=== PATIENT | female | born 1965 | race Caucasian/White ===

== ENCOUNTER 2021-09-07 13:00 | Outpatient (RCR) | payer MEDICARE, MEDICAID, SELFPAY ==
[2021-07-11 09:20] VITALS: BP_SYST 30; BP_SYST 50
[2021-07-11 10:15] VITALS: BMI 11.0
--- NOTE | 2021-07-11 10:25 | OTOPEVAL ---
OCCUPATIONAL THERAPY INITIAL EVALUATION 07/11/21 Thank you for referring Redd Sands to [facility].? The patient is scheduled to be seen for therapy? 2x/week for 4 weeks. Please review, sign, date and return this plan of care BRIAN. I agree with and certify that the following plan of care is medically necessary. Referring Physician Date Referring Provider: Natalia Juarez MD *OT Outpatient Evaluation Start: 07/11/21 09:12 Outpatient Past Medical History Neurological History Hx Multiple Sclerosis Yes Cardiovascular History Hx Cardiac Disorders No Significant History Respiratory History Hx Respiratory Disorders No Significant History Gastrointestinal History Hx Gastrointestinal Disorders No Significant History Genitourinary History Hx Other Genitourinary Disorders Yes: incontinence Musculoskeletal History Hx Orthopedic Surgery Yes: L knee arthroscopy Hematological History Hx Hematological Disorders No Significant History Endocrine History Hx Endocrine Disorders No Significant History HEENT History Hx HEENT Disorders No Significant History Integumentary History Hx Skin Disorders No Significant History Pain History History of Any Previous or Ongoing No Significant History Instance of Pain Evaluation Information Problem Diagnosis MS, weakness, hand splint Subjective Information Patient presents today for Query Text:As Reported By Patient/ outpatient OT for UB weakness Family and contractures. She is interested in right wrist splint to help support the wrist and fingers. Prior Level of Function Activity Level (Last 3 Months) Hand Dominance Right Activity of Daily Living Ability Needs Some Help Indoor/Home Mobility Needs Some Help Community Mobility Needs Some Help Stairs Ability Not-Applicable Cooking No Cleaning No Laundry No Shopping No Driving No Home Setting Home Type House Environmental Barriers Ramp Living Situation With Spouse Support Available Hired Assistance Cargiver Responsibilities Comment Caregiver M-F from 9-4. Mobility Assistive Devices (Used Last 3 Wheelchair, Motorized Months) Bathroom Environment Shower, Curtain Bathing Equipment Grab Bars Toileting Equipment Grab Bars,Raised Toilet Seat Comments Additional Prior Level of Function Patient has assist with Comments bathing, dressing, toileting, and transfers. She stands in the shower and reports that
--- NOTE | 2021-07-11 16:35 | PTOPEVAL ---
Thank you for referring Redd Sands to [facility].? The patient is scheduled to be seen for therapy 2 x/week for 4 weeks. Please review, sign, date and return this plan of care BRIAN. I agree with and certify that the following plan of care is medically necessary. Referring Physician Date Attending Provider: Natalia Juarez MD Evaluation Information Problem Diagnosis MS Onset 30 yrs Additional Evaluation Detail She has been in a power wc for 15 years Current wc, [employer] [facility] 3, is 2 years old. Provider is Meaghan. Cushion True-Comfort- general use cushion Subjective Information She is standing in the shower. Query Text:As Reported By Patient/ She has a choreworker 5x/wk, Family then to assist. She requires assistance with all ADL's and functional mobility. She performs pressure relief a few times a day. Compression pump for eliana LE daily. Pain Assessment Timing of Pain Assessment Timing of Pain Assessment Assessment Self Report Self Report Pain Level 0 Pain Score Pain Score 0: Self Report Lower Extremity Range of Motion Hip Range of Motion Left Hip Flexion Range of Motion - Passive 30 Hip Abduction Range of Motion - Passive 5 Right Hip Flexion Range of Motion - Passive 30 Hip Abduction Range of Motion - Passive 10 Knee Range of Motion Right Knee Flexion Range of Motion - Passive 60 Knee Extension Range of Motion - Passive 0 Left Knee Flexion Range of Motion - Passive 10 Knee Extension Range of Motion - Passive 0 Ankle/Foot Range of Motion Bilateral Ankle Dorsiflexion With Knee Extension -70 Ankle Plantarflexion Range of Motion - 70 Lower Extremity Muscle Strength Testing General Lower Extremity Strength Gross Lower Extremity Strength 0/5 eliana LE Lower Extremity Muscle Tone General Lower Extremity Tone Pattern Bilateral Synergy Type Extension Pattern General Lower Extremity Tone Functional Radha eliana LE's 4/4 Limitations Comments Transfer Assessment Wheelchair Transfer Assessment Wheelchair Transfer Assistive Devices Gait Belt Wheelchair Transfer Destination Mat Sit to Stand Wheelchair Transfer Ability Total Assistance X 2 Stand to Sit Wheelchair Transfer Ability Total Assistance X 2 Ability to Safely Transfer To/From a Total Assistance X 2 Wheelchair Bed Mobility Assessment Bed Mobility Overall Bed Mobility Ability Total Assistance X 2 Rolling Left Ability Total Assistance X 2 Rolling Right Ability Total Assistance X 2 Bridg
--- NOTE | 2021-07-18 13:30 | PCOTNOTE ---
Patient arrived to the clinic 2 hours early. Due to being ride dependent, she cancelled OT appointment this date.
--- NOTE | 2021-08-03 07:53 | PCOTNOTE ---
Patient cancelled today's tx session due to having cubital tunnel release on the left elbow on Saturday.
[2021-08-10 09:45] VITALS: BP_SYST 40; BP_SYST 80
--- NOTE | 2021-08-10 10:31 | OTOPEVAL ---
OCCUPATIONAL THERAPY RE-EVALUATION REPORT 08/10/21 Redd presents today for OT re-evaluation following 5 therapy sessions focused on improved UE flexibility and UE positioning. Patient's caregiver attended all sessions and verbalizes good understanding of ROM HEP. A custom resting hand splint was fabricated and issued for the right hand. The patient plans to continue to wear and work up her wear time with the splint. Recommending 1 follow up session in 4 weeks to check in on the splint and adjust/progress as needed. No follow ups necessary in the meantime. Thank you for referring Redd Sands to [facility].? The patient is scheduled to be seen for a final occupational therapy?re-evaluation on 09/07/21. Please review, sign, date and return this plan of care BRIAN. I agree with and certify that the following plan of care is medically necessary. Referring Physician Date Referring Provider: Natalia Juarez MD *OT Outpatient Re-Evaluation Start: 07/11/21 09:12 Problem Diagnosis MS Onset 30 years ago Subjective Information Redd reports improved Query Text:As Reported By Patient/ flexibility of bilateral UEs. Family She reports that she was able to wear the resting hand splint for about 1.5 hrs and plans to continue to work up to 2 hr wear time. She is happy with her splint and HEP. Caregiver is indep. with HEP. Pain Assessment Timing of Pain Assessment Timing of Pain Assessment Re-assessment Self Report Self Report Pain Level 0 Pain Score Pain Score 0: Self Report Upper Extremity Range of Motion Scapular/ Shoulder Range of Motion Left Shoulder Flexion - Active 0 Shoulder Flexion - Passive 40 Shoulder Extension - Active 0 Shoulder Extension - Passive 0 Shoulder Abduction - Active 0 Shoulder Abduction - Passive 40 Right Shoulder Flexion - Active 0 Shoulder Flexion - Passive 80 Shoulder Extension - Active 0 Shoulder Extension - Passive 20 Shoulder Abduction - Active 0 Shoulder Abduction - Passive 80 Elbow/Forearm Range of Motion Left Elbow Flexion - Active 0 Elbow Extension - Active 0 Elbow Extension - Passive -100 Elbow/Forearm Range of Motion Comments Left elbow passive extension improved 10* Right Elbow Flexion - Active 140 Elbow Extension - Active -55 Elbow Extension - Passive -40 Forearm Supination - Active -35 Forearm Supination - Passive 0 Forearm Pronation - Active 85 Wrist Range of Motion Left Wrist Flexion - Active 0 Wrist Extension - Active 0 Wrist Extension - Passive -10 Right Wrist Flexion - Active 65 Wrist E
--- NOTE | 2021-08-10 12:04 | PTOPEVAL ---
Physical Therapy Discharge Summary: Thank you for referring Redd Sands to [facility].? Therapy services completed for ROM program, caregiver training for HEP, seating assessment with [employer] with modification performed to WC. No additional skilled PT services required at this time. Will DC skilled PT services. Please review, sign, date and return this discharge summary BRIAN. I agree with and certify that the following plan of care is medically necessary. Referring Physician Date Attending Provider: Natalia Juarez MD Problem Diagnosis MS Onset 30 years ago Additional Evaluation Detail She has been in a power wc for 15 years Current , [facility] Edge 3, is 1 years old. Provider is Meaghan. Cushion True-Comfort- general use cushion Subjective Information She feel her right foot on the Query Text:As Reported By Patient/ foot plate better and stay on Family the foot plate longer. She feels she is more flexible and can stand longer. She likes the seat allen adjustment but not the sarahy stick changes pain in LE of 0/10 at rest and 7/10 with stretching. She is performing pressure relief at least every hour at home. Pain Assessment Self Report Self Report Pain Level 0 Pain Score Pain Score 0: Self Report Lower Extremity Range of Motion Hip Range of Motion Left Hip Flexion Range of Motion - Passive 40 Hip Abduction Range of Motion - Passive 5 Right Hip Flexion Range of Motion - Passive 70 Hip Abduction Range of Motion - Passive 20 Knee Range of Motion Right Knee Flexion Range of Motion - Passive 90 Knee Extension Range of Motion - Passive 0 Left Knee Flexion Range of Motion - Passive 18 Knee Extension Range of Motion - Passive 0 Therapy treatment/education Exercise Description - ed on f/u recommendations Query Text:Record Sets, Reps, for cont stretching program, Resistance, and Position consistent pressure relief and management of tone at home. - reviewed modifications recommended for [employer]. - adjusted sarahy stick handle back to original knob. Discussed options to improve UE function with joystick in current place vs changing back Adjusted seat belt position
--- NOTE | 2021-09-07 13:43 | PCOTNOTE ---
OCCUPATIONAL THERAPY DISCHARGE NOTIFICATION 09/07/21 Patient:Redd Sands Date of :1965 Patient has not returned for any further treatments since 08/10/2021, therefore she will be discharged at this time. She was re-assessed by OT on 08/10/21 and was independent with her HEP. She was just beginning to get into a schedule with wearing her new resting hand splint and we decided to give that a months time for her to get used to. Called the patient today who reports the splint is going well and she is noticing improvements with her hand. She denies any further OT needs. Please refer to progress note from 08/10/21 for most recent re-assessment update. Thank you for referring this patient to [facility]. Please review, sign, date and return this discharge summary BRIAN. I have been updated about the patient's current status and I agree with discharge from the above service at this time. Referring Physician Date Referring Provider: Natalia Juarez MD
== END 2021-09-08 09:02 | disposition home or self-care (01) ==
LOC: ANHOT 13:00
PROVIDERS: PCP Family Medicine; Visit Provider Family Medicine
DX: M62.81 Muscle weakness (generalized) (principal); M79.603 Pain in arm, unspecified; G35 Multiple sclerosis
CPT/HCPCS: 97110; 97140; 97163; 97165; 97530; L3806

== ENCOUNTER 2021-10-25 12:30 | Outpatient (RCR) | payer MEDICARE, MEDICAID, SELFPAY ==
--- NOTE | 2021-10-02 14:47 | PTOPEVAL ---
PHYSICAL THERAPY EVALUATION AND PLAN OF CARE 10-02-21 Thank you for referring Redd Sands to [facility] for the diagnosis of lymphedema. She is scheduled to be seen for therapy? 2 x/week for 4 weeks. Please review, sign, date and return this plan of care BRIAN. I agree with and certify that the following plan of care is medically necessary. Referring Physician Date Attending Provider: Natalia Juarez MD *PT Outpatient Evaluation Past Medical History Source of Past Medical History Recalled from Previous Visit, Confirmed with Patient/Family Neurological History Hx Multiple Sclerosis Yes: 30 yrs Cardiovascular History Hx Cardiac Disorders No Significant History Respiratory History Hx Respiratory Disorders No Significant History Gastrointestinal History Hx Gastrointestinal Disorders No Significant History Genitourinary History Hx Other Genitourinary Disorders Yes: incontinence Musculoskeletal History Hx Orthopedic Surgery Yes: L knee arthroscopy; L elbow surgery- nerve release Hematological History Hx Hematological Disorders No Significant History Endocrine History Hx Endocrine Disorders No Significant History HEENT History Hx HEENT Disorders No Significant History Integumentary History Hx Skin Disorders No Significant History Pain History History of Any Previous or Ongoing No Significant History Instance of Pain Evaluation Information Problem Diagnosis lymphedema Onset Aug Prior Level of Function Activity Level (Last 3 Months) Occupation disabled Hand Dominance Right Home Setting Home Type House Living Situation With Spouse Mobility Assistive Devices (Used Last 3 Wheelchair, Motorized Months) Comments Additional Prior Level of Function use motorized w/c with R hand Comments sarahy stick; require assist of one for stand pivot bed<> w/c; is up in w/c all day long and sometimes sleep in the w/c; requires assist with bathing/ dressing, all home tasks; have hired helper assistance and family assist; is home alone 2-4 hours at time; Pain Assessment Timing of Pain Assessment Timing of Pain Assessment Assessment Self Report Self Report Pain Level 0 Pain Score Pain Score 0: Self Report Lower Extremity Range of Motion General Lower Extremity Range of Motion Gross Lower Extremity Range of Motion pt in w/c: Comments R LE: position R ankle in PF of 40' and inver
--- NOTE | 2021-10-25 13:36 | PTOPEVAL ---
PHYSICAL THERAPY DISCHARGE 10-25-21 Refer to the clinical summary below, for her status today, compared to the initial evaluation. The goals were achieved and she will be discharged from PT at this time. Thank you for referring Redd Sands to [facility].? Please review, sign, date and return BRIAN. I agree with and certify that the following plan of care is medically necessary. Referring Physician Date Attending Provider: Natalia Juarez MD Document 10/25/21 12:35 AMY (Rec: 10/25/21 13:32 AMY [id number]) Subjective Information Redd reports: to receive Query Text:As Reported By Patient/ garment in next few days; feel Family like ready to be finished with PT; Pain Assessment Timing of Pain Assessment Timing of Pain Assessment Assessment Self Report Self Report Pain Level 0 Pain Score Pain Score 0: Self Report Lymphedema Evaluation Skin Inspection Location Left Lower Extremity,Right Lower Extremity Skin Observations Dorsum Foot Swelling Palpation Findings Cool Skin Temperature Lymphedema Stage I Skin Inspection Comment R and L lower leg without any fibrotic tissue; malleoli visible and no swelling over dorsum of foot or toes; L lower leg with brownish discoloration of skin, with ankle and foot/toes normal color; knee and thigh good skin color; LE Circumferential Measurement Left LE Lymphedema Side Left Metatarsal Heads (cm) 20.8 Figure 8 of Ankle (cm) 51.8 8 cm From Bottom of Foot (cm) 25 12 cm From Bottom of Foot (cm) 22.4 16 cm From Bottom of Foot (cm) 23.8 20 cm From Bottom of Foot (cm) 27.4 24 cm From Bottom of Foot (cm) 31.4 28 cm From Bottom of Foot (cm) 35 32 cm From Bottom of Foot (cm) 36 36 cm From Bottom of Foot (cm) 35.6 40 cm From Bottom of Foot (cm) 36.2 Total Left Lower Extremity Left LE: 345.4 cm Circumferential Measurement (cm) Additional Lower Extremity decreased 68 cm overall since Circumferential Measurement Comments eval. Right LE Lymphedema Side Right Metatarsal Heads (cm) 20 Figure 8 of Ankle (cm) 52 8 cm From Bottom of Foot (cm) 25.4 12 cm From Bottom of Foot (cm) 23 16 cm From Bottom of Foot (cm) 24.5 20 cm From Bottom of Foot (cm) 26.8 24 cm From Bottom of Foot (cm) 31.2 28 cm From Bottom of Foot (cm) 34 32 cm From Bottom of Foot (cm) 35 36 cm From Bottom of Foot (cm) 35.2 40 cm From Bottom of
== END 2021-10-26 16:04 | disposition home or self-care (01) ==
LOC: ANHPT 12:30
PROVIDERS: PCP Family Medicine; Visit Provider Family Medicine
DX: Q82.0 Hereditary lymphedema (principal); G35 Multiple sclerosis
CPT/HCPCS: 29581; 97140; 97161

== ENCOUNTER 2021-11-21 11:38 | Inpatient (IN) | payer MEDICARE, MEDICAID, SELFPAY ==
[2021-11-21] VITALS (21 sets, daily range): BP systolic 148–177; BP diastolic 66–95; PULSE 77–87; RESP 14–22; TEMP 36.3–37; O2SAT 79–100; BMI 31.4
--- NOTE | ~2021-11-21 | US_ITS ---
EXAMINATION: US abdomen limited DATE: 11/21/2021 16:25 INDICATION: Right upper quadrant abdominal pain. TECHNIQUE: Multiple grayscale and Doppler ultrasound images of the abdomen were obtained. COMPARISON: CT dated 11/21/2021 and ultrasound dated 06/26/2018 FINDINGS: The visualized portion of the pancreatic body is normal in appearance. The pancreatic head and tail a re not clearly visualized. Liver has normal echogenicity and contour, with a smooth surface. No liver lesion identified. . The liver was however relatively high riding and portions of the dome of the li deep are not clearly visualized. No intrahepatic biliary duct dilation suspected. Portal venous flow w as seen in the hepatopetal, normal direction and has normal Doppler waveform. There is a relatively h omogeneous hypoechoic appearance to the gallbladder with multiple foci of heterogeneous color Doppler signal within the lumen of the gallbladder. On cine color Doppler this has an appearance most consis tent with twinkle artifact. No evident arterial waveforms with the color Doppler signal. Paravertebra l venous waveform identified within the region of interest was placed near the wall of the gallbladde r. No evident shadowing cholelithiasis. The common bile duct measures 6 mm, which is at the upper villagomez its of normal. IMPRESSION: 1. Gallbladder lumen is hypoechoic with foci of intraluminal heterogeneous color Doppler signal. Base d on color Doppler appearance and lack of an arterial waveform would favor typical artifact related t o cholesterol crystals and sludge within the gallbladder over solid intraluminal neoplasm. Visualizat ion is however suboptimal with high riding liver and gallbladder necessitating imaging through an int ercostal space. Given the suspicious appearance for acute cholecystitis on prior CT could consider HI DA scan for further evaluation if clinically equivocal. MRI/MRCP could be obtained for more definitiv e assessment of the lumen of the gallbladder to exclude malignancy. Reviewed, dictated and finalized at location B. IMPRESSION: 1. Gallbladder lumen is hypoechoic with foci of intraluminal heterogeneous colo r Doppler signal. Based on color Doppler appearance and lack of an arterial wav eform would favor typical artifact related to cholesterol crystals and sludge w ithin the gallbladder over solid intraluminal neoplasm. Visualization is howeve r suboptimal with high riding liver and gallbladder necessitating imaging throu gh an intercostal space. Given the suspicious appearance for acute cholecystiti s on prior CT could consider HIDA scan for further evaluation if clinically equ ivocal. MRI/MRCP could be obtained for more definitive assessment of the lumen of the gallbladder to exclude malignancy.
--- NOTE | ~2021-11-21 | CT_ITS ---
EXAMINATION: CT abdomen pelvis w con DATE: 11/21/2021 13:37 INDICATION: Right lower quadrant abdominal pain TECHNIQUE: Computed tomography (CT) of the abdomen and pelvis was performed with 100 mL Omnipaque-350 intravenous contrast. Automated exposure control and iterative reconstruction technique were employe d. The dose-length product was 1211.55 mGy-cm. COMPARISON: None FINDINGS: Small posterior layering right pleural effusion. Dependent atelectasis in the bilateral lower lobes, right greater than left. Heart size is normal. Atherosclerotic coronary artery calcification. No olaf cardial effusion. Small sliding-type hiatal hernia. 1.2 cm cyst at the dome of the liver. Gallbladder is distended with pericholecystic inflammatory stranding in small amount of fluid suspicious for acu te cholecystitis. The common bile duct measures up to 7 mm diameter which is at the upper limits of n ormal. No evident obstructing stone or mass at the distal common bile duct. No intrahepatic biliary d uctal dilation. Pancreas, spleen, bilateral adrenal glands and kidneys are normal. Bladder is normal. Bowels including the appendix are normal uterus and bilateral ovaries are unremarkable. Likely tubal ligation rings along the left and right sides of the broad ligament. Additional small amount of asci odette extends over the anterior dome of the liver. No abscess or free intraperitoneal gas. There is shanique cified atherosclerosis of the aorta and bilateral iliac arteries. Mild lumbar levoscoliosis with mod erate spondylosis. Is also mild to moderate bilateral hip osteoarthritis. Osteitis pubis. IMPRESSION: 1. Acute cholecystitis with small amount of perihepatic and pericholecystic ascites. 2. Small right pleural effusion. Reviewed, dictated and finalized at location B. IMPRESSION: 1. Acute cholecystitis with small amount of perihepatic and pericholecystic asc ites. 2. Small right pleural effusion.
--- NOTE | ~2021-11-21 | XR_ITS ---
EXAMINATION: XR chest 1V portable EXAM DATE: 11/25/2021 10:07 INDICATION: New onset hypoxia. TECHNIQUE: Portable AP frontal chest x-ray was obtained. Comparison is made to prior examination from 07/30/2016. FINDINGS: There is multi segmental right lower lobe and left infrahilar airspace disease, with volume loss on the right. There is small right pleural effusion. Consider pneumonia and/or atelectasis. Wou ld be atypical for cancer to involve both lungs. Cholecystectomy clips. No pneumothorax. Cardiomedias tinal silhouette is normal. IMPRESSION: Multisegmental bibasilar airspace disease with right-sided volume loss, pneumonia and/or atelectasis. Small right pleural effusion. Follow-up to resolution recommended. Reviewed, dictated and finalized at location A.
--- NOTE | ~2021-11-21 | MR_ITS ---
EXAMINATION: MR MRCP wo/w con/w 3D wo ind DATE: 11/22/2021 15:59 INDICATION: Elevated liver function tests. TECHNIQUE: Magnetic resonance imaging (MRI) of the abdomen was performed without and with 17 mL Multi james intravenous contrast. Sequences included coronal T2-weighted SS-FSE, coronal T2-weighted FS SS- FSE, coronal T2-weighted FS FIESTA, axial T2-weighted FS FIESTA, axial T2-weighted FIESTA, sagittal T 2-weighted SS-FSE, axial T1-weighted dual-echo FSPGR, axial T2-weighted SS-FSE, axial T1-weighted LAV A, axial T2-weighted STIR FSE. Thick-slab T2-weighted FSE images were obtained for magnetic resonance cholangiopancreatography (MRCP). Rotating maximum intensity projection 3-D reconstructions of the vo lumetric data were created by the technologist. Postcontrast sequences included a time course of axia l T1-weighted LAVA. COMPARISON: CT and ultrasound dated 11/21/2021 FINDINGS: ABDOMEN MRI: Heart size is normal. No pericardial effusion. Small right pleural effusion and trace left pleural ef fusion with compressive dependent atelectasis in the right middle and to lesser degree left lower lob e. 11 mm nonenhancing cyst at the anterior left hepatic lobe. Mild periportal edema throughout the li deep. Dilated gallbladder measuring approximately 14.5 cm in length and 4.1 cm maximal diameter. Multi ple low signal intensity gallstones and hypointense sludge in the dependent aspect of the gallbladder . Likely impacted 6 mm stone at the neck of the gallbladder. There is enhancing wall thickening of th e gallbladder measuring up to 3-4 mm but no solid enhancing nodules to suggest malignancy. There is a lso prominent pericholecystic inflammatory stranding consistent with acute cholecystitis. Pancreas, s pleen, bilateral adrenal glands are normal. Bilateral parapelvic cysts at the otherwise normal-appear ing kidneys. There is small amount of ascites scattered throughout the abdomen and pelvis most promin ent and with complex appearance with multiple internal septations and heterogeneous signal intensity overlying the liver. The next largest pocket is still relatively small in the right hemipelvis with a dditional small amount of fluid scattered throughout the mesentery. Stranding at the melanie hepatis, a bout the head of the pancreas and extending caudally along the right anterior and posterior pararenal spaces. Additional subcutaneous edema posterior to the lumbar spine. No pathologically enlarged abdo jonelle lymphadenopathy. Mild lumbar levocurvature with mild spondylosis. ABDOMEN MRCP: No intrahepatic biliary ductal dilation. The common bile duct measures 6 mm diameter which is within normal limits. No filling defects identified to suggest choledocholithiasis. The main pancreatic duct is normal. IMPRESSION: 1. Acute cholecystitis with sludge and stones including a 6 mm likely impacted stone at the neck of t he gallbladder. 2. Borderline common bile duct diameter of 6 mm with no intrahepatic biliary ductal dilation or evide nt choledocholithiasis. 3. Complex perihepatic ascites with small amounts of more diffuse simple appearing ascites and the re mainder of the abdomen and pelvis. The complex appearance suggests associated inflammation either rel ated to superinfection or hemorrhage. 4. Small right and trace left pleural effusions with dependent atelectasis in the lower lobes, right greater than left. Reviewed, dictated and finalized at location B. IMPRESSION: 1. Acute cholecystitis with sludge and stones including a 6 mm likely impacted stone at the neck of the gallbladder. 2. Borderline common bile duct diameter of 6 mm with no intrahepatic biliary du ctal dilation or evident choledocholithiasis. 3. Complex perihepatic ascites with small amounts of more diffuse simpl
--- NOTE | 2021-11-21 12:04 | ED.ABDPAIN ---
HPI - Abdominal Pain General Chief Complaint: Abdominal Pain Stated Complaint: RUQ and R flank pain Time Seen by Provider: 11/21/21 12:01 Source: patient and family Mode of arrival: EMS Limitations: no limitations History of Present Illness HPI narrative: The patient is a 56-year-old female with a history of multiple sclerosis, lymphedema, presenting to the emergency department for evaluation of right lower quadrant abdominal pain. Pain awakened the patient suddenly around 2:30 in the morning, described as a sharp, burning pain in the right lower quadrant without radiation to the right flank or lower pelvis. Patient denies any associated chest pain, shortness of breath. She denies fever, chills, nausea or vomiting. Patient states she is incontinent of urine, has not noticed malodorous urine or hematuria. No burning urination. She denies any diarrhea. Patient denies any recent diagnosis of Covid. States that she did have a general viral cold last week. Denies any lingering symptoms from that. Denies history of abdominal surgeries. Last oral intake last night around 9 PM. Patient does take anticoagulation. Related Data Allergies Allergy/AdvReac Type Severity Reaction Status Date / Time doxycycline Allergy Unknown Rash Verified 07/17/21 12:02 Review of Systems Review of Systems: CONSTITUTIONAL: Denies fever, chills, or sweats. EYES: Denies visual changes, redness, or discharge. ENT: Denies current rhinorrhea, congestion, sore throat, or otalgia. CARDIOVASCULAR: Denies chest pain, palpitations, or edema. RESPIRATORY: Denies cough or dyspnea. GASTROINTESTINAL: Reports abdominal pain without nausea, vomiting or diarrhea GENITOURINARY: Denies dysuria or hematuria. SKIN: Denies rash or itching. MUSCULOSKELETAL: Denies back pain, joint pain, or myalgia. NEUROLOGIC: Denies headache, numbness, or weakness. [facility] Past Medical History Medical History Candidal skin infection Complete immobility due to severe physical disability or frailty Depression Lymphedema MS (multiple sclerosis) Paresthesia of left upper extremity Vitamin D deficiency Surgical History Surgical History History of surgery on upper extremity History of tubal ligation Family History Family History Other Family history of coronary artery disease Family history of malignant neoplasm of breast in first degree relative Social History Social History Social History: The patient lives at home with her , Casey, and is primarily bedbound. She requires assistance to get to a powered wheelchair when needed for mobility. Second hand tobacco smoke exposure: No Alcohol intake: never Substance use: never Substance use type: does not use Living arrangements: with family Additional occupation/education comments: Disability Gender identity (if verbalized by the patient): Female Exam Narrative: GENERAL: Awake, alert, conversant HEAD: Normocephalic, atraumatic. EYES: PERRLA and EOMI. ENT: Nares clear, no rhinorrhea or epistaxis. Mucous membranes moist. NECK: Supple. CHEST: No respiratory distress, breathing even and non labored HEART: Regular rate, sinus rhythm ABDOMEN:Non distended, tender in the right lower quadrant, positive rebound tenderness, guarding limited secondary to chronic contractures of the upper extremities, denies flank tenderness EXTREMITIES: Chronic contractures bilateral upper and lower extremities, at baseline per the patient SKIN: Warm, dry, no rash. NEURO:No focal deficits. Alert and oriented x3 Course Vital Signs Vital signs: Vital Signs Pulse Rate 80 11/21/21 11:44 Respiratory Rate 19 11/21/21 11:44 Temperature 36.3 C L 11/21/21 15:47 Pulse Rate 83 11/21/21 15:47 Respiratory
[2021-11-21] MEDS: ONDANSETRON INJ 4 MG/2 ML VIAL IV PUSH ×2 (12:43→18:22)
[2021-11-21] MEDS: SODIUM CHLORIDE 0.9% IV 1,000 ML 999 ML IV CONT (12:44)
[2021-11-21 12:56] LABS: Basophils Absolute Auto 0.1 K/mm3 (0.0-0.1); Basophils Percent Auto 0.3 % (0.2-1.2); Eosinophils Absolute Auto 0.4 K/mm3 (0-0.3); Eosinophils Percent Auto 2.7 % (0-4.4); Hematocrit 45.5 % (37.0-47.0); Hemoglobin 14.8 g/dL (12.0-15.0); Immature Granulocyte Absolute 0.07 K/mm3 (0.00-0.031); Immature Granulocyte Percent A 0.4 % (0-0.5); Lymphocytes Absolute Auto 2.15 K/mm3 (0.9-3.2); Lymphocytes Percent Auto 13.7 % (18.3-44.2); Mean Corpuscular HGB Conc 32.5 g/dl (32-36); Mean Corpuscular Hemoglobin 31.2 pg (26-34); Mean Platelet Volume 10.7 fl (7.4-10.4); Monocytes Absolute Auto 1.6 K/mm3 (0.1-0.6); Monocytes Percent Auto 10.2 % (2.6-8.5); Neutrophils Absolute Auto 11.4 K/mm3 (1.3-6.7); Neutrophils Percent Auto 72.7 % (45.5-73.1); Platelet Count Result 289 k/mm3 (150-375); Red Blood Count 4.74 M/mm3 (4.2-5.4); Red Cell Distribution Width 13.8 % (11.5-14.5); White Blood Count 15.7 K/mm3 (4.5-10.0)
[2021-11-21 13:20] LABS: Alanine Aminotransferase 19 U/L (4-35); Albumin Level 4.3 g/dL (3.5-5.1); Alkaline Phosphatase 78 U/L (38-126); Anion Gap 9 mmol/L (8-16); Aspartate Amino Transferase 33 U/L (14-36); Bilirubin,Total 1.1 mg/dL (0.2-1.3); Blood Urea Nitrogen 19 mg/dL (7-17); Calcium 8.9 mg/dL (8.4-10.2); Carbon Dioxide 24 mmol/L (22-30); Chloride 102 mmol/L (98-107); Estimated Glomerular Filt Rate 57; Glucose 109 mg/dL (65-110); Lipase 40 U/L (23-300); Potassium 4.7 mmol/L (3.4-5.0); Sodium 135 mmol/L (137-145)
[2021-11-21 15:42] LABS: Add Urine Microscopic? YES; Appearance Urine Cloudy (Clear); Bacteria Urine Trace /hpf; Bilirubin Urine Negative (Negative); Blood Urine 2+ (Negative); Color Urine Yellow (Yellow); Glucose Urine UA Negative (Negative); Ketones Urine 1+ mg/dL (Negative); Leukocyte Esterase Ur Negative LEU/UL (Negative); Mucus Urine Rare /lpf; Nitrate Urine Negative (Negative); Protein Urine Negative (Negative); RBC Urine 51-75 /hpf (0-2); Squamous Epithelial Cell Urine Many /hpf (Few); WBC Urine 0-3 /hpf
--- NOTE | 2021-11-21 15:49 | PM.CNGS ---
Assessment and Plan Assessment and plan (1) Acute cholecystitis: Code(s): K81.0 - Acute cholecystitis Status: Acute Assessment and Plan: CT scan suggests possible acute cholecystitis with gallbladder distention and pericholecystic inflammatory stranding in a small amount of fluid, but no visible cholelithiasis. WBC count 15,700 and LFTs were normal. Since there were no gallstones seen on CT, we will also order a gallbladder ultrasound. It is less likely, but it is possible that she has acute acalculous cholecystitis. Will await US results. Patient's pain has improved but still persistent. I discussed treatment options with the patient. Given her persistent abdominal pain and leukocytosis, we would recommend proceeding with a laparoscopic cholecystectomy, possible open, possible IOC, by Dr. Le under general anesthesia. Description of the procedure, risks, benefits, expected outcomes, and expected recovery were discussed with the patient in detail. The patient is at a higher risk for surgery given her co-morbidities, immobility, and anticoagulation. She is aware and all questions were answered. She last took her Eliquis this morning around 9:00 am, therefore we would prefer to wait and schedule the surgery at least 48 hours after her last dose to allow the anticoagulation time to wear off. Will continue IV Zosyn and analgesics for now. Will allow a full liquid diet today. Thank you for allowing us to see the patient in consultation and we will continue to follow along with you. (2) MS (multiple sclerosis): Code(s): G35 - Multiple sclerosis Status: Acute Assessment and Plan: Increases risks for surgery. Discussed with patient. See plan above. (3) Lymphedema: Code(s): I89.0 - Lymphedema, not elsewhere classified Status: Acute Assessment and Plan: She typically takes spironolactone for her swelling and lymphedema. She currently only has mild edema in her lower legs and no open sores associated with the lymphedema in her lower legs. Monitor. (4) Depression: Code(s): F32.9 - Major depressive disorder, single episode, unspecified Status: Acute Assessment and Plan: Okay to resume home medications from our standpoint since surgery will be held off until her anticoagulation has worn off. Management per Hospitalist. (5) Complete immobility due to severe physical disability or frailty: Code(s): R53.2 - Functional quadriplegia Status: Acute Assessment and Plan: Discussed with the patient that she is at higher risks of post-operative complications with her immobility/M.S.. She understands and agrees to working towards using the IS and complying with any activity that is possible at her baseline to help prevent pneumonia and blood clots post-operatively. (6) Anticoagulant long-term use: Code(s): Z79.01 - nursing home (current) use of anticoagulants Status: Acute Assessment and Plan: Reportedly takes Eliquis prophylactically for blood clots due to her immobility with MS. She last took a dose around 9:00 am. Hold Eliquis for now to plan for surgery. Additional Plan I have discussed the patient's case and plan of care with Dr. Le. History of Present Illness Consult details Consult date: 11/21/21 Reason for consult: other (Acute cholecystitis) Requesting physician: Agata Alas MD Narrative: This is a 56-year-old female with a history of multiple sclerosis, hypothyroidism, lymphedema, and depression, who presented to the ER today with complaints of RUQ abdominal pain. She reports eating pizza last night for dinner and going to bed feeling well. She woke up from sleep around 2:30 am with severe RUQ abdominal pain that radiated to her mid upper back. The pain was sharp and she denies ever experiencing this pain in the past. She denies any associated nausea, vomiting, or chills. The pain was unrelenting and they called EMS who brought her into the ER f
[2021-11-21 15:52] LABS: Specific Grav Ur 1.036 (1.001-1.035)
[2021-11-21] MEDS: LACTATED RINGERS 1,000 ML 125 ML IV CONT (16:55)
--- NOTE | 2021-11-21 17:16 | ADMGEN ---
This patient, Redd Sands, was admitted to [facility] Surg Room 327-01 at 1710. Patient/family oriented to hospital policies and general routines including ID bracelet, bed and alarms, visiting hours, pain management, procedures, bathroom and other care routines, personal items, smoking policy, room service/diet, and visiting hours. Information on how to activate the Rapid Response Team has been discussed. Patient/Family are encouraged to report perceived risks to care and to ask questions if they do not understand what they are told or what they should do.
--- NOTE | 2021-11-21 18:00 | PM.IMHP ---
H&P: HPI History of Present Illness Date/Time: 11/21/21 18:00 Chief Complaint: Abdominal pain. Narrative: This is a very pleasant 56-year-old female with multiple sclerosis, hypothyroidism, lymphedema, and depression who presented to the emergency department from home for evaluation of abdominal pain. She had pizza for dinner last night and went to bed in her usual state of health. At about 02:30 she was awakened from sleep with severe sharp and burning pain in the right upper quadrant, radiating through to the back. It has been nearly constant since the outset and she denies significant aggravating or alleviating factors. On arrival to the emergency department her vital signs were stable. Pertinent labs include a white blood cell count of 15.7 with normal LFTs and lipase. CT scan of the abdomen and pelvis suggest findings of acute cholecystitis and she is being admitted in this setting. At the onset of my interview she was pretty comfortable however the pain returns pretty significantly and she was given morphine and Zofran for the pain and associated nausea. She has never had similar symptoms in the past and has no known history of gallbladder disease. She denies fever, chills, sweats, vomiting, and diarrhea. Review of Systems Review of Systems: Twelve systems were reviewed. She has pretty significant debility due to her multiple sclerosis and gets around with an electric scooter. Due to contracted upper extremities and very stiff lower extremities her family provide her with full assistance. She is chronically incontinent and wears depends. She denies dysuria, frequency, and hesitancy. Last bowel movement was within the last day or 2 and was unremarkable. No history of venous thromboembolism however she is on prophylactic Eliquis to help prevent DVTs. No history of cardiac or pulmonary disease. She denies chest pain shortness of breath. Reports having a cold last week but her symptoms have improved. Except as documented, all other systems were reviewed and are negative. [facility] Past Medical History Medical History (Updated 11/21/21 @ 22:31 by Stephanie Garcia PA-C) Anticoagulant long-term use On apixaban for DVT prophylaxis. Complete immobility due to severe physical disability or frailty Depression Lymphedema Multiple sclerosis Vitamin D deficiency Surgical History Surgical History History of surgery on upper extremity History of tubal ligation Family History Family History Other Family history of coronary artery disease Family history of malignant neoplasm of breast in first degree relative Social History Social History (Updated 11/21/21 @ 22:28 by Stephanie Garcia PA-C) Social History: The patient lives at home with her , Casey, and is primarily bedbound. She requires assistance to get to a powered wheelchair when needed for mobility. No alcohol, tobacco, or illicit substance use. She designates her as her surrogate decision maker and she wishes to be a full code. Spiritual care concerns: No Meds Home Medications and Allergies Home Medications Medication Instructions Recorded Confirmed Type pyridoxine (vitamin B6) 100 mg 100 mg PO DAILY #100 tablet 03/14/21 11/21/21 Rx tablet tramadol 50 mg tablet 50 mg PO Q6H PRN #30 tablet 04/13/21 11/21/21 Rx spironolactone 25 mg tablet 50 mg PO BID #360 tablet 08/23/21 11/21/21 Rx omeprazole 40 mg capsule,delayed 40 mg PO BID #180 cap 08/25/21 11/21/21 Rx release levothyroxine 50 mcg tablet See Rx Instructions .ROUTE 09/02/21 11/21/21 Rx .COMPLEX #90 tablet bupropion HCl 150 mg 24 hr tablet, 450 mg PO QAM #90 tablet 09/03/21 11/21/21 Rx extended release aripiprazole 2 mg tablet 2 mg PO QHS #30 tablet 09/27/21 11/21/21 Rx apixaban 5 mg tablet 5 mg PO BID #60 tablet 10/27/21 11/21/21 Rx baclofen 30 mg PO DAILY 11/21/21 11/21/21 Hist
[2021-11-21] MEDS: MORPHINE SULFATE (*CRX) 4 MG/ML INJ IV PUSH ×2 (18:22→22:32)
[2021-11-22] MEDS: BACLOFEN 10 MG TABLET 30 MG PO ×2 (00:26→20:15)
[2021-11-22] MEDS: ARIPiprazole 2 MG TABLET PO ×2 (00:28→20:15)
[2021-11-22] MEDS: LACTATED RINGERS 1,000 ML 125 ML IV CONT ×3 (03:52→23:05)
[2021-11-22] MEDS: LEVOTHYROXINE SODIUM 50 MCG TABLET BY MOUTH (05:41)
[2021-11-22 06:00] VITALS: BP 157/99; PULSE 78; RESP 18; TEMP 36.8; O2SAT 94
[2021-11-22 06:30] LABS: Basophils Absolute Auto 0.1 K/mm3 (0.0-0.1); Basophils Percent Auto 0.3 % (0.2-1.2); Hematocrit 48.6 % (37.0-47.0); Hemoglobin 16.2 g/dL (12.0-15.0); Immature Granulocyte Absolute 0.13 K/mm3 (0.00-0.031); Immature Granulocyte Percent A 0.6 % (0-0.5); Lymphocytes Absolute Auto 1.54 K/mm3 (0.9-3.2); Lymphocytes Percent Auto 7.2 % (18.3-44.2); Mean Corpuscular HGB Conc 33.3 g/dl (32-36); Mean Corpuscular Volume 93.1 fl (80-100); Mean Platelet Volume 10.4 fl (7.4-10.4); Monocytes Absolute Auto 1.7 K/mm3 (0.1-0.6); Monocytes Percent Auto 7.8 % (2.6-8.5); Neutrophils Percent Auto 84.1 % (45.5-73.1); Platelet Count Result 312 k/mm3 (150-375); Red Blood Count 5.22 M/mm3 (4.2-5.4); Red Cell Distribution Width 13.6 % (11.5-14.5); White Blood Count 21.4 K/mm3 (4.5-10.0)
[2021-11-22 06:51] LABS: Alanine Aminotransferase 38 U/L (4-35); Albumin Level 3.6 g/dL (3.5-5.1); Alkaline Phosphatase 79 U/L (38-126); Anion Gap 8 mmol/L (8-16); Aspartate Amino Transferase 60 U/L (14-36); Bilirubin,Total 1.7 mg/dL (0.2-1.3); Blood Urea Nitrogen 17 mg/dL (7-17); Calcium 8.3 mg/dL (8.4-10.2); Carbon Dioxide 21 mmol/L (22-30); Chloride 104 mmol/L (98-107); Estimated CRCL calculation 65 ml/min; Estimated Glomerular Filt Rate > 60; Glucose 158 mg/dL (65-110); Lipase 29 U/L (23-300); Sodium 133 mmol/L (137-145)
[2021-11-22] MEDS: buPROPion HCL XL (24 HR) 150 MG TABCR 450 MG PO (09:23)
[2021-11-22] MEDS: CITALOPRAM HYDROBROMIDE 20 MG TABLET 40 MG PO (09:23)
[2021-11-22] MEDS: PANTOPRAZOLE 40 MG TABLET PO ×2 (09:24→16:59)
[2021-11-22] MEDS: PYRIDOXINE HCL 50 MG TABLET 100 MG PO (09:24)
--- NOTE | 2021-11-22 10:03 | PM.IMPN ---
Progress Note: A&P Assessment and Plan (1) Acute cholecystitis: Code(s): K81.0 - Acute cholecystitis Status: Acute Assessment and Plan: Surgery consult Patient on Eliquis surgery will be postponed Possible surgical intervention in a.m. Leukocytosis worsening Check lactic acid. (2) Multiple sclerosis: Code(s): G35 - Multiple sclerosis Status: Acute Assessment and Plan: Not currently on treatment but is on medications for symptom relief. She is bed bound but can get into a scooter with help from her family. (3) Lymphedema: Code(s): I89.0 - Lymphedema, not elsewhere classified Status: Acute Assessment and Plan: Patient reports taking spironolactone for her swelling. Continue for now as her blood pressures are also elevated, likely due to pain. (4) Anticoagulant long-term use: Code(s): Z79.01 - senior care (current) use of anticoagulants Status: Chronic Assessment and Plan: Apixaban prescribed for reported DVT prophylaxis is being held in anticipation of surgery. But patient is on therapeutic dose for DVT 5 mg twice a day PCP to address as out pain Resume once okay per surgery (5) Depression: Code(s): F32.9 - Major depressive disorder, single episode, unspecified Status: Acute Assessment and Plan: No acute issues. Continue aripiprazole. Subjective Date/time seen: 11/22/21 10:03 Interval history: 56-year-old female with multiple sclerosis, hypothyroidism, lymphedema, and depression who presented to the emergency department from home for evaluation of abdominal pain CT scan of the abdomen shows cholecystitis Patient was admitted to the hospital for further evaluation the surgery was consulted Patient feels weak complains of abdominal pain Patient denies fever headache chest pain shortness of breath I am seeing the patient for abdominal pain Exam Narrative: Alert Chest no wheeze crackles Abdomen tender no rebound no guarding CVS S1 + S2 Mild Lower extremity edema Quadriparesis Objective Data Vital Signs Vital Signs: Vital Signs - 24 hr 11/21/21 11:44 11/21/21 11:45 11/21/21 11:46 Temperature Pulse Rate 80 81 78 Respiratory Rate 19 22 H 20 Blood Pressure 154/87 H Pulse Oximetry 89 L 91 11/21/21 11:48 11/21/21 12:03 11/21/21 12:23 Temperature 98.3 F Pulse Rate 78 77 79 Respiratory Rate 16 14 19 Blood Pressure 154/87 H Pulse Oximetry 96 94 96 11/21/21 12:31 11/21/21 13:06 11/21/21 13:15 Temperature Pulse Rate 80 80 83 Respiratory Rate 19 17 17 Blood Pressure 148/78 H Pulse Oximetry 96 94 96 11/21/21 13:49 11/21/21 14:08 11/21/21 14:09 Temperature Pulse Rate 87 85 86 Respiratory Rate 20 22 H 21 H Blood Pressure 160/95 H Pulse Oximetry 91 89 L 93 11/21/21 14:15 11/21/21 14:30 11/21/21 14:45 Temperature Pulse Rate 84 85 85 Respiratory Rate 18 17 17 Blood Pressure Pulse Oximetry 91 79 L 92 11/21/21 15:47 11/21/21 16:30 11/21/21 18:00 Temperature 97.3 F L 97.3 F L Pulse Rate 83 82 Respiratory Rate 16 16 Blood Pressure 166/86 H 152/66 H Pulse Oximetry 100 96 94 11/21/21 18:11 11/21/21 20:00 11/21/21 21:52 Temperature 97.9 F 98.6 F Pulse Rate 77 87 87 Respiratory Rate 19 18 18 Blood Pressure 177/88 H 154/82 H Pulse Oximetry 94 90 90 11/22/21 06:00 Temperature 98.3 F Pulse Rate 78 Respiratory Rate 18 Blood Pressure 157/99 H Pulse Oximetry 94 Intake/Output Intake/Output: Intake & Output 11/19/21 11/20/21 11/21/21 11/22/21 23:59 23:59 23:59 23:59 Intake Total 1200 1050 Output Total 2 Balance 1200 1048 Meds/Results Medications: Active Medications Generic Name Dose Route Start Last Admin Trade Name Freq PRN Reason Stop Dose Admin Hydrocodone Bitart/Acetaminophen 1 tab 11/21/21 20:01 Hydrocodone/Acetaminophen (*Crx) 5-325 Mg Tablet PO Q6H PRN Pain Rated 4-6 Aripiprazole 2 mg
[2021-11-22] MEDS: SPIRONOLACTONE 25 MG TABLET 50 MG PO ×2 (10:39→16:58)
[2021-11-22 11:06] LABS: Lactic Acid Reflex 1.1 mmol/L (0.7-2.1)
--- NOTE | 2021-11-22 12:42 | PM.PNGS ---
Progress Note: A&P Assessment and Plan (1) Acute cholecystitis: Code(s): K81.0 - Acute cholecystitis Status: Acute Assessment and Plan: WBC went up to 21,000 and her LFTs were up this morning, although oddly her abdominal pain has improved some. RUQ US showed possible sludge and cholesterol crystals in the gallbladder versus less likely a solid intraluminal neoplasm, but she has a high riding liver and it was difficult to assess the gallbladder. Given the US findings and elevated LFTs, we will order and MRCP today to rule out choledocholithiasis and hopefully better evaluate the gallbladder wall. Continue to hold anticoagulation and plan for laparoscopic cholecystectomy tomorrow. Okay to have clear liquids after MRCP today and make NPO after midnight. Continue IV antibiotics. Repeat labs tomorrow. (2) MS (multiple sclerosis): Code(s): G35 - Multiple sclerosis Status: Acute (3) Lymphedema: Code(s): I89.0 - Lymphedema, not elsewhere classified Status: Acute (4) Complete immobility due to severe physical disability or frailty: Code(s): R53.2 - Functional quadriplegia Status: Acute (5) Anticoagulant long-term use: Code(s): Z79.01 - FPC (current) use of anticoagulants Status: Chronic Assessment and Plan: Continue to hold Eliquis. Additional Plan I have discussed the patient's case and plan of care with Dr. Le. Subjective Subjective Date/Time Seen: 11/22/21 12:42 Patient reports: no new complaints, feels better, pain is less and afebrile Interval history: Patient seen and examined. She reports having a lot of RUQ abdominal pain through the night, but this has improved some this morning, although her pain remains constant just more mild. Denies nausea or vomiting. Still has not had anything to eat and has not had much to drink. She has no other new complaints. Review of Systems Review of Systems: All systems reviewed & are unremarkable except as noted in HPI and below Exam Const: General: comfortable, no acute distress and alert Resp: Effort & Inspection: no respiratory distress Auscultation: clear to auscultation bilaterally Cardio: Rate: regular rate Rhythm: regular rhythm GI: Inspection: non-distended and scar (small periumbilical scar) GI Palp: Yes Soft to palpation, Yes Tenderness to palpation present (GI) (mostly tender in RUQ and epigastric area, some mild TTP in LUQ), Yes Guarding due to palpation present (GI) (RUQ), Yes No hepatosplenomegaly present and No Rebound tenderness present Auscultation: normal bowel sounds Extrem: Other: Bilateral upper extremities and hands are contracted and stiff, very minimal limited ROM of both shoulders to allow movement of her arms slightly up and down. Bilateral lower extremities completely straight and stiff with no active ROM of hips or knees, she is able to wiggle toes and have very limited minimal flexion of ankles. Equal bilaterally. Psych: Insight: Good insight present (Psych) Judgement: Good judgement present (Psych) Objective Data Vital Signs Vital Signs: Vital Signs - 24 hr 11/21/21 13:06 11/21/21 13:15 11/21/21 13:49 Temperature Pulse Rate 80 83 87 Respiratory Rate 17 17 20 Blood Pressure 148/78 H Pulse Oximetry 94 96 91 11/21/21 14:08 11/21/21 14:09 11/21/21 14:15 Temperature Pulse Rate 85 86 84 Respiratory Rate 22 H 21 H 18 Blood Pressure 160/95 H Pulse Oximetry 89 L 93 91 11/21/21 14:30 11/21/21 14:45 11/21/21 15:47 Temperature 97.3 F L Pulse Rate 85 85 83 Respiratory Rate 17 17 16 Blood Pressure 166/86 H Pulse Oximetry 79 L 92 100 11/21/21 16:30 11/21/21 18:00 11/21/21 18:11 Temperature 97.3 F L 97.9 F Pulse Rate 82 77 Respiratory Rate 16 19 Blood Pressure 152/66 H 177/88 H Pulse Oximetry 96 94 94 11/21/21 20:00 11/21/21 21:52 11/22/21 06:00 Temperature 98.6 F 98.3 F Pulse Rate 87 87 78 Respiratory Rate 18 18 18
[2021-11-22] MEDS: HYDROmorphone HCL INJ (*CRX) 1 MG/ML SYR 0.5 MG IV PUSH (13:24)
[2021-11-22 14:00] VITALS: BP 124/74; PULSE 103; RESP 22; TEMP 37.6; O2SAT 90
[2021-11-22] MEDS: BISACODYL 10 MG SUPPOSITORY RECTAL (20:15)
[2021-11-22 21:22] VITALS: TEMP 36.3
[2021-11-22 22:00] VITALS: BP 138/71; PULSE 98; RESP 18; TEMP 36.3; O2SAT 95
[2021-11-22] MEDS: traMADol HCL (*CRX) 50 MG TABLET PO (23:03)
[2021-11-23] VITALS (13 sets, daily range): BP systolic 113–135; BP diastolic 57–75; PULSE 19–93; RESP 12–94; TEMP 36.1–37.7; O2SAT 88–98
[2021-11-23] MEDS: LEVOTHYROXINE SODIUM 50 MCG TABLET BY MOUTH (06:00)
[2021-11-23] MEDS: LACTATED RINGERS 1,000 ML 125 ML IV CONT (06:00)
[2021-11-23] MEDS: HYDROcodone/acetaminophen (*CRX) 5-325 MG TABLET 1 TAB PO ×2 (06:01→21:32)
[2021-11-23 06:19] LABS: Basophils Percent Auto 0.2 % (0.2-1.2); Hematocrit 41.6 % (37.0-47.0); Hemoglobin 13.7 g/dL (12.0-15.0); Immature Granulocyte Absolute 0.13 K/mm3 (0.00-0.031); Immature Granulocyte Percent A 0.6 % (0-0.5); Lymphocytes Absolute Auto 1.74 K/mm3 (0.9-3.2); Mean Corpuscular HGB Conc 32.9 g/dl (32-36); Mean Corpuscular Hemoglobin 30.8 pg (26-34); Mean Corpuscular Volume 93.5 fl (80-100); Mean Platelet Volume 11.1 fl (7.4-10.4); Monocytes Absolute Auto 1.9 K/mm3 (0.1-0.6); Monocytes Percent Auto 8.9 % (2.6-8.5); Neutrophils Absolute Auto 17.9 K/mm3 (1.3-6.7); Neutrophils Percent Auto 82.3 % (45.5-73.1); Platelet Count Result 275 k/mm3 (150-375); Red Blood Count 4.45 M/mm3 (4.2-5.4); Red Cell Distribution Width 13.7 % (11.5-14.5); White Blood Count 21.7 K/mm3 (4.5-10.0)
[2021-11-23 06:33] LABS: Alanine Aminotransferase 59 U/L (4-35); Albumin Level 3.2 g/dL (3.5-5.1); Alkaline Phosphatase 86 U/L (38-126); Anion Gap 6 mmol/L (8-16); Aspartate Amino Transferase 69 U/L (14-36); Bilirubin,Total 1.6 mg/dL (0.2-1.3); Blood Urea Nitrogen 21 mg/dL (7-17); Calcium 8.1 mg/dL (8.4-10.2); Carbon Dioxide 23 mmol/L (22-30); Chloride 102 mmol/L (98-107); Estimated CRCL calculation 65 ml/min; Estimated Glomerular Filt Rate > 60; Glucose 132 mg/dL (65-110); Lipase 12 U/L (23-300); Potassium 3.5 mmol/L (3.4-5.0); Sodium 131 mmol/L (137-145)
--- NOTE | 2021-11-23 07:59 | P.HPUP_ITS ---
History and Physical Update Update Date/Time: 11/23/21 07:59 History and Physical has been reviewed, including an updated exam of the patient. There are changes in the patient's condition. Pt's WBC is higher and she has now been off the Eliquis for > 36 hrs. Risks, benefits, and alternatives of a laparoscopic Cholecystectomy, poss intra- opertive cholangiogram, poss open cholecystectomy. I have been discussed this and questions answered. Patient agrees to proceed with procedure.
[2021-11-23] MEDS: buPROPion HCL XL (24 HR) 150 MG TABCR 450 MG PO (09:40)
[2021-11-23] MEDS: CITALOPRAM HYDROBROMIDE 20 MG TABLET 40 MG PO (09:40)
[2021-11-23] MEDS: PYRIDOXINE HCL 50 MG TABLET 100 MG PO (09:40)
[2021-11-23] MEDS: PANTOPRAZOLE 40 MG TABLET PO ×2 (09:40→18:16)
[2021-11-23] MEDS: SPIRONOLACTONE 25 MG TABLET 50 MG PO ×2 (09:40→18:16)
--- NOTE | 2021-11-23 12:23 | WPDANESEPPF ---
Anes - Initial Pre Proc Eval Procedure: Operation Date: 11/23/21 12:00 Proposed Procedures p Laparoscopic Cholecystectomy; POSSIBLE INTRAOPERATIVE CHOLANGIOGRAM - Nicola Le MD Date/Time: 11/23/21 12:23 Surgeon: Roberto Oliver MD Pre Op Diagnosis: Acute Cholecystitis Patient Data Age: 56 Gender: F Height: 1.65 m Weight: 87.6 kg Last Vital Signs Temp 36.2 C L 11/23/21 10:56 Pulse 86 11/23/21 10:56 Resp 18 11/23/21 10:56 BP 129/57 L 11/23/21 10:56 Pulse Ox 93 11/23/21 10:56 Allergies Allergy/AdvReac Type Severity Reaction Status Date / Time doxycycline Allergy Unknown Upset Verified 11/21/21 17:20 Stomach Home Medications Medication Instructions Recorded Confirmed Type pyridoxine (vitamin B6) 100 mg 100 mg PO DAILY #100 tablet 03/14/21 11/21/21 Rx tablet tramadol 50 mg tablet 50 mg PO Q6H PRN #30 tablet 04/13/21 11/21/21 Rx spironolactone 25 mg tablet 50 mg PO BID #360 tablet 08/23/21 11/21/21 Rx omeprazole 40 mg capsule,delayed 40 mg PO BID #180 cap 08/25/21 11/21/21 Rx release levothyroxine 50 mcg tablet See Rx Instructions .ROUTE 09/02/21 11/21/21 Rx .COMPLEX #90 tablet bupropion HCl 150 mg 24 hr tablet, 450 mg PO QAM #90 tablet 09/03/21 11/21/21 Rx extended release aripiprazole 2 mg tablet 2 mg PO QHS #30 tablet 09/27/21 11/21/21 Rx apixaban 5 mg tablet 5 mg PO BID #60 tablet 10/27/21 11/21/21 Rx baclofen 30 mg PO DAILY 11/21/21 11/21/21 History citalopram 40 mg PO DAILY 11/21/21 11/21/21 History gabapentin 300 mg PO QHS PRN 11/21/21 11/21/21 History ketoconazole 1 applic TOPICAL BID PRN 11/21/21 11/21/21 History mupirocin 1 applic TOPICAL BID PRN 11/21/21 11/21/21 History Laboratory Tests 0411/23/21 11/23/21 05:44 05:44 05:44 WBC 21.7 K/mm3 H K/mm3 (4.5-10.0) RBC 4.45 M/mm3 M/mm3 (4.2-5.4) Hgb 13.7 g/dL g/dL (12.0-15.0) Hct 41.6 % % (37.0-47.0) MCV 93.5 fl fl (80-100) MCH 30.8 pg pg (26-34) MCHC 32.9 g/dl g/dl (32-36) RDW 13.7 % % (11.5-14.5) Plt Count 275 k/mm3 k/mm3 (150-375) MPV 11.1 fl H fl (7.4-10.4) Immature Gran % (Auto) 0.6 % H % (0-0.5) Neut % (Auto) 82.3 % H % (45.5-73.1) Lymph % (Auto) 8.0 % L % (18.3-44.2) Maries % (Auto) 8.9 % H % (2.6-8.5) Eos % (Auto) 0.0 % % (0-4.4) Baso % (Auto) 0.2 % % (0.2-1.2) Lymph # (Auto) 1.74 K/mm3 K/mm3 (0.9-3.2) Maries # (Auto) 1.9 K/mm3 H K/mm3 (0.1-0.6) Eos # (Auto) 0.0 K/mm3 K/mm3 (0-0.3) Baso # (Auto) 0.0 K/mm3 K/mm3 (0.0-0.1) Abs Immat Gran (auto) 0.13 K/mm3 H K/mm3 (0.00-0.031) Absolute Neuts (auto) 17.9 K/mm3 H K/mm3 (1.3-6.7) Absolute Nucleated RBC 0.0 K/mm3 K/mm3 (0.0-0.012) Nucleated RBC % 0.0 % % (0.0-0.2) Sodium 131 mmol/L L mmol/L (137-145) Potassium 3.5 mmol/L mmol/L (3.4-5.0) Chloride 102 mmol/L mmol/L (98-107) Carbon Dioxide 23 mmol/L mmol/L (22-30) Anion Gap 6 mmol/L L mmol/L (8-16) BUN 21 mg/dL H mg/dL (7-17) Creatinine 0.90 mg/dL mg/dL (0.7-1.0) Estim Creat Clear Calc 65 ml/min ml/min Estimated GFR > 60 (59 - ) Glucose 132 mg/dL H mg/dL (65-110) Calcium 8.1 mg/dL L mg/dL (8.4-10.2) Total Bilirubin 1.6 mg/dL H mg/dL (0.2-1.3) AST 69 U/L H U/L (14-36) ALT 59 U/L H U/L (4-35) Alkaline Phosphatase 86 U/L U/L (38-126) Total Protein 6.0 g/dL L g/dL (6.3-8.2) Albumin 3.2 g/dL L g/dL (3.5-5.1) Lipase 12 U/L L U/L (23-300) Blood Type O Positive Antibody Screen Negative Patient hx anesthesia problems: none Family hx anesthesia problems: none Results Review: All pre-operati
[2021-11-23] MEDS: BUPIVACAINE/EPINEPHRINE 0.25% 10 ML VIAL 30 ML INFILTRATE (14:12)
--- NOTE | 2021-11-23 16:32 | SUR.OPER ---
culture given to TROY William. Received in lab by Marcial at [id number]
[2021-11-23] MEDS: LACTATED RINGERS 1,000 ML 30 ML IV CONT (16:55)
--- NOTE | 2021-11-23 16:56 | W.PM.PROC2 ---
Procedure Note - Detailed Date of Procedure 11/24/21 Pre-op Diagnosis Acute Cholecystitis with cholelithiasis Post-op Diagnosis Other (Same and #2. Suction drainage and placement of a drain for a right perihepatic abscess associated with the acute cholecystitis) Procedure Performed 1 Laproscopic Cholecystectomy 2. Drainage of a right perihepatic abscess. Surgeon Nicola Le MD Drug Regulatory Affairs Specialist Marcial SIMMONS.OR assistant professor nurse education Anesthesia General Indications Acute cholecystitis with cholelithiasis and associated inflammatory fluid versus abscess in RUQ near liver and GB. Findings Patient had a very inflamed gallbladder with a necrotic black wall. It may have been perforated and there was thick serous biliary colored abscess anterior and lateral to the right lobe of the liver. The omentum was very adherent to the necrotic wall of the gallbladder. Description of Procedure Patient was seen preoperatively in her hospital room and risks, benefits and alternatives confirmed. Patient was taken to the operating room and general anesthesia was induced. A time out was then preformed with the surgery team confirming patient and site of surgery. The abdomen was prepped and draped in the usual sterile fashion. Incision was made just below the umbilicus with an 11 blade knife. I placed 2 stay sutures of O- Vicryl on either side of the mid-line fascia beneath the umbilicus and was then able to slide in the Lane cannula through the fascial defect into the peritoneum. First under low flow and then under high flow the abdomen was insufflated with carbon dioxide never exceeding a pressure of 15. Two 5 mm trocars were then introduced under direct vision. The following trocars were introduced under direct vision: a 12 mm in the epigastrium and two 5 mm trocars along the right costal margin laterally in the subcostal area. There were significant omental adhesions to the underside of the gallbladder such that the GB could not even been seen when we first tilted the pt. into position (head up and left side down) to begin the dissection. There was also noted to be a thick dark semi solid exudate between the anterior wall of the right lobe o f the liver and the overlying peritoneal surface. this was as much as possible suctioned away with the suction a r collections rep. The severely inflamed adhesions between the omentum and the GB were taken down with blunt and sharp dissection using some Bovie cautery for hemostasis and multiple laparoscopic Kittners for the dissection. We were able to dissect this completely away from the neck of the gallbladder. During this dissection a medium sized hole developed in the inferior wall of the GB and it decompressed into the surrounding area. I used the suction a r collections rep to remove as much as possible the GB bile and medium and small stones that periodically spilled out during the dissection. I then carefully used the L-shaped cautery and the 10 mm right angle dissector to dissect out the triangle of Calot. I then was able to dissect out both the cystic duct and cystic artery and identify a window of safety. The gall bladder was grasped and the cystic duct and artery were dissected free and clipped with an 10 mm endo-clip [employer] flatbed driver. The cystic duct and artery were clipped with use of 2 clips on the patient's side 1 on the gallbladder side utilizing a 10 mm endoclip-cdl company flatbed driver. The cystic duct was then transected. The cystic artery was also transected at this point. It appeared to branch into an anterior and a posterior branch right at the level of the cystic duct/ GB junction and were running directly up onto the very black colored thin walled GB. The gall bladder was then removed from the GB bed using electrocautery and then removed from the abdomen using an endobag. Multiple pieces of the necrotic wall of the GB and stones were removed through the 12 mm trocar during the dissection and sent in the same container as the GB to lab for pathology. I also placed sandip
--- NOTE | 2021-11-23 18:26 | PM.IMPN ---
Progress Note: A&P Assessment and Plan (1) Acute cholecystitis: Code(s): K81.0 - Acute cholecystitis Status: Acute Assessment and Plan: general Surgery consulted Patient on Eliquis surgery was held for few days. s/p lap cholecystectomy 11/23/2021 (2) Multiple sclerosis: Code(s): G35 - Multiple sclerosis Status: Acute Assessment and Plan: Not currently on treatment but is on medications for symptom relief. She is bed bound but can get into a scooter with help from her family. (3) Lymphedema: Code(s): I89.0 - Lymphedema, not elsewhere classified Status: Acute Assessment and Plan: Patient reports taking spironolactone for her swelling. Continue for now as her blood pressures are also elevated, likely due to pain. 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 But patient is on therapeutic dose for DVT 5 mg twice a day PCP to address as out pain Resume once okay per surgery (5) Depression: Code(s): F32.9 - Major depressive disorder, single episode, unspecified Status: Acute Assessment and Plan: No acute issues. Continue aripiprazole. Subjective Date/time seen: 11/23/21 18:26 Interval history: 56-year-old female with multiple sclerosis, hypothyroidism, lymphedema, and depression who presented to the emergency department from home for evaluation of abdominal pain CT scan of the abdomen shows cholecystitis Patient was admitted to the hospital for further evaluation the surgery was consulted 11/23/2021: no overnight events, seen after the surgery. reports sore in her abdomen. no nausea, vomiting. Review of Systems Review of Systems: All systems reviewed & are unremarkable except as noted in HPI and below (HPI) Exam Narrative: Alert,m oriented x 3 Chest : no respiratory distess, clear to ausculation bilatelray Abdomen soft, distended, surgical incision clear, drain in place with bloody drainage in the bulb CVS S1 + S2 Extremtiies: no edmea, cyanosis or clubbing. Neuro: alert and conversant Objective Data Vital Signs Vital Signs: Vital Signs - 24 hr 11/22/21 21:22 11/22/21 22:00 11/23/21 06:00 Temperature 97.3 F L 97.3 F L 97.0 F L Pulse Rate 98 91 Respiratory Rate 18 18 Blood Pressure 138/71 113/64 Pulse Oximetry 95 93 11/23/21 10:56 11/23/21 16:55 11/23/21 17:10 Temperature 97.1 F L 98.4 F Pulse Rate 86 90 93 Respiratory Rate 18 12 16 Blood Pressure 129/57 L 128/59 L 135/59 L Pulse Oximetry 93 95 96 11/23/21 17:25 11/23/21 17:40 11/23/21 17:45 Temperature Pulse Rate 92 92 Respiratory Rate 14 14 Blood Pressure 125/58 L 116/57 L Pulse Oximetry 96 98 88 L 11/23/21 17:55 Temperature 99.8 F H Pulse Rate 92 Respiratory Rate 14 Blood Pressure 119/65 Pulse Oximetry 93 Intake/Output Intake/Output: Intake & Output 11/20/21 11/21/21 11/22/21 11/23/21 23:59 23:59 23:59 23:59 Intake Total 1200 3490 1350 Output Total 3 160 Balance 1200 3487 1190 Meds/Results Medications: Active Medications Generic Name Dose Route Start Last Admin Trade Name Freq PRN Reason Stop Dose Admin Acetaminophen 500 mg 11/23/21 18:00 Acetaminophen 500 Mg Tablet PO Q6H PRN Mild Pain (1-3) or Fever Hydrocodone Bitart/Acetaminophen 1 tab 11/21/21 20:01 11/23/21 06:01 Hydrocodone/Acetaminophen (*Crx) 5-325 Mg Tablet PO 1 tab Q6H PRN Administration Pain Rated 4-6 Hydrocodone Bitart/Acetaminophen 1 tab 11/23/21 18:00 Hydrocodone/Acetaminophen (*Crx) 7.5-325 Mg Tablet PO Q6H PRN Pain Rated 7-10 Aripiprazole 2 mg 11/21/21 22:45 11/22/21 20:15 Aripiprazole 2 Mg Tablet PO 2 mg HS TYRON Administration Baclofen 30 mg 11/22/21 21:00 11/22/21 20:15 Baclofen 10 Mg
[2021-11-23] MEDS: SODIUM CHLORIDE 0.9% IV 1,000 ML 100 ML IV CONT (18:29)
[2021-11-23] MEDS: BACLOFEN 10 MG TABLET 30 MG PO (21:03)
[2021-11-23] MEDS: ARIPiprazole 2 MG TABLET PO (21:05)
[2021-11-23] MEDS: SENNA/DOCUSATE SODIUM TABLET 2 TAB PO (21:08)
[2021-11-24 03:45] VITALS: BP 134/49; PULSE 78; RESP 18; TEMP 36.3; O2SAT 99
[2021-11-24] MEDS: HYDROcodone/acetaminophen (*CRX) 5-325 MG TABLET 1 TAB PO ×2 (05:31→20:15)
[2021-11-24] MEDS: SODIUM CHLORIDE 0.9% IV 1,000 ML 100 ML IV CONT (05:32)
[2021-11-24 05:58] LABS: Hematocrit 32.9 % (37.0-47.0); Hemoglobin 10.6 g/dL (12.0-15.0); Mean Corpuscular HGB Conc 32.2 g/dl (32-36); Mean Corpuscular Hemoglobin 30.6 pg (26-34); Mean Corpuscular Volume 95.1 fl (80-100); Mean Platelet Volume 10.8 fl (7.4-10.4); Platelet Count Result 244 k/mm3 (150-375); Red Blood Count 3.46 M/mm3 (4.2-5.4); Red Cell Distribution Width 13.7 % (11.5-14.5); White Blood Count 16.3 K/mm3 (4.5-10.0)
[2021-11-24 06:06] LABS: Partial Thromboplastin Time 40.8 SECONDS (22.3-36.8)
[2021-11-24 06:12] LABS: INR 1.5; Prothrombin Time 17.7 Seconds (11.1-14.7)
[2021-11-24 06:18] LABS: Alanine Aminotransferase 54 U/L (4-35); Albumin Level 2.6 g/dL (3.5-5.1); Alkaline Phosphatase 77 U/L (38-126); Anion Gap 3 mmol/L (8-16); Aspartate Amino Transferase 55 U/L (14-36); Bilirubin,Total 0.9 mg/dL (0.2-1.3); Blood Urea Nitrogen 22 mg/dL (7-17); Calcium 7.4 mg/dL (8.4-10.2); Carbon Dioxide 26 mmol/L (22-30); Chloride 105 mmol/L (98-107); Estimated CRCL calculation 66 ml/min; Estimated Glomerular Filt Rate > 60; Glucose 127 mg/dL (65-110); Potassium 3.6 mmol/L (3.4-5.0); Sodium 134 mmol/L (137-145)
[2021-11-24 08:25] VITALS: O2SAT 91
[2021-11-24] MEDS: PANTOPRAZOLE 40 MG TABLET PO ×2 (08:26→16:32)
[2021-11-24] MEDS: LEVOTHYROXINE SODIUM 50 MCG TABLET BY MOUTH (08:27)
[2021-11-24] MEDS: buPROPion HCL XL (24 HR) 150 MG TABCR 450 MG PO (08:27)
[2021-11-24] MEDS: PYRIDOXINE HCL 50 MG TABLET 100 MG PO (08:27)
[2021-11-24] MEDS: SPIRONOLACTONE 25 MG TABLET 50 MG PO ×2 (08:27→16:32)
[2021-11-24] MEDS: CITALOPRAM HYDROBROMIDE 20 MG TABLET 40 MG PO (08:27)
--- NOTE | 2021-11-24 09:41 | PM.PNGS ---
Progress Note: A&P Assessment and Plan (1) Acute cholecystitis: Onset Date: ~11/2021 Code(s): K81.0 - Acute cholecystitis Status: Acute Assessment and Plan: This was the main reason for the patient's admission. She was not able to undergo emergent surgery upon admission due to her use of Eliquis. She had laparoscopic cholecystectomy which was quite difficult yesterday. It appears that her gallbladder ruptured and she had a perihepatic abscess/fluid collection anterior and to the right of the right lobe of the liver. This was drained at the time of her surgery and her necrotic gallbladder was removed. Liver function tests are improving and she feels well today. However, I reviewed her MRCP images with Dr. Melo in Radiology today. It certainly appears that her gallbladder ruptured and that what I saw near the gallbladder and to the right of the liver was leakage from the infected gallbladder. Some of this may actually of leak and formed fluid collection in the pelvis which may explain the right lower quadrant pain that she was having. Therefore, will need to watch for a possible formation of an abscess elsewhere in the abdomen and I believe she should be treated with full week of antibiotics but could be changed to oral antibiotics and be discharged if she tolerates a low-fat diet. (2) Abdominal pain, right lower quadrant: Onset Date: ~11/2021 Code(s): R10.31 - Right lower quadrant pain Status: Acute Assessment and Plan: It certainly appears that her gallbladder ruptured and that what I saw near the gallbladder and to the right of the liver was leakage from the infected gallbladder. Some of this may actually of leaked and formed a fluid collection in the pelvis which may explain the right lower quadrant pain that she was having. Therefore, we will need to watch for a possible formation of an abscess elsewhere in the abdomen and I believe she should be treated with full week of antibiotics but could be changed to oral antibiotics and be discharged. (3) Lymphedema: Onset Date: Unknown Code(s): I89.0 - Lymphedema, not elsewhere classified Status: Acute Assessment and Plan: Patient does have a set of edema pumps at home for her legs. She would be willing to do these twice a day for a longer period of time than she usually does at home. I think this would be andrea to do over the next several days and then consider restarting her Eliquis early next week at home. 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 Because of the bleeding related to surgery and the remaining drain I am somewhat hesitant to medially restart this since it was prophylactic only. However, she has some pumps at home for her legs I think would be andrea to do those twice a day instead of just once and then maybe start her Eliquis to again early next week once the chances of bleeding after surgery have significantly dissipated. (5) Multiple sclerosis: Onset Date: Unknown Code(s): G35 - Multiple sclerosis Status: Acute Assessment and Plan: Okay for patient to continue current medications. Subjective Subjective Date/Time Seen: 11/24/21 09:41 Post Op day: 1 (Status post lap leif and drainage of right perihepatic abscess) Patient reports: no new complaints, feels better, flatus and no bowel movement Interval history: Patient lying in bed when I entered the room. She states she feels better. Small amount of pain from the incisions. Nurse reports that there is still slightly bloody drainage from the NOY drain which is what I expected. Patient has not yet had a bowel movement following surgery. She is hungry and she tolerated clears last night. Review of Systems Review of
--- NOTE | 2021-11-24 12:32 | PM.IMPN ---
Progress Note: A&P Assessment and Plan (1) Acute cholecystitis: Onset Date: ~11/2021 Code(s): K81.0 - Acute cholecystitis Status: Acute Assessment and Plan: general Surgery consulted Patient on Eliquis surgery was held for few days. s/p lap cholecystectomy 11/23/[address] and surgery is planned to continue NOY drainage discharge and follow-up as an outpatient basis for removal (2) Multiple sclerosis: Onset Date: Unknown Code(s): G35 - Multiple sclerosis Status: Acute Assessment and Plan: Not currently on treatment but is on medications for symptom relief. She is bed bound but can get into a scooter with help from her family. (3) Lymphedema: Onset Date: Unknown Code(s): I89.0 - Lymphedema, not elsewhere classified Status: Acute Assessment and Plan: Patient reports taking spironolactone for her swelling. Continue for now as her blood pressures are also elevated, likely due to pain. (4) Anticoagulant long-term use: Onset Date: Unknown Code(s): Z79.01 - prison (current) use of anticoagulants Status: Chronic Assessment and Plan: Apixaban prescribed for reported DVT prophylaxis is being held in anticipation of surgery. But patient is on therapeutic dose for DVT 5 mg twice a day PCP to address as out pain Resume once okay per surgery (5) Depression: Code(s): F32.9 - Major depressive disorder, single episode, unspecified Status: Acute Assessment and Plan: No acute issues. Continue aripiprazole. (6) Hypoxia: Code(s): R09.02 - Hypoxemia Status: Acute Assessment and Plan: Still remains on 1-2 L oxygen post surgery. Likely atelectasis Will give incentive spirometry and encouraged her to use regularly. Taper oxygen required as tolerated Subjective Date/time seen: 11/24/21 12:32 Interval history: 56-year-old female with multiple sclerosis, hypothyroidism, lymphedema, and depression who presented to the emergency department from home for evaluation of abdominal pain CT scan of the abdomen shows cholecystitis Patient was admitted to the hospital for further evaluation the surgery was consulted 11/23/2021: no overnight events, seen after the surgery. reports sore in her abdomen. no nausea, vomiting. 11/24/2021 no overnight events. GB drain in place. Reports soreness in her abdomen. No nausea vomiting tolerating foot. Review of Systems Review of Systems: All systems reviewed & are unremarkable except as noted in HPI and below (HPI) Exam Narrative: Alert,m oriented x 3 Chest : no respiratory distess, clear to ausculation bilaterally Abdomen soft, distended, surgical incision clear, drain in place with bloody drainage in the bulb CVS S1 + S2 Extremtiies: no edmea, cyanosis or clubbing. Neuro: alert and conversant, bilateral lower extremity weakness due to multiple sclerosis Objective Data Vital Signs Vital Signs: Vital Signs - 24 hr 11/23/21 16:55 11/23/21 17:10 11/23/21 17:25 Temperature 98.4 F Pulse Rate 90 93 92 Respiratory Rate 12 16 14 Blood Pressure 128/59 L 135/59 L 125/58 L Pulse Oximetry 95 96 96 11/23/21 17:40 11/23/21 17:45 11/23/21 17:55 Temperature 99.8 F H Pulse Rate 92 92 Respiratory Rate 14 14 Blood Pressure 116/57 L 119/65 Pulse Oximetry 98 88 L 93 11/23/21 18:00 11/23/21 18:25 11/23/21 19:45 Temperature 98.1 F 97.5 F L 97.7 F Pulse Rate 87 19 L 73 Respiratory Rate 20 94 H 18 Blood Pressure 120/63 121/60 127/75 Pulse Oximetry 93 94 97 11/23/21 20:20 11/23/21 23:45 11/24/21 03:45 Temperature 97.4 F L 97.3 F L Pulse Rate 73 73 78 Respiratory Rate 18 18 18 Blood Pressure 122/65 134/49 L Pulse Oximetry 97 96 99 11/24/21 08:25 Temperature Pulse Rate Respiratory Rate Blood Pressure Pulse Oximetry 91 Intake/Output Intake/Output: Intake & Output 11/21/21 11/22/21 11/23/21 11/24/21 23:59 23:5
[2021-11-24 14:00] VITALS: BP 105/52; PULSE 76; RESP 16; TEMP 36.8; O2SAT 95
--- NOTE | 2021-11-24 15:07 | WPDANESPN ---
Anes - Prog Note Post-Op Date/Time: 11/24/21 15:07 Cardiovascular status: normal Respiratory status: normal Airway patency: baseline Mental status: baseline Post-Op hydration status: normal Vital Signs: Last Vital Signs Temp 97.3 F L 11/24/21 03:45 Pulse 78 11/24/21 03:45 Resp 18 11/24/21 03:45 BP 134/49 L 11/24/21 03:45 Pulse Ox 91 11/24/21 08:25 Pain Score (VAS): 0 I/O: Intake & Output 11/23/21 11/24/21 11/24/21 23:59 07:59 15:59 Intake Total 150 1100 400 Output Total 60 15 Balance 90 1085 400 Laboratory Tests 11/24/21 05:44 11/24/21 05:44 11/24/21 11/24/21 11/24/21 05:44 05:44 05:44 WBC 16.3 H RBC 3.46 L Hgb 10.6 L D Hct 32.9 L MCV 95.1 MCH 30.6 MCHC 32.2 RDW 13.7 Plt Count 244 MPV 10.8 H PT 17.7 H INR 1.5 APTT 40.8 H Sodium 134 L Potassium 3.6 Chloride 105 Carbon Dioxide 26 Anion Gap 3 L BUN 22 H Creatinine 0.90 Estim Creat Clear Calc 66 Estimated GFR > 60 Glucose 127 H Calcium 7.4 L Magnesium 2.0 Total Bilirubin 0.9 AST 55 H ALT 54 H Alkaline Phosphatase 77 Total Protein 5.0 L Albumin 2.6 L Microbiology 11/23/21 16:21 Liver Anaerobic Culture - Final 11/23/21 16:21 Liver Aerobic Culture - Preliminary Post-procedural complaints: none Patient Feedback: Patient satisfied with anesthetic care.
[2021-11-24] MEDS: levoFLOXacin 500 MG TABLET PO (16:32)
[2021-11-24] MEDS: BISACODYL 10 MG SUPPOSITORY RECTAL (16:33)
[2021-11-24] MEDS: ACETAMINOPHEN 500 MG TABLET PO (16:34)
[2021-11-24] MEDS: ARIPiprazole 2 MG TABLET PO (20:11)
[2021-11-24] MEDS: SENNA/DOCUSATE SODIUM TABLET 2 TAB PO (20:11)
[2021-11-24] MEDS: BACLOFEN 10 MG TABLET 30 MG PO (20:11)
[2021-11-24 20:50] VITALS: O2SAT 100
[2021-11-24 21:17] VITALS: O2SAT 85
[2021-11-24 22:00] VITALS: BP 102/52; PULSE 74; RESP 20; TEMP 36.1; O2SAT 91; O2SAT 94
[2021-11-25] VITALS (7 sets, daily range): BP systolic 107–112; BP diastolic 54–55; PULSE 67–78; RESP 16–20; TEMP 36.1–36.4; O2SAT 90–96
[2021-11-25] MEDS: LEVOTHYROXINE SODIUM 50 MCG TABLET BY MOUTH (05:56)
[2021-11-25 06:02] LABS: Basophils Percent Auto 0.2 % (0.2-1.2); Eosinophils Absolute Auto 0.4 K/mm3 (0-0.3); Eosinophils Percent Auto 3.4 % (0-4.4); Hematocrit 29.8 % (37.0-47.0); Hemoglobin 9.6 g/dL (12.0-15.0); Immature Granulocyte Absolute 0.09 K/mm3 (0.00-0.031); Immature Granulocyte Percent A 0.7 % (0-0.5); Lymphocytes Absolute Auto 2.58 K/mm3 (0.9-3.2); Lymphocytes Percent Auto 20.2 % (18.3-44.2); Mean Corpuscular HGB Conc 32.2 g/dl (32-36); Mean Corpuscular Hemoglobin 30.6 pg (26-34); Mean Corpuscular Volume 94.9 fl (80-100); Mean Platelet Volume 10.5 fl (7.4-10.4); Monocytes Percent Auto 8.2 % (2.6-8.5); Neutrophils Absolute Auto 8.6 K/mm3 (1.3-6.7); Neutrophils Percent Auto 67.3 % (45.5-73.1); Platelet Count Result 257 k/mm3 (150-375); Red Blood Count 3.14 M/mm3 (4.2-5.4); Red Cell Distribution Width 14.2 % (11.5-14.5); White Blood Count 12.8 K/mm3 (4.5-10.0)
[2021-11-25 06:12] LABS: Alanine Aminotransferase 42 U/L (4-35); Albumin Level 2.7 g/dL (3.5-5.1); Alkaline Phosphatase 70 U/L (38-126); Anion Gap 2 mmol/L (8-16); Aspartate Amino Transferase 36 U/L (14-36); Bilirubin,Total 0.6 mg/dL (0.2-1.3); Blood Urea Nitrogen 16 mg/dL (7-17); Calcium 7.6 mg/dL (8.4-10.2); Carbon Dioxide 28 mmol/L (22-30); Chloride 106 mmol/L (98-107); Estimated CRCL calculation 73 ml/min; Estimated Glomerular Filt Rate > 60; Glucose 85 mg/dL (65-110); Potassium 3.3 mmol/L (3.4-5.0); Sodium 136 mmol/L (137-145)
[2021-11-25] MEDS: PYRIDOXINE HCL 50 MG TABLET 100 MG PO (08:27)
[2021-11-25] MEDS: levoFLOXacin 500 MG TABLET PO (08:27)
[2021-11-25] MEDS: CITALOPRAM HYDROBROMIDE 20 MG TABLET 40 MG PO (08:28)
[2021-11-25] MEDS: buPROPion HCL XL (24 HR) 150 MG TABCR 450 MG PO (08:28)
[2021-11-25] MEDS: SPIRONOLACTONE 25 MG TABLET 50 MG PO ×2 (08:28→18:16)
[2021-11-25] MEDS: PANTOPRAZOLE 40 MG TABLET PO ×2 (08:29→18:16)
[2021-11-25] MEDS: ACETAMINOPHEN 500 MG TABLET PO (08:32)
--- NOTE | 2021-11-25 10:36 | PM.PNGS ---
Progress Note: A&P Assessment and Plan (1) Acute cholecystitis: Onset Date: ~11/2021 Code(s): K81.0 - Acute cholecystitis Status: Acute Assessment and Plan: doing well after laparoscopic cholecystectomy 2 days ago. From our standpoint, patient can go home on low-fat diet. She will need to keep her drain in place. She will follow up with Dr. Le who will see her next week. (2) Hypoxia: Code(s): R09.02 - Hypoxemia Status: Acute Assessment and Plan: Spoke with hospitalist Dr. Oliver. patient still requiring some oxygen. He has ordered a chest x-ray. May need to keep patient in the hospital until this resolved. (3) Anticoagulant long-term use: Onset Date: Unknown Code(s): Z79.01 - detention (current) use of anticoagulants Status: Chronic Assessment and Plan: Patient tells me that Eliquis to be held until she sees Dr. Le at the end of this week. (4) Multiple sclerosis: Onset Date: Unknown Code(s): G35 - Multiple sclerosis Status: Chronic Subjective Subjective Date/Time Seen: 11/25/21 10:36 Post Op day: 2 Patient reports: feels better, pain is less, tolerating a regular diet and afebrile Review of Systems Review of Systems: All systems reviewed & are unremarkable except as noted in HPI and below Constitutional: Constitutional: Denies headache(s) Respiratory: Respiratory: Reports other ( Still requiring some oxygen) Gastrointestinal: Gastrointestinal: Reports as per HPI, Reports abdominal pain ( mild abdominal pain), Denies heartburn, Denies nausea and Denies vomiting Exam Const: General: comfortable and no acute distress; No confusion Orientation/consciousness: patient oriented x3 and No confusion GI: Inspection: non-distended, incision ( incisions dry and healing well) and other ( serosanguineous fluid in NOY drain) GI Palp: Yes Soft to palpation, Yes Tenderness to palpation present (GI) ( mild appropriate tenderness), No Guarding due to palpation present (GI) and No Rebound tenderness present Psych: Affect: normal affect Insight: Good insight present (Psych) Judgement: Good judgement present (Psych) Objective Data Vital Signs Vital Signs: Vital Signs - 24 hr 11/24/21 14:00 11/24/21 20:50 11/24/21 21:17 Temperature 36.8 C Pulse Rate 76 Respiratory Rate 16 Blood Pressure 105/52 L Pulse Oximetry 95 100 85 L 11/24/21 22:00 11/25/21 06:00 11/25/21 07:56 Temperature 36.1 C L 36.4 C Pulse Rate 74 70 67 Respiratory Rate 20 20 Blood Pressure 102/52 L 107/55 L Pulse Oximetry 94 94 94 11/25/21 08:00 Temperature Pulse Rate 67 Respiratory Rate 20 Blood Pressure Pulse Oximetry 94 Intake/Output Intake/Output: Intake & Output 11/22/21 11/23/21 11/24/21 11/25/21 23:59 23:59 23:59 23:59 Intake Total 3490 1400 2740 220 Output Total 3 160 45 Balance 3487 1240 2695 220 Meds/Results Medications: Active Medications Generic Name Dose Route Start Last Admin Trade Name Freq PRN Reason Stop Dose Admin Acetaminophen 500 mg 11/23/21 18:00 11/25/21 08:32 Acetaminophen 500 Mg Tablet PO 500 mg Q6H PRN Administration Mild Pain (1-3) or Fever Hydrocodone Bitart/Acetaminophen 1 tab 11/21/21 20:01 11/24/21 20:15 Hydrocodone/Acetaminophen (*Crx) 5-325 Mg Tablet PO 1 tab Q6H PRN Administration Pain Rated 4-6 Hydrocodone Bitart/Acetaminophen 1 tab 11/23/21 18:00 Hydrocodone/Acetaminophen (*Crx) 7.5-325 Mg Tablet PO Q6H PRN Pain Rated 7-10 Aripiprazole 2 mg 11/21/21 22:45 11/24/21 20:11 Aripiprazole 2 Mg Tablet PO 2 mg HS TYRON Administration Baclofen 30 mg 11/22/21 21:00 11/24/21 20:11 Baclofen 10 Mg Tablet PO 30 mg HS TYRON Administration Bisacodyl 10 mg 11/21/21 20:01 11/24/21 16:33 Bisacodyl 10 Mg Suppository RECTAL 10 mg QAM PRN Administration Constipation Bupropion HCl 450 mg 11/22/21 09:00 04
[2021-11-25 11:43] LABS: Glucose Point of Care 114 mg/dl (65-105)
--- NOTE | 2021-11-25 12:48 | PM.IMPN ---
Progress Note: A&P Assessment and Plan (1) Acute cholecystitis: Onset Date: ~11/2021 Code(s): K81.0 - Acute cholecystitis Status: Acute Assessment and Plan: general Surgery consulted Patient on Eliquis surgery was held for few days. s/p lap cholecystectomy 11/23/[address] and surgery is planned to continue NOY drainage discharge and follow-up as an outpatient basis for removal (2) Multiple sclerosis: Onset Date: Unknown Code(s): G35 - Multiple sclerosis Status: Chronic Assessment and Plan: Not currently on treatment but is on medications for symptom relief. She is bed bound but can get into a scooter with help from her family. (3) Lymphedema: Onset Date: Unknown Code(s): I89.0 - Lymphedema, not elsewhere classified Status: Acute Assessment and Plan: Patient reports taking spironolactone for her swelling. Continue for now as her blood pressures are also elevated, likely due to pain. (4) Anticoagulant long-term use: Onset Date: Unknown Code(s): Z79.01 - [facility] (current) use of anticoagulants Status: Chronic Assessment and Plan: Apixaban prescribed for reported DVT prophylaxis is being held in anticipation of surgery. But patient is on therapeutic dose for DVT 5 mg twice a day PCP to address as out pain Resume once okay per surgery (5) Depression: Code(s): F32.9 - Major depressive disorder, single episode, unspecified Status: Acute Assessment and Plan: No acute issues. Continue aripiprazole. (6) Hypoxia: Code(s): R09.02 - Hypoxemia Status: Acute Assessment and Plan: Still remains on 1-2 L oxygen post surgery. Likely atelectasis Will give incentive spirometry and encouraged her to use regularly. Taper oxygen required as tolerated Has some cough 11/25/2021 chest x-ray with right lower lobe atelectasis versus pneumonia. Will start Zosyn. Levaquin Encouraged her to use incentive spirometry Subjective Date/time seen: 11/25/21 12:48 Interval history: 56-year-old female with multiple sclerosis, hypothyroidism, lymphedema, and depression who presented to the emergency department from home for evaluation of abdominal pain CT scan of the abdomen shows cholecystitis Patient was admitted to the hospital for further evaluation the surgery was consulted 11/23/2021: no overnight events, seen after the surgery. reports sore in her abdomen. no nausea, vomiting. 11/24/2021 no overnight events. GB drain in place. Reports soreness in her abdomen. No nausea vomiting tolerating foot. 11/25/2021 she started having some cough. She is not able to use her incentive spirometry. at bedside today. Had a bowel movement. No nausea vomiting tolerating diet. Abdomen is feeling better. She is not able to cough out much. Review of Systems Review of Systems: All systems reviewed & are unremarkable except as noted in HPI and below (HPI) Exam Narrative: Alert,m oriented x 3 Chest : no respiratory distess, clear to ausculation bilaterally Abdomen soft, distended, surgical incision clear, drain in place with bloody drainage in the bulb CVS S1 + S2 Extremtiies: no edmea, cyanosis or clubbing. Neuro: alert and conversant, bilateral lower extremity weakness due to multiple sclerosis Objective Data Vital Signs Vital Signs: Vital Signs - 24 hr 11/24/21 14:00 11/24/21 20:50 11/24/21 21:17 Temperature 98.2 F Pulse Rate 76 Respiratory Rate 16 Blood Pressure 105/52 L Pulse Oximetry 95 100 85 L 11/24/21 22:00 11/25/21 06:00 11/25/21 07:56 Temperature 97 F L 97.6 F Pulse Rate 74 70 67 Respiratory Rate 20 20 Blood Pressure 102/52 L 107/55 L Pulse Oximetry 94 94 94 11/25/21 08:00 Temperature Pulse Rate 67 Respiratory Rate 20 Blood Pressure Pulse Oximetry 94 Intake/Output Intake/Output: Intake & Output 11/22/21 11/23/21 11/24/21 11/25/21 2
[2021-11-25] MEDS: BACLOFEN 10 MG TABLET 30 MG PO (20:07)
[2021-11-25] MEDS: SENNA/DOCUSATE SODIUM TABLET 2 TAB PO (20:07)
[2021-11-25] MEDS: ARIPiprazole 2 MG TABLET PO (20:07)
[2021-11-25] MEDS: DORNASE ALFA INH SOLN 1 MG/ML 2.5 ML AMP 2.5 MG INHALATION (21:24)
[2021-11-26] MEDS: LEVOTHYROXINE SODIUM 50 MCG TABLET BY MOUTH (05:39)
[2021-11-26 06:00] VITALS: BP 118/66; PULSE 66; RESP 18; TEMP 36.5; O2SAT 98
[2021-11-26 08:00] VITALS: PULSE 71; RESP 18; O2SAT 95
[2021-11-26 09:00] VITALS: PULSE 69; RESP 18
[2021-11-26] MEDS: DORNASE ALFA INH SOLN 1 MG/ML 2.5 ML AMP 2.5 MG INHALATION (09:00)
[2021-11-26 09:05] VITALS: PULSE 69; O2SAT 95
[2021-11-26 09:10] VITALS: PULSE 71; RESP 18
[2021-11-26] MEDS: CITALOPRAM HYDROBROMIDE 20 MG TABLET 40 MG PO (09:45)
[2021-11-26] MEDS: PANTOPRAZOLE 40 MG TABLET PO (09:45)
[2021-11-26] MEDS: SPIRONOLACTONE 25 MG TABLET 50 MG PO (09:45)
[2021-11-26] MEDS: buPROPion HCL XL (24 HR) 150 MG TABCR 450 MG PO (09:46)
[2021-11-26] MEDS: PYRIDOXINE HCL 50 MG TABLET 100 MG PO (09:46)
--- NOTE | 2021-11-26 10:24 | PM.PNGS ---
Progress Note: A&P Assessment and Plan (1) Acute cholecystitis: Onset Date: ~11/2021 Code(s): K81.0 - Acute cholecystitis Status: Acute Assessment and Plan: continues to do well. Home on low-fat diet. Follow up with Dr. Le next week. (2) Hypoxia: Code(s): R09.02 - Hypoxemia Status: Acute Assessment and Plan: Chest x-ray showed right lower lobe infiltrate, probably atelectasis. O2 sats on room air while I was seeing the patient were in the normal range. Hopefully patient can be discharged. I think she will be more active at home where she has a motorized wheelchair. (3) Multiple sclerosis: Onset Date: Unknown Code(s): G35 - Multiple sclerosis Status: Chronic Subjective Subjective Date/Time Seen: 11/26/21 10:24 Post Op day: 3 Patient reports: no new complaints, feels better, tolerating a regular diet and afebrile Exam GI: Inspection: incision ( All in are healing well) and other ( serosanguineous fluid in NOY drain) GI Palp: Yes Soft to palpation and No Tenderness to palpation present (GI) Auscultation: normal bowel sounds Objective Data Vital Signs Vital Signs: Vital Signs - 24 hr 11/25/21 14:00 11/25/21 21:25 11/25/21 22:00 Temperature 36.1 C L 36.2 C L Pulse Rate 74 78 78 Respiratory Rate 20 16 18 Blood Pressure 108/55 L 112/54 L Pulse Oximetry 90 96 11/25/21 22:27 11/26/21 06:00 11/26/21 09:00 Temperature 36.5 C Pulse Rate 66 69 Respiratory Rate 18 18 Blood Pressure 118/66 Pulse Oximetry 95 98 11/26/21 09:05 11/26/21 09:10 Temperature Pulse Rate 69 71 Respiratory Rate 18 Blood Pressure Pulse Oximetry 95 Intake/Output Intake/Output: Intake & Output 11/23/21 11/24/21 11/25/21 11/26/21 23:59 23:59 23:59 23:59 Intake Total 1400 2740 940 50 Output Total 160 45 40 3 Balance 1240 2695 900 47 Meds/Results Medications: Active Medications Generic Name Dose Route Start Last Admin Trade Name Freq PRN Reason Stop Dose Admin Acetaminophen 500 mg 11/23/21 18:00 04/09/22 08:32 Acetaminophen 500 Mg Tablet PO 500 mg Q6H PRN Administration Mild Pain (1-3) or Fever Hydrocodone Bitart/Acetaminophen 1 tab 11/21/21 20:01 11/24/21 20:15 Hydrocodone/Acetaminophen (*Crx) 5-325 Mg Tablet PO 1 tab Q6H PRN Administration Pain Rated 4-6 Hydrocodone Bitart/Acetaminophen 1 tab 11/23/21 18:00 Hydrocodone/Acetaminophen (*Crx) 7.5-325 Mg Tablet PO Q6H PRN Pain Rated 7-10 Aripiprazole 2 mg 11/21/21 22:45 11/25/21 20:07 Aripiprazole 2 Mg Tablet PO 2 mg HS TYRON Administration Baclofen 30 mg 11/22/21 21:00 11/25/21 20:07 Baclofen 10 Mg Tablet PO 30 mg HS TYRON Administration Bisacodyl 10 mg 11/21/21 20:01 11/24/21 16:33 Bisacodyl 10 Mg Suppository RECTAL 10 mg QAM PRN Administration Constipation Bupropion HCl 450 mg 11/22/21 09:00 11/26/21 09:46 Bupropion Hcl Xl (24 Hr) 150 Mg Tabcr PO 450 mg QAM TYRON Administration Citalopram Hydrobromide 40 mg 11/22/21 09:00 11/26/21 09:45 Citalopram Hydrobromide 20 Mg Tablet PO 40 mg DAILY TYRON Administration Dornase Velasquez 2.5 mg 11/25/21 20:00 11/26/21 09:00 Dornase Velasquez Inh Soln 1 Mg/Ml 2.5 Ml Amp INHALATION 2.5 mg Q12HRT TYRON Administration Gabapentin 300 mg 11/21/21 22:41 Gabapentin 300 Mg Capsule PO HS PRN Muscle Spasms Piperacillin/Tazobactam/Dextrose 3.375 gm in 50 mls @ 100 mls/hr 11/25/21 13:00 11/26/21 05:39 Zosyn 3.375 Gm/D5w 50ml Pm IVPB 100 mls/hr Q6HR TYRON Administration Levothyroxine Sodium 50 mcg 11/22/21 06:30 11/26/21 05:39 Levothyroxine Sodium 50 Mcg Tablet BY MOUTH 50 mcg DAILY@0630 TYRON Administration Miconazole Nitrate 1 applic 11/21/21 22:41 Miconazole Nitrate 2% Cream 30 Gm Tube TOPICAL BID PRN Yeast Infections Mupirocin 1 applic 11/21/21 22:41 Mupirocin 2% Oint 22 Gm Tube TOPICAL
[2021-11-26 11:14] LABS: Basophils Percent Auto 0.2 % (0.2-1.2); Eosinophils Absolute Auto 0.5 K/mm3 (0-0.3); Hematocrit 33.5 % (37.0-47.0); Hemoglobin 10.2 g/dL (12.0-15.0); Immature Granulocyte Percent A 0.9 % (0-0.5); Lymphocytes Absolute Auto 2.21 K/mm3 (0.9-3.2); Lymphocytes Percent Auto 20.6 % (18.3-44.2); Mean Corpuscular HGB Conc 30.4 g/dl (32-36); Mean Corpuscular Hemoglobin 30.4 pg (26-34); Mean Corpuscular Volume 99.7 fl (80-100); Mean Platelet Volume 10.3 fl (7.4-10.4); Monocytes Absolute Auto 0.9 K/mm3 (0.1-0.6); Monocytes Percent Auto 8.8 % (2.6-8.5); Neutrophils Absolute Auto 6.9 K/mm3 (1.3-6.7); Neutrophils Percent Auto 64.5 % (45.5-73.1); Platelet Count Result 277 k/mm3 (150-375); Red Blood Count 3.36 M/mm3 (4.2-5.4); Red Cell Distribution Width 14.3 % (11.5-14.5); White Blood Count 10.7 K/mm3 (4.5-10.0)
[2021-11-26 11:43] LABS: Alanine Aminotransferase 32 U/L (4-35); Albumin Level 2.7 g/dL (3.5-5.1); Alkaline Phosphatase 69 U/L (38-126); Anion Gap 6 mmol/L (8-16); Aspartate Amino Transferase 31 U/L (14-36); Bilirubin,Total 0.4 mg/dL (0.2-1.3); Blood Urea Nitrogen 14 mg/dL (7-17); Calcium 8.2 mg/dL (8.4-10.2); Carbon Dioxide 27 mmol/L (22-30); Chloride 105 mmol/L (98-107); Estimated CRCL calculation 80 ml/min; Estimated Glomerular Filt Rate > 60; Glucose 113 mg/dL (65-110); Magnesium 2.1 mg/dL (1.6-2.3); Potassium 3.5 mmol/L (3.4-5.0); Sodium 138 mmol/L (137-145)
--- NOTE | 2021-11-26 12:51 | PM.DS ---
DS: Admitting Diagnosis Discharge Date 11/26/2021 Admitting Diagnosis Abdominal pain DS: Discharge Diagnosis Discharge Diagnosis (1) Acute cholecystitis: Onset Date: ~11/2021 Code(s): K81.0 - Acute cholecystitis Status: Acute Assessment and Plan: general Surgery consulted Patient on Eliquis surgery was held for few days. s/p lap cholecystectomy 11/23/[address] and surgery is planned to continue NOY drainage discharge and follow-up as an outpatient basis for removal She has an appointment with Dr. Le on Saturday (2) Multiple sclerosis: Onset Date: Unknown Code(s): G35 - Multiple sclerosis Status: Chronic Assessment and Plan: Not currently on treatment but is on medications for symptom relief. She is bed bound but can get into a scooter with help from her family. (3) Lymphedema: Onset Date: Unknown Code(s): I89.0 - Lymphedema, not elsewhere classified Status: Acute Assessment and Plan: Patient reports taking spironolactone for her swelling. Continue for now as her blood pressures are also elevated, likely due to pain. (4) Anticoagulant long-term use: Onset Date: Unknown Code(s): Z79.01 - [facility] (current) use of anticoagulants Status: Chronic Assessment and Plan: Apixaban prescribed for reported DVT prophylaxis is being held in anticipation of surgery. But patient is on therapeutic dose for DVT 5 mg twice a day PCP to address as out pain Resume once okay per surgery (5) Depression: Code(s): F32.9 - Major depressive disorder, single episode, unspecified Status: Acute Assessment and Plan: No acute issues. Continue aripiprazole. (6) Hypoxia: Code(s): R09.02 - Hypoxemia Status: Acute Assessment and Plan: Postoperatively. Required 1-2 L of oxygen Likely atelectasis Provided with incentive spirometry and encouraged her to use regularly. Hulsen was attempted to be tapered as tolerated. Since she still required oxygen on 11/25/2021 with some associated cough chest x-ray was done which showed right lower lobe atelectasis versus pneumonia. Feels started on Zosyn. And was started on breathing treatment as well. She improved and was able to be tapered off of oxygen on 11/26/2021. She will be switched to Augmentin on discharge to complete a course of antibiotic. She is encouraged to use incentive spirometry at discharge at home and as well as use Mucinex for mucolytic at home. DS: Summary Hospital Course Hospital Course: See above Time Spent with Patient Time attestation: Total time spent providing and/or coordinating discharge services: 50 minutes Exam Narrative: Alert,m oriented x 3 Chest : no respiratory distess, clear to ausculation bilaterally Abdomen soft, distended, surgical incision clear, drain in place with bloody drainage in the bulb CVS S1 + S2 Extremtiies: no edmea, cyanosis or clubbing. Neuro: alert and conversant, bilateral lower extremity weakness due to multiple sclerosis DS: Data Data Completed and Pending Pending studies at discharge: Pending at discharge 11/23/21 16:08 Surgical [PTH] Routine Labs on day of discharge: Labs from last 24 hours 11/26/21 11/26/21 11:06 11:06 WBC 10.7 H RBC 3.36 L Hgb 10.2 L Hct 33.5 L MCV 99.7 D MCH 30.4 MCHC 30.4 L RDW 14.3 Plt Count 277 MPV 10.3 Immature Gran % (Auto) 0.9 H Neut % (Auto) 64.5 Lymph % (Auto) 20.6 Gilmer % (Auto) 8.8 H Eos % (Auto) 5.0 H Baso % (Auto) 0.2 Lymph # (Auto) 2.21 Gilmer # (Auto) 0.9 H Eos # (Auto) 0.5 H Baso # (Auto) 0.0 Abs Immat Gran (auto) 0.10 H Absolute Neuts (auto) 6.9 H Absolute Nucleated RBC 0.0 Nucleated RBC % 0.0 Sodium 138 Potassium 3.5 Chloride 105 Carbon Dioxide 27 Anion Gap 6 L BUN 14 Creatinine 0.70 Estim Creat Clear Calc 80 Estimated GFR > 60 Glucose 113 H C
== END 2021-11-26 14:55 | disposition home or self-care (01) | DRG 417 ==
LOC: ANHED 16:04 → ANH3MEDSUR 16:15
PROVIDERS: Internal Medicine; Nurse Practitioner Family; Physician Assistant; Surgery; Admitting Provider Hospitalist; Emergency Provider Emergency Medicine; PCP Family Medicine; Visit Provider Internal Medicine
PROC: 0FT44ZZ Resection of Gallbladder, Percutaneous Endoscopic Approach (ICD-10-PCS; CPT 47562; principal; 2021-11-23 12:00)
DX: K80.00 Calculus of gallbladder with acute cholecystitis without obstruction (principal); R53.2 Functional quadriplegia; K75.0 Abscess of liver; J18.9 Pneumonia, unspecified organism; J95.89 Other postprocedural complications and disorders of respiratory system, not elsewhere classified; J98.11 Atelectasis; K82.A1 Gangrene of gallbladder in cholecystitis; G35 Multiple sclerosis; I89.0 Lymphedema, not elsewhere classified; F32.A Depression, unspecified; R09.02 Hypoxemia; E55.9 Vitamin D deficiency, unspecified; E03.9 Hypothyroidism, unspecified; E66.9 Obesity, unspecified; Z68.30 Body mass index [BMI] 30.0-30.9, adult; Z79.01 Long term (current) use of anticoagulants
CPT/HCPCS: 36415; 71045; 74177; 74183; 76376; 76705; 80053; 81001; 82948; 83605; 83690; 83735; 84443; 85025; 85027; 85610; 85730; 86850; 86900; 86901; 87070; 87075; 87205; 88304; 88305; 94640; 96365; 96367; 96375; 99285; A9270; A9577; C1713; J0131; J0330; J1100; J1170; J2001; J2250; J2270; J2370; J2405; J2543; J2704; J2710; J3010; J7030; J7120; Q9966; Q9967

== ENCOUNTER 2022-01-04 10:59 | Outpatient (CLI) | payer MEDICARE, MEDICAID, SELFPAY ==
[2022-01-04 11:19] LABS: Basophils Percent Auto 0.6 % (0.2-1.2); Eosinophils Absolute Auto 0.4 K/mm3 (0-0.3); Eosinophils Percent Auto 6.5 % (0-4.4); Hematocrit 45.1 % (37.0-47.0); Immature Granulocyte Absolute 0.01 K/mm3 (0.00-0.031); Immature Granulocyte Percent A 0.2 % (0-0.5); Lymphocytes Absolute Auto 1.49 K/mm3 (0.9-3.2); Lymphocytes Percent Auto 27.5 % (18.3-44.2); Mean Corpuscular Hemoglobin 30.3 pg (26-34); Mean Corpuscular Volume 97.6 fl (80-100); Mean Platelet Volume 10.4 fl (7.4-10.4); Monocytes Absolute Auto 0.4 K/mm3 (0.1-0.6); Monocytes Percent Auto 6.5 % (2.6-8.5); Neutrophils Absolute Auto 3.2 K/mm3 (1.3-6.7); Neutrophils Percent Auto 58.7 % (45.5-73.1); Platelet Count Result 282 k/mm3 (150-375); Red Blood Count 4.62 M/mm3 (4.2-5.4); Red Cell Distribution Width 14.8 % (11.5-14.5); White Blood Count 5.4 K/mm3 (4.5-10.0)
[2022-01-04 11:41] LABS: Albumin Level 4.3 g/dL (3.5-5.1); Alkaline Phosphatase 211 U/L (38-126); Anion Gap 10 mmol/L (8-16); Aspartate Amino Transferase 476 U/L (14-36); Bilirubin,Total 2.3 mg/dL (0.2-1.3); Blood Urea Nitrogen 9 mg/dL (7-17); Calcium 9.4 mg/dL (8.4-10.2); Carbon Dioxide 24 mmol/L (22-30); Chloride 102 mmol/L (98-107); Estimated Glomerular Filt Rate > 60; Glucose 129 mg/dL (65-110); Lipase 61 U/L (23-300); Potassium 4.5 mmol/L (3.4-5.0); Sodium 136 mmol/L (137-145)
[2022-01-04 11:53] LABS: Alanine Aminotransferase 862 U/L (6-35)
== END 2022-01-04 11:00 | disposition home or self-care (01) ==
PROVIDERS: Surgery; PCP Family Medicine; Visit Provider Nurse Practitioner
DX: R10.9 Unspecified abdominal pain (principal)
CPT/HCPCS: 36415; 80053; 83690; 85025

== ENCOUNTER 2022-01-05 01:27 | Day surgery (SDC) | payer MEDICARE, MEDICAID, SELFPAY ==
[2022-01-04 16:13] VITALS: BMI 29.3
[2022-01-05] VITALS (8 sets, daily range): BP systolic 136–153; BP diastolic 52–72; PULSE 69–78; RESP 16–18; TEMP 37.1; O2SAT 96–100
--- NOTE | ~2022-01-05 | XR_ITS ---
EXAMINATION: XR ERCP DATE: 01/05/2022 16:55 INDICATION: Jaundice. TECHNIQUE: 5 spot fluoroscopic images of the right upper quadrant were obtained during endoscopic ret rograde cholangiopancreatography (ERCP). Fluoroscopy exposure time was 154 seconds. COMPARISON: MRCP 11/22/2021 FINDINGS: There is an endoscope with tip in the second portion of the duodenum. The common duct is di lated. There is contrast opacification of the common duct. There is a stone in the common duct. There are surgical clips from cholecystectomy. IMPRESSION: 1. Choledocholithiasis. Please refer to the ERCP procedure note for additional details. Reviewed, dictated and finalized at location A.
--- NOTE | 2022-01-05 12:48 | PM.HPGS ---
History of Present Illness History of Present Illness Consent: Risks, benefits, and alternatives have been discussed and questions answered. Patient agrees to proceed with procedure. Chief complaint: jaundice Narrative: Redd Sands is a 56 year old female who underwent laparoscopic cholecystectomy and drainage of subhepatic abscess about 1 month ago. She had had gangrene of the gallbladder. She was doing well and had recent follow-up visit in the office with Dr. Le. She had been feeling fine. Laboratory studies were done yesterday however that showed a bilirubin 2.3. AST was 476 and ALT 862. Is felt she likely has choledocholithiasis. She comes in today for ERCP and possible sphincterotomy, possible stent place Review of Systems Review of Systems: All systems reviewed & are unremarkable except as noted in HPI and below PMFSH Past Medical History Medical History Anticoagulant long-term use (Unknown) On apixaban for DVT prophylaxis. Complete immobility due to severe physical disability or frailty Depression Hyperpigmentation of skin Lymphedema (Unknown) Multiple sclerosis (Unknown) Vitamin D deficiency Surgical History Surgical History History of laparoscopic cholecystectomy 11/24/2021 - laparoscopic cholecystectomy and drainage of a right perihepatic abscess. History of surgery on upper extremity History of tubal ligation Family History Family History Other Family history of coronary artery disease Family history of malignant neoplasm of breast in first degree relative Social History Social History Social History: The patient lives at home with her , Casey, and is primarily bedbound. She requires assistance to get to a powered wheelchair when needed for mobility. No alcohol, tobacco, or illicit substance use. She designates her as her surrogate decision maker and she wishes to be a full code. Living arrangements: with family Spiritual care concerns: No Meds Home Medications and Allergies Home Medications Medication Instructions Recorded Confirmed Type pyridoxine (vitamin B6) 100 mg 100 mg PO DAILY #100 tablet 03/14/21 01/04/22 Rx tablet tramadol 50 mg tablet 50 mg PO Q6H PRN #30 tablet 04/13/21 01/04/22 Rx spironolactone 25 mg tablet 50 mg PO BID #360 tablet 08/23/21 01/04/22 Rx omeprazole 40 mg capsule,delayed 40 mg PO BID #180 cap 08/25/21 01/04/22 Rx release levothyroxine 50 mcg tablet See Rx Instructions .ROUTE 09/02/21 01/04/22 Rx .COMPLEX #90 tablet aripiprazole 2 mg tablet 2 mg PO QHS #30 tablet 09/27/21 01/04/22 Rx apixaban 5 mg tablet 5 mg PO BID #60 tablet 10/27/21 01/04/22 Rx baclofen 30 mg PO DAILY 11/21/21 01/04/22 History citalopram 40 mg PO DAILY 11/21/21 01/04/22 History gabapentin 300 mg PO QHS PRN 11/21/21 01/04/22 History ketoconazole 1 applic TOPICAL BID PRN 11/21/21 01/04/22 History mupirocin 1 applic TOPICAL BID PRN 11/21/21 01/04/22 History hydrocodone-acetaminophen 1 - 2 tablet PO Q6H PRN #15 tablet 11/25/21 01/04/22 Rx nystatin 100,000 unit/gram topical See Rx Instructions .ROUTE 12/20/21 01/04/22 Rx cream .COMPLEX #105 gm bupropion HCl 150 mg 24 hr tablet, See Rx Instructions .ROUTE 01/02/22 01/04/22 Rx extended release .COMPLEX #90 tablet Allergies Allergy/AdvReac Type Severity Reaction Status Date / Time doxycycline Allergy Unknown Upset Verified 12/14/21 10:51 Stomach Exam Const: General: alert Orientation/consciousness: patient oriented x3 Resp: Auscultation: clear to auscultation bilaterally Cardio: Rhythm: regular rhythm GI: GI Palp: Yes Soft to palpation and No Tenderness to palpation present (GI) Neuro: General: patient oriented x3 Assessment and Plan Assessment and plan (1) Choledocholi
--- NOTE | 2022-01-05 13:30 | WPDANESEPPF ---
Anes - Initial Pre Proc Eval Procedure: Operation Date: 01/05/22 14:15 Proposed Procedures p Endoscopic Retro Cholangiopancreatogram - J Carlos Whalen MD Date/Time: 01/05/22 13:30 Surgeon: J Carlos Whalen MD Pre Op Diagnosis: jaundice Patient Data Age: 56 Gender: F Height: 1.65 m Weight: 80 kg Last Vital Signs Temp 98.8 F 01/05/22 12:52 Pulse 70 01/05/22 12:52 Resp 18 01/05/22 12:52 BP 136/72 01/05/22 12:52 Pulse Ox 100 01/05/22 12:52 Allergies Allergy/AdvReac Type Severity Reaction Status Date / Time doxycycline Allergy Unknown Upset Verified 12/14/21 10:51 Stomach Home Medications Medication Instructions Recorded Confirmed Type pyridoxine (vitamin B6) 100 mg 100 mg PO DAILY #100 tablet 03/14/21 01/04/22 Rx tablet tramadol 50 mg tablet 50 mg PO Q6H PRN #30 tablet 04/13/21 01/04/22 Rx spironolactone 25 mg tablet 50 mg PO BID #360 tablet 08/23/21 01/04/22 Rx omeprazole 40 mg capsule,delayed 40 mg PO BID #180 cap 08/25/21 01/04/22 Rx release levothyroxine 50 mcg tablet See Rx Instructions .ROUTE 09/02/21 01/04/22 Rx .COMPLEX #90 tablet aripiprazole 2 mg tablet 2 mg PO QHS #30 tablet 09/27/21 01/04/22 Rx apixaban 5 mg tablet 5 mg PO BID #60 tablet 10/27/21 01/04/22 Rx baclofen 30 mg PO DAILY 11/21/21 01/04/22 History citalopram 40 mg PO DAILY 11/21/21 01/04/22 History gabapentin 300 mg PO QHS PRN 11/21/21 01/04/22 History ketoconazole 1 applic TOPICAL BID PRN 11/21/21 01/04/22 History mupirocin 1 applic TOPICAL BID PRN 11/21/21 01/04/22 History hydrocodone-acetaminophen 1 - 2 tablet PO Q6H PRN #15 tablet 11/25/21 01/04/22 Rx nystatin 100,000 unit/gram topical See Rx Instructions .ROUTE 12/20/21 01/04/22 Rx cream .COMPLEX #105 gm bupropion HCl 150 mg 24 hr tablet, See Rx Instructions .ROUTE 01/02/22 01/04/22 Rx extended release .COMPLEX #90 tablet Patient hx anesthesia problems: none Family hx anesthesia problems: none Results Review: All pre-operative results and documents have been reviewed as part of the pre-operative evaluation. [facility] Past Medical History Medical History Anticoagulant long-term use (Unknown) On apixaban for DVT prophylaxis. Complete immobility due to severe physical disability or frailty Depression Hyperpigmentation of skin Lymphedema (Unknown) Multiple sclerosis (Unknown) Vitamin D deficiency Surgical History Surgical History History of laparoscopic cholecystectomy 11/24/2021 - laparoscopic cholecystectomy and drainage of a right perihepatic abscess. History of surgery on upper extremity History of tubal ligation Family History Family History Other Family history of coronary artery disease Family history of malignant neoplasm of breast in first degree relative Social History Social History Social History: The patient lives at home with her , Casey, and is primarily bedbound. She requires assistance to get to a powered wheelchair when needed for mobility. No alcohol, tobacco, or illicit substance use. She designates her as her surrogate decision maker and she wishes to be a full code. Living arrangements: with family Spiritual care concerns: No Anes - Eval Final PreProcedure Day of Procedure 01/05/22 13:30 Patient weight: overweight Heart: regular rate and rhythm Lungs: clear to auscultation Airway: Mallampati scale class II Neurological: alert and oriented Last oral intake: >/= 8 hours ASA classification: III Emergent: no Anesthetic plan: proceed Anesthesia type and monitoring: general ETT and standard monitoring Results Review: All pre-operative results and documents have been reviewed as part of the pre-operative evaluation. Informed Consent: The patient's anesthetic plan and its at
[2022-01-05] MEDS: LACTATED RINGERS 1,000 ML 150 ML IV CONT ×2 (13:49→15:57)
[2022-01-05] MEDS: INDOMETHACIN 50 MG SUPP.RECT RECTAL (15:14)
== END 2022-01-05 17:29 | disposition home or self-care (01) ==
PROVIDERS: PCP Family Medicine; Visit Provider Internal Medicine Gastroenterology
PROC: (CPT 43260; principal; 2022-01-05 14:15)
DX: K80.50 Calculus of bile duct without cholangitis or cholecystitis without obstruction (principal); K83.8 Other specified diseases of biliary tract; G35 Multiple sclerosis; F32.9 Major depressive disorder, single episode, unspecified; E55.9 Vitamin D deficiency, unspecified; Z99.3 Dependence on wheelchair; Z79.01 Long term (current) use of anticoagulants
CPT/HCPCS: 43262; 43264; 74329; A9270; J1100; J2405; J2704; J2710; J3010; J7120

== ENCOUNTER 2022-01-23 11:49 | Outpatient (CLI) | payer MEDICARE, MEDICAID, SELFPAY ==
[2022-01-23 12:08] LABS: Basophils Absolute Auto 0.1 K/mm3 (0.0-0.1); Basophils Percent Auto 0.6 % (0.2-1.2); Eosinophils Absolute Auto 0.3 K/mm3 (0-0.3); Eosinophils Percent Auto 3.2 % (0-4.4); Hematocrit 44.5 % (37.0-47.0); Hemoglobin 13.8 g/dL (12.0-15.0); Immature Granulocyte Absolute 0.02 K/mm3 (0.00-0.031); Immature Granulocyte Percent A 0.2 % (0-0.5); Lymphocytes Absolute Auto 2.73 K/mm3 (0.9-3.2); Lymphocytes Percent Auto 33.3 % (18.3-44.2); Mean Corpuscular Hemoglobin 30.3 pg (26-34); Mean Corpuscular Volume 97.6 fl (80-100); Mean Platelet Volume 10.3 fl (7.4-10.4); Monocytes Absolute Auto 0.5 K/mm3 (0.1-0.6); Monocytes Percent Auto 5.6 % (2.6-8.5); Neutrophils Absolute Auto 4.7 K/mm3 (1.3-6.7); Neutrophils Percent Auto 57.1 % (45.5-73.1); Platelet Count Result 330 k/mm3 (150-375); Red Blood Count 4.56 M/mm3 (4.2-5.4); Red Cell Distribution Width 14.4 % (11.5-14.5); White Blood Count 8.2 K/mm3 (4.5-10.0)
== END 2022-01-23 11:50 | disposition home or self-care (01) ==
LOC: ANHLAB 11:51
PROVIDERS: PCP Family Medicine; Visit Provider Surgery
DX: R10.9 Unspecified abdominal pain (principal)
CPT/HCPCS: 36415; 85025

== ENCOUNTER 2022-01-26 10:48 | Outpatient (CLI) | payer MEDICARE, MEDICAID, SELFPAY ==
[2022-01-26 13:04] LABS: Alanine Aminotransferase 20 U/L (6-35); Albumin Level 4.1 g/dL (3.5-5.1); Alkaline Phosphatase 93 U/L (38-126); Anion Gap 7 mmol/L (8-16); Aspartate Amino Transferase 30 U/L (14-36); Bilirubin,Total 0.4 mg/dL (0.2-1.3); Blood Urea Nitrogen 15 mg/dL (7-17); Calcium 9.4 mg/dL (8.4-10.2); Carbon Dioxide 27 mmol/L (22-30); Chloride 106 mmol/L (98-107); Estimated Glomerular Filt Rate 51; Glucose 92 mg/dL (65-110); Lipase 68 U/L (23-300); Magnesium 2.1 mg/dL (1.6-2.3); Potassium 4.8 mmol/L (3.4-5.0); Sodium 140 mmol/L (137-145)
== END 2022-01-26 10:49 | disposition home or self-care (01) ==
LOC: ANHLAB 10:52
PROVIDERS: PCP Family Medicine; Visit Provider Surgery
DX: R10.9 Unspecified abdominal pain (principal)
CPT/HCPCS: 36415; 80053; 83690; 83735

== ENCOUNTER 2023-06-27 10:51 | Outpatient (RCR) | payer MEDICARE, MEDICAID, SELFPAY ==
--- NOTE | 2023-06-27 17:20 | PTOPEVDC ---
Assessment and note entered by Ekaterina Alberto, PT, DPT Thank you for referring Redd Sands to [facility].? An evaluation has been completed. No further treatment is needed. Evaluation Information Assessment Status Evaluation Diagnosis MS Subjective Information Pt states recently her wheelchair was broken and she was bedridden because of this for 12 weeks. She was bedridden from September to December She states since she has gotten out of bed she has been unable to bend at the waist like she could prior. She states her R leg also have been stuck in a more extended position since. She is in a mostly extended and reclined position with BLE extended while sitting in her WC. Pts helps her to get in/out of her WC. Reported Pain Level Pain Score 0: Self Report Assessment PT Clinical Summary Redd attended a physical therapy evaluation today . Pt has a chronic history of MS and uses a motorized WC for all of her mobility, she requires total assist for ADLs, transfers, and mobility outside of her WC. She presents to therapy today following 12 weeks being bedridden d/t her WC being broken. Her concern today is with positing in her chair and when sitting in the car. Pt and her caregiver were instructed on utilizing the WC to provide and static stretch while trying to sit more upright in her chair as well as worked through other concerns that had. Both pt are her caregiver were given the benefits of achieving an upright sitting position when possible. Her caregiver was also instructed on better initial placement of the pt into her WC when using the peg lift and passive hip stretching. Pt is not a candidate for regular therapy visits and will therefore be discharged at this time. Plan of Care PT Services Indicated No Treatment Frequency and evaluate and discharge Duration
== END 2023-06-28 08:25 | disposition home or self-care (01) ==
LOC: ANHGOSHPT 10:51
PROVIDERS: PCP Family Medicine; Visit Provider Physician Assistant
DX: G35 Multiple sclerosis (principal); M62.81 Muscle weakness (generalized)
CPT/HCPCS: 97161; 97530

== ENCOUNTER 2024-04-06 10:30 | Outpatient (CLI) | payer MEDICARE, MEDICAID, SELFPAY ==
[2024-04-06 11:23] LABS: Basophils Percent Auto 0.5 % (0.2-1.2); Eosinophils Absolute Auto 0.2 K/mm3 (0-0.3); Eosinophils Percent Auto 2.5 % (0-4.4); Hematocrit 43.7 % (37.0-47.0); Hemoglobin 13.9 g/dL (12.0-15.0); Immature Granulocyte Absolute 0.04 K/mm3 (0.00-0.031); Immature Granulocyte Percent A 0.5 % (0-0.5); Lymphocytes Absolute Auto 1.68 K/mm3 (0.9-3.2); Lymphocytes Percent Auto 20.2 % (18.3-44.2); Mean Corpuscular HGB Conc 31.8 g/dl (32-36); Mean Corpuscular Hemoglobin 31.4 pg (26-34); Mean Corpuscular Volume 98.6 fl (80-100); Mean Platelet Volume 10.6 fl (7.4-10.4); Monocytes Absolute Auto 0.7 K/mm3 (0.1-0.6); Monocytes Percent Auto 7.9 % (2.6-8.5); Neutrophils Absolute Auto 5.7 K/mm3 (1.3-6.7); Neutrophils Percent Auto 68.4 % (45.5-73.1); Platelet Count Result 283 k/mm3 (150-375); Red Blood Count 4.43 M/mm3 (4.2-5.4); Red Cell Distribution Width 14.2 % (11.5-14.5); White Blood Count 8.3 K/mm3 (4.5-10.0)
[2024-04-06 11:35] LABS: Alanine Aminotransferase 17 U/L (6-35); Albumin Level 4.2 g/dL (3.5-5.1); Alkaline Phosphatase 69 U/L (38-126); Anion Gap 11 mmol/L (4-12); Aspartate Amino Transferase 26 U/L (14-36); Bilirubin,Total 0.4 mg/dL (0.2-1.3); Blood Urea Nitrogen 14 mg/dL (7-17); Calcium 9.6 mg/dL (8.4-10.2); Carbon Dioxide 26 mmol/L (22-30); Chloride 102 mmol/L (98-107); Estimated Glomerular Filt Rate 46; Glucose 98 mg/dL (65-110); Sodium 139 mmol/L (137-145)
== END 2024-04-06 10:31 | disposition home or self-care (01) ==
PROVIDERS: PCP Family Medicine; Visit Provider Family Medicine
DX: R53.83 Other fatigue (principal); N18.30 Chronic kidney disease, stage 3 unspecified; E03.9 Hypothyroidism, unspecified
CPT/HCPCS: 36415; 80053; 84443; 85025

== ENCOUNTER 2024-06-26 10:45 | Outpatient (CLI) | payer MEDICARE, MEDICAID, SELFPAY ==
[2024-06-26 11:40] LABS: Anion Gap 7 mmol/L (4-12); Blood Urea Nitrogen 14 mg/dL (7-17); Calcium 9.2 mg/dL (8.4-10.2); Carbon Dioxide 26 mmol/L (22-30); Chloride 104 mmol/L (98-107); Estimated Glomerular Filt Rate 51; Glucose 98 mg/dL (65-110); Potassium 4.4 mmol/L (3.4-5.0); Sodium 137 mmol/L (137-145)
[2024-06-27 10:33] LABS: Protein, Total 6.5 g/dL (6.1-8.1)
== END 2024-06-26 10:46 | disposition home or self-care (01) ==
PROVIDERS: PCP Family Medicine; Visit Provider Family Medicine
DX: N18.30 Chronic kidney disease, stage 3 unspecified (principal)
CPT/HCPCS: 36415; 80048; 84155; 84165

== ENCOUNTER 2024-07-28 11:00 | Outpatient (CLI) | payer MEDICARE, MEDICAID, SELFPAY ==
--- NOTE | ~2024-07-28 | XR_ITS ---
EXAMINATION: XR abdomen obstructive series DATE: 07/28/2024 11:35 INDICATION: Constipation. Fecal impaction. TECHNIQUE: Supine and upright views of the abdomen. FINDINGS: CT dated 11/21/2021 The visualized lung parenchyma is normal.. There is a nonspecific bowel gas pattern. Moderate colonic fecal loading. No definite obstruction. Gas and stool are seen throughout the colon to the level of the rectum. There is no free air. There are cholecystectomy clips. Lung bases unremarkable. There is levoscoliosis of the lumbar spine. Moderate osteoarthritis of the hips. IMPRESSION: 1. Moderate fecal loading of the colon with moderate gas throughout the colon, nonspecific. Reviewed, dictated and finalized at location B. [email or web address]
[2024-07-30 03:42] LABS: Protein, Total 6.9 g/dL (6.1-8.1)
[2024-08-04 20:29] LABS: Albumin 3.8 g/dL (3.8-4.8); Alpha 1 Globulin 0.3 g/dL (0.2-0.3); Alpha 2 Globulin 0.9 g/dL (0.5-0.9); Beta 1 Globulin 0.6 g/dL (0.4-0.6); Gamma Globulin 0.8 g/dL (0.8-1.7)
== END 2024-07-28 11:01 | disposition home or self-care (01) ==
PROVIDERS: PCP Family Medicine; Visit Provider Student in an Organized Health Care Education/Training Program
DX: K59.00 Constipation, unspecified (principal)
CPT/HCPCS: 36415; 74019; 84155; 84165

== ENCOUNTER 2024-11-06 11:08 | Outpatient (CLI) | payer MEDICARE, MEDICAID, SELFPAY ==
[2024-11-06 11:39] LABS: Basophils Percent Auto 0.6 % (0.2-1.2); Eosinophils Absolute Auto 0.2 K/mm3 (0-0.3); Eosinophils Percent Auto 2.2 % (0-4.4); Hemoglobin 13.5 g/dL (12.0-15.0); Immature Granulocyte Absolute 0.02 K/mm3 (0.00-0.031); Immature Granulocyte Percent A 0.3 % (0-0.5); Lymphocytes Absolute Auto 1.54 K/mm3 (0.9-3.2); Lymphocytes Percent Auto 21.4 % (18.3-44.2); Mean Corpuscular HGB Conc 31.4 g/dl (32-36); Mean Corpuscular Hemoglobin 30.5 pg (26-34); Mean Corpuscular Volume 97.1 fl (80-100); Monocytes Absolute Auto 0.5 K/mm3 (0.1-0.6); Monocytes Percent Auto 6.5 % (2.6-8.5); Platelet Count Result 252 k/mm3 (150-375); Red Blood Count 4.43 M/mm3 (4.2-5.4); Red Cell Distribution Width 15.6 % (11.5-14.5); White Blood Count 7.2 K/mm3 (4.5-10.0)
[2024-11-06 11:57] LABS: Alanine Aminotransferase 18 U/L (6-35); Albumin Level 4.3 g/dL (3.5-5.1); Alkaline Phosphatase 72 U/L (38-126); Anion Gap 10 mmol/L (4-12); Aspartate Amino Transferase 25 U/L (14-36); Bilirubin,Total 0.6 mg/dL (0.2-1.3); Blood Urea Nitrogen 15 mg/dL (7-17); Calcium 9.5 mg/dL (8.4-10.2); Carbon Dioxide 24 mmol/L (22-30); Chloride 104 mmol/L (98-107); Estimated Glomerular Filt Rate 48; Glucose 108 mg/dL (65-110); Potassium 4.1 mmol/L (3.4-5.0); Sodium 138 mmol/L (137-145)
--- OUTSIDE RECORDS SUMMARY | 2024-11-06 12:20 | XMS_ITS | Encounter Summary ---
Author Organization [facility] Address [address] [place] [address] Phone Care Team Providers Care Dental Director Name Role Phone Natalia Juarez MD Primary Care Provider [phone] Reason for Visit * Auth/Cert (Routine) Specialty Diagnoses / Procedures Referred By Tramaine dewey Referred To Contact Referral ID Status Reason Start Date Expiration Date Visits Re quested Visits Authorized [id number] 1 1 Encounter Details Date Type Department Care Team (Latest Contact Info) Description 10/21/2024 1:00 AM GLUE MIXER [facility] [address] [place] [address] Pennie Montoya, TROY [place] SN - OASIS START OF CARE Social History Tobacco Use Types Packs/Day Years Used Date Smoking Tobacco: Never Assessed Comments Unknown Sex and Gender Information Value Date Recorded Sex Assigned at Not on file Legal Sex Female 3:51 PM GLUE MIXER Gender Identity Not on file Sexual Orientation Not on file documented as of this encounter Last Filed Vital Signs Vital Sign Reading Time Taken Comments Blood Pressure 102/62 10/21/2024 12:30 PM GLUE MIXER Pulse - - Temperature 36.3 C (97.3 F) 10/21/2024 12:30 PM GLUE MIXER Respiratory Rate 16 10/21/2024 12:30 PM GLUE MIXER Oxygen Saturation 98% 10/21/2024 12:30 PM GLUE MIXER Inhaled Oxygen Concentration - - Weight - - Height 165.1 cm (5' 5 ) 10/21/2024 12:30 PM GLUE MIXER Body Mass Index - - documented in this encounter Miscellaneous Notes * [facility] - Pennie Montoya RN - 10/21/2024 12:21 PM CST Patient was admitted to for SN services on 10/21. Referral orders were not clear so a call to Dr. Ansari office was placed. Left a message regarding the specific orders needed for this patient. Awaiting call back. MIXER documented in this encounter Plan of Treatment Upcoming Encounters Date Type Department Care Team (Late st Contact Info) Description 11/09/2024 1:00 AM CDT Appointment [facility] [address] [place] [address] Mable Olmedo RN [place] documented as of this encounter Visit Diagnoses Not on filedocumented in this encounter Home Health Visit - Actions and Narratives Narratives 58 yo female referral to critical access hospital per Dr. Juarez's office for wound care management and education. Patient has a hx of MS, Patient lives in a one story home with . Patient has a caregiver that cares for her daily to help with all of the patient's needs. Patient is dependent on care for others and is unable to do anything for herself at this time. Patient presents sitting up in electric wheelchair with CG by side. Patient is A&O x 4. Patient is very aware of her care and all of her medications. Patient manages medications but CG administers. Patient states that she developed this wound on the back of her legs due to sitting up in the chair daily. Patient has been putting silver on the back of her legs that she got from MD's office. SN will stay in for further wound education and monitoring. MD office of Larry was contacted to get clarification on orders. Awaiting human resources operations coordinator back. LUPA thresh is 4 documented in this encounter Care Teams Dental Director Relationship Specialty Start Date End Date Natalia Juarez MD [address] [place] [address] PCP - General Family Medicine 10/07/24 documented as of this encounter
--- OUTSIDE RECORDS SUMMARY | 2024-11-06 12:20 | XMS_ITS | Clinical Summary ---
Author Organization [facility] Address [address] [place] [address] Care Team Providers Care Button Maker Name Role Phone Natalia Juarez MD Primary Care Provider [phone] Allergies No known active allergies Medications Eliquis 5 mg tabletIndicatio ns:VTE Prophylaxis,to prevent blood clots hx of MS and is wheelchair Last dose yesterday Take 5 mg by mouth 2 (two) times a day 1 Active buPROPion XL (WELLBUTRIN XL) 300 mg 24 hr tablet Take 300 mg by mouth daily Active gabapentin (NEURONTIN) 300 mg capsule Take 300 mg by mouth as needed 1 Active levothyroxine (SYNTHROID) 25 mcg tablet Take by mouth 3 Active omeprazole (PriLOSEC) 40 mg capsule Take 40 mg by mouth 2 (two) times a day 1 Active spironolactone (ALDACTONE) 25 mg tablet Take 50 mg by mouth 2 (two) times a day 1 Active mupirocin (mupirocin) 2 % ointment Apply to each nostril 2 (two) times a day Use pea size amount in each nostril twice daily for five (5) days. After application, press sides of nose together and gently massage. 10 g 1 Active Additional Information Patient taking differently:each nostril 2 times daily, Use pea size amount in each nostril twice daily for five (5) days. After application, press sides of nose together and gently massage.,Indications: has not started yet will start tomorrow, Reported on 07/25/2021 triamcinolone (KENALOG) 0.1 % cream Apply topically daily Apply thin film to skin where adhesive is applied; allow to dry 5 min before taping 30 g 1 4 Active Active Problems Problem Noted Date Diagnosed Date Ulnar neuropathy of left upper extremity 021 Overview (06/23/2021): Added automatically from request for surgery [id number] Immunizations Immunization Administration Dates Next Due Influenza, Unspecified 05/19/2020 Surgical History Surgery Date Site/Laterality Comments KNEE SURGERY 08/19/1986 - 08/18/1987 ACL repair ENDOMETRIAL ABLATION Medical History Medical History Date Comments Depression Multiple sclerosis (HCC) Sleep apnea Family History Medical History Relation Name Comments Anesthesia problems Neg Hx Malig Hyperthermia Neg Hx Social History Tobacco Use Types Packs/Day Years Used Date Smoking Tobacco: Never Smokeless Tobacco: Never AUDIT-C Answer Date Recorded Q1: How often do you have a drink containing alc ohol? Never 07/25/2021 Average Number of Drinks Not on file 021 Q3: How often do you have si x or more drinks on one occasion? Never 07/25/2021 Comments Unknown Sex and Gender Information Value Date Recorded Sex Assigned at Not on file Legal Sex Female 4:04 AM CABIN WORKER Gender Identity Not on file Sexual Orientation Not on file Occupation Industry Job Start Date Job End Date Disability Not on file Not on file Not on file Obstetrics History Last Filed Vital Signs Vital Sign Reading Time Taken Comments Blood Pressure 119/59 07/31/2021 11:55 AM CABIN WORKER Pulse 80 07/31/2021 12:10 PM CABIN WORKER Temperature 36.6 C (97.88 F) 07/31/2021 12:00 PM CABIN WORKER Respiratory Rate 18 07/31/2021 12:00 PM CABIN WORKER Oxygen Saturation 92% 07/31/2021 12:10 PM CABIN WORKER Inhaled Oxygen Concentration - - Weight 83.5 kg (184 lb) 07/25/2021 5:24 PM CABIN WORKER Height 165.1 cm (5' 5 ) 07/25/2021 5:24 PM CABIN WORKER Body Mass Index 30.62 07/25/2021 5:24 PM CABIN WORKER Plan of Treatment Health Maintenance Due Date Last Done Comments Breast Cancer Screening-Mammogram 1965 Cervical Cancer Screening 1963 Colon Cancer Screening-Colonoscopy 1963 Depression Screening 1963 Hepatitis C Screening 1963 DTaP/Tdap/Td Vaccine (1 - Tdap) 11/02/1974 Hepatitis B Screening 11/02/1981 Regular Well Visit/Exam 18-64 11/02/1981 Zoster Vaccine (1 of 2) 11/02/2013 Covid-19 Vaccine (2 - 2023-2 5 season) 2024 10/25/2020 Influenza Vaccine (#1) 2024 0, 06/11/2019, 06/16/2018 Pneumococcal vaccine <65 Aged Out No longer eligible based on patient's age to complete this topic Medical Devices Explanted Type Area Toll Test Desk Worker Device Identifier Shelf Expiration Date Model / Serial / Lot Intrathecal Pain Pump Intrathecal Pain [place] Description:Per T/C with Pt - she never had permanent pump installed - trial injections only in 02/2014, didn't like it so they never installed a permanent pump. 05/15/2021 Insurance MEDICARE [facility] MEDICARE [facility] MEDICARE [place] Care Teams Button Maker Relationship Specialty Start Date End Date Natalia Juarez MD PCP - General Family Medicine 04/19/21
--- OUTSIDE RECORDS SUMMARY | 2024-11-06 12:20 | XMS_ITS | Encounter Summary ---
Author Organization [facility] Address [address] [place] [address] Phone Care Team Providers Care Lean Manufacturing Leader Name Role Phone Natalia Juarez MD Primary Care Provider [phone] Reason for Visit * Auth/Cert (Routine) Specialty Diagnoses / Procedures Referred By Tramaine dewey Referred To Contact Referral ID Status Reason Start Date Expiration Date Visits Re quested Visits Authorized [id number] 1 1 Encounter Details Date Type Department Care Team ([facility] Contact Info) Description 2024 8:00 AM CDT Home Care Visit [facility] [address] [place] [address] Mable Olmedo, RN [place] SN - HOME VISIT Social History Tobacco Use Types Packs/Day Years Used Date Smoking Tobacco: Never Assessed Comments Unknown Sex and Gender Information Value Date Recorded Sex Assigned at Not on file Legal Sex Female 3:51 PM ERP TECHNICAL LEAD Gender Identity Not on file Sexual Orientation Not on file documented as of this encounter Last Filed Vital Signs Vital Sign Reading Time Taken Comments Blood Pressure 112/60 2024 10:43 AM CDT Pulse 78 2024 10:43 AM CDT Temperature 36.7 C (98.1 F) 2024 10:43 AM CDT Respiratory Rate 18 2024 10:43 AM CDT Oxygen Saturation - - Inhaled Oxygen Concentration - - Weight - - Height - - Body Mass Index - - documented in this encounter Plan of Treatment Upcoming Encounters Date Type Department Care Team (Late Contact Info) Description 11/09/2024 1:00 AM CDT Appointment [facility] [address] [place] [address] Mable Olmedo, RN [place] documented as of this encounter Visit Diagnoses Not on filedocumented in this encounter Care Teams Lean Manufacturing Leader Relationship Specialty Start Date End Date Natalia Juarez MD [address] [place] [address] PCP - General Family Medicine 10/07/24 documented as of this encounter
--- OUTSIDE RECORDS SUMMARY | 2024-11-06 12:20 | XMS_ITS | Clinical Summary ---
Author Organization [facility] Address [address] [place] [address] Phone Care Team Providers Care Underwater Roboticist Name Role Phone Natalia Juarez MD Primary Care Provider Allergies No known active allergies Medications gabapentin (NEURONTIN) 300 mg capsule Take 300 mg by mouth daily at bedtime. Active buPROPion HCl (WELLBUTRIN XL) 150 mg Extended Release 24 hour tablet Take 150 mg by mouth daily stencil typist. Active hydrOXYzine HCl (ATARAX) 25 mg tablet Take 25 mg by mouth 3 times daily as needed for Itching. Active CITALOPRAM HYDROBROMIDE (CELEXA ORAL) Take by mouth. Active LEVOTHYROXINE SODIUM (LEVOTHYROXINE ORAL) Take by mouth. 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 Social History Tobacco Use Types Packs/Day Years Used Date Smoking Tobacco: Never Alcohol Use Standard Drinks/Week Comments Yes 0 (1 standard drink = 0.6 oz pur e alcohol) Comments Unknown Sex and Gender Information Value Date Recorded Sex Assigned at Not on file Legal Sex Female 2:52 PM CDT Gender Identity Not on file Sexual Orientation Not on file Occupation Industry Job Start Date Job End Date Not on file Not on file Not on file Not on file Last Filed Vital Signs Vital Sign Reading Time Taken Comments Blood Pressure 111/71 03/09/2014 11:00 AM CDT Pulse 70 03/09/2014 11:00 AM CDT Temperature 36.8 C (98.3 F) 03/09/2014 11:00 AM CDT Respiratory Rate 16 03/09/2014 11:00 AM CDT Oxygen Saturation 95% 03/09/2014 11:00 AM CDT Inhaled Oxygen Concentration - - Weight 83.5 kg (184 lb) 03/23/2014 5:10 PM CDT Height 165.1 cm (5' 5 ) 03/23/2014 5:10 PM CDT Body Mass Index 30.62 03/23/2014 5:10 PM CDT Plan of Treatment Health Maintenance Due Date Last Done Comments DTAP/TDAP/TD VACCINES (1 - Tdap) 11/02/1982 PAP SMEAR 11/02/1984 CERVICAL CANCER SCREENING 11/02/1993 HPV/Cotest 11/02/1993 PAP SMEAR 11/02/1993 BREAST CANCER SCREENING 2003 COLORECTAL SCREENING 11/02/2008 Colorectal Cancer Screening 11/02/2008 FIT-DNA Q 3 years 11/02/2008 FIT/FOBT Q 1 year 11/02/2008 Flex Sig/CT Colonography Q 5 years 11/02/2008 ZOSTER VACCINE (1 of 2) 11/02/2013 INFLUENZA VACCINE (#1) 2024 RSV VACCINE (60+ or ) (1 - 1-dose 75+ series) 11/02/2038 Insurance MEDICARE PART A AND B Advance Directives For more information, please contact: [phone] * Full Code (Latest Code Status on File) Date Activated Date Inactivated Comments 03/09/2014 8:12 AM 03/09/2014 5:46 PM * Full Code Date Activated Date Inactivated Comments 03/09/2014 5:59 AM 03/09/2014 8:12 AM Care Teams Underwater Roboticist Relationship Specialty Start Date End Date Natalia Juarez MD [address] [place] [id number] PCP - General Family Practice 02/25/14
--- OUTSIDE RECORDS SUMMARY | 2024-11-06 12:20 | XMS_ITS | Referral Summary ---
Author Organization [facility] Address [address] [place] [address] Care Team Providers Care Cash Clerk Name Role Phone Natalia Juarez MD Primary Care Provider [phone] Allergies No known active allergies Medications Eliquis [...] Date Ulnar neuropathy of left upper extremity Overview (06/23/2021): Added automatically from request for surgery [id number] Immunizations Immunization Administration Dates Next Due Influenza, Unspecified 05/19/2020 Social History Tobacco Use Types Packs/Day Years Used Date Smoking Tobacco: Never Smokeless Tobacco: Never AUDIT-C Answer Date Recorded Q1: How often do you have a drink containing alc ohol? Never 07/25/2021 Average Number of Drinks Not on file Q3: How often do you have si x or more drinks on one occasion? Never 07/25/2021 Comments Unknown Sex and Gender Information Value Date Recorded Sex Assigned at Not on file Legal Sex Female 4:04 AM FREEZING ROOM WORKER Gender Identity Not on file Sexual Orientation Not on file Occupation Industry Job Start Date Job End Date Disability Not on file Not on file Not on file Last Filed Vital Signs Vital Sign Reading Time Taken Comments Blood Pressure 119/59 07/31/2021 11:55 AM FREEZING ROOM WORKER Pulse 80 07/31/2021 12:10 PM FREEZING ROOM WORKER Temperature 36.6 C (97.88 F) 07/31/2021 12:00 PM FREEZING ROOM WORKER Respiratory Rate 18 07/31/2021 12:00 PM FREEZING ROOM WORKER Oxygen Saturation 92% 07/31/2021 12:10 PM FREEZING ROOM WORKER Inhaled Oxygen Concentration - - Weight 83.5 kg (184 lb) 07/25/2021 5:24 PM FREEZING ROOM WORKER Height 165.1 cm (5' 5 ) 07/25/2021 5:24 PM FREEZING ROOM WORKER Body Mass Index 30.62 07/25/2021 5:24 PM FREEZING ROOM WORKER Plan of Treatment Not on file Medical Devices Explanted Type Area Supervising Librarian Device Identifier Shelf Expiration Date Model / Serial / Lot Intrathecal Pain Pump Intrathecal Pain [place] Description:Per T/C with Pt - she never had permanent pump installed - trial injections only in 02/2014, didn't like it so they never installed a permanent pump. CATA 05/15/2021 Insurance MEDICARE IDPA MEDICARE IDPA MEDICARE IDPA Care Teams Cash Clerk Relationship Specialty Start Date End Date Natalia Juarez MD PCP - General Family Medicine 04/19/21
--- OUTSIDE RECORDS SUMMARY | 2024-11-06 12:21 | XMS_ITS | Clinical Summary ---
Author Organization [facility] Address [address] [place] [address] Phone Care Team Providers Care Hand Stone Polisher Name Role Phone Natalia Juarez MD Primary Care Provider [phone] Allergies No known active allergies Medications gabapentin (NEURONTIN) 300 MG CapsuleIndicati ons:Neuropathic Pain Take 300 mg by mouth 2 times daily. Indications: Neuropathic Pain Active omeprazole (PriLOSEC) 40 MG CAPSULE DELAYED RELEASEIndicati ons:Esophagecto my,Helicobacter pylori,Peptic Ulcer Take 40 mg by mouth daily. Indications: Excision of the Esophagus, Helicobacter pylori Bacteria, Peptic Ulcer Active LEVOTHYROXINE SODIUM PO Take 0.5 mg by mouth daily. Active spironolactone (ALDACTONE) 25 MG TabletIndicatio ns:Edema Take 25 mg by mouth 2 times daily. Indications: Edema Active apixaban (Eliquis) 2.5 MG Tablet Take 2.5 mg by mouth 2 times daily. Active ARIPiprazole, sensor, 10 MG Tablet Take 10 mg by mouth daily. Active baclofen (LIORESAL) 20 MG TabletIndicatio ns:Muscle Spasm,Muscle Spasticity Take 20 mg by mouth 2 times daily. Indications: Muscle Spasm, Muscle Spasticity Active citalopram (CeleXA) 40 MG TabletIndicatio ns:Major Depressive Disorder Take 40 mg by mouth daily. Indications: Major Depressive Disorder Active BUPROPION HCL ER, XL, POIndications:D epression Take 140 mg by mouth daily. Indications: Depression Active Encounters Date Type Department Care Team Description [facility]/04[facility] [address] [place] [address] Funmilayo Lee RN SN - WOUND/OSTOMY CONSULTATION 2024 8:00 AM CDT Home Care Visit [address] [address] Mable Olmedo, RN SN - HOME VISIT 10/28/2024 1:30 PM CDT Home Care Visit [address] [address] Mable Olmedo, RN SN - LAB 10/28/2024 Travel 10/21/2024 1:00 AM CAREER TECHNICAL EDUCATION INSTRUCTOR Home Care Visit [address] [address] Pennie Montoya RN SN - OASIS START OF CARE 10/21/2024 Plan of Care Documentation [address] [address] from Last 3 Months Social History Tobacco Use Types Packs/Day Years Used Date Smoking Tobacco: Never Assessed Comments Unknown Sex and Gender Information Value Date Recorded Sex Assigned at Not on file Legal Sex Female 3:51 PM CAREER TECHNICAL EDUCATION INSTRUCTOR Gender Identity Not on file Sexual Orientation Not on file Last Filed Vital Signs Vital Sign Reading Time Taken Comments Blood Pressure 112/60 2024 10:43 AM CDT Pulse 78 2024 10:43 AM CDT Temperature 36.7 C (98.1 F) 2024 10:43 AM CDT Respiratory Rate 18 2024 10:43 AM CDT Oxygen Saturation 98% 10/21/2024 12:30 PM CAREER TECHNICAL EDUCATION INSTRUCTOR Inhaled Oxygen Concentration - - Weight - - Height 165.1 cm (5' 5 ) 10/21/2024 12:30 PM CAREER TECHNICAL EDUCATION INSTRUCTOR Body Mass Index - - Plan of Treatment Upcoming Encounters Date Type Department Care Team (Late st Contact Info) Description 11/09/2024 1:00 AM CDT Appointment [address] [address] Mable Olmedo, RN [place] Health Maintenance Due Date Last Done Comments Hepatitis C Virus (HCV) Screening 1965 Mammogram 1965 Pap Smear 11/02/1984 Cervical Cancer Screening (CCS) 11/02/1993 HPV/Cotest 11/02/1993 Colonoscopy 11/02/2008 Colorectal Cancer Screening 11/02/2008 Cologuard 11/02/2013 Immunochemical Fecal Occult Blood 11/02/2013 Zoster Immunization (1 of 2) 11/02/2013 Pneumococcal Immunization (50+ years) (2 of 2 - PCV) 05/17/2023 05/17/2022 TdaP Immunization Completed 12/11/2023 Influenza Immunization Completed , 06/14/2023, 05/17/2022, Additional history exists Respiratory Syncytial Virus (RSV) Immunization (Adult) Completed 04/06/2024 SARS-COV-2 Immunization Completed 06/09/20, 06/14/2023, 06/08/2022, Additional history exists Hepatitis B Immunization Aged Out No longer eligible based on patient's age to complete this topic Meningococcal Immunization (ACWY) Aged Out No longer eligible based on patient's age to complete this topic Rotavirus Immunization Aged Out No lo nger eligible based on patient's age to complete this topic Insurance MEDICARE MEDICAID [place] Care Teams Hand Stone Polisher Relationship Specialty Start Date End Date Natalia Juarez MD [address] [place] [address] PCP - General Family Medicine 10/07/24
== END 2024-11-06 11:09 | disposition home or self-care (01) ==
PROVIDERS: PCP Family Medicine; Visit Provider Family Medicine
DX: E03.9 Hypothyroidism, unspecified (principal); N18.30 Chronic kidney disease, stage 3 unspecified; R53.83 Other fatigue
CPT/HCPCS: 36415; 80053; 84443; 85025

== ENCOUNTER 2025-01-05 11:24 | Outpatient (CLI) | payer MEDICARE, SELFPAY ==
--- NOTE | ~2025-01-05 | US_ITS ---
US renal BI 01/05/2025 12:21 Procedure: Realtime transabdominal ultrasound of the kidneys and bladder. Indication: Chronic kidney disease Comparison: No prior studies for comparison. Findings: Renal echotexture is normal bilaterally without hydronephrosis, contour deforming mass or r enal calculus. The right kidney measures 8.1 cm and left kidney measures 9.4 cm. Bladder within norm al limits. Impression: 1: Unremarkable renal ultrasound. No stones, masses or hydronephrosis. Reviewed, dictated and finalized at location B. Impression: 1: Unremarkable renal ultrasound. No stones, masses or hydronephrosis.
--- OUTSIDE RECORDS SUMMARY | 2025-01-05 11:29 | XMS_ITS | Clinical Summary ---
Author Organization [facility] Address [address] [place] [address] Phone Care Team Providers Care Tube Rebuilder Name Role Phone Natalia Juarez MD Primary Care Provider [phone] Allergies No known active allergies Medications gabapentin [...] mg by mouth daily. Indications: Depression Active MINOXIDIL PO Take 2.5 mg by mouth daily. take once daily Active Encounters Date Type Department Care Team Description 12/17/2024 1:00 AM CDT Home Care Visit [address] [address] Mable Olmedo RN SN - OASIS DISCHARGE 12/07/2024 2:00 PM CDT Home Care Visit [address] [address] Violetta Dacosta, LINE SERVICE ATTENDANT SN - WOUND VISIT 12/01/2024 1:00 PM CDT Home Care Visit [address] [address] Violetta Dacosta LPN SN - WOUND VISIT 11/25/2024 Home Care Visit [address] [address] Funmilayo Lee RN SN - WOUND/OSTOMY CONSULTATION 11/24/2024 1:00 PM CDT Home Care Visit [address] [address] Violetta Dacosta LPN SN - WOUND VISIT 11/18/2024 2:30 PM CDT Home Care Visit [address] [address] Mable Olmedo RN SN - WOUND VISIT 11/11/2024 9:00 AM CDT Home Care Visit [address] [address] Mable Olmedo RN SN - WOUND VISIT 11/04/2024 Home Care Visit [address] [address] Funmilayo Lee RN SN - WOUND/OSTOMY CONSULTATION 2024 8:00 AM CDT Home Care Visit [address] [address] Mable Olmedo RN SN - HOME VISIT 10/28/2024 1:30 PM CDT Home Care Visit [address] [address] Mable Olmedo RN SN - LAB 10/28/2024 Travel 10/21/2024 1:00 AM SLICE CUTTING MACHINE OPERATOR HELPER [facility] [address] [place] [address] Pennie Montoya, TROY SN - OASIS START OF CARE 10/21/2024 [facility] [address] [place] [address] from Last 3 Months Social History Tobacco Use Types Packs/Day Years Used Date Smoking Tobacco: Never Assessed Comments Unknown Sex and Gender Information Value Date Recorded Sex Assigned at Not on file Legal Sex Female 3:51 PM SLICE CUTTING MACHINE OPERATOR HELPER Gender Identity Not on file Sexual Orientation Not on file Last Filed Vital Signs Vital Sign Reading Time Taken Comments Blood Pressure 120/64 12/17/2024 10:18 AM CDT Pulse 78 12/17/2024 10:18 AM CDT Temperature 36.8 C (98.2 F) 12/17/2024 10:18 AM CDT Respiratory Rate 16 12/17/2024 10:18 AM CDT Oxygen Saturation 98% 10/21/2024 12:30 PM SLICE CUTTING MACHINE OPERATOR HELPER Inhaled Oxygen Concentration - - Weight - - Height 165.1 cm (5' 5 ) 10/21/2024 12:30 PM SLICE CUTTING MACHINE OPERATOR HELPER Body Mass Index - - Plan of Treatment Health Maintenance Due Date [...] Immunization (Adult) Completed 04/06/2024 SARS-COV-2 Immunization Completed 06/09/20 24, 06/14/2023, 06/08/2022, Additional history exists Hepatitis B Immunization Aged Out No longer eligible based on patient's age to complete this topic Human Papillomavirus (HPV) Immunization Aged Out No longer eligible based on patient's age to complete this topic Meningococcal Immunization (ACWY) Aged Out No longer eligible based on patient's age to complete this topic Rotavirus Immunization Aged Out No lo nger eligible based on patient's age to complete this topic Insurance MEDICARE Advance Directives * Full Code (Latest Code Status on File) Date Activated Date Inactivated Comments 12/08/2024 9:23 AM Care Teams Tube Rebuilder Relationship Specialty Start Date End Date Natalia Juarez MD [address] [place] [address] PCP - General Family Medicine 10/07/24
--- OUTSIDE RECORDS SUMMARY | 2025-01-05 11:29 | XMS_ITS | Clinical Summary ---
Author Organization [facility] Address [address] [place] [address] Phone Care Team Providers Care Gauge Checker Name Role Phone Natalia Juarez MD Primary Care Provider [phone] Allergies No known active allergies Medications gabapentin (NEURONTIN) 300 mg capsule Take 300 mg by mouth daily at bedtime. Active buPROPion HCl (WELLBUTRIN XL) 150 mg Extended Release 24 hour tablet Take 150 mg by mouth daily die casting machine setter. Active hydrOXYzine HCl (ATARAX) 25 mg tablet [...] Comments DTAP/TDAP/TD VACCINES (1 - Tdap) 11/02/1982 HPV/Cotest (21-29) 11/02/1984 CERVICAL CANCER SCREENING 11/02/1993 HPV/Cotest (30-65) 11/02/1993 PAP SMEAR 11/02/1993 BREAST CANCER SCREENING [...] Advance Directives For more information, please contact: [phone] * Full Code (Latest Code Status on File) Date Activated Date Inactivated Comments 03/09/2014 8:12 AM 03/09/2014 5:46 PM * Full Code Date Activated Date Inactivated Comments 03/09/2014 5:59 AM 03/09/2014 8:12 AM Care Teams Gauge Checker Relationship Specialty Start Date End Date Natalia Juarez MD [address] [place] [id number] PCP - General Family Practice 02/25/14
--- OUTSIDE RECORDS SUMMARY | 2025-01-05 11:29 | XMS_ITS | Clinical Summary ---
Author Organization [facility] Address [address] [place] [address] Care Team Providers Care Belt Conveyor Drier Name Role Phone Natalia Juarez MD Primary Care Provider [phone] Allergies No known active allergies Medications Eliquis [...] (06/23/2021): Added automatically from request for surgery [id number] Immunizations Immunization Administration Dates Next Due Influenza, [...] on file Legal Sex Female 4:04 AM MAP AND CHART MOUNTER Gender Identity Not on file Sexual Orientation Not on file Occupation Industry Job Start Date Job End Date Disability Not on file Not on file Not on file Obstetrics History Last Filed Vital Signs Vital Sign Reading Time Taken Comments Blood Pressure 119/59 07/31/2021 11:55 AM MAP AND CHART MOUNTER Pulse 80 07/31/2021 12:10 PM MAP AND CHART MOUNTER Temperature 36.6 C (97.88 F) 07/31/2021 12:00 PM MAP AND CHART MOUNTER Respiratory Rate 18 07/31/2021 12:00 PM MAP AND CHART MOUNTER Oxygen Saturation 92% 07/31/2021 12:10 PM MAP AND CHART MOUNTER Inhaled Oxygen Concentration - - Weight 83.5 kg (184 lb) 07/25/2021 5:24 PM MAP AND CHART MOUNTER Height 165.1 cm (5' 5 ) 07/25/2021 5:24 PM MAP AND CHART MOUNTER Body Mass Index 30.62 07/25/2021 5:24 PM MAP AND CHART MOUNTER Plan of Treatment Health Maintenance Due Date Last Done Comments Breast Cancer Screening-Mammogram 1965 Cervical Cancer Screening 1965 Colon Cancer Screening-Colonoscopy 1965 Depression Screening 1965 Hepatitis C Screening 1965 DTaP/Tdap/Td Vaccine (1 - Tdap) 11/02/1974 Hepatitis B Screening 11/02/1981 Regular Well Visit/Exam 18-64 11/02/1981 Zoster Vaccine (1 of 2) 11/02/2013 Covid-19 Vaccine (2 - 2023-2 5 season) 2024 10/25/2020 Influenza Vaccine (Season Ended) 2025 05/19/2020, 06/11/2019, 06/16/2018 Pneumococcal vaccine <65 Aged Out No longer eligible based on patient's age to complete this topic Medical Devices Explanted Type Area Client Manager Device Identifier Shelf Expiration Date Model / Serial / Lot Intrathecal Pain Pump Intrathecal Pain [place] Description:Per T/C with Pt - she never had permanent pump installed - trial injections only in 02/2014, didn't like it so they never installed a permanent pump. 05/15/2021 Insurance MEDICARE IDIL MEDICARE IDIL MEDICARE IDIL Care Teams Belt Conveyor Drier Relationship Specialty Start Date End Date Natalia Juarez MD PCP - General Family Medicine 04/19/21
--- OUTSIDE RECORDS SUMMARY | 2025-01-05 11:29 | XMS_ITS | Referral Summary ---
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 ROD BENDING MACHINE OPERATOR Gender Identity Not on file Sexual Orientation Not on file Occupation Industry Job Start Date Job End Date Disability Not on file Not on file Not on file Last Filed Vital Signs Vital Sign Reading Time Taken Comments Blood Pressure 119/59 07/31/2021 11:55 AM ROD BENDING MACHINE OPERATOR Pulse 80 07/31/2021 12:10 PM ROD BENDING MACHINE OPERATOR Temperature 36.6 C (97.88 F) 07/31/2021 12:00 PM ROD BENDING MACHINE OPERATOR Respiratory Rate 18 07/31/2021 12:00 PM ROD BENDING MACHINE OPERATOR Oxygen Saturation 92% 07/31/2021 12:10 PM ROD BENDING MACHINE OPERATOR Inhaled Oxygen Concentration - - Weight 83.5 kg (184 lb) 07/25/2021 5:24 PM ROD BENDING MACHINE OPERATOR Height 165.1 cm (5' 5 ) 07/25/2021 5:24 PM ROD BENDING MACHINE OPERATOR Body Mass Index 30.62 07/25/2021 5:24 PM ROD BENDING MACHINE OPERATOR Plan of Treatment Not on file Medical Devices Explanted Type Area Industrial Spray Painter Device Identifier Shelf Expiration Date Model / Serial / Lot Intrathecal Pain Pump Intrathecal Pain [place] Description:Per T/C with Pt - she never had permanent pump installed - trial injections only in 02/2014, didn't like it so they never installed a permanent pump. [facility] 05/15/2021 Insurance MEDICARE IDPA MEDICARE IDPA MEDICARE IDPA Care Teams Signaling Project Engineer Relationship Specialty Start Date End Date Natalia Juarez MD PCP - General Family Medicine 04/19/21
== END 2025-01-05 11:25 | disposition home or self-care (01) ==
PROVIDERS: PCP Family Medicine; Visit Provider Family Medicine
DX: N18.30 Chronic kidney disease, stage 3 unspecified (principal); G35 Multiple sclerosis
CPT/HCPCS: 76775

== ENCOUNTER 2025-03-05 15:09 | Inpatient (IN) | payer MEDICARE, SELFPAY ==
[2025-03-05] VITALS (11 sets, daily range): BP systolic 79–138; BP diastolic 42–65; PULSE 80–111; RESP 16–24; TEMP 37–39.3; O2SAT 91–98
--- NOTE | ~2025-03-05 | US_ITS ---
EXAMINATION: US venous doppler [facility] DATE: 03/05/2025 20:39 INDICATION: Red swollen . TECHNIQUE: Grayscale images without and with compression and Doppler images of the left lower extremi ty veins were obtained. COMPARISON: None FINDINGS: The left common femoral vein, profunda (deep) femoral vein, femoral vein, popliteal vein, peroneal v ein, posterior tibial veins, and greater saphenous vein are patent. IMPRESSION: Patent left lower extremity veins. No evidence of deep venous thrombosis. Reviewed, dictated and finalized at location K.
--- NOTE | ~2025-03-05 | CT_ITS ---
EXAMINATION: CT chest abdomen pelvis w con DATE: 03/05/2025 17:40 INDICATION: Sepsis, unknown source . TECHNIQUE: Computed tomography (CT) of the chest, abdomen, and pelvis was performed with 100 mL Omnip aque-350 intravenous contrast. Automated exposure control and iterative reconstruction technique were employed. The dose-length product was 898.45 mGy-cm. COMPARISON: X-ray chest, same date; MRCP 11/22/2021; CT abdomen pelvis 11/21/2021 FINDINGS: CHEST: Thoracic aorta: No significant dilation. No dissection. Lung parenchyma and airways: Lungs and airways are clear. Thoracic inlet, axillae and chest wall: 2.1 cm left thyroid nodule. No axillary lymphadenopathy. Mediastinum: No mass or lymphadenopathy. Heart and pericardium: Normal heart size. No pericardial effusion. Coronary artery calcifications: Mild. Pleura: No effusion or mass. Thoracic bones: No acute osseous finding in the chest. ABDOMEN/PELVIS: Liver: Normal. Flow hypodensity, simple cyst in prior MRI. Biliary/Gallbladder: Gallbladder is absent. No bile duct dilation. Pneumobilia. Pancreas: No mass or duct dilation. Spleen: Normal. Adrenals:No mass. Kidneys: Mild bilateral hydronephrosis. No suspicious mass or obstructing calcification. Bilateral pa rapelvic cysts. GI tract: Small hiatal hernia. Small uncomplicated appearing distal esophageal diverticulum. No small bowel dilation. Mild dilation of the air-filled mid sigmoid. Mild wall thickening of the distal sigm oid and rectum. Normal appendix. Mesentery/Peritoneum: No ascites, mass, or free air. Retroperitoneum: No mass Atherosclerotic calcifications of intra-abdominal arterial vessels. Pelvis: Distended urinary bladder. Normal uterus and bilateral ovaries. Status post tubal ligation. Soft Tissues: Small fat-containing uncomplicated umbilical and bilateral inguinal hernias. Mild body wall edema. Abdominopelvic bones: No acute osseous finding in the abdomen/pelvis. IMPRESSION: 2.1 cm left thyroid nodule, recommend outpatient thyroid ultrasound for further characterization. Pneumobilia, without inflammatory changes, likely secondary to an incompetent sphincter and/or prior procedure. Air-filled mildly distended mid sigmoid colon. Mild distal sigmoid and rectal wall thickening, consider colitis/proctitis. Mild bilateral hydronephrosis, may be secondary to urinary retention. Consider ascending infection in the differential. No CT evidence of pyelonephritis. Distended urinary bladder without wall thickening or inflammatory change. Correlate with urinalysis a nd symptoms of urinary retention. Mild body wall edema. Reviewed, dictated and finalized at location K. IMPRESSION: 2.1 cm left thyroid nodule, recommend outpatient thyroid ultrasound for further characterization. Pneumobilia, without inflammatory changes, likely secondary to an incompetent s phincter and/or prior procedure. Air-filled mildly distended mid sigmoid colon. Mild distal sigmoid and rectal wall thickening, consider colitis/proctitis. Mild bilateral hydronephrosis, may be secondary to urinary retention. Consider ascending infection in the differential. No CT evidence of pyelonephritis. Distended urinary bladder without wall thickening or inflammatory change. Corre late with urinalysis and symptoms of urinary retention. Mild body wall edema.
--- NOTE | ~2025-03-05 | XR_ITS ---
XR chest 1V portable 03/08/2025 05:36 Indication: Shortness of breath, wheezing. Tachypnea. Procedure: AP portable chest Comparison: 03/05/2025 Findings: Cardiomegaly. Diffuse bilateral airspace disease has developed. No significant effusion or pneumothorax. No acute osseous abnormality. Impression: 1: Cardiomegaly with diffuse bilateral airspace disease which may represent edema or pneumonia. Reviewed, dictated and finalized at location A. Impression: 1: Cardiomegaly with diffuse bilateral airspace disease which may represent ellen ma or pneumonia.
--- NOTE | ~2025-03-05 | XR_ITS ---
EXAMINATION: XR chest 1V portable Exam Date/Time: 03/05/2025 17:02 CDT HISTORY: Fever, SEPTIC UNKNOWN CAUSE Comparison: 11/25/2021. RESULT: Lines, tubes, and devices: Cholecystomy clips. Lungs and pleura: Low volumes with crowding. Prominent pulmonary vessels. No focal consolidation, pl eural effusion, or pneumothorax. Cardiomediastinal silhouette: Stable. Other: No acute osseous or upper abdominal finding. IMPRESSION: Pulmonary vascular congestion. Reviewed, dictated and finalized at location K.
--- NOTE | ~2025-03-05 | CT_ITS ---
CT OF left lower extremity EXAMINATION: CT LE LT w con DATE: 03/05/2025 21:52 INDICATION: Erythema and warmth over lateral and distal thigh TECHNIQUE: Computed tomography (CT) of the left lower extremity was performed with 100 mL Omnipaque 3 50 intravenous contrast. Automated exposure control and iterative reconstruction technique were emplo yed. The dose-length product was 1233.89 mGy-cm. COMPARISON: CT cap, same date; DVT ultrasound, same date FINDINGS: Contrast excretion into a distended urinary bladder. Atherosclerotic calcifications in the distal aor ta and iliac vessels. Severe stenoses of the bilateral internal iliac arteries. Moderate short segmen t stenosis in the left common femoral artery. The trifurcation is patent. 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 Partial fatty atrophy of the sartorius, rectus femoris, medial gluteus, and media l gastrocnemius muscles. Dermal thickening, most pronounced in the distal and posterior thigh. Subcut aneous stranding, most pronounced in the lateral and distal circumferential thigh and knee. Fluid tra cking along the lateral fascial planes. No rim-enhancing fluid collection. ET evidence of deep space involvement in the thigh compartments. 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 Dermal thickening and diffuse subcutaneous stranding in the lateral and distal thigh, which could rep resent colitis in the appropriate clinical context. No abscess detected. Reviewed, dictated and finalized at location K. 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 Dermal thickening and diffuse subcutaneous stranding in the lateral and distal thigh, which could represent colitis in the appropriate clinical context. No ab scess detected.
--- NOTE | 2025-03-05 15:35 | ECG_ITS ---
Test Date: 2025-03-05 18:01:07 Measurements Intervals [place] Rate: 112 P: 50 [place]: 187 QRS: 27 QRSD: 81 T: 57 QT: 247 QTc: 338 Interpretive Statements SINUS TACHYCARDIA NONSPECIFIC T-WAVE ABNORMALITY ABNORMAL RHYTHM ECG No previous ECG available for comparison Electronically Signed On 03-06-2025 08:46:50 CDT by Esteban Up M.D.
[2025-03-05 16:09] LABS: Hematocrit 44.3 % (37.0-47.0); Hemoglobin 14.3 g/dL (12.0-15.0); Immature Granulocyte Percent A 0.7 % (0-0.5); Lymphocytes Absolute Auto 0.51 K/mm3 (0.9-3.2); Mean Corpuscular HGB Conc 32.3 g/dl (32-36); Mean Corpuscular Hemoglobin 29.6 pg (26-34); Mean Corpuscular Volume 91.7 fl (80-100); Nucleated Red Blood Cells Absolute Auto 0.000 K/mm3 (0.0-0.012); Nucleated Red Blood Cells Perc 0.0 % (0.0-0.2); Platelet Count Result 265 k/mm3 (150-375); Red Blood Count 4.83 M/mm3 (4.2-5.4); White Blood Count 17.9 K/mm3 (4.5-10.0)
[2025-03-05] MEDS: LACTATED RINGERS 1,000 ML 999 ML IV CONT ×2 (16:09→16:10)
[2025-03-05] MEDS: ACETAMINOPHEN 500 MG TABLET 1000 MG PO (16:11)
[2025-03-05 16:17] LABS: Fractional Inspired Oxygen 21 %; HCO3 VBG 24.5 mEq/l (24.0-30.0); PCO2 VBG 40.5 mmHg (42.0-48.0); PO2 VBG 37.7 mmHg (35.0-45.0); pH VBG 7.400 (7.300-7.400)
[2025-03-05 16:19] LABS: Liters per Minute 0.0 LPM
[2025-03-05 16:34] LABS: Alanine Aminotransferase 25 U/L (6-35); Albumin Level 4.6 g/dL (3.5-5.1); Alkaline Phosphatase 73 U/L (38-126); Aspartate Amino Transferase 39 U/L (14-36); Bilirubin,Total 0.7 mg/dL (0.2-1.3); Lipase 67 U/L (23-300); Magnesium 2.0 mg/dL (1.6-2.3); Total Protein 8.3 g/dL (6.3-8.2)
[2025-03-05 16:42] LABS: NT Pro B Type Natriuretic Pept 111 pg/mL (19.9-100)
[2025-03-05 16:46] LABS: Influenza A QL RT-PCR Negative (Negative); Influenza B QL RT-PCR Negative (Negative); RSV RNA, RT-PCR Negative (Negative); SARS-CoV-2 RNA PCR Negative (Negative)
[2025-03-05 16:58] LABS: Anion Gap 16 mmol/L (4-12); Blood Urea Nitrogen 11 mg/dL (7-17); Calcium 9.7 mg/dL (8.4-10.2); Carbon Dioxide 20 mmol/L (22-30); Chloride 101 mmol/L (98-107); Estimated CRCL calculation 50 ml/min; Estimated Glomerular Filt Rate 52; Glucose 93 mg/dL (65-110); Potassium 4.5 mmol/L (3.4-5.0); Sodium 137 mmol/L (137-145)
--- NOTE | 2025-03-05 17:12 | ED_ITS ---
HPI - General Adult General Chief complaint: Dizziness <Livan Duff MD - Last Filed: 03/05/25 20:08> Stated complaint: dizziness <Livan Duff MD - Last Filed: 03/05/25 20:08> Time Seen by Provider: 03/05/25 15:35 <Livan Duff MD - Last Filed: 03/05/25 20:08> History of Present Illness HPI narrative: This is a 59-year-old female with history of MS with full body spastic paralysis presenting for not feeling well. Patient says that starting at noon today she felt unwell. She feels dizzy. She does not have any fevers chest pain difficulty breathing abdominal pain or urinary symptoms. Patient does have some minor skin breakdown over the posterior thighs. Family has noticed that her left leg is red and warm to touch. <Livan Duff MD - Last Filed: 03/05/25 20:08> Related Data Home medications: Home Medications ?Medication ?Instructions ?Recorded ?Confirmed ?Last Taken ?Type minoxidil 2.5 mg tablet 2.5 mg PO DAILY 12/16/24 12/16/24 Unknown History <Livan Duff MD - Last Filed: 03/05/25 20:08> Allergies/adverse reactions: Allergies Allergy/AdvReac Type Severity Reaction Status Date / Time amoxicillin (From Augmentin) Allergy Mild Rash Verified 03/05/25 15:26 clavulanic acid (From Allergy Mild Rash Verified 03/05/25 15:26 Augmentin) Sulfa (Sulfonamide Allergy Mild Rash Verified 03/05/25 15:26 Antibiotics) doxycycline Allergy Unknown Upset Verified 03/05/25 15:26 Stomach <Livan Duff MD - Last Filed: 03/05/25 20:08> [facility] Past Medical History Medical History: Medical History Hair loss Leg varicosity w/ ulcer Hyperpigmentation of skin Multiple sclerosis (Unknown) Anticoagulant long-term use (Unknown) On apixaban for DVT prophylaxis. Lymphedema (Unknown) Depression Complete immobility due to severe physical disability or frailty Vitamin D deficiency <Livan Duff MD - Last Filed: 03/05/25 20:08> Surgical History Surgical History: Surgical History History of laparoscopic cholecystectomy 11/24/2021 - laparoscopic cholecystectomy and drainage of a right perihepatic abscess. History of surgery on upper extremity History of tubal ligation <Livan Duff MD - Last Filed: 03/05/25 20:08> Family History Family History: Family History Other Family history of coronary artery disease Family history of malignant neoplasm of breast in first degree relative <Livan Duff MD - Last Filed: 03/05/25 20:08> Social History Social History: Social History Social History: The patient lives at home with her , Casey, and is primarily bedbound. She requires assistance to get to a powered wheelchair when needed for mobility. No alcohol, tobacco, or illicit substance use. She designates her as her surrogate decision maker and she wishes to be a full code. Smoking status: Never smoker Second hand tobacco smoke exposure: No Alcohol intake: never Substance use: never Substance use type: does not use Lack of Transportation: No Lack of Food: Never True Current Housing: I Have Housing Concerned About Future Housing: No Difficulty Paying Gas/Electric Bills: No Difficulty Paying for Meds: No Currently Unemployed: No Education: High School Diploma/GED Difficulty w/ Childcare or Family Care: No Living arrangements: with family Gender identity (if verbalized by the patient): Female Spiritual care concerns: No Agree to blood products: Yes <Livan Duff MD - Last Filed: 03/05/25 20:08> Exam 2 Narrative: APPEARANCE: No apparent distress. Head: atraumatic. EYES: EOMI, NOSE: Atraumatic NECK: Trachea midline RESPIRATORY: No increased rate of breathing clear to auscultation CARDIOVASCULAR: Tachycardic ABDOMINAL: Non-distended soft nontender MUSCULOSKELETAl: No obvious deformities NEURO: Alert, spastic paralysis of all 4 extremities, upper extremities are contracted SKIN:: Left leg is erythematous and warm to touch as compared to the right, Stage II skin breakdown over the posterior thighs/buttocks without evidence of infection PSYCHIATRIC: Normal affect <Livan Duff MD - Last Filed: 03/05/25 20:08> Course Course Emergency Course: Pending CT scan of her leg which resulted with dermal thickening and subcutaneous stranding consistent with cellulitis. No abscess detected. Patient admitted to the ICU on norepinephrine, antibiotics and central line placed by previous provider. <Jordy Harrison MD - Last Filed: 03/05/25 23:14> Vital Signs Vital signs: Vital Signs Temperature 39.1 C H 03/05/25 15:19 Pulse Rate 103 H 03/05/25 15:19 Respiratory Rate 16 03/05/25 15:19 Blood Pressure 138/65 03/05/25 15:19 Pulse Oximetry 97 03/05/25 15:19 Oxygen Delivery Room Air 03/05/25 15:19 Temperature 37.0 C 03/05/25 22:44 Pulse Rate 80 03/05/25 22:44 Respiratory Rate 18 03/05/25 22:44 Blood Pressure 79/42 L 03/05/25 22:44 Pulse Oximetry 94 03/05/25 22:44 Oxygen Delivery Room Air 03/05/25 15:19 <Livan Duff MD - Last Filed: 03/05/25 20:08> Vital Signs Temperature 39.1 C H 03/05/25 15:19 Pulse Rate 103 H 03/05/25 15:19 Respiratory Rate 16 03/05/25 15:19 Blood Pressure 138/65 03/05/25 15:19 Pulse Oximetry 97 03/05/25 15:19 Oxygen Delivery Room Air 03/05/25 15:19 Temperature 37.0 C 03/05/25 22:44 Pulse Rate 80 03/05/25 22:44 Respiratory Rate 18 03/05/25 22:44 Blood Pressure 79/42 L 03/05/25 22:44 Pulse Oximetry 94 03/05/25 22:44 Oxygen Delivery Room Air 03/05/25 15:19 <Jordy Harrison MD - Last Filed: 03/05/25 23:14> Medical Decision Making MDM Narrative Medical decision making narrative: -Course: 59-year-old female presenting with not feeling well. On arrival she is tachycardic and febrile at 102.3. Left leg is red and warm to touch. Full sepsis workup obtained. Patient given 30 cc/kilogram bolus and started on broad-spectrum antibiotics while awaiting completion of her workup. Patient's blood pressures continued to be soft despite appropriate fluid resuscitation. Central line was placed in the right femoral region without complication. Patient started on norepinephrine. Due to the patient's spastic paralysis her hips are essentially locked together and we were unable to perform a straight cath to obtain urine. Urine was obtained via purewick. Urine does not appear to be infected. CT abdomen pelvis showed a distended bladder and mild hydronephrosis. Kidney function is at baseline. Workup significant for a white count of 17.9. Lactic 3.7. Will repeat Creatinine 1.08 which is his baseline. Viral swabs negative. Blood cultures pending. CT chest abdomen pelvis showed possible inflammation of sigmoid colon, No evidence of pneumonia. At this time patient's most likely source of this infection is the soft tissue infection of her left leg vs bacteremia. Blood cultures pending. Urine and colitis less likely as a source. Patient has been placed on cefepime Flagyl and vancomycin which will cover all possible sources. On re-evaluation patient's blood pressures were soft. Map of 55. Central line placed in the right femoral vein and patient started on low-dose norepinephrine. Patient be admitted the ICU. Dr. Arellano was consulted who requested a urology consult and a CT of the left leg. Patient signed out to the oncoming physician pending CT of the leg results. -DDX includes but is not limited to: Sepsis dehydration UTI pneumonia intra- abdominal pathology, cellulitis -Co-morbidities complicating care: MS with spastic paralysis <Livan Duff MD - Last Filed: 03/05/25 20:08> Vital Signs Vital Signs: Vital Signs Temperature 39.1 C H 03/05/25 15:19 Pulse Rate 103 H 03/05/25 15:19 Respiratory Rate 16 03/05/25 15:19 Blood Pressure 138/65 03/05/25 15:19 Pulse Oximetry 97 03/05/25 15:19 Oxygen Delivery Room Air 03/05/25 15:19 Temperature 37.0 C 03/05/25 22:44 Pulse Rate 80 03/05/25 22:44 Respiratory Rate 18 03/05/25 22:44 Blood Pressure 79/42 L 03/05/25 22:44 Pulse Oximetry 94 03/05/25 22:44 Oxygen Delivery Room Air 03/05/25 15:19 <Livan Duff MD - Last Filed: 03/05/25 20:08> Vital Signs Temperature 39.1 C H 03/05/25 15:19 Pulse Rate 103 H 03/05/25 15:19 Respiratory Rate 16 03/05/25 15:19 Blood Pressure 138/65 03/05/25 15:19 Pulse Oximetry 97 03/05/25 15:19 Oxygen Delivery Room Air 03/05/25 15:19 Temperature 37.0 C 03/05/25 22:44 Pulse Rate 80 03/05/25 22:44 Respiratory Rate 18 03/05/25 22:44 Blood Pressure 79/42 L 03/05/25 22:44 Pulse Oximetry 94 03/05/25 22:44 Oxygen Delivery Room Air 03/05/25 15:19 <Jordy Harrison MD - Last Filed: 03/05/25 23:14> Lab Data Result diagrams: 03/05/25 15:59 03/05/25 15:59 <Livan Duff MD - Last Filed: 03/05/25 20:08> Labs: Lab Results 03/05/25 03/05/25 03/05/25 Range/Units 15:59 17:07 18:03 WBC 17.9 H (4.5-10.0) K/mm3 RBC 4.83 (4.2-5.4) M/mm3 Hgb 14.3 (12.0-15.0) g/dL Hct 44.3 (37.0-47.0) % MCV 91.7 (80-100) fl MCH 29.6 (26-34) pg MCHC 32.3 (32-36) g/dl RDW 15.3 H (11.5-14.5) % Plt Count 265 (150-375) k/mm3 MPV 10.9 H (7.4-10.4) fl Immature Gran % (Auto) 0.7 H (0-0.5) % Neut % (Auto) 91.6 H (45.5-73.1) % Lymph % (Auto) 2.8 L (18.3-44.2) % [place] % (Auto) 4.4 (2.6-8.5) % Eos % (Auto) 0.2 (0-4.4) % Baso % (Auto) 0.3 (0.2-1.2) % Lymph # (Auto) 0.51 L (0.9-3.2) K/mm3 [place] # (Auto) 0.8 H (0.1-0.6) K/mm3 Eos # (Auto) 0.0 (0-0.3) K/mm3 Baso # (Auto) 0.1 (0.0-0.1) K/mm3 Abs Immat Gran (auto) 0.12 H (0.00-0.031) K/mm3 Absolute Neuts (auto) 16.4 H (1.3-6.7) K/mm3 Absolute Nucleated RBC 0.000 (0.0-0.012) K/mm3 Nucleated RBC % 0.0 (0.0-0.2) % PT 15.3 H (11.1-14.7) Seconds INR 1.2 APTT 28.2 (22.3-36.8) Seconds Sodium 137 (137-145) mmol/L Potassium 4.5 (3.4-5.0) mmol/L Chloride 101 (98-107) mmol/L Carbon Dioxide 20 L (22-30) mmol/L Anion Gap 16 H (4-12) mmol/L BUN 11 (7-17) mg/dL Creatinine 1.08 H (0.7-1.0) mg/dL Estim Creat Clear Calc 50 ml/min Estimated GFR 52 L (59 - ) Glucose 93 (65-110) mg/dL Lactic Acid 3.7 H (0.7-2.0) mmol/L Calcium 9.7 (8.4-10.2) mg/dL Phosphorus 3.1 (2.5-4.5) mg/dL Magnesium 2.0 (1.6-2.3) mg/dL Total Bilirubin 0.7 (0.2-1.3) mg/dL AST 39 H (14-36) U/L ALT 25 (6-35) U/L Alkaline Phosphatase 73 (38-126) U/L C-Reactive Protein 1.4 H (<1.0) mg/dL NT-Pro-B Natriuret Pep 111 H (19.9-100) pg/mL Total Protein 8.3 H (6.3-8.2) g/dL Albumin 4.6 (3.5-5.1) g/dL Lipase 67 (23-300) U/L TSH (Reflex) 1.740 (0.465-4.68) uIU/mL Urine Color Yellow (Yellow) Urine Appearance Clear (Clear) Urine pH 7.0 (5.0-9.0) Ur Specific [place] 1.016 (1.001-1.035) Urine Protein Negative (Negative) mg/dL Urine Glucose (UA) Negative (Negative) mg/dL Urine Ketones Negative (Negative) mg/dL Ur Blood (Man) 2+ H (Negative) Urine Nitrate Negative (Negative) Urine Bilirubin Negative (Negative) Urine Urobilinogen 2.0 H (<2.0) mg/dL Leukocyte Esterase Rfl Trace H (Negative) CHANDAN/UL Urine RBC 6-10 H (0-2) /hpf Urine WBC 0-5 (0-3) /hpf Ur Squamous Epith Cells None seen (Few) /hpf Urine Bacteria None seen /hpf Urine Casts 0-2 Influenza A (RT-PCR) Negative (Negative) Influenza B (RT-PCR) Negative (Negative) RSV (RT-PCR) Negative (Negative) SARS-CoV-2 RNA (RT-PCR) Negative (Negative) 03/05/25 Range/Units 21:16 WBC (4.5-10.0) K/mm3 RBC (4.2-5.4) M/mm3 Hgb (12.0-15.0) g/dL Hct (37.0-47.0) % MCV (80-100) fl MCH (26-34) pg MCHC (32-36) g/dl RDW (11.5-14.5) % Plt Count (150-375) k/mm3 MPV (7.4-10.4) fl Immature Gran % (Auto) (0-0.5) % Neut % (Auto) (45.5-73.1) % Lymph % (Auto) (18.3-44.2) % [place] % (Auto) (2.6-8.5) % Eos % (Auto) (0-4.4) % Baso % (Auto) (0.2-1.2) % Lymph # (Auto) (0.9-3.2) K/mm3 [place] # (Auto) (0.1-0.6) K/mm3 Eos # (Auto) (0-0.3) K/mm3 Baso # (Auto) (0.0-0.1) K/mm3 Abs Immat Gran (auto) (0.00-0.031) K/mm3 Absolute Neuts (auto) (1.3-6.7) K/mm3 Absolute Nucleated RBC (0.0-0.012) K/mm3 Nucleated RBC % (0.0-0.2) % PT (11.1-14.7) Seconds INR APTT (22.3-36.8) Seconds Sodium (137-145) mmol/L Potassium (3.4-5.0) mmol/L Chloride (98-107) mmol/L Carbon Dioxide (22-30) mmol/L Anion Gap (4-12) mmol/L BUN (7-17) mg/dL Creatinine (0.7-1.0) mg/dL Estim Creat Clear Calc ml/min Estimated GFR (59 - ) Glucose (65-110) mg/dL Lactic Acid 1.4 (0.7-2.0) mmol/L Calcium (8.4-10.2) mg/dL Phosphorus (2.5-4.5) mg/dL Magnesium (1.6-2.3) mg/dL Total Bilirubin (0.2-1.3) mg/dL AST (14-36) U/L ALT (6-35) U/L Alkaline Phosphatase (38-126) U/L C-Reactive Protein (<1.0) mg/dL NT-Pro-B Natriuret Pep (19.9-100) pg/mL Total Protein (6.3-8.2) g/dL Albumin (3.5-5.1) g/dL Lipase (23-300) U/L TSH (Reflex) (0.465-4.68) uIU/mL Urine Color (Yellow) Urine Appearance (Clear) Urine pH (5.0-9.0) Ur Specific [place] (1.001-1.035) Urine Protein (Negative) mg/dL Urine Glucose (UA) (Negative) mg/dL Urine Ketones (Negative) mg/dL Ur Blood (Man) (Negative) Urine Nitrate (Negative) Urine Bilirubin (Negative) Urine Urobilinogen (<2.0) mg/dL Leukocyte Esterase Rfl (Negative) CHANDAN/UL Urine RBC (0-2) /hpf Urine WBC (0-3) /hpf Ur Squamous Epith Cells (Few) /hpf Urine Bacteria /hpf Urine Casts Influenza A (RT-PCR) (Negative) Influenza B (RT-PCR) (Negative) RSV (RT-PCR) (Negative) SARS-CoV-2 RNA (RT-PCR) (Negative) <Livan Duff MD - Last Filed: 03/05/25 20:08> Lab Results 03/05/25 03/05/25 03/05/25 Range/Units 15:59 17:07 18:03 WBC 17.9 H (4.5-10.0) K/mm3 RBC 4.83 (4.2-5.4) M/mm3 Hgb 14.3 (12.0-15.0) g/dL Hct 44.3 (37.0-47.0) % MCV 91.7 (80-100) fl MCH 29.6 (26-34) pg MCHC 32.3 (32-36) g/dl RDW 15.3 H (11.5-14.5) % Plt Count 265 (150-375) k/mm3 MPV 10.9 H (7.4-10.4) fl Immature Gran % (Auto) 0.7 H (0-0.5) % Neut % (Auto) 91.6 H (45.5-73.1) % Lymph % (Auto) 2.8 L (18.3-44.2) % [place] % (Auto) 4.4 (2.6-8.5) % Eos % (Auto) 0.2 (0-4.4) % Baso % (Auto) 0.3 (0.2-1.2) % Lymph # (Auto) 0.51 L (0.9-3.2) K/mm3 [place] # (Auto) 0.8 H (0.1-0.6) K/mm3 Eos # (Auto) 0.0 (0-0.3) K/mm3 Baso # (Auto) 0.1 (0.0-0.1) K/mm3 Abs Immat Gran (auto) 0.12 H (0.00-0.031) K/mm3 Absolute Neuts (auto) 16.4 H (1.3-6.7) K/mm3 Absolute Nucleated RBC 0.000 (0.0-0.012) K/mm3 Nucleated RBC % 0.0 (0.0-0.2) % PT 15.3 H (11.1-14.7) Seconds INR 1.2 APTT 28.2 (22.3-36.8) Seconds Sodium 137 (137-145) mmol/L Potassium 4.5 (3.4-5.0) mmol/L Chloride 101 (98-107) mmol/L Carbon Dioxide 20 L (22-30) mmol/L Anion Gap 16 H (4-12) mmol/L BUN 11 (7-17) mg/dL Creatinine 1.08 H (0.7-1.0) mg/dL Estim Creat Clear Calc 50 ml/min Estimated GFR 52 L (59 - ) Glucose 93 (65-110) mg/dL Lactic Acid 3.7 H (0.7-2.0) mmol/L Calcium 9.7 (8.4-10.2) mg/dL Phosphorus 3.1 (2.5-4.5) mg/dL Magnesium 2.0 (1.6-2.3) mg/dL Total Bilirubin 0.7 (0.2-1.3) mg/dL AST 39 H (14-36) U/L ALT 25 (6-35) U/L Alkaline Phosphatase 73 (38-126) U/L C-Reactive Protein 1.4 H (<1.0) mg/dL NT-Pro-B Natriuret Pep 111 H (19.9-100) pg/mL Total Protein 8.3 H (6.3-8.2) g/dL Albumin 4.6 (3.5-5.1) g/dL Lipase 67 (23-300) U/L TSH (Reflex) 1.740 (0.465-4.68) uIU/mL Urine Color Yellow (Yellow) Urine Appearance Clear (Clear) Urine pH 7.0 (5.0-9.0) Ur Specific [place] 1.016 (1.001-1.035) Urine Protein Negative (Negative) mg/dL Urine Glucose (UA) Negative (Negative) mg/dL Urine Ketones Negative (Negative) mg/dL Ur Blood (Man) 2+ H (Negative) Urine Nitrate Negative (Negative) Urine Bilirubin Negative (Negative) Urine Urobilinogen 2.0 H (<2.0) mg/dL Leukocyte Esterase Rfl Trace H (Negative) CHANDAN/UL Urine RBC 6-10 H (0-2) /hpf Urine WBC 0-5 (0-3) /hpf Ur Squamous Epith Cells None seen (Few) /hpf Urine Bacteria None seen /hpf Urine Casts 0-2 Influenza A (RT-PCR) Negative (Negative) Influenza B (RT-PCR) Negative (Negative) RSV (RT-PCR) Negative (Negative) SARS-CoV-2 RNA (RT-PCR) Negative (Negative) 03/05/25 Range/Units 21:16 WBC (4.5-10.0) K/mm3 RBC (4.2-5.4) M/mm3 Hgb (12.0-15.0) g/dL Hct (37.0-47.0) % MCV (80-100) fl MCH (26-34) pg MCHC (32-36) g/dl RDW (11.5-14.5) % Plt Count (150-375) k/mm3 MPV (7.4-10.4) fl Immature Gran % (Auto) (0-0.5) % Neut % (Auto) (45.5-73.1) % Lymph % (Auto) (18.3-44.2) % [place] % (Auto) (2.6-8.5) % Eos % (Auto) (0-4.4) % Baso % (Auto) (0.2-1.2) % Lymph # (Auto) (0.9-3.2) K/mm3 [place] # (Auto) (0.1-0.6) K/mm3 Eos # (Auto) (0-0.3) K/mm3 Baso # (Auto) (0.0-0.1) K/mm3 Abs Immat Gran (auto) (0.00-0.031) K/mm3 Absolute Neuts (auto) (1.3-6.7) K/mm3 Absolute Nucleated RBC (0.0-0.012) K/mm3 Nucleated RBC % (0.0-0.2) % PT (11.1-14.7) Seconds INR APTT (22.3-36.8) Seconds Sodium (137-145) mmol/L Potassium (3.4-5.0) mmol/L Chloride (98-107) mmol/L Carbon Dioxide (22-30) mmol/L Anion Gap (4-12) mmol/L BUN (7-17) mg/dL Creatinine (0.7-1.0) mg/dL Estim Creat Clear Calc ml/min Estimated GFR (59 - ) Glucose (65-110) mg/dL Lactic Acid 1.4 (0.7-2.0) mmol/L Calcium (8.4-10.2) mg/dL Phosphorus (2.5-4.5) mg/dL Magnesium (1.6-2.3) mg/dL Total Bilirubin (0.2-1.3) mg/dL AST (14-36) U/L ALT (6-35) U/L Alkaline Phosphatase (38-126) U/L C-Reactive Protein (<1.0) mg/dL NT-Pro-B Natriuret Pep (19.9-100) pg/mL Total Protein (6.3-8.2) g/dL Albumin (3.5-5.1) g/dL Lipase (23-300) U/L TSH (Reflex) (0.465-4.68) uIU/mL Urine Color (Yellow) Urine Appearance (Clear) Urine pH (5.0-9.0) Ur Specific [place] (1.001-1.035) Urine Protein (Negative) mg/dL Urine Glucose (UA) (Negative) mg/dL Urine Ketones (Negative) mg/dL Ur Blood (Man) (Negative) Urine Nitrate (Negative) Urine Bilirubin (Negative) Urine Urobilinogen (<2.0) mg/dL Leukocyte Esterase Rfl (Negative) CHANDAN/UL Urine RBC (0-2) /hpf Urine WBC (0-3) /hpf Ur Squamous Epith Cells (Few) /hpf Urine Bacteria /hpf Urine Casts Influenza A (RT-PCR) (Negative) Influenza B (RT-PCR) (Negative) RSV (RT-PCR) (Negative) SARS-CoV-2 RNA (RT-PCR) (Negative) <Jordy Harrison MD - Last Filed: 03/05/25 23:14> ABG Data ABG results: 03/05/25 15:59 VBG pH 7.400 VBG pCO2 40.5 L VBG pO2 37.7 VBG HCO3 24.5 O2 Delivery Device Room air O2 Liters/Min 0.0 FiO2 21 <Livan Duff MD - Last Filed: 03/05/25 20:08> 03/05/25 15:59 VBG pH 7.400 VBG pCO2 40.5 L VBG pO2 37.7 VBG HCO3 24.5 O2 Delivery Device Room air O2 Liters/Min 0.0 FiO2 21 <Jordy Harrison MD - Last Filed: 03/05/25 23:14> Critical Care Time Critical Care Time Critical Care Time: Yes <Livan Duff MD - Last Filed: 03/05/25 20:08> Total Critical Care Time: 75 <Livan Duff MD - Last Filed: 03/05/25 20:08> Discharge Plan Discharge Clinical Impression: Sepsis, Cellulitis, Shock <Livan Duff MD - Last Filed: 03/05/25 20:08> Patient Disposition: Still a Patient <Livan Duff MD - Last Filed: 03/05/25 20:08> Condition: Serious <Livan Duff MD - Last Filed: 03/05/25 20:08>
[2025-03-05 17:27] LABS: INR 1.2; Prothrombin Time 15.3 Seconds (11.1-14.7)
[2025-03-05 17:28] LABS: Partial Thromboplastin Time 28.2 Seconds (22.3-36.8)
[2025-03-05 17:45] LABS: CRP 1.4 mg/dL (<1.0)
[2025-03-05] MEDS: CEFEPIME 2 GM in SODIUM CHLORIDE 0.9% IV 50 ML 100 ML IVPB (18:08)
[2025-03-05] MEDS: LACTATED RINGERS 400 ML 999 ML IV CONT (18:09)
[2025-03-05 18:11] LABS: Add Urine Microscopic? YES; Appearance Urine Clear (Clear); Glucose Urine UA Negative (Negative); Leukocyte Esterase Ur Trace LEU/UL (Negative); Nitrate Urine Negative (Negative); Non Pathogenic Casts 0-2; Specific Grav Ur 1.016 (1.001-1.035)
[2025-03-05] MEDS: KETOROLAC 15 MG/ML VIAL (*BKC) IV PUSH (18:17)
--- OUTSIDE RECORDS SUMMARY | 2025-03-05 18:36 | XMS_ITS | Referral Summary ---
Author Organization [facility] Address [address] [place] [address] Care Team Providers Care Sports Information Director Name Role Phone Natalia Juarez MD Primary Care Provider [phone] Allergies No known active allergies Medications Eliquis [...] (06/23/2021): Added automatically from request for surgery [id number] Immunizations Immunization Administration Dates Next Due Influenza, [...] on file Legal Sex Female 4:04 AM LICENSED JOURNEYMAN ELECTRICIAN Gender Identity Not on file Sexual Orientation Not on file Occupation Industry Job Start Date Job End Date Disability Not on file Not on file Not on file Last Filed Vital Signs Vital Sign Reading Time Taken Comments Blood Pressure 119/59 07/31/2021 11:55 AM LICENSED JOURNEYMAN ELECTRICIAN Pulse 80 07/31/2021 12:10 PM LICENSED JOURNEYMAN ELECTRICIAN Temperature 36.6 C (97.88 F) 07/31/2021 12:00 PM LICENSED JOURNEYMAN ELECTRICIAN Respiratory Rate 18 07/31/2021 12:00 PM LICENSED JOURNEYMAN ELECTRICIAN Oxygen Saturation 92% 07/31/2021 12:10 PM LICENSED JOURNEYMAN ELECTRICIAN Inhaled Oxygen Concentration - - Weight 83.5 kg (184 lb) 07/25/2021 5:24 PM LICENSED JOURNEYMAN ELECTRICIAN Height 165.1 cm (5' 5) 07/25/2021 5:24 PM LICENSED JOURNEYMAN ELECTRICIAN Body Mass Index 30.62 07/25/2021 5:24 PM LICENSED JOURNEYMAN ELECTRICIAN Plan of Treatment Not on file Medical Devices Explanted Type Area Wood Grinder Device Identifier Shelf Expiration Date Model / Serial / Lot Intrathecal Pain Pump Intrathecal Pain [place] Description:Per T/C with Pt - she never had permanent pump installed - trial injections only in 02/2014, didn't like it so they never installed a permanent pump. CATA 05/15/2021 Insurance MEDICARE IDPA MEDICARE IDPA MEDICARE IDPA Care Teams Sports Information Director Relationship Specialty Start Date End Date Natalia Juarez MD PCP - General Family Medicine 04/19/21
--- OUTSIDE RECORDS SUMMARY | 2025-03-05 18:36 | XMS_ITS | Clinical Summary ---
Author Organization [facility] Address [address] [place] [address] Phone Care Team Providers Care Racking Technician Name Role Phone Natalia Juarez MD Primary Care Provider [phone] Allergies No known active allergies Medications gabapentin (NEURONTIN) 300 mg capsule Take 300 mg by mouth daily at bedtime. Active buPROPion HCl (WELLBUTRIN XL) 150 mg Extended Release 24 hour tablet Take 150 mg by mouth daily hat body sorter. Active hydrOXYzine HCl (ATARAX) 25 mg tablet [...] 5:10 PM CDT Height 165.1 cm (5' 5) 03/23/2014 5:10 PM CDT Body Mass Index [...] (1 of 2) 11/02/2013 INFLUENZA VACCINE (#1) 2025 RSV VACCINE (60+ or ) (1 - 1-dose 75+ series) 11/02/2038 Insurance MEDICARE PART A AND B Advance Directives For more information, please contact: [phone] * Full Code (Latest Code Status on File) Date Activated Date Inactivated Comments 03/09/2014 8:12 AM 03/09/2014 5:46 PM * Full Code Date Activated Date Inactivated Comments 03/09/2014 5:59 AM 03/09/2014 8:12 AM Care Teams Racking Technician Relationship Specialty Start Date End Date Natalia Juarez MD [address] [place] [id number] PCP - General Family Practice 02/25/14
--- OUTSIDE RECORDS SUMMARY | 2025-03-05 18:36 | XMS_ITS | Clinical Summary ---
Author Organization [facility] Address [address] [place] [address] Phone Care Team Providers Care Dry Roaster Name Role Phone Natalia Juarez MD Primary Care Provider [phone] Allergies No known active allergies Medications gabapentin [...] 12/17/2024 1:00 AM CDT [facility] [address] [place] [address] Mable Olmedo RN SN - OASIS DISCHARGE 12/07/2024 2:00 PM CDT [facility] [address] [place] [address] Violetta Dacosta LPN SN - WOUND VISIT from Last 3 Months Social History Tobacco Use Types Packs/Day Years Used Date Smoking Tobacco: Never Assessed Comments Unknown Sex and Gender Information Value Date Recorded Sex Assigned at Not on file Legal Sex Female 3:51 PM SUPERVISOR TITLE Gender Identity Not on file Sexual Orientation Not on file Last Filed Vital Signs Vital Sign Reading Time Taken Comments Blood Pressure 120/64 12/17/2024 10:18 AM CDT Pulse 78 12/17/2024 10:18 AM CDT Temperature 36.8 C (98.2 F) 12/17/2024 10:18 AM CDT Respiratory Rate 16 12/17/2024 10:18 AM CDT Oxygen Saturation 98% 10/21/2024 12:30 PM SUPERVISOR TITLE Inhaled Oxygen Concentration - - Weight - - Height 165.1 cm (5' 5) 10/21/2024 12:30 PM SUPERVISOR TITLE Body Mass Index - - Plan of Treatment Health Maintenance Due Date Last Done Comments Hepatitis C Virus (HCV) Screening 1965 Mammogram 1965 Pap Smear 11/02/1984 Cervical Cancer Screening (CCS) 11/02/1993 HPV/Cotest 11/02/1993 Cologuard 11/02/2008 Colonoscopy 11/02/2008 Colorectal Cancer Screening 11/02/2008 Immunochemical Fecal Occult Blood 11/02/2008 Zoster Immunization (1 of 2) 11/02/2013 Pneumococcal Immunization (50+ years) (2 of 2 - PCV) 05/17/2023 05/17/2022 Influenza Immunization (#1) 04/19/202503/19, 06/14/2023, 05/17/2022, Additional history exists TdaP Immunization Completed 12/11/2023 Respiratory Syncytial Virus (RSV) Immunization (Adult) Completed [...] Inactivated Comments 12/08/2024 9:23 AM Care Teams Dry Roaster Relationship Specialty Start Date End Date Natalia Juarez MD [address] [place] [address] PCP - General Family Medicine 10/07/24
--- OUTSIDE RECORDS SUMMARY | 2025-03-05 18:36 | XMS_ITS | Clinical Summary ---
Author Organization [facility] Address [address] [place] [address] Care Team Providers Care Art Preparator Name Role Phone Natalia Juarez MD Primary Care Provider [phone] Allergies No known active allergies Medications Eliquis [...] (06/23/2021): Added automatically from request for surgery [id number] Immunizations Immunization Administration Dates Next Due Influenza, [...] on file Legal Sex Female 4:04 AM TANK PUMPER Gender Identity Not on file Sexual Orientation Not on file Occupation Industry Job Start Date Job End Date Disability Not on file Not on file Not on file Obstetrics History Last Filed Vital Signs Vital Sign Reading Time Taken Comments Blood Pressure 119/59 07/31/2021 11:55 AM TANK PUMPER Pulse 80 07/31/2021 12:10 PM TANK PUMPER Temperature 36.6 C (97.88 F) 07/31/2021 12:00 PM TANK PUMPER Respiratory Rate 18 07/31/2021 12:00 PM TANK PUMPER Oxygen Saturation 92% 07/31/2021 12:10 PM TANK PUMPER Inhaled Oxygen Concentration - - Weight 83.5 kg (184 lb) 07/25/2021 5:24 PM TANK PUMPER Height 165.1 cm (5' 5) 07/25/2021 5:24 PM TANK PUMPER Body Mass Index 30.62 07/25/2021 5:24 PM TANK PUMPER Plan of Treatment Health Maintenance Due Date [...] this topic Medical Devices Explanted Type Area Control Valve Mechanic Device Identifier Shelf Expiration Date Model / Serial / Lot Intrathecal Pain Pump Intrathecal Pain [place] Description:Per T/C with Pt - she never had permanent pump installed - trial injections only in 02/2014, didn't like it so they never installed a permanent pump. 05/15/2021 Insurance MEDICARE IDIA MEDICARE IDIA MEDICARE IDIA Care Teams Art Preparator Relationship Specialty Start Date End Date Natalia Juarez MD PCP - General Family Medicine 04/19/21
[2025-03-05] MEDS: VANCOMYCIN 2,000 MG/NS 500 ML 2,000 MG/500 ML BAG 250 MG IVPB (18:44)
[2025-03-05 19:24] LABS: Thyroid Stimulating Hormone Reflex 1.740 uIU/mL (0.465-4.68)
[2025-03-05] MEDS: metroNIDAZOLE 500 MG/ISO 100ML 500 MG/100 ML BAG 100 MG IVPB (19:32)
--- NOTE | 2025-03-05 19:34 | PC.NURSE ---
ERP in room. Verbal order of 2mg Versed ordered and given. ERP preping for central line placement.
[2025-03-05] MEDS: LACTATED RINGERS 1,000 ML 100 ML IV CONT (19:52)
[2025-03-05] MEDS: MIDAZOLAM HCL (*CRX) 2 MG/2 ML VIAL IV PUSH (19:53)
[2025-03-05] MEDS: NOREPINEPHRINE 8 MG/D5W 250 ML 8 MG/250 ML BAG 9.38 MG IV CONT (19:56)
--- NOTE | 2025-03-05 20:03 | PC.NURSE ---
Central line palced on right femoral. Levophed started at 5mcg. Patient lying in bed stating no needs at this time.
--- NOTE | 2025-03-05 22:45 | PC.NURSE ---
Levo increased to 10mcg/min.
--- NOTE | 2025-03-05 23:00 | PC.NURSE ---
This patient, Redd Sands, was admitted to Intensive Care Unit-8. Patient/family oriented to hospital policies and general routines including ID bracelet, bed and alarms, visiting hours, pain management, procedures, bathroom and other care routines, personal items, smoking policy, room service/diet, and visiting hours. Information on how to activate the Rapid Response Team has been discussed. Patient/Family are encouraged to report perceived risks to care and to ask questions if they do not understand what they are told or what they should do.
--- NOTE | 2025-03-05 23:15 | WNDPHOTO ---
PHOTO ONLY - See Nursing Notes and/ or assessments for documentation.
--- NOTE | 2025-03-05 23:20 | WNDPHOTO ---
PHOTO ONLY - See Nursing Notes and/ or assessments for documentation.
[2025-03-06] VITALS (25 sets, daily range): BP systolic 105–150; BP diastolic 16–70; PULSE 73–98; RESP 11–28; TEMP 36.8–38.6; O2SAT 92–98; BMI 29.3
--- NOTE | 2025-03-06 | ECHO_ITS ---
Patient Info Name: Redd Sands Age: 59 years : 1965 Gender: Female Ht: 65 in Wt: 175 lbs BSA: 1.93 m2 HR: 92 bpm BP: 117 / 50 mmHg Heart Rhythm: Sinus Rhythm Technical Quality: Good Exam Date: 03/06/2025 9:31 AM Patient Status: I Admit Date: 03/05/2025 Exam Type: CA echo doppler color flow Complete two-dimensional, color flow and Doppler transthoracic echocardiogram is performed. Staff Referring Physician: Livan Duff Camp Tender: Rajwinder Nur Attending Provider: Shane Null MD Summary 1. Complete two-dimensional, color flow and Doppler transthoracic echocardiogram is performed. 2. Normal left ventricular size with hyperdynamic systolic function. 3. Normal appearing cardiac valves. Left Ventricle Left ventricular systolic function is hyperdynamic, estimated at >70. The left ventricular diastolic function is normal. Right Ventricle Right ventricular chamber dimension is normal. Left Atria Left atrial chamber dimension is normal. Right Atria Right atrial chamber dimension is normal. Aortic Valve The aortic valve is normal. Pulmonic Valve The pulmonic valve is normal. Mitral Valve The mitral valve has normal leaflets. Tricuspid Valve The tricuspid valve leaflets are normal. Pericardium/Pleural The pericardium appears normal. Aorta The aortic root size at the sinus of Valsalva is normal. Left Ventricular Outflow Tract Name Value Normal LVOT 2D LVOT Diameter 1.8 cm LVOT Doppler LVOT Peak Velocity 142 cm/s LVOT Peak Gradient 8 mmHg LVOT Mean Gradient 4 mmHg LVOT VTI 27 cm LVOT VTI/AV VTI Ratio 0.8 LVOT Stroke Volume 70 ml LVOT CO 6.5 l/min LVOT CI 3.4 l/min/m2 Pulmonic Valve Name Value Normal RVOT Doppler RVOT Peak Velocity 100 cm/s RVOT Peak Gradient 4 mmHg PV Doppler PV Peak Velocity 132 cm/s PV Peak Gradient 7 mmHg Mitral Valve Name Value Normal MV Diastolic Function MV E Peak Velocity 96 cm/s MV A Peak Velocity 97 cm/s MV E/A 1.0 MV Decel Time (PW) 207 ms MV Annular TDI MV E/e' (Septal) 9.4 MV E/e' (Lateral) 6.9 MV E/e' (Average) 8.1 Aortic Valve Name Value Normal AV Doppler AV Peak Velocity 179 cm/s AV Peak Gradient 13 mmHg AV Mean Gradient 7 mmHg AV VTI 32 cm AV Area (Cont Eq VTI) 2.2 cm2 >=3.0 AV Area (Cont Eq Brenden) 2.1 cm2 AV DI (Brenden) 0.79 AV Regurgitation 2D LVOT Area 2.6 cm2 Ventricles Name Value Normal LV Dimensions 2D/MM IVS Diastolic Thickness (2D) 0.8 cm 0.6-1.0 LVID Diastole (2D) 4.4 cm 3.8-5.2 LVIW Diastolic Thickness (2D) 0.8 cm 0.6-0.9 LVID Systole (2D) 2.4 cm 2.2-3.5 LVOT Diameter 1.8 cm LV Mass (2D Cubed) 111.65 g 67.00-162.00 LV Mass Index (2D Cubed) 58 g/m2 43-95 Relative Wall Thickness (2D) 0.36 <=0.42 LV Fractional Shortening/Ejection Fraction 2D/MM LV Fractional Shortening (2D) 44 % 27-45 LV EF (2D Teichholz) 76 % LV Diastolic Volume (4C MOD) 92 ml LV EF (4C MOD) 59 % LV Diastolic Volume (2C MOD) 86 ml LV EF (2C MOD) 59 % LV Diastolic Volume (BP MOD) 91 ml 46-106 LV Diastolic Volume Index (BP MOD) 47 ml/m2 29-61 LV Systolic Volume (BP MOD) 36 ml 14-42 LV Systolic Volume Index (BP MOD) 19 ml/m2 8-24 LV EF (BP MOD) 60 % 54-74 LV Diastolic Length (4C) 8.3 cm LV Systolic Length (4C) 6.6 cm LV Stroke Volume (4C MOD) 55 ml Atria Name Value Normal LA Dimensions LA Volume (4C A-L) 29 ml LA Volume (BP A-L) 35 ml RA Dimensions RA Systolic Major [place] Length (4C) 4.8 cm 2.2-2.8 RA Area (4C) 10.4 cm2 <=18.0 Report Signatures
[2025-03-06 00:02] LABS: MRSA (PCR) DETECTED (NOT DETECTE)
--- NOTE | 2025-03-06 02:44 | P.HP_ITS ---
H&P: HPI History of Present Illness Date/Time: 03/06/25 02:44 Chief Complaint: Feeling unwell Narrative: This is a 59-year-old female with a history of MS with full-body spastic paralysis. She resides at home and was transferred tried EMS. Presents because of general feeling unwell and dizziness. On arrival blood pressure 138/65 however downtrending to 83/42 despite fluid resuscitation. A right femoral victor manuel tral venous catheter was placed on Levophed started. Laboratory evaluation revealed WBC 17.9, hemoglobin 14.3, platelets 265, INR 1.2, anion gap 16, serum creatinine 1.08, lactic acid 3.7, C-reactive protein 1.4, proBNP 111. Urinalysis revealing 2+ blood, clear appearing urine, trace leukocyte esterase. Quad viral screen negative. Nasal MRSA PCR positive. Chest x-ray with pulmonary vascular congestion, patient however breathing comfortably on room air. CT chest abdomen pelvis with contrast with mild bilateral hydronephrosis, distended urinary bladder. Mild body wall edema. Majority of her left lower extremity from mid clifford to upper thigh hot to touch, nontender, erythematous. Subsequently a venous Doppler was performed which did not revealed DVT. A CT with contrast reveals severe atherosclerotic stenosis of bilateral internal iliac vessels, dermal thickening and diffuse subcutaneous stranding in the lateral and distal thigh. No abscess seen. She was given metronidazole, cefepime, vancomycin, Toradol, Versed, large volume fluid resuscitation, as mentioned above Levophed initiated via a femoral triple- lumen catheter. Spike Machine Feeder consulted from the ER. Review of Systems Review of Systems: All systems reviewed & are unremarkable except as noted in HPI and below (Subjective/HPI) PMFSH Past Medical History Medical History Hair loss Leg varicosity w/ ulcer Hyperpigmentation of skin Multiple sclerosis (Unknown) Anticoagulant long-term use (Unknown) On apixaban for DVT prophylaxis. Lymphedema (Unknown) Depression Complete immobility due to severe physical disability or frailty Vitamin D deficiency Surgical History Surgical History History of laparoscopic cholecystectomy 11/24/2021 - laparoscopic cholecystectomy and drainage of a right perihepatic abscess. History of surgery on upper extremity History of tubal ligation Family History Family History (Updated 03/05/25 @ 23:47 by Tracee Raya RN) Mother Family history of malignant neoplasm of breast in first degree relative Father Family history of coronary artery disease Social History Social History Social History: The patient lives at home with her , Casey, and is primarily bedbound. She requires assistance to get to a powered wheelchair when needed for mobility. No alcohol, tobacco, or illicit substance use. She designates her as her surrogate decision maker and she wishes to be a full code. Smoking status: Never smoker Second hand tobacco smoke exposure: No Alcohol intake: never Substance use: never Substance use type: does not use Do You Feel Safe in your Home?: Yes Lack of Transportation: No Lack of Food: Never True Current Housing: I Have Housing Concerned About Future Housing: No Difficulty Paying Gas/Electric Bills: No Difficulty Paying for Meds: No Currently Unemployed: No Education: Associate Degree Difficulty w/ Childcare or Family Care: No Living arrangements: with family Gender identity (if verbalized by the patient): Female Spiritual care concerns: No Agree to blood products: Yes Meds Home Medications and Allergies Home Medications ?Medication ?Instructions ?Recorded ?Confirmed ?Type pyridoxine (vitamin B6) 100 mg 100 mg PO DAILY #100 tabs 03/14/21 03/05/25 Rx tablet spironolactone 25 mg tablet 50 mg (2 x 25 mg) PO BID #360 tabs 07/08/24 03/05/25 Rx omeprazole 40 mg capsule,delayed 40 mg PO BID #180 caps 11/05/24 03/05/25 Rx release apixaban 2.5 mg tablet (Eliquis) 2.5 mg PO BID #60 tabs 12/15/24 03/05/25 Rx minoxidil 2.5 mg tablet 2.5 mg PO DAILY 12/16/24 03/05/25 History levothyroxine 50 mcg tablet See Rx Instructions .Route 01/27/25 03/05/25 Rx .COMPLEX #90 tabs baclofen 20 mg tablet 40 mg (2 x 20 mg) PO DAILY #270 03/01/25 03/05/25 Rx tabs bupropion HCl 150 mg 24 hr tablet, See Rx Instructions .Route 03/01/25 03/05/25 Rx extended release .COMPLEX #90 tabs citalopram 40 mg tablet See Rx Instructions .Route 03/03/25 03/05/25 Rx .COMPLEX #30 tabs aripiprazole 5 mg tablet (Abilify) 5 mg PO QHS #90 tabs 03/04/25 03/05/25 Rx gabapentin 300 mg capsule 600 mg PO HS 03/05/25 03/05/25 History nystatin 100,000 unit/gram topical 1 applic topical BID PRN rash 03/05/25 03/05/25 History cream nystatin 100,000 unit/gram topical 1 applic topical BID PRN rash 03/05/25 03/05/25 History powder Allergies Allergy/AdvReac Type Severity Reaction Status Date / Time amoxicillin (From Augmentin) Allergy Mild Rash Verified 03/05/25 15:26 clavulanic acid (From Allergy Mild Rash Verified 03/05/25 15:26 Augmentin) Sulfa (Sulfonamide Allergy Mild Rash Verified 03/05/25 15:26 Antibiotics) doxycycline Allergy Unknown Upset Verified 03/05/25 15:26 Stomach Vital Signs Vital Signs - 24 hr 03/05/25 15:19 03/05/25 16:41 03/05/25 18:01 Temperature 102.3 F H 102.7 F H Pulse Rate 103 H 111 H Respiratory Rate 16 24 H Blood Pressure 138/65 127/47 L Pulse Oximetry 97 Oxygen Delivery Room Air 03/05/25 18:06 03/05/25 18:16 03/05/25 18:31 Temperature 102.7 F H Pulse Rate 109 H 107 H Respiratory Rate 19 23 H Blood Pressure 109/47 L 101/53 L Pulse Oximetry 98 94 Oxygen Delivery 03/05/25 19:56 03/05/25 20:02 03/05/25 20:35 Temperature 99.5 F Pulse Rate 93 93 88 Respiratory Rate 18 18 Blood Pressure 89/45 L 83/42 L 102/47 L Pulse Oximetry 92 91 Oxygen Delivery 03/05/25 22:44 03/05/25 23:29 03/06/25 00:00 Temperature 98.6 F Pulse Rate 80 82 Respiratory Rate 18 Blood Pressure 79/42 L Pulse Oximetry 94 Oxygen Delivery Room Air 03/06/25 00:00 Temperature Pulse Rate 92 Respiratory Rate Blood Pressure Pulse Oximetry Oxygen Delivery Exam Const: General: comfortable and no acute distress Other: A&O x3 HENMT: Mouth: Yes moist mucous membranes Eyes: Pupils: Equal, round and reactive pupils present Neck: Neck: supple Resp: Effort & Inspection: normal respiratory effort Auscultation: clear to auscultation bilaterally Cardio: Rate: regular rate Rhythm: regular rhythm Heart sounds: no gallops and no murmurs GI: Inspection: non-distended GI Palp: Yes Soft to palpation and No Tenderness to palpation present (GI) : General: Yes bladder normal to palpation Skin: Other: Left lower extremity to touch, no tenderness to palpation, erythematous upper thigh down to mid clifford. Chronic dermal thickening and pitting edema. Neuro: Other: Spastic paralysis from shoulders down Extrem: General: edema H&P: Results Labs Labs: Short CBC 03/05/25 Range/Units 15:59 WBC 17.9 H (4.5-10.0) K/mm3 Hgb 14.3 (12.0-15.0) g/dL Hct 44.3 (37.0-47.0) % Plt Count 265 (150-375) k/mm3 BMP 03/05/25 15:59 Sodium 137 Potassium 4.5 Chloride 101 Carbon Dioxide 20 L BUN 11 Creatinine 1.08 H Glucose 93 Calcium 9.7 Liver Function 03/05/25 Range/Units 15:59 Total Bilirubin 0.7 (0.2-1.3) mg/dL AST 39 H (14-36) U/L ALT 25 (6-35) U/L Alkaline Phosphatase 73 (38-126) U/L Albumin 4.6 (3.5-5.1) g/dL Urine 03/05/25 Range/Units 18:03 Urine Color Yellow (Yellow) Urine Appearance Clear (Clear) Urine pH 7.0 (5.0-9.0) Ur Specific [place] 1.016 (1.001-1.035) Urine Protein Negative (Negative) mg/dL Urine Glucose (UA) Negative (Negative) mg/dL Assessment and Plan Assessment and plan (1) Shock: Code(s): R57.9 - Shock, unspecified Status: Acute (2) Anticoagulant long-term use: Onset Date: Unknown Code(s): Z79.01 - termite treater helper (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 She resides at home and was transferred tried EMS. Presents because of general feeling unwell and dizziness. On arrival blood pressure 138/65 however downtrending to 83/42 despite fluid resuscitation. A right femoral central venous catheter was placed on Levophed started. Laboratory evaluation revealed WBC 17.9, hemoglobin 14.3, platelets 265, INR 1.2, anion gap 16, serum creatinine 1.08, lactic acid 3.7, C-reactive protein 1.4, proBNP 111. Urinalysis revealing 2+ blood, clear appearing urine, trace leukocyte esterase. Quad viral screen negative. Nasal MRSA PCR positive. Chest x-ray with pulmonary vascular congestion, patient however breathing comfortably on room air. CT chest abdomen pelvis with contrast with mild bilateral hydronephrosis, distended urinary bladder. Mild body wall edema. Majority of her left lower extremity from mid clifford to upper thigh hot to touch, nontender, erythematous. Subsequently a venous Doppler was performed which did not revealed DVT. A CT with contrast reveals severe atherosclerotic stenosis of bilateral internal iliac vessels, dermal thickening and diffuse subcutaneous stranding in the lateral and distal thigh. No abscess seen. She was given metronidazole, cefepime, vancomycin, Toradol, Versed, large volume fluid resuscitation, as mentioned above Levophed initiated via a femoral triple- lumen catheter. Spike Machine Feeder consulted from the ER. ----- Patient's initial complaint of generally feeling unwell in dizziness appear to be due to severe sepsis with shock as evidenced by cellulitis of the left lower extremity with hypotension refractory to large volume fluid resuscitation. Continue Levophed, appreciate senior loan officer recommendations/management. Continue current antibiotics and follow up on blood cultures. Lactic acidosis is now resolved. Monitor leukocytosis. CT of the abdomen pelvis demonstrated mild bilateral hydronephrosis and distended urinary bladder. Due to her spastic paralysis she may have retention. Ordered bladder scan. Fortunately her kidney function is near her baseline. Unable to determine if she has a urinary tract infection however empiric antibiotic should cover. Straight cath was attempted in the ER but was unsuccessful. Urology consulted. Patient wishes to be full code. Resume SIZING END BANDER apixaban 2.5 mg p.o. b.i.d. which she uses for DVT prophylaxis. Hold SIZING END BANDER spironolactone due to shock. Low-sodium diet. Resides at home, bed-bound, requires full assist for transferring. Hospitalist MIPS Advance Care Plan I have confirmed that the patient's Advanced Care Plan is present, code status is documented, or surrogate decision maker is listed in patient medical record.: Yes Medication Reconciliation I have utilized all available resources to obtain, update and review the patients current medications (includes all prescriptions, OTC, herbals, cannabis, and nutritional supplements).: Yes
[2025-03-06 03:56] LABS: Hematocrit 37.0 % (37.0-47.0); Hemoglobin 12.0 g/dL (12.0-15.0); Mean Corpuscular HGB Conc 32.4 g/dl (32-36); Mean Corpuscular Hemoglobin 29.1 pg (26-34); Mean Corpuscular Volume 89.6 fl (80-100); Platelet Count Result 247 k/mm3 (150-375); Red Blood Count 4.13 M/mm3 (4.2-5.4); White Blood Count 24.6 K/mm3 (4.5-10.0)
[2025-03-06 04:16] LABS: Anisocytosis 1+; Band Neutrophils Percent 6 % (0-6); Lymphocytes Absolute Manual 0.49 K/mm3 (1.1-4.5); Lymphocytes Percent Manual 2.0 % (18-44); Monocytes Absolute Manual 0.24 K/mm3 (0.1-0.90); Monocytes Percent Manual 1 % (3-9); Neutrophils Absolute Manual 23.86 K/mm3 (1.3-6.7); Neutrophils Percent Manual 91 % (46-73); Schistocytes None Seen; Total Cells Counted 100
[2025-03-06 04:51] LABS: Alanine Aminotransferase 18 U/L (6-35); Albumin Level 3.4 g/dL (3.5-5.1); Alkaline Phosphatase 59 U/L (38-126); Anion Gap 9 mmol/L (4-12); Aspartate Amino Transferase 27 U/L (14-36); Bilirubin,Total 0.8 mg/dL (0.2-1.3); Blood Urea Nitrogen 13 mg/dL (7-17); Calcium 9.0 mg/dL (8.4-10.2); Carbon Dioxide 25 mmol/L (22-30); Chloride 104 mmol/L (98-107); Estimated CRCL calculation 50 ml/min; Estimated Glomerular Filt Rate 52; Glucose 126 mg/dL (65-110); Magnesium 1.7 mg/dL (1.6-2.3); Potassium 4.1 mmol/L (3.4-5.0); Sodium 138 mmol/L (137-145); Total Protein 6.4 g/dL (6.3-8.2); Troponin I 0.030 ng/mL (0.000-0.034)
[2025-03-06] MEDS: metroNIDAZOLE 500 MG/ISO 100ML 500 MG/100 ML BAG 100 MG IVPB ×3 (04:57→21:48)
[2025-03-06] MEDS: CEFEPIME 2 GM in SODIUM CHLORIDE 0.9% IV 50 ML 100 ML IVPB ×2 (05:13→17:00)
[2025-03-06] MEDS: LEVOTHYROXINE SODIUM 50 MCG TABLET BY MOUTH (05:14)
[2025-03-06] MEDS: PANTOPRAZOLE 40 MG TABLET PO ×2 (08:29→20:06)
[2025-03-06] MEDS: CITALOPRAM HYDROBROMIDE 20 MG TABLET BY MOUTH (08:29)
[2025-03-06] MEDS: LIDOCAINE 1% LOCAL INJ 10 ML VIAL INFILTRATE (08:29)
[2025-03-06] MEDS: buPROPion HCL XL (24 HR) 150 MG TABCR 450 MG BY MOUTH (08:30)
[2025-03-06] MEDS: ACETAMINOPHEN 325 MG TABLET 650 MG PO ×4 (08:30→20:48)
--- NOTE | 2025-03-06 08:43 | P.CONUR_ITS ---
Assessment and Plan Assessment and plan (1) Urinary retention: Code(s): R33.9 - Retention of urine, unspecified Status: Acute (2) Neurogenic bladder: Code(s): N31.9 - Neuromuscular dysfunction of bladder, unspecified Status: Acute Assessment and Plan: * At the bedside I placed a suprapubic catheter which may be a long-term solution for her urinary retention. Urology Consult Note HPI Date Seen: 03/06/25 Requesting Physician: Shane Null MD Primary Care Provider: Natalia Juarez MD Consult Narrative Narrative: Redd Sands is a 59 year old female is unknown to our practice, presents to the emergency department with a picture of sepsis. She has advanced multiple sclerosis with fixed lower extremities making a placement of a Marte catheter extremely difficult. The ER staff and nurses in the ICU were unable to accomplish this. Her bladder scans show about 850-900 cc. Patient has a history constant incontinence managed with depends as her MS has progressed. The bedside I discussed with her placement of a suprapubic catheter is possible long-term management of her urinary retention and overflow incontinence. She was agreeable. Review of Systems 2 Review of Systems: All systems reviewed & are unremarkable except as noted in HPI and below PMFSH Past Medical History Medical History Hair loss Leg varicosity w/ ulcer Hyperpigmentation of skin Multiple sclerosis (Unknown) Anticoagulant long-term use (Unknown) On apixaban for DVT prophylaxis. Lymphedema (Unknown) Depression Complete immobility due to severe physical disability or frailty Vitamin D deficiency Surgical History Surgical History History of laparoscopic cholecystectomy 11/24/2021 - laparoscopic cholecystectomy and drainage of a right perihepatic abscess. History of surgery on upper extremity History of tubal ligation Family History Family History (Updated 03/05/25 @ 23:47 by Tracee Raya RN) Mother Family history of malignant neoplasm of breast in first degree relative Father Family history of coronary artery disease Social History Social History Social History: The patient lives at home with her , Casey, and is primarily bedbound. She requires assistance to get to a powered wheelchair when needed for mobility. No alcohol, tobacco, or illicit substance use. She designates her as her surrogate decision maker and she wishes to be a full code. Smoking status: Never smoker Second hand tobacco smoke exposure: No Alcohol intake: never Substance use: never Substance use type: does not use Do You Feel Safe in your Home?: Yes Lack of Transportation: No Lack of Food: Never True Current Housing: I Have Housing Concerned About Future Housing: No Difficulty Paying Gas/Electric Bills: No Difficulty Paying for Meds: No Currently Unemployed: No Education: Associate Degree Difficulty w/ Childcare or Family Care: No Living arrangements: with family Gender identity (if verbalized by the patient): Female Spiritual care concerns: No Agree to blood products: Yes Meds Home Medications and Allergies Home Medications ?Medication ?Instructions ?Recorded ?Confirmed ?Type pyridoxine (vitamin B6) 100 mg 100 mg PO DAILY #100 tabs 03/14/21 03/05/25 Rx tablet spironolactone 25 mg tablet 50 mg (2 x 25 mg) PO BID #360 tabs 07/08/24 03/05/25 Rx omeprazole 40 mg capsule,delayed 40 mg PO BID #180 caps 11/05/24 03/05/25 Rx release apixaban 2.5 mg tablet (Eliquis) 2.5 mg PO BID #60 tabs 12/15/24 03/05/25 Rx minoxidil 2.5 mg tablet 2.5 mg PO DAILY 12/16/24 03/05/25 History levothyroxine 50 mcg tablet See Rx Instructions .Route 01/27/25 03/05/25 Rx .COMPLEX #90 tabs baclofen 20 mg tablet 40 mg (2 x 20 mg) PO DAILY #270 03/01/25 03/05/25 Rx tabs bupropion HCl 150 mg 24 hr tablet, See Rx Instructions .Route 03/01/25 03/05/25 Rx extended release .COMPLEX #90 tabs citalopram 40 mg tablet See Rx Instructions .Route 03/03/25 03/05/25 Rx .COMPLEX #30 tabs aripiprazole 5 mg tablet (Abilify) 5 mg PO QHS #90 tabs 03/04/25 03/05/25 Rx gabapentin 300 mg capsule 600 mg PO HS 03/05/25 03/05/25 History nystatin 100,000 unit/gram topical 1 applic topical BID PRN rash 03/05/25 03/05/25 History cream nystatin 100,000 unit/gram topical 1 applic topical BID PRN rash 03/05/25 03/05/25 History powder Allergies Allergy/AdvReac Type Severity Reaction Status Date / Time amoxicillin (From Augmentin) Allergy Mild Rash Verified 03/05/25 15:26 clavulanic acid (From Allergy Mild Rash Verified 03/05/25 15:26 Augmentin) Sulfa (Sulfonamide Allergy Mild Rash Verified 03/05/25 15:26 Antibiotics) doxycycline Allergy Unknown Upset Verified 03/05/25 15:26 Stomach Vital Signs Vital Signs - 24 hr 03/05/25 15:19 03/05/25 16:41 03/05/25 18:01 Temperature 102.3 F H 102.7 F H Pulse Rate 103 H 111 H Respiratory Rate 16 24 H Blood Pressure 138/65 127/47 L Pulse Oximetry 97 Oxygen Delivery Room Air 03/05/25 18:06 03/05/25 18:16 03/05/25 18:31 Temperature 102.7 F H Pulse Rate 109 H 107 H Respiratory Rate 19 23 H Blood Pressure 109/47 L 101/53 L Pulse Oximetry 98 94 Oxygen Delivery 03/05/25 19:56 03/05/25 20:02 03/05/25 20:35 Temperature 99.5 F Pulse Rate 93 93 88 Respiratory Rate 18 18 Blood Pressure 89/45 L 83/42 L 102/47 L Pulse Oximetry 92 91 Oxygen Delivery 03/05/25 22:44 03/05/25 23:29 03/06/25 00:00 Temperature 98.6 F Pulse Rate 80 82 Respiratory Rate 18 Blood Pressure 79/42 L Pulse Oximetry 94 Oxygen Delivery Room Air 03/06/25 00:00 03/06/25 00:00 03/06/25 00:00 Temperature 98.8 F Pulse Rate 92 84 84 Respiratory Rate 20 Blood Pressure 144/70 H 144/70 H Pulse Oximetry 95 Oxygen Delivery 03/06/25 02:00 03/06/25 02:00 03/06/25 02:00 Temperature Pulse Rate 79 76 76 Respiratory Rate 11 L Blood Pressure 129/64 129/64 Pulse Oximetry 94 Oxygen Delivery 03/06/25 04:00 03/06/25 04:00 03/06/25 04:00 Temperature 98.3 F Pulse Rate 78 77 Respiratory Rate 20 Blood Pressure 112/40 L Pulse Oximetry 98 Oxygen Delivery Room Air 03/06/25 04:00 03/06/25 04:45 03/06/25 06:00 Temperature Pulse Rate 73 85 91 Respiratory Rate Blood Pressure 112/40 L 123/49 L 122/48 L Pulse Oximetry Oxygen Delivery 03/06/25 06:00 03/06/25 06:13 03/06/25 06:13 Temperature 98.2 F Pulse Rate 91 91 91 Respiratory Rate 22 H Blood Pressure 122/48 L 110/48 L Pulse Oximetry 96 Oxygen Delivery 03/06/25 07:19 03/06/25 08:30 Temperature 101.5 F H Pulse Rate 97 Respiratory Rate Blood Pressure 118/35 L Pulse Oximetry Oxygen Delivery Exam 2 Const: General: no acute distress Resp: Effort & Inspection: normal respiratory effort GI: Inspection: non-distended GI Palp: No abdominal tenderness and No Guarding due to palpation present (GI) Auscultation: normal bowel sounds Extrem: Other: Fixed lower extremities without any deflection at knees or hips Results Labs 03/06/25 03:49 03/06/25 03:49 Labs: Short CBC 03/05/25 03/06/25 Range/Units 15:59 03:49 WBC 17.9 H 24.6 H (4.5-10.0) K/mm3 Hgb 14.3 12.0 (12.0-15.0) g/dL Hct 44.3 37.0 (37.0-47.0) % Plt Count 265 247 (150-375) k/mm3 BMP 03/05/25 03/06/25 15:59 03:49 Sodium 137 138 Potassium 4.5 4.1 Chloride 101 104 Carbon Dioxide 20 L 25 BUN 11 13 Creatinine 1.08 H 1.08 H Glucose 93 126 H Calcium 9.7 9.0 Cardiac Enzymes 03/06/25 Range/Units 03:49 Troponin I 0.030 (0.000-0.034) ng/mL Liver Function 03/05/25 03/06/25 Range/Units 15:59 03:49 Total Bilirubin 0.7 0.8 (0.2-1.3) mg/dL AST 39 H 27 (14-36) U/L ALT 25 18 (6-35) U/L Alkaline Phosphatase 73 59 (38-126) U/L Albumin 4.6 3.4 L (3.5-5.1) g/dL Urine 03/05/25 Range/Units 18:03 Urine Color Yellow (Yellow) Urine Appearance Clear (Clear) Urine pH 7.0 (5.0-9.0) Ur Specific [place] 1.016 (1.001-1.035) Urine Protein Negative (Negative) mg/dL Urine Glucose (UA) Negative (Negative) mg/dL
[2025-03-06 08:57] LABS: Troponin I 0.026 ng/mL (0.000-0.034)
[2025-03-06 09:11] LABS: NT Pro B Type Natriuretic Pept 3170 pg/mL (19.9-100)
--- NOTE | 2025-03-06 09:26 | P.CONIN_ITS ---
Assessment and Plan Assessment and plan (1) Septic shock: Code(s): A41.9 - Sepsis, unspecified organism; R65.21 - Severe sepsis with septic shock Status: Acute Assessment and Plan: Septic shock secondary to UTI and left lower leg cellulitis. She also has mild distal sigmoid and rectal wall thickening concerning of colitis Bilateral lower extremity has chronic lymphedema and swallow. At least on exam he does not appear patient has deep soft tissue infection. CT scan showed dermal thickening. With thickening and edema is present on both leg Urine and blood cultures have been sent Continue vancomycin cefepime and Flagyl She has not had any diarrhea She is overall volume overloaded hence I will be cautious IV fluids. 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 CT scan of the abdomen shows bilateral hydronephrosis without any stone. Unable to place Marte catheter Urology consulted patient was diagnosed with neurogenic bladder and a suprapubic catheter was placed at bedside (5) Cellulitis: Code(s): L03.90 - Cellulitis, unspecified Status: Acute Assessment and Plan: See above (6) MS (multiple sclerosis): Code(s): G35 - Multiple sclerosis Status: Acute Assessment and Plan: Chronic with spastic quadriparesis (7) Lymphedema: Onset Date: Unknown Code(s): I89.0 - Lymphedema, not elsewhere classified Status: Acute Assessment and Plan: Chronic lymphedema Cautious IV fluids (8) Sacral wound: Code(s): S31.000A - Unspecified open wound of lower back and pelvis without penetration into retroperitoneum, initial encounter Status: Acute Assessment and Plan: Consult wound care Plan DVT prophylaxis -continue Eliquis Stress ulcer prophylaxis - Nutrition -diet ordered Code Status -patient does not want CPR but is okay with intubation if needed Total Critical Care Time - 35 minutes Due to a high probability of clinically significant, life threatening deterioration, the patient required my highest level of preparedness to intervene emergently and I personally spent this critical care time directly and personally managing the patient. This critical care time included obtaining a history; examining the patient; pulse oximetry; ordering and review of studies; arranging urgent treatment with development of a management plan; evaluation of patient's response to treatment; frequent reassessment; and discussions with other providers. It was exclusive of separately billable procedures and treating other patients and teaching time. 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 She states she was having spasms in her back and also had fever at home. She denies any chest pain cough abdominal pain nausea vomiting diarrhea. She states from last many months she has been having difficulty passing urine. She is unable to urinate and wear depends and urine leaks every so often. She denies any dysuria hematuria. Patient denies dizziness lightheadedness loss of consciousness, headache. No change in her weakness or paresthesias years in her extremities. She has decubitus wound and abrasion wounds from her wheelchair around her hips. She does not have a chronic Marte. She is able to eat regular diet with help of her or caregiver. She states she has chronic lymphedema and swollen legs Evaluation in the ER showed the patient was hypotensive and patient was given IV fluid bolus and then started on IV fluids. A right femoral central venous catheter was placed and Levophed was started Workup in the ER showed Laboratory evaluation revealed WBC 17.9, hemoglobin 14.3, platelets 265, INR 1.2, anion gap 16, serum creatinine 1.08, lactic acid 3.7, C-reactive protein 1.4, proBNP 111. Urinalysis revealing 2+ blood, clear appearing urine, trace leukocyte esterase. Quad viral screen negative. Nasal MRSA PCR positive. Chest x-ray with pulmonary vascular congestion, patient however breathing comfortably on room air. CT chest abdomen pelvis with contrast with mild bilateral hydronephrosis, distended urinary bladder. Mild body wall edema. Majority of her left lower extremity from mid clifford to upper thigh hot to touch, nontender, erythematous. Subsequently a venous Doppler was performed which did not revealed DVT. A CT with contrast reveals severe atherosclerotic stenosis of bilateral internal iliac vessels, dermal thickening and diffuse subcutaneous stranding in the lateral and distal thigh. No abscess seen Patient was admitted to ICU for further evaluation management. Review of Systems 2 Review of Systems: All systems reviewed & are unremarkable except as noted in HPI and below (HPI) [facility] Past Medical History Medical History Hair loss Leg varicosity w/ ulcer Hyperpigmentation of skin Multiple sclerosis (Unknown) Anticoagulant long-term use (Unknown) On apixaban for DVT prophylaxis. Lymphedema (Unknown) Depression Complete immobility due to severe physical disability or frailty Vitamin D deficiency Surgical History Surgical History History of laparoscopic cholecystectomy 11/24/2021 - laparoscopic cholecystectomy and drainage of a right perihepatic abscess. History of surgery on upper extremity History of tubal ligation Family History Family History Mother Family history of malignant neoplasm of breast in first degree relative Father Family history of coronary artery disease Social History Social History Social History: The patient lives at home with her , Casey, and is primarily bedbound. She requires assistance to get to a powered wheelchair when needed for mobility. No alcohol, tobacco, or illicit substance use. She designates her as her surrogate decision maker and she wishes to be a full code. Smoking status: Never smoker Second hand tobacco smoke exposure: No Alcohol intake: never Substance use: never Substance use type: does not use Do You Feel Safe in your Home?: Yes Lack of Transportation: No Lack of Food: Never True Current Housing: I Have Housing Concerned About Future Housing: No Difficulty Paying Gas/Electric Bills: No Difficulty Paying for Meds: No Currently Unemployed: No Education: Associate Degree Difficulty w/ Childcare or Family Care: No Living arrangements: with family Gender identity (if verbalized by the patient): Female Spiritual care concerns: No Agree to blood products: Yes Meds Home Medications and Allergies Home Medications ?Medication ?Instructions ?Recorded ?Confirmed ?Type pyridoxine (vitamin B6) 100 mg 100 mg PO DAILY #100 tabs 03/14/21 03/05/25 Rx tablet spironolactone 25 mg tablet 50 mg (2 x 25 mg) PO BID #360 tabs 07/08/24 03/05/25 Rx omeprazole 40 mg capsule,delayed 40 mg PO BID #180 caps 11/05/24 03/05/25 Rx release apixaban 2.5 mg tablet (Eliquis) 2.5 mg PO BID #60 tabs 12/15/24 03/05/25 Rx minoxidil 2.5 mg tablet 2.5 mg PO DAILY 12/16/24 03/05/25 History levothyroxine 50 mcg tablet See Rx Instructions .Route 01/27/25 03/05/25 Rx .COMPLEX #90 tabs baclofen 20 mg tablet 40 mg (2 x 20 mg) PO DAILY #270 03/01/25 03/05/25 Rx tabs bupropion HCl 150 mg 24 hr tablet, See Rx Instructions .Route 03/01/25 03/05/25 Rx extended release .COMPLEX #90 tabs citalopram 40 mg tablet See Rx Instructions .Route 03/03/25 03/05/25 Rx .COMPLEX #30 tabs aripiprazole 5 mg tablet (Abilify) 5 mg PO QHS #90 tabs 03/04/25 03/05/25 Rx gabapentin 300 mg capsule 600 mg PO HS 03/05/25 03/05/25 History nystatin 100,000 unit/gram topical 1 applic topical BID PRN rash 03/05/25 03/05/25 History cream nystatin 100,000 unit/gram topical 1 applic topical BID PRN rash 03/05/25 03/05/25 History powder Allergies Allergy/AdvReac Type Severity Reaction Status Date / Time amoxicillin (From Augmentin) Allergy Mild Rash Verified 03/05/25 15:26 clavulanic acid (From Allergy Mild Rash Verified 03/05/25 15:26 Augmentin) Sulfa (Sulfonamide Allergy Mild Rash Verified 03/05/25 15:26 Antibiotics) doxycycline Allergy Unknown Upset Verified 03/05/25 15:26 Stomach Vital Signs Vital Signs - 24 hr 03/05/25 15:19 03/05/25 16:41 03/05/25 18:01 Temperature 39.1 C H 39.3 C H Pulse Rate 103 H 111 H Respiratory Rate 16 24 H Blood Pressure 138/65 127/47 L Pulse Oximetry 97 Oxygen Delivery Room Air 03/05/25 18:06 03/05/25 18:16 03/05/25 18:31 Temperature 39.3 C H Pulse Rate 109 H 107 H Respiratory Rate 19 23 H Blood Pressure 109/47 L 101/53 L Pulse Oximetry 98 94 Oxygen Delivery 03/05/25 19:56 03/05/25 20:02 03/05/25 20:35 Temperature 37.5 C Pulse Rate 93 93 88 Respiratory Rate 18 18 Blood Pressure 89/45 L 83/42 L 102/47 L Pulse Oximetry 92 91 Oxygen Delivery 03/05/25 22:44 03/05/25 23:29 03/06/25 00:00 Temperature 37.0 C Pulse Rate 80 82 Respiratory Rate 18 Blood Pressure 79/42 L Pulse Oximetry 94 Oxygen Delivery Room Air 03/06/25 00:00 03/06/25 00:00 03/06/25 00:00 Temperature 37.1 C Pulse Rate 92 84 84 Respiratory Rate 20 Blood Pressure 144/70 H 144/70 H Pulse Oximetry 95 Oxygen Delivery 03/06/25 02:00 03/06/25 02:00 03/06/25 02:00 Temperature Pulse Rate 79 76 76 Respiratory Rate 11 L Blood Pressure 129/64 129/64 Pulse Oximetry 94 Oxygen Delivery 03/06/25 04:00 03/06/25 04:00 03/06/25 04:00 Temperature 36.8 C Pulse Rate 78 77 Respiratory Rate 20 Blood Pressure 112/40 L Pulse Oximetry 98 Oxygen Delivery Room Air 03/06/25 04:00 03/06/25 04:45 03/06/25 06:00 Temperature Pulse Rate 73 85 91 Respiratory Rate Blood Pressure 112/40 L 123/49 L 122/48 L Pulse Oximetry Oxygen Delivery 03/06/25 06:00 03/06/25 06:13 03/06/25 06:13 Temperature 36.8 C Pulse Rate 91 91 91 Respiratory Rate 22 H Blood Pressure 122/48 L 110/48 L Pulse Oximetry 96 Oxygen Delivery 03/06/25 07:19 03/06/25 08:30 Temperature 38.6 C H Pulse Rate 97 Respiratory Rate Blood Pressure 118/35 L Pulse Oximetry Oxygen Delivery Exam 2 Narrative: General: Pt is alert awake and in NAD Lungs/Chest: Trachea central Clear BS B/L, No crackles or wheezing. Cardiac: RRR. Normal S1 S2. No murmurs Circulation: Feet are Abdomen: Normal bowel sounds.. Soft. NT. ND. A suprapubic catheter was recently placed Extremities: Bilateral lower extremity chronic lymphedema. Skin is indurated and take on both side. On the left leg the whole leg is red warm up to mid thigh. She has diffuse subcutaneous edema in both legs. Apart from redness and warmth to both legs feel similar. There is no blisters or crepitus on examination of the left leg : Suprapubic catheter in place Neurologic: Follows commands she has minimal movement of toes. She is unable to move her hands which are contractured in flexion position. She is AO x3 PERRL Skin: See above Results Labs 03/06/25 03:49 03/06/25 03:49 Labs: Short CBC 03/05/25 03/06/25 Range/Units 15:59 03:49 WBC 17.9 H 24.6 H (4.5-10.0) K/mm3 Hgb 14.3 12.0 (12.0-15.0) g/dL Hct 44.3 37.0 (37.0-47.0) % Plt Count 265 247 (150-375) k/mm3 BMP 03/05/25 03/06/25 15:59 03:49 Sodium 137 138 Potassium 4.5 4.1 Chloride 101 104 Carbon Dioxide 20 L 25 BUN 11 13 Creatinine 1.08 H 1.08 H Glucose 93 126 H Calcium 9.7 9.0 Cardiac Enzymes 03/06/25 03/06/25 Range/Units 03:49 08:02 Troponin I 0.030 0.026 (0.000-0.034) ng/mL Liver Function 03/05/25 03/06/25 Range/Units 15:59 03:49 Total Bilirubin 0.7 0.8 (0.2-1.3) mg/dL AST 39 H 27 (14-36) U/L ALT 25 18 (6-35) U/L Alkaline Phosphatase 73 59 (38-126) U/L Albumin 4.6 3.4 L (3.5-5.1) g/dL Urine / Range/Units 18:03 Urine Color Yellow (Yellow) Urine Appearance Clear (Clear) Urine pH 7.0 (5.0-9.0) Ur Specific [place] 1.016 (1.001-1.035) Urine Protein Negative (Negative) mg/dL Urine Glucose (UA) Negative (Negative) mg/dL
[2025-03-06] MEDS: BACLOFEN 10 MG TABLET 40 MG PO (09:55)
[2025-03-06] MEDS: APIXABAN 2.5 MG TABLET PO ×2 (09:55→20:06)
[2025-03-06] MEDS: PYRIDOXINE HCL 50 MG TABLET 100 MG PO (09:55)
[2025-03-06] MEDS: ALBUMIN HUMAN 25% 25 GM/100 ML 100 ML IVPB ×3 (09:57→20:10)
[2025-03-06] MEDS: CENTRAL LINE FLUSH 10 ML IV PUSH ×2 (13:29→22:05)
[2025-03-06] MEDS: NOREPINEPHRINE 8 MG/D5W 250 ML 8 MG/250 ML BAG 7.5 MG IV CONT (17:26)
[2025-03-06] MEDS: VANCOMYCIN 1,500 MG/NS 500 ML 1,500 MG/500 ML BAG 250 MG IVPB (18:21)
[2025-03-06] MEDS: GABAPENTIN 300 MG CAPSULE 600 MG PO (20:05)
[2025-03-07] VITALS (27 sets, daily range): BP systolic 94–147; BP diastolic 43–67; PULSE 64–85; RESP 17–28; TEMP 36.7–37.6; O2SAT 80–99
[2025-03-07] MEDS: ACETAMINOPHEN 325 MG TABLET 650 MG PO ×2 (00:47→16:02)
[2025-03-07] MEDS: ALBUMIN HUMAN 25% 25 GM/100 ML 100 ML IVPB ×4 (03:10→20:11)
[2025-03-07 05:12] LABS: Hematocrit 29.1 % (37.0-47.0); Hemoglobin 9.3 g/dL (12.0-15.0); Mean Corpuscular HGB Conc 32.0 g/dl (32-36); Mean Corpuscular Hemoglobin 29.4 pg (26-34); Mean Corpuscular Volume 92.1 fl (80-100); Platelet Count Result 158 k/mm3 (150-375); Red Blood Count 3.16 M/mm3 (4.2-5.4); White Blood Count 13.5 K/mm3 (4.5-10.0)
[2025-03-07 05:30] LABS: Alanine Aminotransferase 16 U/L (6-35); Albumin Level 3.8 g/dL (3.5-5.1); Alkaline Phosphatase 45 U/L (38-126); Anion Gap 9 mmol/L (4-12); Aspartate Amino Transferase 28 U/L (14-36); Bilirubin,Total 0.7 mg/dL (0.2-1.3); Blood Urea Nitrogen 13 mg/dL (7-17); Calcium 8.8 mg/dL (8.4-10.2); Carbon Dioxide 24 mmol/L (22-30); Chloride 103 mmol/L (98-107); Estimated CRCL calculation 48 ml/min; Estimated Glomerular Filt Rate 48; Glucose 103 mg/dL (65-110); Magnesium 1.9 mg/dL (1.6-2.3); Potassium 3.3 mmol/L (3.4-5.0); Sodium 136 mmol/L (137-145); Total Protein 6.2 g/dL (6.3-8.2)
[2025-03-07] MEDS: metroNIDAZOLE 500 MG/ISO 100ML 500 MG/100 ML BAG 100 MG IVPB ×3 (06:12→21:56)
[2025-03-07] MEDS: CEFEPIME 2 GM in SODIUM CHLORIDE 0.9% IV 50 ML 100 ML IVPB ×2 (06:22→17:25)
[2025-03-07] MEDS: CENTRAL LINE FLUSH 10 ML IV PUSH ×3 (06:23→21:57)
[2025-03-07] MEDS: ONDANSETRON INJ 4 MG/2 ML VIAL IV PUSH ×3 (06:24→22:52)
[2025-03-07] MEDS: LEVOTHYROXINE SODIUM 50 MCG TABLET BY MOUTH (06:24)
--- NOTE | 2025-03-07 07:43 | P.PNUR_ITS ---
Progress Note: A&P Assessment and Plan (1) Urinary retention: Code(s): R33.9 - Retention of urine, unspecified Status: Acute (2) Neurogenic bladder: Code(s): N31.9 - Neuromuscular dysfunction of bladder, unspecified Status: Acute Plan * Tolerating newly placed suprapubic catheter well. I discussed with her and, again, feel this may be a good long-term solution to alleviate urinary retention with overflow incontinence and provide for accessible catheter changes Subjective Subjective Date/Time Seen: 03/07/25 07:43 Interval history: Tolerating suprapubic catheter well Exam Const: General: no acute distress Resp: Effort & Inspection: normal respiratory effort GI: Inspection: non-distended GI Palp: No abdominal tenderness and No Guarding due to palpation present (GI) Auscultation: normal bowel sounds Urinary Catheter: Urinary Catheter: patent and draining and urine clear Objective Data Vital Signs Vital Signs: Vital Signs - 24 hr 03/06/25 08:00 03/06/25 08:00 03/06/25 08:00 Temperature 101.5 F H Pulse Rate 98 98 Respiratory Rate 25 H 25 H Blood Pressure 124/16 L 124/16 L Pulse Oximetry 97 97 Oxygen Delivery Room Air 03/06/25 08:00 03/06/25 08:30 03/06/25 09:57 Temperature 101.5 F H 99.4 F Pulse Rate 98 Respiratory Rate Blood Pressure Pulse Oximetry Oxygen Delivery 03/06/25 10:00 03/06/25 10:00 03/06/25 10:00 Temperature Pulse Rate 91 91 91 Respiratory Rate 28 H Blood Pressure 117/42 L 117/42 L Pulse Oximetry 92 Oxygen Delivery 03/06/25 10:15 03/06/25 11:15 03/06/25 12:00 Temperature Pulse Rate 89 80 83 Respiratory Rate Blood Pressure 120/49 L 122/51 L 125/54 L Pulse Oximetry Oxygen Delivery 03/06/25 12:00 03/06/25 12:00 03/06/25 12:00 Temperature 98.5 F Pulse Rate 83 81 Respiratory Rate 20 19 Blood Pressure 125/54 L Pulse Oximetry 95 95 Oxygen Delivery Room Air 03/06/25 14:00 03/06/25 14:00 03/06/25 14:00 Temperature Pulse Rate 89 89 90 Respiratory Rate 19 Blood Pressure 107/49 L 107/49 L Pulse Oximetry 98 Oxygen Delivery 03/06/25 16:00 03/06/25 16:00 03/06/25 16:00 Temperature 98.6 F Pulse Rate 86 86 Respiratory Rate 20 Blood Pressure 105/54 L Pulse Oximetry 98 95 Oxygen Delivery Room Air 03/06/25 16:00 03/06/25 16:30 03/06/25 17:21 Temperature Pulse Rate 84 83 87 Respiratory Rate Blood Pressure 110/49 L 150/54 H 113/52 L Pulse Oximetry Oxygen Delivery 03/06/25 17:22 03/06/25 17:26 03/06/25 18:00 Temperature Pulse Rate 88 88 89 Respiratory Rate Blood Pressure 113/52 L 113/52 L Pulse Oximetry Oxygen Delivery 03/06/25 18:00 03/06/25 18:00 03/06/25 19:52 Temperature 99.6 F Pulse Rate 96 88 83 Respiratory Rate 21 H 27 H Blood Pressure 107/48 L 107/48 L 107/47 L Pulse Oximetry 96 96 Oxygen Delivery 03/06/25 20:00 03/06/25 20:00 03/06/25 20:00 Temperature Pulse Rate 83 81 Respiratory Rate Blood Pressure 109/49 L Pulse Oximetry 96 Oxygen Delivery Room Air 03/06/25 21:56 03/06/25 22:00 03/06/25 22:00 Temperature 99.7 F H Pulse Rate 81 81 81 Respiratory Rate 21 H Blood Pressure 111/54 L 112/53 L Pulse Oximetry 93 Oxygen Delivery 03/07/25 00:00 03/07/25 00:00 03/07/25 00:00 Temperature 98.8 F Pulse Rate 76 80 83 Respiratory Rate 17 Blood Pressure 115/58 L 114/51 L Pulse Oximetry 95 Oxygen Delivery 03/07/25 00:00 03/07/25 00:40 03/07/25 02:00 Temperature Pulse Rate 76 73 Respiratory Rate 20 Blood Pressure 115/58 L 108/51 L Pulse Oximetry 94 94 Oxygen Delivery Room Air 03/07/25 02:00 03/07/25 02:00 03/07/25 04:00 Temperature Pulse Rate 72 74 64 Respiratory Rate Blood Pressure 108/51 L 106/52 L Pulse Oximetry Oxygen Delivery 03/07/25 04:00 03/07/25 04:00 03/07/25 04:00 Temperature 98.6 F Pulse Rate 69 75 Respiratory Rate 21 H Blood Pressure 106/52 L Pulse Oximetry 96 96 Oxygen Delivery Room Air 03/07/25 06:00 03/07/25 06:00 03/07/25 06:00 Temperature Pulse Rate 74 73 70 Respiratory Rate 20 Blood Pressure 118/53 L 118/53 L Pulse Oximetry 94 Oxygen Delivery 03/07/25 06:30 Temperature Pulse Rate 78 Respiratory Rate Blood Pressure 119/55 L Pulse Oximetry Oxygen Delivery Intake/Output Intake/Output: Intake & Output 03/04/25 03/05/25 03/06/25 03/07/25 23:59 23:59 23:59 23:59 Intake Total 3083.3 2148.1 377.9 Output Total 2450 1200 Balance 3083.3 -301.9 -822.1 Meds/Results Medications: Active Medications Generic Name Dose Route Start Last Admin Trade Name Freq PRN Reason Stop Dose Admin Acetaminophen 650 mg 03/05/25 22:36 03/07/25 00:47 Acetaminophen 325 Mg Tablet PO 650 mg Q4H PRN Administration Mild Pain (1-3) or Fever Apixaban 2.5 mg 03/06/25 09:00 03/06/25 20:06 Apixaban 2.5 Mg Tablet PO 2.5 mg Q12HR TYRON Administration Aripiprazole 5 mg 03/06/25 21:00 03/06/25 20:05 Aripiprazole 5 Mg Tablet PO 5 mg QHS TYRON Administration Baclofen 40 mg 03/06/25 09:00 03/06/25 09:55 Baclofen 10 Mg Tablet PO 40 mg DAILY TYRON Administration Bupropion HCl 450 mg 03/06/25 09:00 03/06/25 08:30 Bupropion Hcl Xl (24 Hr) 150 Mg Tabcr BY MOUTH 450 mg DAILY TYRON Administration Gabapentin 600 mg 03/06/25 21:00 03/06/25 20:05 Gabapentin 300 Mg Capsule PO 600 mg HS TYRON Administration Cefepime HCl 2 gm/ Sodium 50 mls @ 100 mls/hr 03/06/25 06:00 03/07/25 06:22 Chloride IVPB 100 mls/hr Q12H TYRON Administration Metronidazole 500 mg in 100 mls @ 100 mls/hr 03/06/25 04:00 03/07/25 06:12 Flagyl 500 Mg/Iso Soln 100 Ml IVPB 100 mls/hr Q8HR TYRON Administration Vancomycin HCl 1,500 mg in 500 mls @ 250 mls/hr 03/06/25 19:00 03/06/25 20:20 Vancomycin 1,500 Mg/Ns 500 Ml IVPB Infused Q24H TYRON Infusion Norepinephrine Bitartrate 8 mg in 250 mls @ 3.75 mls/hr 03/06/25 17:25 03/07/25 06:30 Levophed 8 Mg/D5w 250 Ml IV CONT 2 mcg/min .Q24H TYRON 3.75 mls/hr Titration Protocol 2 MCG/MIN Albumin Human 100 mls @ 60 mls/hr 03/07/25 08:00 Albutein IVPB 03/08/25 03:39 Q6H TYRON Levothyroxine Sodium 50 mcg 03/06/25 06:30 03/07/25 06:24 Levothyroxine Sodium 50 Mcg Tablet BY MOUTH 50 mcg DAILY@0630 TYRON Administration Midodrine 10 mg 03/07/25 09:00 Midodrine Hcl 10 Mg Tablet PO TID TYRON Ondansetron HCl 4 mg 03/06/25 08:49 03/07/25 06:24 Ondansetron Inj 4 Mg/2 Ml Vial IV PUSH 4 mg Q4H PRN Administration Nausea And Vomiting Pantoprazole Sodium 40 mg 03/06/25 09:00 03/06/25 20:06 Pantoprazole 40 Mg Tablet PO 40 mg Q12HR TYRON Administration Perflutren Lipid Microsphere 0 ml 03/06/25 08:47 Perflutren Lipid Microspheres 1.5 Ml Vial Diluted To 10 Ml Total Volume IV PUSH 03/09/25 08:47 ONCE PRN adequate visualization Protocol Potassium Chloride 40 meq 03/07/25 08:00 Potassium Chloride 20 Meq Er Tablet PO 03/07/25 14:01 Q6H TYRON Pyridoxine HCl 100 mg 03/06/25 09:00 03/06/25 09:55 Pyridoxine Hcl 50 Mg Tablet PO 100 mg QAM TYRON Administration Sodium Chloride 10 ml 03/06/25 14:00 03/07/25 06:23 Central Line Flush IV PUSH 10 ml Q8HR TYRON Administration Sodium Chloride 20 ml 03/06/25 06:33 Central Line Flush IV PUSH PRN PRN after blood draws Radiology Results: ITS Impressions Chest X-Ray 03/05/25 17:28 IMPRESSION: Pulmonary vascular congestion. Chest/Abdomen/Pelvis CT 03/05/25 17:45 IMPRESSION: 2.1 cm left thyroid nodule, recommend outpatient thyroid ultrasound for further characterization. Pneumobilia, without inflammatory changes, likely secondary to an incompetent sphincter and/or prior procedure. Air-filled mildly distended mid sigmoid colon. Mild distal sigmoid and rectal wall thickening, consider colitis/proctitis. Mild bilateral hydronephrosis, may be secondary to urinary retention. Consider ascending infection in the differential. No CT evidence of pyelonephritis. Distended urinary bladder without wall thickening or inflammatory change. Correlate with urinalysis and symptoms of urinary retention. Mild body wall edema. Venous Doppler Study 03/05/25 20:40 IMPRESSION: Patent left lower extremity veins. No evidence of deep venous thrombosis. 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 Dermal thickening and diffuse subcutaneous stranding in the lateral and distal thigh, which could represent colitis in the appropriate clinical context. No abscess detected. Labs Labs: Laboratory Results - last 24 hr 03/06/25 03/06/25 03/07/25 03:49 08:02 04:50 WBC 13.5 H RBC 3.16 L Hgb 9.3 L Hct 29.1 L MCV 92.1 MCH 29.4 MCHC 32.0 RDW 15.8 H Plt Count 158 MPV 10.8 H Sodium 136 L Potassium 3.3 L Chloride 103 Carbon Dioxide 24 Anion Gap 9 BUN 13 Creatinine 1.15 H Estim Creat Clear Calc 48 Estimated GFR 48 L Glucose 103 Calcium 8.8 Magnesium 1.9 Total Bilirubin 0.7 AST 28 ALT 16 Alkaline Phosphatase 45 Troponin I 0.026 NT-Pro-B Natriuret Pep 3170 H Total Protein 6.2 L Albumin 3.8
--- NOTE | 2025-03-07 08:29 | P.PNINT_ITS ---
Progress Note: A&P Assessment and Plan (1) Septic shock: Code(s): A41.9 - Sepsis, unspecified organism; R65.21 - Severe sepsis with septic shock Status: Acute Assessment and Plan: Septic shock secondary to UTI and left lower leg cellulitis. She also has mild distal sigmoid and rectal wall thickening concerning of colitis but she has not had any significant diarrhea since coming to the ICU Bilateral lower extremity has chronic lymphedema and swelling that is chronic. At least on exam she does not appear patient has deep soft tissue infection. CT scan showed dermal thickening. With thickening and edema is present on both leg Urine and blood cultures have been sent Continue vancomycin cefepime and Flagyl She has not had any diarrhea She is overall volume overloaded hence I have discontinued further IV fluids. She did get fluid bolus at the time of presentation Continue Levophed Continue 25% albumin Echocardiogram was done and was unremarkable (2) UTI (urinary tract infection): Code(s): N39.0 - Urinary tract infection, site not specified Status: Acute Assessment and Plan: See above (3) Anticoagulant long-term use: Onset Date: Unknown Code(s): Z79.01 - shelter (current) use of anticoagulants Status: Chronic Assessment and Plan: Continue apixaban (4) Urinary retention: Code(s): R33.9 - Retention of urine, unspecified Status: Acute Assessment and Plan: Patient presented with urinary retention and it appears that symptoms have been going on for while. CT scan of the abdomen shows bilateral hydronephrosis without any stone. 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 I have explained to the patient that the swelling in the legs is not going to get better if she keeps her feet low for 24 hours. I have recommended the patient's sleeps in the bed with feet elevated at night to help mobilize the fluid. It seems that lymphedema and swelling has been gradually getting worse over last months. She does have some significant amount of pitting edema at the bottom of both legs and buttock and hips. She will eventually benefit from diuresis but currently she is in septic shock hence we are holding diuresis but I am trying to be very cautious with IV fluids and she is not on any maintenance IV fluids at this time. (8) Buttock wound: Code(s): S31.809A - Unspecified open wound of unspecified buttock, initial encounter Status: Acute Assessment and Plan: She has multiple small superficial wounds in her buttock and also posterior aspect of right thigh. The thigh wound she states are from trauma from getting in and out of wheelchair. They do not appear infected on the exam but I have consulted Wound Care for wound care instructions and management recommendation. She is on antibiotics as above Plan DVT prophylaxis -continue Eliquis Nutrition -diet ordered Code Status -patient does not want CPR but is okay with intubation if needed Total Critical Care Time - 30 minutes Due to a high probability of clinically significant, life threatening deterioration, the patient required my highest level of preparedness to intervene emergently and I personally spent this critical care time directly and personally managing the patient. This critical care time included obtaining a history; examining the patient; pulse oximetry; ordering and review of studies; arranging urgent treatment with development of a management plan; evaluation of patient's response to treatment; frequent reassessment; and discussions with other providers. It was exclusive of separately billable procedures and treating other patients and teaching time. Please see Assessment and Plan section and the rest of the note for further information on patient assessment and treatment Subjective Date/time seen: 03/07/25 08:29 Overnight events reviewed. Mostly Afebrile On room air Continues to be on Levophed but at low rate of 2 mics Improved urine output She states she had some nausea yesterday which got better with medication and eating food. She denies any other new complaints. She states she feels weak and tired but better than yesterday. Patient denies fever, chest pain, shortn ess of breath, cough, nausea vomiting, abdominal pain,, diarrhea, headache or constipation. All the systems were reviewed and were negative Review of Systems Review of Systems: All systems reviewed & are unremarkable except as noted in HPI and below (HPI) Exam Narrative: General: Pt is alert awake and in NAD Lungs/Chest: Trachea central Clear BS B/L, No crackles or wheezing. Cardiac: RRR. Normal S1 S2. No murmurs Circulation: Feet are Abdomen: Normal bowel sounds.. Soft. NT. ND. A suprapubic catheter was recently placed Extremities: Bilateral lower extremity chronic lymphedema. Skin is indurated and take on both side. On the left leg the whole leg is red warm up to mid thigh. She has diffuse subcutaneous edema in both legs. Apart from redness and warmth to both legs feel similar. There is no blisters or crepitus on examination of the left leg, redness in the left leg is mostly unchanged with no worsening or significant improvement : Suprapubic catheter in place Neurologic: Follows commands she has minimal movement of toes. She is unable to move her hands which are contractured in flexion position. She is AO x3 PERRL Skin: She has several small superficial abrasions and wound in her buttock area and also in the right lower thigh which he states is from scratches from her wheelchair Objective Data Vital Signs Vital Signs: Vital Signs - 24 hr 03/06/25 08:30 03/06/25 09:57 03/06/25 10:00 Temperature 38.6 C H 37.4 C Pulse Rate 91 Respiratory Rate Blood Pressure 117/42 L Pulse Oximetry Oxygen Delivery 03/06/25 10:00 03/06/25 10:00 03/06/25 10:15 Temperature Pulse Rate 91 91 89 Respiratory Rate 28 H Blood Pressure 117/42 L 120/49 L Pulse Oximetry 92 Oxygen Delivery 03/06/25 11:15 03/06/25 12:00 03/06/25 12:00 Temperature 36.9 C Pulse Rate 80 83 83 Respiratory Rate 20 Blood Pressure 122/51 L 125/54 L 125/54 L Pulse Oximetry 95 Oxygen Delivery 03/06/25 12:00 03/06/25 12:00 03/06/25 14:00 Temperature Pulse Rate 81 89 Respiratory Rate 19 Blood Pressure Pulse Oximetry 95 Oxygen Delivery Room Air 03/06/25 14:00 03/06/25 14:00 03/06/25 16:00 Temperature Pulse Rate 89 90 Respiratory Rate 19 Blood Pressure 107/49 L 107/49 L Pulse Oximetry 98 98 Oxygen Delivery Room Air 03/06/25 16:00 03/06/25 16:00 03/06/25 16:00 Temperature 37.0 C Pulse Rate 86 86 84 Respiratory Rate 20 Blood Pressure 105/54 L 110/49 L Pulse Oximetry 95 Oxygen Delivery 03/06/25 16:30 03/06/25 17:21 03/06/25 17:22 Temperature Pulse Rate 83 87 88 Respiratory Rate Blood Pressure 150/54 H 113/52 L 113/52 L Pulse Oximetry Oxygen Delivery 03/06/25 17:26 03/06/25 18:00 03/06/25 18:00 Temperature Pulse Rate 88 89 96 Respiratory Rate 21 H Blood Pressure 113/52 L 107/48 L Pulse Oximetry 96 Oxygen Delivery 03/06/25 18:00 03/06/25 19:52 03/06/25 20:00 Temperature 37.6 C Pulse Rate 88 83 83 Respiratory Rate 27 H Blood Pressure 107/48 L 107/47 L 109/49 L Pulse Oximetry 96 Oxygen Delivery 03/06/25 20:00 03/06/25 20:00 03/06/25 21:56 Temperature 37.6 C H Pulse Rate 81 81 Respiratory Rate 21 H Blood Pressure 111/54 L Pulse Oximetry 96 93 Oxygen Delivery Room Air 03/06/25 22:00 03/06/25 22:00 03/07/25 00:00 Temperature 37.1 C Pulse Rate 81 81 76 Respiratory Rate 17 Blood Pressure 112/53 L 115/58 L Pulse Oximetry 95 Oxygen Delivery 03/07/25 00:00 03/07/25 00:00 03/07/25 00:00 Temperature Pulse Rate 80 83 Respiratory Rate Blood Pressure 114/51 L Pulse Oximetry 94 Oxygen Delivery Room Air 03/07/25 00:40 03/07/25 02:00 03/07/25 02:00 Temperature Pulse Rate 76 73 72 Respiratory Rate 20 Blood Pressure 115/58 L 108/51 L Pulse Oximetry 94 Oxygen Delivery 03/07/25 02:00 03/07/25 04:00 03/07/25 04:00 Temperature Pulse Rate 74 64 Respiratory Rate Blood Pressure 108/51 L 106/52 L Pulse Oximetry 96 Oxygen Delivery Room Air 03/07/25 04:00 03/07/25 04:00 03/07/25 06:00 Temperature 37.0 C Pulse Rate 69 75 74 Respiratory Rate 21 H 20 Blood Pressure 106/52 L 118/53 L Pulse Oximetry 96 94 Oxygen Delivery 03/07/25 06:00 03/07/25 06:00 03/07/25 06:30 Temperature Pulse Rate 73 70 78 Respiratory Rate Blood Pressure 118/53 L 119/55 L Pulse Oximetry Oxygen Delivery Intake/Output Intake/Output: Intake & Output 03/04/25 03/05/25 03/06/25 03/07/25 23:59 23:59 23:59 23:59 Intake Total 3083.3 2148.1 377.9 Output Total 2450 1200 Balance 3083.3 -301.9 -822.1 Meds/Results Medications: Active Medications Generic Name Dose Route Start Last Admin Trade Name Freq PRN Reason Stop Dose Admin Acetaminophen 650 mg 03/05/25 22:36 03/07/25 00:47 Acetaminophen 325 Mg Tablet PO 650 mg Q4H PRN Administration Mild Pain (1-3) or Fever Apixaban 2.5 mg 03/06/25 09:00 03/06/25 20:06 Apixaban 2.5 Mg Tablet PO 2.5 mg Q12HR TYRON Administration Aripiprazole 5 mg 03/06/25 21:00 03/06/25 20:05 Aripiprazole 5 Mg Tablet PO 5 mg QHS TYRON Administration Baclofen 40 mg 03/06/25 09:00 03/06/25 09:55 Baclofen 10 Mg Tablet PO 40 mg DAILY TYRON Administration Bupropion HCl 450 mg 03/06/25 09:00 03/06/25 08:30 Bupropion Hcl Xl (24 Hr) 150 Mg Tabcr BY MOUTH 450 mg DAILY TYRON Administration Gabapentin 600 mg 03/06/25 21:00 03/06/25 20:05 Gabapentin 300 Mg Capsule PO 600 mg HS TYRON Administration Cefepime HCl 2 gm/ Sodium 50 mls @ 100 mls/hr 03/06/25 06:00 03/07/25 06:22 Chloride IVPB 100 mls/hr Q12H TYRON Administration Metronidazole 500 mg in 100 mls @ 100 mls/hr 03/06/25 04:00 03/07/25 06:12 Flagyl 500 Mg/Iso Soln 100 Ml IVPB 100 mls/hr Q8HR TYRON Administration Vancomycin HCl 1,500 mg in 500 mls @ 250 mls/hr 03/06/25 19:00 03/06/25 20:20 Vancomycin 1,500 Mg/Ns 500 Ml IVPB Infused Q24H TYRON Infusion Norepinephrine Bitartrate 8 mg in 250 mls @ 3.75 mls/hr 03/06/25 17:25 03/07/25 06:30 Levophed 8 Mg/D5w 250 Ml IV CONT 2 mcg/min .Q24H TYRON 3.75 mls/hr Titration Protocol 2 MCG/MIN Albumin Human 100 mls @ 60 mls/hr 03/07/25 08:00 Albutein IVPB 03/08/25 03:39 Q6H TYRON Levothyroxine Sodium 50 mcg 03/06/25 06:30 03/07/25 06:24 Levothyroxine Sodium 50 Mcg Tablet BY MOUTH 50 mcg DAILY@0630 TYRON Administration Midodrine 10 mg 03/07/25 09:00 Midodrine Hcl 10 Mg Tablet PO TID TYRON Ondansetron HCl 4 mg 03/06/25 08:49 03/07/25 06:24 Ondansetron Inj 4 Mg/2 Ml Vial IV PUSH 4 mg Q4H PRN Administration Nausea And Vomiting Pantoprazole Sodium 40 mg 03/06/25 09:00 03/06/25 20:06 Pantoprazole 40 Mg Tablet PO 40 mg Q12HR TYRON Administration Perflutren Lipid Microsphere 0 ml 03/06/25 08:47 Perflutren Lipid Microspheres 1.5 Ml Vial Diluted To 10 Ml Total Volume IV PUSH 03/09/25 08:47 ONCE PRN adequate visualization Protocol Potassium Chloride 40 meq 03/07/25 08:00 Potassium Chloride 20 Meq Er Tablet PO 03/07/25 14:01 Q6H TYRON Pyridoxine HCl 100 mg 03/06/25 09:00 03/06/25 09:55 Pyridoxine Hcl 50 Mg Tablet PO 100 mg QAM TYRON Administration Sodium Chloride 10 ml 03/06/25 14:00 03/07/25 06:23 Central Line Flush IV PUSH 10 ml Q8HR TYRON Administration Sodium Chloride 20 ml 03/06/25 06:33 Central Line Flush IV PUSH PRN PRN after blood draws Radiology Results: ITS Impressions Chest X-Ray 03/05/25 17:28 IMPRESSION: Pulmonary vascular congestion. Chest/Abdomen/Pelvis CT 03/05/25 17:45 IMPRESSION: 2.1 cm left thyroid nodule, recommend outpatient thyroid ultrasound for further characterization. Pneumobilia, without inflammatory changes, likely secondary to an incompetent sphincter and/or prior procedure. Air-filled mildly distended mid sigmoid colon. Mild distal sigmoid and rectal wall thickening, consider colitis/proctitis. Mild bilateral hydronephrosis, may be secondary to urinary retention. Consider ascending infection in the differential. No CT evidence of pyelonephritis. Distended urinary bladder without wall thickening or inflammatory change. Correlate with urinalysis and symptoms of urinary retention. Mild body wall edema. Venous Doppler Study 03/05/25 20:40 IMPRESSION: Patent left lower extremity veins. No evidence of deep venous thrombosis. 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 Dermal thickening and diffuse subcutaneous stranding in the lateral and distal thigh, which could represent colitis in the appropriate clinical context. No abscess detected. Labs Labs: Laboratory Results - last 24 hr 03/06/25 03/06/25 03/07/25 03:49 08:02 04:50 WBC 13.5 H RBC 3.16 L Hgb 9.3 L Hct 29.1 L MCV 92.1 MCH 29.4 MCHC 32.0 RDW 15.8 H Plt Count 158 MPV 10.8 H Sodium 136 L Potassium 3.3 L Chloride 103 Carbon Dioxide 24 Anion Gap 9 BUN 13 Creatinine 1.15 H Estim Creat Clear Calc 48 Estimated GFR 48 L Glucose 103 Calcium 8.8 Magnesium 1.9 Total Bilirubin 0.7 AST 28 ALT 16 Alkaline Phosphatase 45 Troponin I 0.026 NT-Pro-B Natriuret Pep 3170 H Total Protein 6.2 L Albumin 3.8
[2025-03-07] MEDS: PANTOPRAZOLE 40 MG TABLET PO ×2 (08:39→20:12)
[2025-03-07] MEDS: buPROPion HCL XL (24 HR) 150 MG TABCR 450 MG BY MOUTH (08:39)
[2025-03-07] MEDS: PYRIDOXINE HCL 50 MG TABLET 100 MG PO (08:39)
[2025-03-07] MEDS: MIDODRINE HCL 10 MG TABLET PO ×3 (08:39→17:25)
[2025-03-07] MEDS: BACLOFEN 10 MG TABLET 40 MG PO (08:40)
[2025-03-07] MEDS: POTASSIUM CHLORIDE 20 MEQ ER TABLET 40 MEQ PO ×2 (08:40→13:19)
[2025-03-07] MEDS: APIXABAN 2.5 MG TABLET PO ×2 (08:40→20:12)
--- NOTE | 2025-03-07 13:44 | PM.IMPN ---
Progress Note: A&P Assessment and Plan (1) Septic shock: Code(s): A41.9 - Sepsis, unspecified organism; R65.21 - Severe sepsis with septic shock Status: Acute Assessment and Plan: Septic shock secondary to UTI and left lower leg cellulitis vs colitis. She also has mild distal sigmoid and rectal wall thickening concerning of colitis but she has not had any significant diarrhea since coming to the ICU Bilateral lower extremity has chronic lymphedema and swelling that is chronic. At least on exam she does not appear patient has deep soft tissue infection. CT scan showed dermal thickening. With thickening and edema is present on both leg Urine and blood cultures pending Continue vancomycin cefepime and Flagyl She has not had any diarrhea She is overall volume overloaded hence I have discontinued further IV fluids. 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 CT scan of the abdomen shows bilateral hydronephrosis without any stone. 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 (8) Buttock wound: Code(s): S31.809A - Unspecified open wound of unspecified buttock, initial encounter Status: Acute Assessment and Plan: She has multiple small superficial wounds in her buttock and also posterior aspect of right thigh. The thigh wound she states are from trauma from getting in and out of wheelchair. They do not appear infected on the exam Wound Care for wound care instructions and management recommendation. She is on antibiotics as above Plan DVT prophylaxis -continue Eliquis Nutrition -low sodium diet Code Status -patient does not want CPR but is okay with intubation if needed Subjective Date/time seen: 03/07/25 13:44 Interval history: patient was seen and examined at bedside. she is feeling better. still on Levophed and Bp on soft side. continue Iv Abx. follow culture results. possible UTi Vs colitis VS cellulitis. Wound care on board. Has suprapubic catheter. urology team on board Review of Systems Review of Systems: All systems reviewed & are unremarkable except as noted in HPI and below (HPI) Exam Narrative: General: Pt is alert awake and in NAD Lungs/Chest: Trachea central Clear BS B/L, No crackles or wheezing. Cardiac: RRR. Normal S1 S2. No murmurs Abdomen: Normal bowel sounds.. Soft. NT. ND. A suprapubic catheter was recently placed Extremities: Bilateral lower extremity chronic lymphedema. Skin is indurated and take on both side. On the left leg the whole leg is red warm up to mid thigh. She has diffuse subcutaneous edema in both legs. Apart from redness and warmth to both legs feel similar. There is no blisters or crepitus on examination of the left leg, redness in the left leg is mostly unchanged with no worsening or significant improvement : Suprapubic catheter in place Neurologic: Follows commands she has minimal movement of toes. She is unable to move her hands which are contractured in flexion position. She is AO x3 PERRL Skin: She has several small superficial abrasions and wound in her buttock area and also in the right lower thigh which he states is from scratches from her wheelchair Const: General: comfortable and no acute distress Other: A&O x3 HENMT: Mouth: Yes moist mucous membranes Eyes: Pupils: Equal, round and reactive pupils present Neck: Neck: supple Resp: Effort & Inspection: normal respiratory effort Auscultation: clear to auscultation bilaterally Cardio: Rate: regular rate Rhythm: regular rhythm Heart sounds: no gallops and no murmurs GI: Inspection: non-distended : General: Yes bladder normal to palpation Bimanual exam- vagina & uterus: bladder normal to palpation Skin: Other: Left lower extremity to touch, no tenderness to palpation, erythematous upper thigh down to mid clifford. Chronic dermal thickening and pitting edema. Neuro: Cranial nerves: Yes Equal, round and reactive pupils present Other: Spastic paralysis from shoulders down Extrem: General: edema Objective Data Vital Signs Vital Signs: Vital Signs - 24 hr 03/06/25 14:00 03/06/25 14:00 03/06/25 14:00 Temperature Pulse Rate 89 89 90 Respiratory Rate 19 Blood Pressure 107/49 L 107/49 L Pulse Oximetry 98 Oxygen Delivery 03/06/25 16:00 03/06/25 16:00 03/06/25 16:00 Temperature 98.6 F Pulse Rate 86 86 Respiratory Rate 20 Blood Pressure 105/54 L Pulse Oximetry 98 95 Oxygen Delivery Room Air 03/06/25 16:00 03/06/25 16:30 03/06/25 17:21 Temperature Pulse Rate 84 83 87 Respiratory Rate Blood Pressure 110/49 L 150/54 H 113/52 L Pulse Oximetry Oxygen Delivery 03/06/25 17:22 03/06/25 17:26 03/06/25 18:00 Temperature Pulse Rate 88 88 89 Respiratory Rate Blood Pressure 113/52 L 113/52 L Pulse Oximetry Oxygen Delivery 03/06/25 18:00 03/06/25 18:00 03/06/25 19:52 Temperature 99.6 F Pulse Rate 96 88 83 Respiratory Rate 21 H 27 H Blood Pressure 107/48 L 107/48 L 107/47 L Pulse Oximetry 96 96 Oxygen Delivery 03/06/25 20:00 03/06/25 20:00 03/06/25 20:00 Temperature Pulse Rate 83 81 Respiratory Rate Blood Pressure 109/49 L Pulse Oximetry 96 Oxygen Delivery Room Air 03/06/25 21:56 03/06/25 22:00 03/06/25 22:00 Temperature 99.7 F H Pulse Rate 81 81 81 Respiratory Rate 21 H Blood Pressure 111/54 L 112/53 L Pulse Oximetry 93 Oxygen Delivery 03/07/25 00:00 03/07/25 00:00 03/07/25 00:00 Temperature 98.8 F Pulse Rate 76 80 83 Respiratory Rate 17 Blood Pressure 115/58 L 114/51 L Pulse Oximetry 95 Oxygen Delivery 03/07/25 00:00 03/07/25 00:40 03/07/25 02:00 Temperature Pulse Rate 76 73 Respiratory Rate 20 Blood Pressure 115/58 L 108/51 L Pulse Oximetry 94 94 Oxygen Delivery Room Air 03/07/25 02:00 03/07/25 02:00 03/07/25 04:00 Temperature Pulse Rate 72 74 64 Respiratory Rate Blood Pressure 108/51 L 106/52 L Pulse Oximetry Oxygen Delivery 03/07/25 04:00 03/07/25 04:00 03/07/25 04:00 Temperature 98.6 F Pulse Rate 69 75 Respiratory Rate 21 H Blood Pressure 106/52 L Pulse Oximetry 96 96 Oxygen Delivery Room Air 03/07/25 06:00 03/07/25 06:00 03/07/25 06:00 Temperature Pulse Rate 74 73 70 Respiratory Rate 20 Blood Pressure 118/53 L 118/53 L Pulse Oximetry 94 Oxygen Delivery 03/07/25 06:30 03/07/25 08:00 03/07/25 08:00 Temperature Pulse Rate 78 76 Respiratory Rate Blood Pressure 119/55 L 98/50 L Pulse Oximetry 91 Oxygen Delivery Room Air 03/07/25 08:00 03/07/25 08:00 03/07/25 08:59 Temperature 98.1 F Pulse Rate 79 80 Respiratory Rate 18 Blood Pressure 98/50 L Pulse Oximetry 97 99 Oxygen Delivery Room Air 03/07/25 09:02 03/07/25 09:20 03/07/25 10:00 Temperature Pulse Rate 76 74 72 Respiratory Rate Blood Pressure 94/43 L 123/55 L 98/46 L Pulse Oximetry Oxygen Delivery 03/07/25 10:00 03/07/25 10:00 03/07/25 12:00 Temperature Pulse Rate 85 84 Respiratory Rate 19 Blood Pressure 98/48 L Pulse Oximetry 97 95 Oxygen Delivery Room Air 03/07/25 12:00 03/07/25 12:00 Temperature Pulse Rate 75 81 Respiratory Rate 20 Blood Pressure 96/48 L Pulse Oximetry 80 L Oxygen Delivery Intake/Output Intake/Output: Intake & Output 07/17/25 07/18/25 07/19/25 07/20/25 23:59 23:59 23:59 23:59 Intake Total 3083.3 2148.1 1072.2 Output Total 2450 1200 Balance 3083.3 -301.9 -127.8 Meds/Results Medications: Active Medications Generic Name Dose Route Start Last Admin Trade Name Freq PRN Reason Stop Dose Admin Acetaminophen 650 mg 03/05/25 22:36 03/07/25 00:47 Acetaminophen 325 Mg Tablet PO 650 mg Q4H PRN Administration Mild Pain (1-3) or Fever Apixaban 2.5 mg 03/06/25 09:00 03/07/25 08:40 Apixaban 2.5 Mg Tablet PO 2.5 mg Q12HR TYRON Administration Aripiprazole 5 mg 03/06/25 21:00 03/06/25 20:05 Aripiprazole 5 Mg Tablet PO 5 mg QHS TYRON Administration Baclofen 40 mg 03/06/25 09:00 03/07/25 08:40 Baclofen 10 Mg Tablet PO 40 mg DAILY TYRON Administration Bupropion HCl 450 mg 03/06/25 09:00 03/07/25 08:39 Bupropion Hcl Xl (24 Hr) 150 Mg Tabcr BY MOUTH 450 mg DAILY TYRON Administration Gabapentin 600 mg 03/06/25 21:00 03/06/25 20:05 Gabapentin 300 Mg Capsule PO 600 mg HS TYRON Administration Cefepime HCl 2 gm/ Sodium 50 mls @ 100 mls/hr 03/06/25 06:00 03/07/25 06:22 Chloride IVPB 100 mls/hr Q12H TYRON Administration Metronidazole 500 mg in 100 mls @ 100 mls/hr 03/06/25 04:00 03/07/25 13:19 Flagyl 500 Mg/Iso Soln 100 Ml IVPB 100 mls/hr Q8HR TYRON Administration Vancomycin HCl 1,500 mg in 500 mls @ 250 mls/hr 03/06/25 19:00 03/06/25 20:20 Vancomycin 1,500 Mg/Ns 500 Ml IVPB Infused Q24H TYRON Infusion Norepinephrine Bitartrate 8 mg in 250 mls @ 3.75 mls/hr 03/06/25 17:25 03/07/25 10:00 Levophed 8 Mg/D5w 250 Ml IV CONT 2 mcg/min .Q24H TYRON 3.75 mls/hr Titration Protocol 2 MCG/MIN Albumin Human 100 mls @ 60 mls/hr 03/07/25 08:00 03/07/25 13:19 Albutein IVPB 03/08/25 03:39 60 mls/hr Q6H TYRON Administration Levothyroxine Sodium 50 mcg 03/06/25 06:30 03/07/25 06:24 Levothyroxine Sodium 50 Mcg Tablet BY MOUTH 50 mcg DAILY@0630 TYRON Administration Midodrine 10 mg 03/07/25 09:00 03/07/25 13:19 Midodrine Hcl 10 Mg Tablet PO 10 mg TID TYRON Administration Ondansetron HCl 4 mg 03/06/25 08:49 03/07/25 06:24 Ondansetron Inj 4 Mg/2 Ml Vial IV PUSH 4 mg Q4H PRN Administration Nausea And Vomiting Pantoprazole Sodium 40 mg 03/06/25 09:00 03/07/25 08:39 Pantoprazole 40 Mg Tablet PO 40 mg Q12HR TYRON Administration Perflutren Lipid Microsphere 0 ml 03/06/25 08:47 Perflutren Lipid Microspheres 1.5 Ml Vial Diluted To 10 Ml Total Volume IV PUSH 03/09/25 08:47 ONCE PRN adequate visualization Protocol Potassium Chloride 40 meq 03/07/25 08:00 03/07/25 13:19 Potassium Chloride 20 Meq Er Tablet PO 03/07/25 14:01 40 meq Q6H TYRON Administration Pyridoxine HCl 100 mg 03/06/25 09:00 03/07/25 08:39 Pyridoxine Hcl 50 Mg Tablet PO 100 mg QAM TYRON Administration Sodium Chloride 10 ml 03/06/25 14:00 03/07/25 13:20 Central Line Flush IV PUSH 10 ml Q8HR TYRON Administration Sodium Chloride 20 ml 03/06/25 06:33 Central Line Flush IV PUSH PRN PRN after blood draws Radiology Results: ITS Impressions Chest X-Ray 03/05/25 17:28 IMPRESSION: Pulmonary vascular congestion. Chest/Abdomen/Pelvis CT 03/05/25 17:45 IMPRESSION: 2.1 cm left thyroid nodule, recommend outpatient thyroid ultrasound for further characterization. Pneumobilia, without inflammatory changes, likely secondary to an incompetent sphincter and/or prior procedure. Air-filled mildly distended mid sigmoid colon. Mild distal sigmoid and rectal wall thickening, consider colitis/proctitis. Mild bilateral hydronephrosis, may be secondary to urinary retention. Consider ascending infection in the differential. No CT evidence of pyelonephritis. Distended urinary bladder without wall thickening or inflammatory change. Correlate with urinalysis and symptoms of urinary retention. Mild body wall edema. Venous Doppler Study 03/05/25 20:40 IMPRESSION: Patent left lower extremity veins. No evidence of deep venous thrombosis. 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 Dermal thickening and diffuse subcutaneous stranding in the lateral and distal thigh, which could represent colitis in the appropriate clinical context. No abscess detected. Labs Labs: Laboratory Results - last 24 hr 03/07/25 04:50 WBC 13.5 H RBC 3.16 L Hgb 9.3 L Hct 29.1 L MCV 92.1 MCH 29.4 MCHC 32.0 RDW 15.8 H Plt Count 158 MPV 10.8 H Sodium 136 L Potassium 3.3 L Chloride 103 Carbon Dioxide 24 Anion Gap 9 BUN 13 Creatinine 1.15 H Estim Creat Clear Calc 48 Estimated GFR 48 L Glucose 103 Calcium 8.8 Magnesium 1.9 Total Bilirubin 0.7 AST 28 ALT 16 Alkaline Phosphatase 45 Total Protein 6.2 L Albumin 3.8
[2025-03-07] MEDS: KETOROLAC 15 MG/ML VIAL (*BKC) IV PUSH (17:47)
[2025-03-07] MEDS: VANCOMYCIN 2,000 MG/NS 500 ML 2,000 MG/500 ML BAG 250 MG IVPB (20:02)
[2025-03-07] MEDS: GABAPENTIN 300 MG CAPSULE 600 MG PO (20:12)
[2025-03-08] VITALS (15 sets, daily range): BP systolic 87–123; BP diastolic 48–61; PULSE 68–83; RESP 19–29; TEMP 36.8–37.9; O2SAT 89–97
[2025-03-08] MEDS: ALBUMIN HUMAN 25% 25 GM/100 ML 100 ML IVPB (02:28)
[2025-03-08 05:35] LABS: Hematocrit 28.6 % (37.0-47.0); Hemoglobin 9.0 g/dL (12.0-15.0); Mean Corpuscular HGB Conc 31.5 g/dl (32-36); Mean Corpuscular Hemoglobin 29.3 pg (26-34); Mean Corpuscular Volume 93.2 fl (80-100); Platelet Count Result 149 k/mm3 (150-375); Red Blood Count 3.07 M/mm3 (4.2-5.4); White Blood Count 13.1 K/mm3 (4.5-10.0)
[2025-03-08] MEDS: LEVOTHYROXINE SODIUM 50 MCG TABLET BY MOUTH (06:16)
[2025-03-08] MEDS: metroNIDAZOLE 500 MG/ISO 100ML 500 MG/100 ML BAG 100 MG IVPB (06:19)
[2025-03-08] MEDS: CEFEPIME 2 GM in SODIUM CHLORIDE 0.9% IV 50 ML 100 ML IVPB ×2 (06:26→17:11)
[2025-03-08] MEDS: CENTRAL LINE FLUSH 10 ML IV PUSH ×3 (06:27→20:13)
[2025-03-08 06:36] LABS: Alanine Aminotransferase 14 U/L (6-35); Albumin Level 3.9 g/dL (3.5-5.1); Alkaline Phosphatase 38 U/L (38-126); Anion Gap 11 mmol/L (4-12); Aspartate Amino Transferase 24 U/L (14-36); Bilirubin,Total 0.8 mg/dL (0.2-1.3); Blood Urea Nitrogen 15 mg/dL (7-17); Calcium 8.7 mg/dL (8.4-10.2); Carbon Dioxide 21 mmol/L (22-30); Chloride 108 mmol/L (98-107); Estimated CRCL calculation 52 ml/min; Estimated Glomerular Filt Rate 52; Glucose 76 mg/dL (65-110); Magnesium 2.0 mg/dL (1.6-2.3); Potassium 4.2 mmol/L (3.4-5.0); Sodium 140 mmol/L (137-145); Total Protein 6.1 g/dL (6.3-8.2)
[2025-03-08] MEDS: ONDANSETRON INJ 4 MG/2 ML VIAL IV PUSH (06:58)
[2025-03-08] MEDS: FUROSEMIDE INJ 40 MG/4 ML VIAL IV PUSH ×2 (06:58→13:44)
--- NOTE | 2025-03-08 08:47 | PCWOUND ---
WOCN NOTE Per Dona SIMMONS, patient has friction and maceration to the buttocks and posterior thighs, has antifungal barrier cream and antifungal powder being applied. No wound care assessment needed.
--- NOTE | 2025-03-08 08:48 | WPDINTPN ---
Progress Note: A&P Assessment and Plan (1) Septic shock: Code(s): A41.9 - Sepsis, unspecified organism; R65.21 - Severe sepsis with septic shock Status: Acute Assessment and Plan: Septic shock secondary to UTI and left lower leg cellulitis. She also has mild distal sigmoid and rectal wall thickening concerning of colitis but she has not had any significant diarrhea since coming to the ICU Bilateral lower extremity has chronic lymphedema and swelling that is chronic. At least on exam she does not appear patient has deep soft tissue infection. CT scan showed dermal thickening. With thickening and edema is present on both leg Urine cultures negative Blood cultures positive for group C strep Continue vancomycin cefepime but will discontinue Flagyl (discontinued on 03/08). I will discuss with Infectious Disease pharmacy to further optimize her antibiotics She has not had any diarrhea She is overall volume overloaded hence she has been off any IV fluids Levophed has been weaned off Continue Levophed She did receive 25% albumin earlier but is now currently off Echocardiogram was done and was unremarkable (2) Pulmonary edema: Code(s): J81.1 - Chronic pulmonary edema Status: Acute Assessment and Plan: Overnight patient developed pulmonary edema likely secondary fluid mobilization from legs which have significant volume overload by elevating legs overnight. I have given patient Lasix and will recheck BMP and repeat another dose of Lasix later in the day Her legs have been planes in supine position right now and we will continue to mobilize fluid with elevating legs periodically as she is overall volume overloaded and needs diuresis which has been limited by sepsis and shock Continue supplemental oxygen Continue bronchodilator (3) Urinary retention: Code(s): R33.9 - Retention of urine, unspecified Status: Acute Assessment and Plan: Patient presented with urinary retention and it appears that symptoms have been going on for while. CT scan of the abdomen shows bilateral hydronephrosis without any stone. 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 Status: Chronic Assessment and Plan: Continue apixaban (5) UTI (urinary tract infection): Code(s): N39.0 - Urinary tract infection, site not specified Status: Acute Assessment and Plan: See above (6) Cellulitis: Code(s): L03.90 - Cellulitis, unspecified Status: Acute Assessment and Plan: See above (7) MS (multiple sclerosis): Code(s): 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 I have explained to the patient that the swelling in the legs is not going to get better if she keeps her feet low for 24 hours. I have recommended the patient's sleeps in the bed with feet elevated at night to help mobilize the fluid. It seems that lymphedema and swelling has been gradually getting worse over last months. She does have some significant amount of pitting edema at the bottom of both legs and buttock and hips. She will eventually benefit from diuresis but currently she is in septic shock hence we are holding diuresis but I am trying to be very cautious with IV fluids and she is not on any maintenance IV fluids at this time. (9) Buttock wound: Code(s): S31.809A - Unspecified open wound of unspecified buttock, initial encounter Status: Acute Assessment and Plan: She has multiple small superficial wounds in her buttock and also posterior aspect of right thigh. The thigh wound she states are from trauma from getting in and out of wheelchair. They do not appear infected on the exam but I have consulted Wound Care for wound care instructions and management recommendation. She is on antibiotics as above Plan DVT prophylaxis -continue Eliquis Nutrition -diet ordered Code Status -patient does not want CPR but is okay with intubation if needed Total Critical Care Time - 30 minutes Due to a high probability of clinically significant, life threatening deterioration, the patient required my highest level of preparedness to intervene emergently and I personally spent this critical care time directly and personally managing the patient. This critical care time included obtaining a history; examining the patient; pulse oximetry; ordering and review of studies; arranging urgent treatment with development of a management plan; evaluation of patient's response to treatment; frequent reassessment; and discussions with other providers. It was exclusive of separately billable procedures and treating other patients and teaching time. Please see Assessment and Plan section and the rest of the note for further information on patient assessment and treatment Subjective Date/time seen: 03/08/25 Overnight patient hemodynamics improved and Levophed was weaned off. Patient early this morning started complaining of shortness of breath and on exam was wheezy. Chest x-ray was done which showed congestion. I was called by phone and ordered Lasix. When I saw her this morning she states that she did had difficulty breathing but is feeling better now. She is requiring 2 L of oxygen by nasal cannula. Blood pressure had improved and she was weaned off of Levophed. Since yesterday patient's feet were elevated as per my recommendations to mobilize fluid from her legs. She denied any other complaints. Patient denies fever, chest pain, cough, nausea vomiting, abdominal pain,, diarrhea, headache or constipation. All other of systems were reviewed and were negative Urine output on the lower side. Afebrile Review of Systems Review of Systems: All systems reviewed & are unremarkable except as noted in HPI and below (HPI) Exam Narrative: General: Pt is alert awake and in NAD Lungs/Chest: Trachea central coarse breath sounds bilateral occasional wheezing and crackles at the bases Cardiac: RRR. Normal S1 S2. No murmurs Circulation: Feet are Abdomen: Normal bowel sounds.. Soft. NT. ND. A suprapubic catheter was recently placed Extremities: Bilateral lower extremity chronic lymphedema. Skin is indurated and take on both side. On the left leg the whole leg is red warm up to mid thigh. She has diffuse subcutaneous edema in both legs. Apart from redness and warmth to both legs feel similar. There is no blisters or crepitus on examination of the left leg, redness in the left leg is mostly unchanged with no worsening or significant improvement : Suprapubic catheter in place Neurologic: Follows commands she has minimal movement of toes. She is unable to move her hands which are contractured in flexion position. She is AO x3 PERRL Skin: She has several small superficial abrasions and wound in her buttock area and also in the right lower thigh which he states is from scratches from her wheelchair Objective Data Vital Signs Vital Signs: Vital Signs - 24 hr 03/07/25 08:59 03/07/25 09:02 03/07/25 09:20 Temperature Pulse Rate 76 74 Respiratory Rate Blood Pressure 94/43 L 123/55 L Pulse Oximetry 99 Oxygen Delivery Room Air Oxygen Flow Rate 03/07/25 10:00 03/07/25 10:00 03/07/25 10:00 Temperature Pulse Rate 72 85 84 Respiratory Rate 19 Blood Pressure 98/46 L 98/48 L Pulse Oximetry 97 Oxygen Delivery Oxygen Flow Rate 03/07/25 12:00 03/07/25 12:00 03/07/25 12:00 Temperature Pulse Rate 75 81 Respiratory Rate 20 Blood Pressure 96/48 L Pulse Oximetry 95 80 L Oxygen Delivery Room Air Oxygen Flow Rate 03/07/25 12:00 03/07/25 14:00 03/07/25 14:00 Temperature Pulse Rate 74 71 72 Respiratory Rate Blood Pressure 97/49 L 111/48 L Pulse Oximetry Oxygen Delivery Oxygen Flow Rate 03/07/25 14:00 03/07/25 15:00 03/07/25 15:30 Temperature 37.3 C Pulse Rate 77 72 80 Respiratory Rate 18 Blood Pressure 95/47 L 123/57 L 99/47 L Pulse Oximetry 95 Oxygen Delivery Oxygen Flow Rate 03/07/25 16:00 03/07/25 16:00 03/07/25 16:00 Temperature 37.6 C H Pulse Rate 72 79 Respiratory Rate 23 H Blood Pressure 95/47 L Pulse Oximetry 91 95 Oxygen Delivery Room Air Oxygen Flow Rate 03/07/25 16:02 03/07/25 16:02 03/07/25 17:02 Temperature 37.6 C H 37.1 C Pulse Rate 77 Respiratory Rate Blood Pressure 95/47 L Pulse Oximetry Oxygen Delivery Oxygen Flow Rate 03/07/25 18:00 03/07/25 18:00 03/07/25 18:00 Temperature Pulse Rate 68 67 70 Respiratory Rate 24 H Blood Pressure 94/45 L 97/52 L Pulse Oximetry 91 Oxygen Delivery Oxygen Flow Rate 03/07/25 20:00 03/07/25 20:00 03/07/25 20:00 Temperature Pulse Rate 75 71 Respiratory Rate Blood Pressure 147/58 H Pulse Oximetry 91 Oxygen Delivery Room Air Oxygen Flow Rate 03/07/25 20:00 03/07/25 21:45 03/07/25 22:00 Temperature 37.1 C Pulse Rate 73 75 Respiratory Rate 20 Blood Pressure 147/58 H 127/60 Pulse Oximetry 91 92 Oxygen Delivery Nasal Cannula Oxygen Flow Rate 2 03/07/25 22:00 03/07/25 22:00 03/07/25 22:15 Temperature 37.1 C Pulse Rate 75 75 76 Respiratory Rate 23 H 28 H Blood Pressure 127/60 Pulse Oximetry 92 Oxygen Delivery Oxygen Flow Rate 03/07/25 22:15 03/07/25 22:30 03/07/25 23:00 Temperature Pulse Rate 76 80 77 Respiratory Rate 28 H 22 H Blood Pressure 135/67 Pulse Oximetry 93 Oxygen Delivery Nasal Cannula Oxygen Flow Rate 1 03/07/25 23:00 03/07/25 23:15 03/07/25 23:30 Temperature Pulse Rate 77 75 74 Respiratory Rate 26 H Blood Pressure 135/67 113/59 L 106/55 L Pulse Oximetry 91 Oxygen Delivery Oxygen Flow Rate 03/08/25 00:00 03/08/25 00:00 03/08/25 00:00 Temperature Pulse Rate 74 73 Respiratory Rate Blood Pressure 114/61 Pulse Oximetry 94 Oxygen Delivery Nasal Cannula Oxygen Flow Rate 2 03/08/25 00:00 03/08/25 02:00 03/08/25 02:00 Temperature Pulse Rate 72 72 72 Respiratory Rate 19 Blood Pressure 114/61 107/56 L Pulse Oximetry 94 Oxygen Delivery Oxygen Flow Rate 03/08/25 02:00 03/08/25 04:00 03/08/25 04:00 Temperature 36.8 C Pulse Rate 71 73 73 Respiratory Rate 25 H 29 H Blood Pressure 107/56 L 103/54 L 103/54 L Pulse Oximetry 94 91 Oxygen Delivery Oxygen Flow Rate 03/08/25 04:00 03/08/25 06:00 03/08/25 06:00 Temperature Pulse Rate 75 77 77 Respiratory Rate Blood Pressure 109/58 L Pulse Oximetry Oxygen Delivery Oxygen Flow Rate 03/08/25 06:00 03/08/25 08:00 Temperature 36.9 C 36.8 C Pulse Rate 77 78 Respiratory Rate 28 H 29 H Blood Pressure 109/58 L 87/49 L Pulse Oximetry 93 89 L Oxygen Delivery Oxygen Flow Rate Intake/Output Intake/Output: Intake & Output 03/05/25 03/06/25 03/07/25 03/08/25 23:59 23:59 23:59 23:59 Intake Total 3083.3 2148.1 2850.7 360 Output Total 2450 1850 300 Balance 3083.3 -301.9 1000.7 60 Meds/Results Medications: Active Medications Generic Name Dose Route Start Last Admin Trade Name Freq PRN Reason Stop Dose Admin Acetaminophen 650 mg 03/05/25 22:36 03/07/25 16:02 Acetaminophen 325 Mg Tablet PO 650 mg Q4H PRN Administration Mild Pain (1-3) or Fever Albuterol/Ipratropium 3 ml 03/08/25 02:00 Ipratropium 0.5 Mg/Albuterol Sulfate 2.5 Mg Ampul.Neb 3 Ml INHALATION Q6HRT PRN SOB/WHEEZING Apixaban 2.5 mg 03/06/25 09:00 03/07/25 20:12 Apixaban 2.5 Mg Tablet PO 2.5 mg Q12HR TYRON Administration Aripiprazole 5 mg 03/06/25 21:00 03/07/25 20:12 Aripiprazole 5 Mg Tablet PO 5 mg QHS TYRON Administration Baclofen 40 mg 03/06/25 09:00 03/07/25 08:40 Baclofen 10 Mg Tablet PO 40 mg DAILY TYRON Administration Bupropion HCl 450 mg 03/06/25 09:00 03/07/25 08:39 Bupropion Hcl Xl (24 Hr) 150 Mg Tabcr BY MOUTH 450 mg DAILY TYRON Administration Furosemide 40 mg 03/08/25 14:00 Furosemide Inj 40 Mg/4 Ml Vial IV PUSH 03/08/25 14:01 ONCE ONE Gabapentin 600 mg 03/06/25 21:00 03/07/25 20:12 Gabapentin 300 Mg Capsule PO 600 mg HS TYRON Administration Cefepime HCl 2 gm/ Sodium 50 mls @ 100 mls/hr 03/06/25 06:00 03/08/25 06:26 Chloride IVPB 100 mls/hr Q12H TYRON Administration Norepinephrine Bitartrate 8 mg in 250 mls @ 0 mls/hr 03/06/25 17:25 03/08/25 06:00 Levophed 8 Mg/D5w 250 Ml IV CONT 0 mcg/min .Q0M TYRON 0 mls/hr Titration Protocol Vancomycin HCl 2,000 mg in 500 mls @ 250 mls/hr 03/07/25 20:00 03/07/25 22:03 Vancomycin 2,000 Mg/Ns 500 Ml IVPB Infused Q24H TYRON Infusion Levothyroxine Sodium 50 mcg 03/06/25 06:30 03/08/25 06:16 Levothyroxine Sodium 50 Mcg Tablet BY MOUTH 50 mcg DAILY@0630 TYRON Administration Midodrine 10 mg 03/07/25 09:00 03/07/25 17:25 Midodrine Hcl 10 Mg Tablet PO 10 mg TID TYRON Administration Ondansetron HCl 4 mg 03/06/25 08:49 03/08/25 06:58 Ondansetron Inj 4 Mg/2 Ml Vial IV PUSH 4 mg Q4H PRN Administration Nausea And Vomiting Pantoprazole Sodium 40 mg 03/06/25 09:00 03/07/25 20:12 Pantoprazole 40 Mg Tablet PO 40 mg Q12HR TYRON Administration Perflutren Lipid Microsphere 0 ml 03/06/25 08:47 Perflutren Lipid Microspheres 1.5 Ml Vial Diluted To 10 Ml Total Volume IV PUSH 03/09/25 08:47 ONCE PRN adequate visualization Protocol Pyridoxine HCl 100 mg 03/06/25 09:00 03/07/25 08:39 Pyridoxine Hcl 50 Mg Tablet PO 100 mg QAM TYRON Administration Sodium Chloride 10 ml 03/06/25 14:00 03/08/25 06:27 Central Line Flush IV PUSH 10 ml Q8HR TYRON Administration Sodium Chloride 20 ml 03/06/25 06:33 Central Line Flush IV PUSH PRN PRN after blood draws Radiology Results: ITS Impressions Chest/Abdomen/Pelvis CT 03/05/25 17:45 IMPRESSION: 2.1 cm left thyroid nodule, recommend outpatient thyroid ultrasound for further characterization. Pneumobilia, without inflammatory changes, likely secondary to an incompetent sphincter and/or prior procedure. Air-filled mildly distended mid sigmoid colon. Mild distal sigmoid and rectal wall thickening, consider colitis/proctitis. Mild bilateral hydronephrosis, may be secondary to urinary retention. Consider ascending infection in the differential. No CT evidence of pyelonephritis. Distended urinary bladder without wall thickening or inflammatory change. Correlate with urinalysis and symptoms of urinary retention. Mild body wall edema. Venous Doppler Study 03/05/25 20:40 IMPRESSION: Patent left lower extremity veins. No evidence of deep venous thrombosis. 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 Dermal thickening and diffuse subcutaneous stranding in the lateral and distal thigh, which could represent colitis in the appropriate clinical context. No abscess detected. Chest X-Ray 03/08/25 06:01 Impression: 1: Cardiomegaly with diffuse bilateral airspace disease which may represent edema or pneumonia. Labs Labs: Laboratory Results - last 24 hr 03/07/25 03/08/25 18:03 05:25 WBC 13.1 H RBC 3.07 L Hgb 9.0 L Hct 28.6 L MCV 93.2 MCH 29.3 MCHC 31.5 L RDW 16.2 H Plt Count 149 L MPV 10.8 H Sodium 140 Potassium 4.2 Chloride 108 H Carbon Dioxide 21 L Anion Gap 11 BUN 15 Creatinine 1.07 H Estim Creat Clear Calc 52 Estimated GFR 52 L Glucose 76 Calcium 8.7 Magnesium 2.0 Total Bilirubin 0.8 AST 24 ALT 14 Alkaline Phosphatase 38 Total Protein 6.1 L Albumin 3.9 Vancomycin Trough 11.6
[2025-03-08] MEDS: buPROPion HCL XL (24 HR) 150 MG TABCR 450 MG BY MOUTH (09:07)
[2025-03-08] MEDS: APIXABAN 2.5 MG TABLET PO ×2 (09:08→20:13)
[2025-03-08] MEDS: PANTOPRAZOLE 40 MG TABLET PO ×2 (09:08→20:12)
[2025-03-08] MEDS: MIDODRINE HCL 10 MG TABLET PO ×3 (09:08→17:10)
[2025-03-08] MEDS: BACLOFEN 10 MG TABLET 40 MG PO (09:08)
[2025-03-08] MEDS: PYRIDOXINE HCL 50 MG TABLET 100 MG PO (09:08)
[2025-03-08 13:21] LABS: Anion Gap 9 mmol/L (4-12); Blood Urea Nitrogen 16 mg/dL (7-17); Calcium 8.9 mg/dL (8.4-10.2); Carbon Dioxide 24 mmol/L (22-30); Chloride 105 mmol/L (98-107); Estimated CRCL calculation 46 ml/min; Estimated Glomerular Filt Rate 44; Glucose 94 mg/dL (65-110); Potassium 3.9 mmol/L (3.4-5.0); Sodium 138 mmol/L (137-145)
--- NOTE | 2025-03-08 15:30 | PM.IMPN ---
Progress Note: A&P Assessment and Plan (1) Septic shock: Code(s): A41.9 - Sepsis, unspecified organism; R65.21 - Severe sepsis with septic shock Status: Acute Assessment and Plan: Septic shock secondary to UTI and left lower leg cellulitis vs colitis. She also has mild distal sigmoid and rectal wall thickening concerning of colitis but she has not had any significant diarrhea since coming to the ICU Bilateral lower extremity has chronic lymphedema and swelling that is chronic. At least on exam she does not appear patient has deep soft tissue infection. CT scan showed dermal thickening. With thickening and edema is present on both leg Urine c pending blood cultures positive for G+streptococcus Continue vancomycin cefepime. Flagyl has been discontinued 03/08/25 She has not had any diarrhea She is overall volume overloaded. received lasix today 03/08/25 BP improving .off of Levophed. started on Midodrine Continue 25% albumin Echocardiogram was done and was unremarkable (2) UTI (urinary tract infection): Code(s): N39.0 - Urinary tract infection, site not specified Status: Acute Assessment and Plan: See above (3) Anticoagulant long-term use: Onset Date: Unknown Code(s): Z79.01 - shelter (current) use of anticoagulants Status: Chronic Assessment and Plan: Continue apixaban (4) Urinary retention: Code(s): R33.9 - Retention of urine, unspecified Status: Acute Assessment and Plan: Patient presented with urinary retention and it appears that symptoms have been going on for while. CT scan of the abdomen shows bilateral hydronephrosis without any stone. 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 (8) Buttock wound: Code(s): S31.809A - Unspecified open wound of unspecified buttock, initial encounter Status: Acute Assessment and Plan: She has multiple small superficial wounds in her buttock and also posterior aspect of right thigh. The thigh wound she states are from trauma from getting in and out of wheelchair. They do not appear infected on the exam Wound Care for wound care instructions and management recommendation. She is on antibiotics as above Plan DVT prophylaxis -continue Eliquis Nutrition -low sodium diet Code Status -patient does not want CPR but is okay with intubation if needed Subjective Date/time seen: 03/08/25 15:30 Interval history: patient was seen and examined at bedside. she is feeling better. still on Levophed and Bp on soft side. continue Iv Abx. follow culture results. possible UTi Vs colitis VS cellulitis. Wound care on board. Has suprapubic catheter. urology team on board 03/08/25 Patient was seen and examined at bedside. she is feeling better. denies any chest pain,abd pain, N/V/ Breathing is better after getting lasix. off of Levophed, started on Midodrine Review of Systems Review of Systems: All systems reviewed & are unremarkable except as noted in HPI and below (HPI) Exam Narrative: General: Pt is alert awake and in NAD Lungs/Chest: Trachea central Clear BS B/L, No crackles or wheezing. Cardiac: RRR. Normal S1 S2. No murmurs Abdomen: Normal bowel sounds.. Soft. NT. ND. A suprapubic catheter was recently placed Extremities: Bilateral lower extremity chronic lymphedema. Skin is indurated and take on both side. On the left leg the whole leg is red warm up to mid thigh. She has diffuse subcutaneous edema in both legs. Apart from redness and warmth to both legs feel similar. There is no blisters or crepitus on examination of the left leg, redness in the left leg is mostly unchanged with no worsening or significant improvement : Suprapubic catheter in place Neurologic: Follows commands she has minimal movement of toes. She is unable to move her hands which are contractured in flexion position. She is AO x3 PERRL Skin: She has several small superficial abrasions and wound in her buttock area and also in the right lower thigh which he states is from scratches from her wheelchair Const: General: comfortable and no acute distress Other: A&O x3 HENMT: Mouth: Yes moist mucous membranes Eyes: Pupils: Equal, round and reactive pupils present Neck: Neck: supple Resp: Effort & Inspection: normal respiratory effort Auscultation: clear to auscultation bilaterally Cardio: Rate: regular rate Rhythm: regular rhythm Heart sounds: no gallops and no murmurs GI: Inspection: non-distended : General: Yes bladder normal to palpation Bimanual exam- vagina & uterus: bladder normal to palpation Skin: Other: Left lower extremity to touch, no tenderness to palpation, erythematous upper thigh down to mid clifford. Chronic dermal thickening and pitting edema. Neuro: Cranial nerves: Yes Equal, round and reactive pupils present Other: Spastic paralysis from shoulders down Extrem: General: edema Objective Data Vital Signs Vital Signs: Vital Signs - 24 hr 03/07/25 16:00 03/07/25 16:00 03/07/25 16:00 Temperature 99.7 F H Pulse Rate 72 79 Respiratory Rate 23 H Blood Pressure 95/47 L Pulse Oximetry 91 95 Oxygen Delivery Room Air Oxygen Flow Rate 03/07/25 16:02 03/07/25 16:02 03/07/25 17:02 Temperature 99.7 F H 98.8 F Pulse Rate 77 Respiratory Rate Blood Pressure 95/47 L Pulse Oximetry Oxygen Delivery Oxygen Flow Rate 03/07/25 18:00 03/07/25 18:00 03/07/25 18:00 Temperature Pulse Rate 68 67 70 Respiratory Rate 24 H Blood Pressure 94/45 L 97/52 L Pulse Oximetry 91 Oxygen Delivery Oxygen Flow Rate 03/07/25 20:00 03/07/25 20:00 03/07/25 20:00 Temperature Pulse Rate 75 71 Respiratory Rate Blood Pressure 147/58 H Pulse Oximetry 91 Oxygen Delivery Room Air Oxygen Flow Rate 03/07/25 20:00 03/07/25 21:45 03/07/25 22:00 Temperature 98.7 F Pulse Rate 73 75 Respiratory Rate 20 Blood Pressure 147/58 H 127/60 Pulse Oximetry 91 92 Oxygen Delivery Nasal Cannula Oxygen Flow Rate 2 03/07/25 22:00 03/07/25 22:00 03/07/25 22:15 Temperature 98.8 F Pulse Rate 75 75 76 Respiratory Rate 23 H 28 H Blood Pressure 127/60 Pulse Oximetry 92 Oxygen Delivery Oxygen Flow Rate 03/07/25 22:15 03/07/25 22:30 03/07/25 23:00 Temperature Pulse Rate 76 80 77 Respiratory Rate 28 H 22 H Blood Pressure 135/67 Pulse Oximetry 93 Oxygen Delivery Nasal Cannula Oxygen Flow Rate 1 03/07/25 23:00 03/07/25 23:15 03/07/25 23:30 Temperature Pulse Rate 77 75 74 Respiratory Rate 26 H Blood Pressure 135/67 113/59 L 106/55 L Pulse Oximetry 91 Oxygen Delivery Oxygen Flow Rate 03/08/25 00:00 03/08/25 00:00 03/08/25 00:00 Temperature Pulse Rate 74 73 Respiratory Rate Blood Pressure 114/61 Pulse Oximetry 94 Oxygen Delivery Nasal Cannula Oxygen Flow Rate 2 03/08/25 00:00 03/08/25 02:00 03/08/25 02:00 Temperature Pulse Rate 72 72 72 Respiratory Rate 19 Blood Pressure 114/61 107/56 L Pulse Oximetry 94 Oxygen Delivery Oxygen Flow Rate 03/08/25 02:00 03/08/25 04:00 03/08/25 04:00 Temperature 98.2 F Pulse Rate 71 73 73 Respiratory Rate 25 H 29 H Blood Pressure 107/56 L 103/54 L 103/54 L Pulse Oximetry 94 91 Oxygen Delivery Oxygen Flow Rate 03/08/25 04:00 03/08/25 06:00 03/08/25 06:00 Temperature Pulse Rate 75 77 77 Respiratory Rate Blood Pressure 109/58 L Pulse Oximetry Oxygen Delivery Oxygen Flow Rate 03/08/25 06:00 03/08/25 08:00 03/08/25 08:00 Temperature 98.4 F 98.2 F Pulse Rate 77 78 82 Respiratory Rate 28 H 29 H Blood Pressure 109/58 L 87/49 L Pulse Oximetry 93 89 L Oxygen Delivery Oxygen Flow Rate 03/08/25 08:00 03/08/25 09:12 03/08/25 09:54 Temperature Pulse Rate 78 68 Respiratory Rate Blood Pressure 92/50 L Pulse Oximetry 92 Oxygen Delivery Nasal Cannula Oxygen Flow Rate 1 03/08/25 10:00 03/08/25 10:00 03/08/25 12:00 Temperature Pulse Rate 71 71 83 Respiratory Rate 25 H Blood Pressure 107/60 107/60 Pulse Oximetry 91 Oxygen Delivery Oxygen Flow Rate 03/08/25 12:00 03/08/25 12:00 03/08/25 13:48 Temperature 98.7 F Pulse Rate 77 80 73 Respiratory Rate 28 H Blood Pressure 98/48 L 98/48 L Pulse Oximetry 91 Oxygen Delivery Oxygen Flow Rate 03/08/25 14:00 Temperature 99.6 F Pulse Rate 73 Respiratory Rate 25 H Blood Pressure 110/52 L Pulse Oximetry 97 Oxygen Delivery Oxygen Flow Rate Intake/Output Intake/Output: Intake & Output 03/05/25 03/06/25 03/07/25 03/08/25 23:59 23:59 23:59 23:59 Intake Total 3083.3 2148.1 2850.7 480 Output Total 2450 1850 2800 Balance 3083.3 -301.9 1000.7 -2320 Meds/Results Medications: Active Medications Generic Name Dose Route Start Last Admin Trade Name Freq PRN Reason Stop Dose Admin Acetaminophen 650 mg 03/05/25 22:36 03/07/25 16:02 Acetaminophen 325 Mg Tablet PO 650 mg Q4H PRN Administration Mild Pain (1-3) or Fever Albuterol/Ipratropium 3 ml 03/08/25 02:00 Ipratropium 0.5 Mg/Albuterol Sulfate 2.5 Mg Ampul.Neb 3 Ml INHALATION Q6HRT PRN SOB/WHEEZING Apixaban 2.5 mg 03/06/25 09:00 03/08/25 09:08 Apixaban 2.5 Mg Tablet PO 2.5 mg Q12HR TYRON Administration Aripiprazole 5 mg 03/06/25 21:00 03/07/25 20:12 Aripiprazole 5 Mg Tablet PO 5 mg QHS TYRON Administration Baclofen 40 mg 03/06/25 09:00 03/08/25 09:08 Baclofen 10 Mg Tablet PO 40 mg DAILY TYRON Administration Bupropion HCl 450 mg 03/06/25 09:00 03/08/25 09:07 Bupropion Hcl Xl (24 Hr) 150 Mg Tabcr BY MOUTH 450 mg DAILY TYRON Administration Gabapentin 600 mg 03/06/25 21:00 03/07/25 20:12 Gabapentin 300 Mg Capsule PO 600 mg HS TYRON Administration Cefepime HCl 2 gm/ Sodium 50 mls @ 100 mls/hr 03/06/25 06:00 03/08/25 06:26 Chloride IVPB 100 mls/hr Q12H TYRON Administration Norepinephrine Bitartrate 8 mg in 250 mls @ 0 mls/hr 03/06/25 17:25 03/08/25 12:00 Levophed 8 Mg/D5w 250 Ml IV CONT 0 mcg/min .Q0M TYRON 0 mls/hr Titration Protocol Vancomycin HCl 2,000 mg in 500 mls @ 250 mls/hr 03/07/25 20:00 03/07/25 22:03 Vancomycin 2,000 Mg/Ns 500 Ml IVPB Infused Q24H TYRON Infusion Levothyroxine Sodium 50 mcg 03/06/25 06:30 03/08/25 06:16 Levothyroxine Sodium 50 Mcg Tablet BY MOUTH 50 mcg DAILY@0630 TYRON Administration Midodrine 10 mg 03/07/25 09:00 03/08/25 12:56 Midodrine Hcl 10 Mg Tablet PO 10 mg TID TYRON Administration Ondansetron HCl 4 mg 03/06/25 08:49 03/08/25 06:58 Ondansetron Inj 4 Mg/2 Ml Vial IV PUSH 4 mg Q4H PRN Administration Nausea And Vomiting Pantoprazole Sodium 40 mg 03/06/25 09:00 03/08/25 09:08 Pantoprazole 40 Mg Tablet PO 40 mg Q12HR TYRON Administration Perflutren Lipid Microsphere 0 ml 03/06/25 08:47 Perflutren Lipid Microspheres 1.5 Ml Vial Diluted To 10 Ml Total Volume IV PUSH 03/09/25 08:47 ONCE PRN adequate visualization Protocol Pyridoxine HCl 100 mg 03/06/25 09:00 03/08/25 09:08 Pyridoxine Hcl 50 Mg Tablet PO 100 mg QAM TYRON Administration Sodium Chloride 10 ml 03/06/25 14:00 03/08/25 12:58 Central Line Flush IV PUSH 10 ml Q8HR TYRON Administration Sodium Chloride 20 ml 03/06/25 06:33 Central Line Flush IV PUSH PRN PRN after blood draws Radiology Results: ITS Impressions Chest/Abdomen/Pelvis CT 03/05/25 17:45 IMPRESSION: 2.1 cm left thyroid nodule, recommend outpatient thyroid ultrasound for further characterization. Pneumobilia, without inflammatory changes, likely secondary to an incompetent sphincter and/or prior procedure. Air-filled mildly distended mid sigmoid colon. Mild distal sigmoid and rectal wall thickening, consider colitis/proctitis. Mild bilateral hydronephrosis, may be secondary to urinary retention. Consider ascending infection in the differential. No CT evidence of pyelonephritis. Distended urinary bladder without wall thickening or inflammatory change. Correlate with urinalysis and symptoms of urinary retention. Mild body wall edema. Venous Doppler Study 03/05/25 20:40 IMPRESSION: Patent left lower extremity veins. No evidence of deep venous thrombosis. 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 Dermal thickening and diffuse subcutaneous stranding in the lateral and distal thigh, which could represent colitis in the appropriate clinical context. No abscess detected. Chest X-Ray 03/08/25 06:01 Impression: 1: Cardiomegaly with diffuse bilateral airspace disease which may represent edema or pneumonia. Labs Labs: Laboratory Results - last 24 hr 03/07/25 03/08/25 03/08/25 18:03 05:25 13:01 WBC 13.1 H RBC 3.07 L Hgb 9.0 L Hct 28.6 L MCV 93.2 MCH 29.3 MCHC 31.5 L RDW 16.2 H Plt Count 149 L MPV 10.8 H Sodium 140 138 Potassium 4.2 3.9 Chloride 108 H 105 Carbon Dioxide 21 L 24 Anion Gap 11 9 BUN 15 16 Creatinine 1.07 H 1.23 H Estim Creat Clear Calc 52 46 Estimated GFR 52 L 44 L Glucose 76 94 Calcium 8.7 8.9 Magnesium 2.0 Total Bilirubin 0.8 AST 24 ALT 14 Alkaline Phosphatase 38 Total Protein 6.1 L Albumin 3.9 Vancomycin Trough 11.6
[2025-03-08] MEDS: GABAPENTIN 300 MG CAPSULE 600 MG PO (20:13)
[2025-03-08] MEDS: VANCOMYCIN 2,000 MG/NS 500 ML 2,000 MG/500 ML BAG 250 MG IVPB (20:13)
[2025-03-08 20:36] LABS: Anion Gap 7 mmol/L (4-12); Blood Urea Nitrogen 20 mg/dL (7-17); Calcium 8.9 mg/dL (8.4-10.2); Carbon Dioxide 25 mmol/L (22-30); Chloride 100 mmol/L (98-107); Estimated CRCL calculation 43 ml/min; Estimated Glomerular Filt Rate 41; Glucose 101 mg/dL (65-110); Potassium 3.8 mmol/L (3.4-5.0); Sodium 132 mmol/L (137-145)
[2025-03-09] VITALS (16 sets, daily range): BP systolic 97–131; BP diastolic 41–68; PULSE 62–77; RESP 18–29; TEMP 36.6–37.7; O2SAT 90–100
[2025-03-09 05:32] LABS: Hematocrit 29.8 % (37.0-47.0); Hemoglobin 9.5 g/dL (12.0-15.0); Mean Corpuscular HGB Conc 31.9 g/dl (32-36); Mean Corpuscular Hemoglobin 29.1 pg (26-34); Mean Corpuscular Volume 91.4 fl (80-100); Platelet Count Result 207 k/mm3 (150-375); Red Blood Count 3.26 M/mm3 (4.2-5.4); White Blood Count 11.8 K/mm3 (4.5-10.0)
[2025-03-09] MEDS: CENTRAL LINE FLUSH 10 ML IV PUSH ×3 (05:38→20:24)
[2025-03-09] MEDS: LEVOTHYROXINE SODIUM 50 MCG TABLET BY MOUTH (05:38)
[2025-03-09] MEDS: CEFEPIME 2 GM in SODIUM CHLORIDE 0.9% IV 50 ML 100 ML IVPB ×2 (05:39→18:22)
[2025-03-09 05:54] LABS: Alanine Aminotransferase 14 U/L (6-35); Albumin Level 3.7 g/dL (3.5-5.1); Alkaline Phosphatase 43 U/L (38-126); Anion Gap 8 mmol/L (4-12); Aspartate Amino Transferase 29 U/L (14-36); Bilirubin,Total 1.0 mg/dL (0.2-1.3); Blood Urea Nitrogen 20 mg/dL (7-17); Calcium 8.7 mg/dL (8.4-10.2); Carbon Dioxide 25 mmol/L (22-30); Chloride 100 mmol/L (98-107); Estimated CRCL calculation 45 ml/min; Estimated Glomerular Filt Rate 45; Glucose 70 mg/dL (65-110); Magnesium 1.9 mg/dL (1.6-2.3); Potassium 3.5 mmol/L (3.4-5.0); Sodium 133 mmol/L (137-145); Total Protein 6.1 g/dL (6.3-8.2)
[2025-03-09] MEDS: PYRIDOXINE HCL 50 MG TABLET 100 MG PO (09:22)
[2025-03-09] MEDS: buPROPion HCL XL (24 HR) 150 MG TABCR 450 MG BY MOUTH (09:22)
[2025-03-09] MEDS: BACLOFEN 10 MG TABLET 40 MG PO (09:22)
[2025-03-09] MEDS: PANTOPRAZOLE 40 MG TABLET PO ×2 (09:23→20:22)
[2025-03-09] MEDS: APIXABAN 2.5 MG TABLET PO ×2 (09:23→20:23)
[2025-03-09] MEDS: MIDODRINE HCL 10 MG TABLET PO ×3 (09:25→18:22)
[2025-03-09] MEDS: POTASSIUM CHLORIDE 20 MEQ ER TABLET 40 MEQ PO (09:27)
[2025-03-09] MEDS: FUROSEMIDE INJ 40 MG/4 ML VIAL IV PUSH (09:27)
[2025-03-09 10:19] LABS: Toxigenic C. Diff NEGATIVE (NEGATIVE)
--- NOTE | 2025-03-09 11:01 | WPDINTPN ---
Progress Note: A&P Assessment and Plan (1) Septic shock: Code(s): A41.9 - Sepsis, unspecified organism; R65.21 - Severe sepsis with septic shock Status: Acute Assessment and Plan: Septic shock secondary to UTI and left lower leg cellulitis. She also has mild distal sigmoid and rectal wall thickening concerning of colitis but she has not had any significant diarrhea since coming to the ICU Bilateral lower extremity has chronic lymphedema and swelling that is chronic. At least on exam she does not appear patient has deep soft tissue infection. CT scan showed dermal thickening. With thickening and edema is present on both leg Urine cultures negative Blood cultures positive for group C strep Continue cefepime 03/06 -Flagyl discontinued on 03/08, -vancomycin discontinued 03/09 She has not had any diarrhea She is overall volume overloaded hence she has been off IV fluids OFFL evophed since 03/07 Echocardiogram was done and was unremarkable (2) Pulmonary edema: Code(s): J81.1 - Chronic pulmonary edema Status: Acute Assessment and Plan: Overnight patient developed pulmonary edema likely secondary fluid mobilization from legs which have significant volume overload by elevating legs overnight. I have given patient Lasix and will recheck BMP Her legs have been planes in supine position right now and we will continue to mobilize fluid with elevating legs periodically as she is overall volume overloaded and needs diuresis which has been limited by sepsis and shock Continue supplemental oxygen Continue bronchodilator -continue diuresis with Lasix (3) Urinary retention: Code(s): R33.9 - Retention of urine, unspecified Status: Acute Assessment and Plan: Patient presented with urinary retention and it appears that symptoms have been going on for while. CT scan of the abdomen shows bilateral hydronephrosis without any stone. 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 Status: Chronic Assessment and Plan: Continue apixaban (5) UTI (urinary tract infection): Code(s): N39.0 - Urinary tract infection, site not specified Status: Acute Assessment and Plan: Continue antibiotics as above -urine cultures are negative (6) Cellulitis: Code(s): L03.90 - Cellulitis, unspecified Status: Acute Assessment and Plan: See above (7) MS (multiple sclerosis): Code(s): 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 I have explained to the patient that the swelling in the legs is not going to get better if she keeps her feet low for 24 hours. I have recommended the patient's sleeps in the bed with feet elevated at night to help mobilize the fluid. It seems that lymphedema and swelling has been gradually getting worse over last months. She does have some significant amount of pitting edema at the bottom of both legs and buttock and hips. -now that she has been off Levophed, patient is being diuresed (9) Buttock wound: Code(s): S31.809A - Unspecified open wound of unspecified buttock, initial encounter Status: Acute Assessment and Plan: She has multiple small superficial wounds in her buttock and also posterior aspect of right thigh. The thigh wound she states are from trauma from getting in and out of wheelchair. They do not appear infected on the exam but I have consulted Wound Care for wound care instructions and management recommendation. She is on antibiotics as above Plan DVT prophylaxis: Continue Eliquis GI prophylaxis: Proton Nutrition: Low-sodium diet Code Status -patient does not want CPR but is okay with intubation if needed Total Critical Care Time - 31 minutes Patient may transfer out of the ICU Due to a high probability of clinically significant, life threatening deterioration, the patient required my highest level of preparedness to intervene emergently and I personally spent this critical care time directly and personally managing the patient. This critical care time included obtaining a history; examining the patient; pulse oximetry; ordering and review of studies; arranging urgent treatment with development of a management plan; evaluation of patient's response to treatment; frequent reassessment; and discussions with other providers. It was exclusive of separately billable procedures and treating other patients and teaching time. Please see Assessment and Plan section and the rest of the note for further information on patient assessment and treatment Subjective Date/time seen: 03/09/25 11:01 Interval history: Reason for consult: Septic shock likely related to UTI and left lower leg cellulitis, pulmonary edema, urinary retention status post suprapubic catheter this admission Patient seen examined this morning, is awake, alert, oriented. Denies any shortness of breath, chest pain, abdominal pain, nausea vomiting at this time. Patient has had adequate urine output in response to diuresis, afebrile, hemodynamically stable. Patient has been off Levophed since 03/07/2025 Review of Systems Review of Systems: All systems reviewed & are unremarkable except as noted in HPI and below (HPI) Exam Narrative: General: Pt is alert awake and in NAD Lungs/Chest: Trachea central coarse breath sounds bilateral occasional wheezing and crackles at the bases Cardiac: RRR. Normal S1 S2. No murmurs Circulation: Feet are Abdomen: Normal bowel sounds.. Soft. NT. ND. A suprapubic catheter was recently placed Extremities: Bilateral lower extremity chronic lymphedema. Skin is indurated and thick on both side. On the left leg the whole leg is red warm up to mid thigh. She has diffuse subcutaneous edema in both legs. Apart from redness and warmth to both legs feel similar. There is no blisters or crepitus on examination of the left leg, redness in the left leg is mostly unchanged with no worsening or significant improvement : Suprapubic catheter in place Neurologic: Follows commands she has minimal movement of toes. She is unable to move her hands which are contractured in flexion position. She is AO x3 PERRL Skin: She has several small superficial abrasions and wound in her buttock area and also in the right lower thigh which he states is from scratches from her wheelchair Objective Data Vital Signs Vital Signs: Vital Signs - 24 hr 03/08/25 12:00 03/08/25 12:00 03/08/25 12:00 Temperature 98.7 F Pulse Rate 83 77 80 Respiratory Rate 28 H Blood Pressure 98/48 L 98/48 L Pulse Oximetry 91 Oxygen Delivery Oxygen Flow Rate 03/08/25 13:48 03/08/25 14:00 03/08/25 14:00 Temperature 99.6 F Pulse Rate 73 73 73 Respiratory Rate 25 H Blood Pressure 110/52 L 110/52 L Pulse Oximetry 97 Oxygen Delivery Oxygen Flow Rate 03/08/25 16:00 03/08/25 16:00 03/08/25 16:00 Temperature 100.2 F H Pulse Rate 71 69 69 Respiratory Rate 27 H Blood Pressure 115/55 L 115/55 L Pulse Oximetry 95 Oxygen Delivery Oxygen Flow Rate 03/08/25 18:00 03/08/25 18:00 03/08/25 18:00 Temperature 99.5 F Pulse Rate 74 72 72 Respiratory Rate 26 H Blood Pressure 114/53 L 114/53 L Pulse Oximetry 93 Oxygen Delivery Oxygen Flow Rate 03/08/25 20:00 03/08/25 20:00 03/08/25 20:00 Temperature 99.0 F Pulse Rate 68 70 Respiratory Rate 21 H Blood Pressure 123/60 Pulse Oximetry 94 94 Oxygen Delivery Nasal Cannula Oxygen Flow Rate 1 03/08/25 20:00 03/08/25 22:00 03/08/25 22:00 Temperature Pulse Rate 70 68 68 Respiratory Rate 21 H Blood Pressure 123/60 111/58 L Pulse Oximetry 95 Oxygen Delivery Oxygen Flow Rate 03/08/25 22:00 03/09/25 00:00 03/09/25 00:00 Temperature 99.0 F Pulse Rate 68 67 67 Respiratory Rate 24 H Blood Pressure 111/58 L 106/61 Pulse Oximetry 95 Oxygen Delivery Oxygen Flow Rate 03/09/25 00:00 03/09/25 00:00 03/09/25 02:00 Temperature Pulse Rate 67 69 Respiratory Rate Blood Pressure 106/61 108/57 L Pulse Oximetry 95 Oxygen Delivery Nasal Cannula Oxygen Flow Rate 1 03/09/25 02:00 03/09/25 02:00 03/09/25 04:00 Temperature Pulse Rate 69 69 69 Respiratory Rate 18 Blood Pressure 108/57 L 124/54 L Pulse Oximetry 94 Oxygen Delivery Oxygen Flow Rate 03/09/25 04:00 03/09/25 04:00 03/09/25 04:00 Temperature 99.0 F Pulse Rate 69 68 Respiratory Rate 26 H Blood Pressure 124/54 L Pulse Oximetry 96 95 Oxygen Delivery Nasal Cannula Oxygen Flow Rate 1 03/09/25 06:00 03/09/25 06:00 03/09/25 08:00 Temperature 98.9 F Pulse Rate 72 72 74 Respiratory Rate 22 H 29 H Blood Pressure 125/60 131/68 Pulse Oximetry 91 91 Oxygen Delivery Oxygen Flow Rate 03/09/25 10:00 Temperature 98.4 F Pulse Rate 77 Respiratory Rate 26 H Blood Pressure 113/64 Pulse Oximetry 93 Oxygen Delivery Oxygen Flow Rate Intake/Output Intake/Output: Intake & Output 03/06/25 03/07/25 03/08/25 03/09/25 23:59 23:59 23:59 23:59 Intake Total 2148.1 2850.7 1620 420 Output Total 2450 1850 3550 750 Balance -301.9 1000.7 -1930 -330 Meds/Results Medications: Active Medications Generic Name Dose Route Start Last Admin Trade Name Freq PRN Reason Stop Dose Admin Acetaminophen 650 mg 03/05/25 22:36 03/07/25 16:02 Acetaminophen 325 Mg Tablet PO 650 mg Q4H PRN Administration Mild Pain (1-3) or Fever Albuterol/Ipratropium 3 ml 03/08/25 02:00 Ipratropium 0.5 Mg/Albuterol Sulfate 2.5 Mg Ampul.Neb 3 Ml INHALATION Q6HRT PRN SOB/WHEEZING Apixaban 2.5 mg 03/06/25 09:00 03/09/25 09:23 Apixaban 2.5 Mg Tablet PO 2.5 mg Q12HR TYRON Administration Aripiprazole 5 mg 03/06/25 21:00 03/08/25 20:12 Aripiprazole 5 Mg Tablet PO 5 mg QHS TYRON Administration Baclofen 40 mg 03/06/25 09:00 03/09/25 09:22 Baclofen 10 Mg Tablet PO 40 mg DAILY TYRON Administration Bupropion HCl 450 mg 03/06/25 09:00 03/09/25 09:22 Bupropion Hcl Xl (24 Hr) 150 Mg Tabcr BY MOUTH 450 mg DAILY TYRON Administration Gabapentin 600 mg 03/06/25 21:00 03/08/25 20:13 Gabapentin 300 Mg Capsule PO 600 mg HS TYRON Administration Cefepime HCl 2 gm/ Sodium 50 mls @ 100 mls/hr 03/06/25 06:00 03/09/25 06:09 Chloride IVPB Infused Q12H TYRON Infusion Levothyroxine Sodium 50 mcg 03/06/25 06:30 03/09/25 05:38 Levothyroxine Sodium 50 Mcg Tablet BY MOUTH 50 mcg DAILY@0630 TYRON Administration Midodrine 10 mg 03/07/25 09:00 03/09/25 09:25 Midodrine Hcl 10 Mg Tablet PO 10 mg TID TYRON Administration Ondansetron HCl 4 mg 03/06/25 08:49 03/08/25 06:58 Ondansetron Inj 4 Mg/2 Ml Vial IV PUSH 4 mg Q4H PRN Administration Nausea And Vomiting Pantoprazole Sodium 40 mg 03/06/25 09:00 03/09/25 09:23 Pantoprazole 40 Mg Tablet PO 40 mg Q12HR TYRON Administration Pyridoxine HCl 100 mg 03/06/25 09:00 03/09/25 09:22 Pyridoxine Hcl 50 Mg Tablet PO 100 mg QAM TYRON Administration Sodium Chloride 10 ml 03/06/25 14:00 03/09/25 05:38 Central Line Flush IV PUSH 10 ml Q8HR TYRON Administration Sodium Chloride 20 ml 03/06/25 06:33 Central Line Flush IV PUSH PRN PRN after blood draws Radiology Results: ITS Impressions Chest/Abdomen/Pelvis CT 03/05/25 17:45 IMPRESSION: 2.1 cm left thyroid nodule, recommend outpatient thyroid ultrasound for further characterization. Pneumobilia, without inflammatory changes, likely secondary to an incompetent sphincter and/or prior procedure. Air-filled mildly distended mid sigmoid colon. Mild distal sigmoid and rectal wall thickening, consider colitis/proctitis. Mild bilateral hydronephrosis, may be secondary to urinary retention. Consider ascending infection in the differential. No CT evidence of pyelonephritis. Distended urinary bladder without wall thickening or inflammatory change. Correlate with urinalysis and symptoms of urinary retention. Mild body wall edema. Venous Doppler Study 03/05/25 20:40 IMPRESSION: Patent left lower extremity veins. No evidence of deep venous thrombosis. 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 Dermal thickening and diffuse subcutaneous stranding in the lateral and distal thigh, which could represent colitis in the appropriate clinical context. No abscess detected. Chest X-Ray 03/08/25 06:01 Impression: 1: Cardiomegaly with diffuse bilateral airspace disease which may represent edema or pneumonia. Labs Labs: Laboratory Results - last 24 hr 03/08/25 03/08/25 03/09/25 13:01 20:00 05:02 WBC 11.8 H RBC 3.26 L Hgb 9.5 L Hct 29.8 L MCV 91.4 MCH 29.1 MCHC 31.9 L RDW 16.1 H Plt Count 207 MPV 10.9 H Sodium 138 132 L 133 L Potassium 3.9 3.8 3.5 Chloride 105 100 100 Carbon Dioxide 24 25 25 Anion Gap 9 7 8 BUN 16 20 H 20 H Creatinine 1.23 H 1.32 H 1.21 H Estim Creat Clear Calc 46 43 45 Estimated GFR 44 L 41 L 45 L Glucose 94 101 70 Calcium 8.9 8.9 8.7 Magnesium 1.9 Total Bilirubin 1.0 AST 29 ALT 14 Alkaline Phosphatase 43 Total Protein 6.1 L Albumin 3.7 C. difficile (PCR) 03/09/25 09:15 WBC RBC Hgb Hct MCV MCH MCHC RDW Plt Count MPV Sodium Potassium Chloride Carbon Dioxide Anion Gap BUN Creatinine Estim Creat Clear Calc Estimated GFR Glucose Calcium Magnesium Total Bilirubin AST ALT Alkaline Phosphatase Total Protein Albumin C. difficile (PCR) Negative
--- NOTE | 2025-03-09 12:54 | PC.NURSE ---
This patient, Redd Sands, was transferred to [[id number] ] on 03/09/25 at 1255. Personal belongings sent with patient. Report given to [Leila ]. Appropriate documentation sent with patient.
--- NOTE | 2025-03-09 13:23 | P.PNIM_ITS ---
Progress Note: A&P Assessment and Plan (1) Septic shock: Code(s): A41.9 - Sepsis, unspecified organism; R65.21 - Severe sepsis with septic shock Status: Acute Assessment and Plan: Septic shock secondary to UTI and left lower leg cellulitis. She also has mild distal sigmoid and rectal wall thickening concerning of colitis but she has not had any significant diarrhea since coming to the ICU Bilateral lower extremity has chronic lymphedema and swelling that is chronic. At least on exam she does not appear patient has deep soft tissue infection. CT scan showed dermal thickening. With thickening and edema is present on both leg Urine cultures negative Blood cultures positive for group C strep completed antibiotics s/p levophed and Echocardiogram was done and was unremarkable (2) Pulmonary edema: Code(s): J81.1 - Chronic pulmonary edema Status: Acute Assessment and Plan: Overnight patient developed pulmonary edema likely secondary fluid mobilization from legs which have significant volume overload by elevating legs overnight. I have given patient Lasix and will recheck BMP Her legs have been planes in supine position right now and we will continue to mobilize fluid with elevating legs periodically as she is overall volume overloaded and needs diuresis which has been limited by sepsis and shock Continue supplemental oxygen Continue bronchodilator -continue diuresis with Lasix (3) Urinary retention: Code(s): R33.9 - Retention of urine, unspecified Status: Acute Assessment and Plan: Patient presented with urinary retention and it appears that symptoms have been going on for while. CT scan of the abdomen shows bilateral hydronephrosis without any stone. Unable to place Marte catheter 03/06: Suprapubic catheter was placed at bedside by Urology for neurogenic bladder (4) Anticoagulant long-term use: Onset Date: Unknown Code(s): Z79.01 - half-way (current) use of anticoagulants Status: Chronic Assessment and Plan: Continue apixaban (5) UTI (urinary tract infection): Code(s): N39.0 - Urinary tract infection, site not specified Status: Acute Assessment and Plan: Continue antibiotics as above -urine cultures are negative (6) Cellulitis: Code(s): L03.90 - Cellulitis, unspecified Status: Acute Assessment and Plan: See above (7) MS (multiple sclerosis): Code(s): 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 I have explained to the patient that the swelling in the legs is not going to get better if she keeps her feet low for 24 hours. I have recommended the patient's sleeps in the bed with feet elevated at night to help mobilize the fluid. It seems that lymphedema and swelling has been gradually getting worse over last months. She does have some significant amount of p itting edema at the bottom of both legs and buttock and hips. -now that she has been off Levophed, patient is being diuresed (9) Buttock wound: Code(s): S31.809A - Unspecified open wound of unspecified buttock, initial encounter Status: Acute Assessment and Plan: She has multiple small superficial wounds in her buttock and also posterior aspect of right thigh. The thigh wound she states are from trauma from getting in and out of wheelchair. They do not appear infected on the exam but I have consulted Wound Care for wound care instructions and management recommendation. She is on antibiotics as above Plan DVT prophylaxis: Continue Eliquis GI prophylaxis: Proton Nutrition: Low-sodium diet Code Status -patient does not want CPR but is okay with intubation if needed Subjective Date/time seen: 03/09/25 13:23 Interval history: Comfortable at bedside Review of Systems Review of Systems: All systems reviewed & are unremarkable except as noted in HPI and below (HPI) Exam Narrative: General: Pt is alert awake and in NAD Lungs/Chest: Trachea central coarse breath sounds bilateral occasional wheezing and crackles at the bases Cardiac: RRR. Normal S1 S2. No murmurs Circulation: Feet are Abdomen: Normal bowel sounds.. Soft. NT. ND. A suprapubic catheter was recently placed Extremities: Bilateral lower extremity chronic lymphedema. Skin is indurated and thick on both side. On the left leg the whole leg is red warm up to mid thigh. She has diffuse subcutaneous edema in both legs. Apart from redness and warmth to both legs feel similar. There is no blisters or crepitus on examination of the left leg, redness in the left leg is mostly unchanged with no worsening or significant improvement : Suprapubic catheter in place Neurologic: Follows commands she has minimal movement of toes. She is unable to move her hands which are contractured in flexion position. She is AO x3 PERRL Skin: She has several small superficial abrasions and wound in her buttock area and also in the right lower thigh which he states is from scratches from her wheelchair Const: General: comfortable and no acute distress Other: A&O x3 HENMT: Mouth: Yes moist mucous membranes Eyes: Pupils: Equal, round and reactive pupils present Neck: Neck: supple Resp: Effort & Inspection: normal respiratory effort Auscultation: clear to auscultation bilaterally Cardio: Rate: regular rate Rhythm: regular rhythm Heart sounds: no gal lops and no murmurs GI: Inspection: non-distended : General: Yes bladder normal to palpation Bimanual exam- vagina & uterus: bladder normal to palpation Skin: Other: Left lower extremity to touch, no tenderness to palpation, erythematous upper thigh down to mid clifford. Chronic dermal thickening and pitting edema. Neuro: Cranial nerves: Yes Equal, round and reactive pupils present Other: Spastic paralysis from shoulders down Extrem: General: edema Objective Data Vital Signs Vital Signs: Vital Signs - 24 hr 03/08/25 13:48 03/08/25 14:00 03/08/25 14:00 Temperature 99.6 F Pulse Rate 73 73 73 Respiratory Rate 25 H Blood Pressure 110/52 L 110/52 L Pulse Oximetry 97 Oxygen Delivery Oxygen Flow Rate 03/08/25 16:00 03/08/25 16:00 03/08/25 16:00 Temperature 100.2 F H Pulse Rate 71 69 69 Respiratory Rate 27 H Blood Pressure 115/55 L 115/55 L Pulse Oximetry 95 Oxygen Delivery Oxygen Flow Rate 03/08/25 18:00 03/08/25 18:00 03/08/25 18:00 Temperature 99.5 F Pulse Rate 74 72 72 Respiratory Rate 26 H Blood Pressure 114/53 L 114/53 L Pulse Oximetry 93 Oxygen Delivery Oxygen Flow Rate 03/08/25 20:00 03/08/25 20:00 03/08/25 20:00 Temperature 99.0 F Pulse Rate 68 70 Respiratory Rate 21 H Blood Pressure 123/60 Pulse Oximetry 94 94 Oxygen Delivery Nasal Cannula Oxygen Flow Rate 1 03/08/25 20:00 03/08/25 22:00 03/08/25 22:00 Temperature Pulse Rate 70 68 68 Respiratory Rate 21 H Blood Pressure 123/60 111/58 L Pulse Oximetry 95 Oxygen Delivery Oxygen Flow Rate 03/08/25 22:00 03/09/25 00:00 03/09/25 00:00 Temperature 99.0 F Pulse Rate 68 67 67 Respiratory Rate 24 H Blood Pressure 111/58 L 106/61 Pulse Oximetry 95 Oxygen Delivery Oxygen Flow Rate 03/09/25 00:00 03/09/25 00:00 03/09/25 02:00 Temperature Pulse Rate 67 69 Respiratory Rate Blood Pressure 106/61 108/57 L Pulse Oximetry 95 Oxygen Delivery Nasal Cannula Oxygen Flow Rate 1 03/09/25 02:00 03/09/25 02:00 03/09/25 04:00 Temperature Pulse Rate 69 69 69 Respiratory Rate 18 Blood Pressure 108/57 L 124/54 L Pulse Oximetry 94 Oxygen Delivery Oxygen Flow Rate 03/09/25 04:00 03/09/25 04:00 03/09/25 04:00 Temperature 99.0 F Pulse Rate 69 68 Respiratory Rate 26 H Blood Pressure 124/54 L Pulse Oximetry 96 95 Oxygen Delivery Nasal Cannula Oxygen Flow Rate 1 03/09/25 06:00 03/09/25 06:00 03/09/25 08:00 Temperature 98.9 F Pulse Rate 72 72 74 Respiratory Rate 22 H 29 H Blood Pressure 125/60 131/68 Pulse Oximetry 91 91 Oxygen Delivery Oxygen Flow Rate 03/09/25 08:00 03/09/25 10:00 03/09/25 10:00 Temperature 98.4 F Pulse Rate 74 77 77 Respiratory Rate 27 H 26 H Blood Pressure 113/64 Pulse Oximetry 90 93 Oxygen Delivery Nasal Cannula Oxygen Flow Rate 2 03/09/25 12:00 03/09/25 12:00 03/09/25 12:00 Temperature 99.4 F Pulse Rate 77 69 69 Respiratory Rate 26 H 22 H Blood Pressure 116/64 Pulse Oximetry 93 94 Oxygen Delivery Nasal Cannula Oxygen Flow Rate 2 03/09/25 13:14 Temperature Pulse Rate 68 Respiratory Rate 18 Blood Pressure 97/45 L Pulse Oximetry 99 Oxygen Delivery Oxygen Flow Rate Intake/Output Intake/Output: Intake & Output 03/06/25 03/07/25 03/08/25 03/09/25 23:59 23:59 23:59 23:59 Intake Total 2148.1 2850.7 1620 540 Output Total 2450 1850 3550 2750 Balance -301.9 1000.7 -5381 -8760 Meds/Results Medications: Active Medications Generic Name Dose Route Start Last Admin Trade Name Freq PRN Reason Stop Dose Admin Acetaminophen 650 mg 03/05/25 22:36 03/07/25 16:02 Acetaminophen 325 Mg Tablet PO 650 mg Q4H PRN Administration Mild Pain (1-3) or Fever Albuterol/Ipratropium 3 ml 03/08/25 02:00 Ipratropium 0.5 Mg/Albuterol Sulfate 2.5 Mg Ampul.Neb 3 Ml INHALATION Q6HRT PRN SOB/WHEEZING Apixaban 2.5 mg 03/06/25 09:00 03/09/25 09:23 Apixaban 2.5 Mg Tablet PO 2.5 mg Q12HR TYRON Administration Aripiprazole 5 mg 03/06/25 21:00 03/08/25 20:12 Aripiprazole 5 Mg Tablet PO 5 mg QHS TYRON Administration Baclofen 40 mg 03/06/25 09:00 03/09/25 09:22 Baclofen 10 Mg Tablet PO 40 mg DAILY TYRON Administration Bupropion HCl 450 mg 03/06/25 09:00 03/09/25 09:22 Bupropion Hcl Xl (24 Hr) 150 Mg Tabcr BY MOUTH 450 mg DAILY TYRON Administration Gabapentin 600 mg 03/06/25 21:00 03/08/25 20:13 Gabapentin 300 Mg Capsule PO 600 mg HS TYRON Administration Cefepime HCl 2 gm/ Sodium 50 mls @ 100 mls/hr 03/06/25 06:00 03/09/25 06:09 Chloride IVPB Infused Q12H TYRON Infusion Levothyroxine Sodium 50 mcg 03/06/25 06:30 03/09/25 05:38 Levothyroxine Sodium 50 Mcg Tablet BY MOUTH 50 mcg DAILY@0630 TYRON Administration Midodrine 10 mg 03/07/25 09:00 03/09/25 09:25 Midodrine Hcl 10 Mg Tablet PO 10 mg TID TYRON Administration Ondansetron HCl 4 mg 03/06/25 08:49 03/08/25 06:58 Ondansetron Inj 4 Mg/2 Ml Vial IV PUSH 4 mg Q4H PRN Administration Nausea And Vomiting Pantoprazole Sodium 40 mg 03/06/25 09:00 03/09/25 09:23 Pantoprazole 40 Mg Tablet PO 40 mg Q12HR TYRON Administration Pyridoxine HCl 100 mg 03/06/25 09:00 03/09/25 09:22 Pyridoxine Hcl 50 Mg Tablet PO 100 mg QAM TYRON Administration Sodium Chloride 10 ml 03/06/25 14:00 03/09/25 05:38 Central Line Flush IV PUSH 10 ml Q8HR TYRON Administration Sodium Chloride 20 ml 03/06/25 06:33 Central Line Flush IV PUSH PRN PRN after blood draws Radiology Results: ITS Impressions Chest/Abdomen/Pelvis CT 03/05/25 17:45 IMPRESSION: 2.1 cm left thyroid nodule, recommend outpatient thyroid ultrasound for further characterization. Pneumobilia, without inflammatory changes, likely secondary to an incompetent sphincter and/or prior procedure. Air-filled mildly distended mid sigmoid colon. Mild distal sigmoid and rectal wall thickening, consider colitis/proctitis. Mild bilateral hydronephrosis, may be secondary to urinary retention. Consider ascending infection in the differential. No CT evidence of pyelonephritis. Distended urinary bladder without wall thickening or inflammatory change. Correlate with urinalysis and symptoms of urinary retention. Mild body wall edema. Venous Doppler Study 03/05/25 20:40 IMPRESSION: Patent left lower extremity veins. No evidence of deep venous thrombosis. 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 Dermal thickening and diffuse subcutaneous stranding in the lateral and distal thigh, which could represent colitis in the appropriate clinical context. No abscess detected. Chest X-Ray 03/08/25 06:01 Impression: 1: Cardiomegaly with diffuse bilateral airspace disease which may represent edema or pneumonia. Labs Labs: Laboratory Results - last 24 hr 03/08/25 03/09/25 03/09/25 20:00 05:02 09:15 WBC 11.8 H RBC 3.26 L Hgb 9.5 L Hct 29.8 L MCV 91.4 MCH 29.1 MCHC 31.9 L RDW 16.1 H Plt Count 207 MPV 10.9 H Sodium 132 L 133 L Potassium 3.8 3.5 Chloride 100 100 Carbon Dioxide 25 25 Anion Gap 7 8 BUN 20 H 20 H Creatinine 1.32 H 1.21 H Estim Creat Clear Calc 43 45 Estimated GFR 41 L 45 L Glucose 101 70 Calcium 8.9 8.7 Magnesium 1.9 Total Bilirubin 1.0 AST 29 ALT 14 Alkaline Phosphatase 43 Total Protein 6.1 L Albumin 3.7 C. difficile (PCR) Negative
[2025-03-09] MEDS: GABAPENTIN 300 MG CAPSULE 600 MG PO (20:23)
[2025-03-10] VITALS (14 sets, daily range): BP systolic 100–105; BP diastolic 46–54; PULSE 55–67; RESP 18–20; TEMP 36.8–37.1; O2SAT 86–94
[2025-03-10 04:20] LABS: Hematocrit 30.3 % (37.0-47.0); Hemoglobin 9.8 g/dL (12.0-15.0); Immature Granulocyte Percent A 0.6 % (0-0.5); Lymphocytes Absolute Auto 2.13 K/mm3 (0.9-3.2); Mean Corpuscular HGB Conc 32.3 g/dl (32-36); Mean Corpuscular Hemoglobin 29.1 pg (26-34); Mean Corpuscular Volume 89.9 fl (80-100); Nucleated Red Blood Cells Absolute Auto 0.000 K/mm3 (0.0-0.012); Nucleated Red Blood Cells Perc 0.0 % (0.0-0.2); Platelet Count Result 231 k/mm3 (150-375); Red Blood Count 3.37 M/mm3 (4.2-5.4); White Blood Count 9.0 K/mm3 (4.5-10.0)
[2025-03-10 04:39] LABS: Alanine Aminotransferase 14 U/L (6-35); Albumin Level 3.4 g/dL (3.5-5.1); Alkaline Phosphatase 51 U/L (38-126); Anion Gap 7 mmol/L (4-12); Aspartate Amino Transferase 26 U/L (14-36); Bilirubin,Total 0.8 mg/dL (0.2-1.3); Blood Urea Nitrogen 19 mg/dL (7-17); Calcium 8.8 mg/dL (8.4-10.2); Carbon Dioxide 28 mmol/L (22-30); Chloride 101 mmol/L (98-107); Estimated CRCL calculation 51 ml/min; Estimated Glomerular Filt Rate 52; Glucose 88 mg/dL (65-110); Magnesium 2.1 mg/dL (1.6-2.3); Potassium 3.6 mmol/L (3.4-5.0); Sodium 136 mmol/L (137-145); Total Protein 6.1 g/dL (6.3-8.2)
[2025-03-10] MEDS: CEFEPIME 2 GM in SODIUM CHLORIDE 0.9% IV 50 ML 100 ML IVPB (05:18)
[2025-03-10] MEDS: CENTRAL LINE FLUSH 10 ML IV PUSH (05:48)
[2025-03-10] MEDS: LEVOTHYROXINE SODIUM 50 MCG TABLET BY MOUTH (05:48)
--- NOTE | 2025-03-10 08:26 | P.PNUR_ITS ---
Progress Note: A&P Assessment and Plan (1) Urinary retention: Code(s): R33.9 - Retention of urine, unspecified Status: Acute (2) Neurogenic bladder: Code(s): N31.9 - Neuromuscular dysfunction of bladder, unspecified Status: Acute Plan * Tolerating SP tube well. * She will need monthly SP tube changes whether that is home health in scheduled in office. * pt voiced understanding. She is happy with result. Subjective Subjective Date/Time Seen: 03/10/25 08:26 Interval history: Comfortable at bedside. She reports so far so good. No acute events overnight. Review of Systems Review of Systems: All systems reviewed & are unremarkable except as noted in HPI and below Exam Const: General: no acute distress Eyes: General: appearance normal, both eyes and all related structures Resp: Effort & Inspection: normal respiratory effort GI: Inspection: non-distended Auscultation: normal bowel sounds Urinary Catheter: Urinary Catheter: patent and draining and urine pink Skin: General skin exam: normal color Extrem: Other: Fixed lower extremities without any deflection at knees or hips Objective Data Vital Signs Vital Signs: Vital Signs - 24 hr 03/09/25 10:00 03/09/25 10:00 03/09/25 12:00 Temperature 98.4 F Pulse Rate 77 77 77 Respiratory Rate 26 H 26 H Blood Pressure 113/64 Pulse Oximetry 93 93 Oxygen Delivery Nasal Cannula Oxygen Flow Rate 2 Fraction of Inspired Oxygen 03/09/25 12:00 03/09/25 12:00 03/09/25 13:14 Temperature 99.4 F Pulse Rate 69 69 68 Respiratory Rate 22 H 18 Blood Pressure 116/64 97/45 L Pulse Oximetry 94 99 Oxygen Delivery Oxygen Flow Rate Fraction of Inspired Oxygen 03/09/25 14:00 03/09/25 15:51 03/09/25 16:00 Temperature 98 F Pulse Rate 74 74 72 Respiratory Rate 22 H Blood Pressure 100/41 L Pulse Oximetry 100 Oxygen Delivery Oxygen Flow Rate Fraction of Inspired Oxygen 03/09/25 19:58 03/09/25 20:00 03/09/25 20:00 Temperature 99.9 F H Pulse Rate 70 71 Respiratory Rate 20 Blood Pressure 117/50 L Pulse Oximetry 91 Oxygen Delivery Room Air Oxygen Flow Rate Fraction of Inspired Oxygen 03/09/25 20:26 03/09/25 22:00 03/09/25 23:35 Temperature 98.9 F Pulse Rate 74 62 64 Respiratory Rate 20 20 Blood Pressure 124/54 L Pulse Oximetry 94 99 Oxygen Delivery Nasal Cannula Oxygen Flow Rate 2 Fraction of Inspired Oxygen 28 03/10/25 00:00 03/10/25 00:00 03/10/25 02:00 Temperature Pulse Rate 61 55 L Respiratory Rate Blood Pressure Pulse Oximetry Oxygen Delivery Room Air Oxygen Flow Rate Fraction of Inspired Oxygen 03/10/25 04:00 03/10/25 04:00 03/10/25 04:37 Temperature 98.7 F Pulse Rate 58 L 59 L Respiratory Rate 18 Blood Pressure 105/46 L Pulse Oximetry 92 Oxygen Delivery Room Air Oxygen Flow Rate Fraction of Inspired Oxygen 03/10/25 06:00 Temperature Pulse Rate 59 L Respiratory Rate Blood Pressure Pulse Oximetry Oxygen Delivery Oxygen Flow Rate Fraction of Inspired Oxygen Intake/Output Intake/Output: Intake & Output 03/07/25 03/08/25 03/09/25 03/10/25 23:59 23:59 23:59 23:59 Intake Total 2850.7 1620 590 600 Output Total 1850 3550 3500 850 Balance 1000.7 -1930 -2910 -250 Meds/Results Medications: Active Medications Generic Name Dose Route Start Last Admin Trade Name Freq PRN Reason Stop Dose Admin Acetaminophen 650 mg 03/05/25 22:36 03/07/25 16:02 Acetaminophen 325 Mg Tablet PO 650 mg Q4H PRN Administration Mild Pain (1-3) or Fever Albuterol/Ipratropium 3 ml 03/08/25 02:00 Ipratropium 0.5 Mg/Albuterol Sulfate 2.5 Mg Ampul.Neb 3 Ml INHALATION Q6HRT PRN SOB/WHEEZING Apixaban 2.5 mg 03/06/25 09:00 03/09/25 20:23 Apixaban 2.5 Mg Tablet PO 2.5 mg Q12HR TYRON Administration Aripiprazole 5 mg 03/06/25 21:00 03/09/25 20:23 Aripiprazole 5 Mg Tablet PO 5 mg QHS TYRON Administration Baclofen 40 mg 03/06/25 09:00 03/09/25 09:22 Baclofen 10 Mg Tablet PO 40 mg DAILY TYRON Administration Bupropion HCl 450 mg 03/06/25 09:00 03/09/25 09:22 Bupropion Hcl Xl (24 Hr) 150 Mg Tabcr BY MOUTH 450 mg DAILY TYRON Administration Gabapentin 600 mg 03/06/25 21:00 03/09/25 20:23 Gabapentin 300 Mg Capsule PO 600 mg HS TYRON Administration Cefepime HCl 2 gm/ Sodium 50 mls @ 100 mls/hr 03/06/25 06:00 03/10/25 05:48 Chloride IVPB Infused Q12H TYRON Infusion Levothyroxine Sodium 50 mcg 03/06/25 06:30 03/10/25 05:48 Levothyroxine Sodium 50 Mcg Tablet BY MOUTH 50 mcg DAILY@0630 TYRON Administration Midodrine 10 mg 03/07/25 09:00 03/09/25 18:22 Midodrine Hcl 10 Mg Tablet PO 10 mg TID TYRON Administration Ondansetron HCl 4 mg 03/06/25 08:49 03/08/25 06:58 Ondansetron Inj 4 Mg/2 Ml Vial IV PUSH 4 mg Q4H PRN Administration Nausea And Vomiting Pantoprazole Sodium 40 mg 03/06/25 09:00 03/09/25 20:22 Pantoprazole 40 Mg Tablet PO 40 mg Q12HR TYRON Administration Pyridoxine HCl 100 mg 03/06/25 09:00 03/09/25 09:22 Pyridoxine Hcl 50 Mg Tablet PO 100 mg QAM TYRON Administration Sodium Chloride 10 ml 03/06/25 14:00 03/10/25 05:48 Central Line Flush IV PUSH 10 ml Q8HR TYRON Administration Sodium Chloride 20 ml 03/06/25 06:33 Central Line Flush IV PUSH PRN PRN after blood draws Radiology Results: ITS Impressions Chest/Abdomen/Pelvis CT 03/05/25 17:45 IMPRESSION: 2.1 cm left thyroid nodule, recommend outpatient thyroid ultrasound for further characterization. Pneumobilia, without inflammatory changes, likely secondary to an incompetent sphincter and/or prior procedure. Air-filled mildly distended mid sigmoid colon. Mild distal sigmoid and rectal wall thickening, consider colitis/proctitis. Mild bilateral hydronephrosis, may be secondary to urinary retention. Consider ascending infection in the differential. No CT evidence of pyelonephritis. Distended urinary bladder without wall thickening or inflammatory change. Correlate with urinalysis and symptoms of urinary retention. Mild body wall edema. Venous Doppler Study 03/05/25 20:40 IMPRESSION: Patent left lower extremity veins. No evidence of deep venous thrombosis. 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 Dermal thickening and diffuse subcutaneous stranding in the lateral and distal thigh, which could represent colitis in the appropriate clinical context. No abscess detected. Chest X-Ray 03/08/25 06:01 Impression: 1: Cardiomegaly with diffuse bilateral airspace disease which may represent edema or pneumonia. Labs Labs: Laboratory Results - last 24 hr 03/09/25 03/10/25 09:15 04:04 WBC 9.0 RBC 3.37 L Hgb 9.8 L Hct 30.3 L MCV 89.9 MCH 29.1 MCHC 32.3 RDW 15.8 H Plt Count 231 MPV 10.5 H Immature Gran % (Auto) 0.6 H Neut % (Auto) 56.0 Lymph % (Auto) 23.7 [place]ombs % (Auto) 14.4 H Eos % (Auto) 5.0 H Baso % (Auto) 0.3 Lymph # (Auto) 2.13 [place] # (Auto) 1.3 H Eos # (Auto) 0.5 H Baso # (Auto) 0.0 Abs Immat Gran (auto) 0.05 H Absolute Neuts (auto) 5.0 Absolute Nucleated RBC 0.000 Nucleated RBC % 0.0 Sodium 136 L Potassium 3.6 Chloride 101 Carbon Dioxide 28 Anion Gap 7 BUN 19 H Creatinine 1.08 H Estim Creat Clear Calc 51 Estimated GFR 52 L Glucose 88 Calcium 8.8 Magnesium 2.1 Total Bilirubin 0.8 AST 26 ALT 14 Alkaline Phosphatase 51 Total Protein 6.1 L Albumin 3.4 L C. difficile (PCR) Negative
[2025-03-10] MEDS: BACLOFEN 10 MG TABLET 40 MG PO (09:12)
[2025-03-10] MEDS: PANTOPRAZOLE 40 MG TABLET PO (09:12)
[2025-03-10] MEDS: MIDODRINE HCL 10 MG TABLET PO ×2 (09:12→12:37)
[2025-03-10] MEDS: PYRIDOXINE HCL 50 MG TABLET 100 MG PO (09:12)
[2025-03-10] MEDS: buPROPion HCL XL (24 HR) 150 MG TABCR 450 MG BY MOUTH (09:12)
[2025-03-10] MEDS: APIXABAN 2.5 MG TABLET PO (09:12)
--- NOTE | 2025-03-10 13:28 | HOMEO2EVAL ---
Evaluation was performed at [facility] Home Oxygen Evaluation RC: Home Oxygen (O2) Evaluation Start: 03/10/25 13:21 Freq: Status: Active Protocol: RPE Activity Type Activity Date Activity User E-sign Co-sign Detail Recorded Client Recorded Date Recorded By Document 03/10/25 12:50 DJO [email or web address] 03/10/25 13:28 DJO Document 03/10/25 12:55 DJO [email or web address] 03/10/25 13:28 DJO Document 03/10/25 13:00 [email or web address] [email or web address] 03/10/25 13:28 DJO 03/10/25 03/10/25 03/10/25 12:50 12:55 13:00 Home O2 Evaluation [Oxygen] -Test Phase Resting Resting Resting -Oxygen Delivery Room Air Nasal Cannula Nasal Cannula -Oxygen Flow Rate (L/min) 1 2 [Pulse Oximetry] -Pulse Oximetry (90-100 %) 86 L 88 L 91 [Pulse Rate] -Pulse Rate (60-100 beats/min) 62 64 63 [Comments] -Home Oxygen Evaluation Comments PT NON AMBULATORY [Charges] -Evaluation Charges O2 Evaluation by Pulmonary
--- NOTE | 2025-03-10 15:29 | PM.DS ---
DS: Admitting Diagnosis Discharge Date 03/10/25 Admitting Diagnosis feeling of unwell DS: Discharge Diagnosis Discharge Diagnosis (1) Septic shock: Code(s): A41.9 - Sepsis, unspecified organism; R65.21 - Severe sepsis with septic shock Status: Acute (2) Cellulitis: Code(s): L03.90 - Cellulitis, unspecified Status: Acute DS: Summary Hospital Course Hospital Course: The patient, a 59-year-old female with a history of multiple sclerosis and full-body spastic paralysis, was admitted with symptoms of general malaise and dizziness. Initial evaluation revealed hypotension unresponsive to fluid resuscitation, necessitating the initiation of Levophed via a right femoral central venous catheter. Laboratory findings indicated leukocytosis, elevated lactic acid, and a positive nasal MRSA PCR. Imaging studies showed pulmonary vascular congestion, mild bilateral hydronephrosis, and a distended urinary bladder. Septic shock was attributed to a urinary tract infection and cellulitis of the left lower extremity. The patient was treated with broad-spectrum antibiotics, including metronidazole, cefepime, and vancomycin. A suprapubic catheter was placed by Urology due to urinary retention and neurogenic bladder. Pulmonary edema was managed with diuretics, specifically Lasix, and fluid mobilization strategies, including leg elevation. The patient's chronic lymphedema was addressed with education on leg elevation to reduce swelling. The patient also presented with multiple small superficial wounds on the buttock and posterior right thigh, likely due to trauma from wheelchair use. Wound Care was consulted for management recommendations. Throughout the hospitalization, the patient was weaned off Levophed and transitioned to oral medications. Her condition stabilized, and she was deemed ready for discharge with home health services for continued care and monitoring. Patient will follow up with urology as instructed adn PCP in 3-5 days Discharged on 3 more days of Levaquin and 14 days of Midodrine. Time Spent with Patient Time attestation: Total time spent providing and/or coordinating discharge services: DS: Data Data Completed and Pending Labs on day of discharge: Labs from last 24 hours 03/10/25 04:04 WBC 9.0 RBC 3.37 L Hgb 9.8 L Hct 30.3 L MCV 89.9 MCH 29.1 MCHC 32.3 RDW 15.8 H Plt Count 231 MPV 10.5 H Immature Gran % (Auto) 0.6 H Neut % (Auto) 56.0 Lymph % (Auto) 23.7 [place] % (Auto) 14.4 H Eos % (Auto) 5.0 H Baso % (Auto) 0.3 Lymph # (Auto) 2.13 [place] # (Auto) 1.3 H Eos # (Auto) 0.5 H Baso # (Auto) 0.0 Abs Immat Gran (auto) 0.05 H Absolute Neuts (auto) 5.0 Absolute Nucleated RBC 0.000 Nucleated RBC % 0.0 Sodium 136 L Potassium 3.6 Chloride 101 Carbon Dioxide 28 Anion Gap 7 BUN 19 H Creatinine 1.08 H Estim Creat Clear Calc 51 Estimated GFR 52 L Glucose 88 Calcium 8.8 Magnesium 2.1 Total Bilirubin 0.8 AST 26 ALT 14 Alkaline Phosphatase 51 Total Protein 6.1 L Albumin 3.4 L Preliminary micro results at discharge 03/05/25 17:07 Blood Culture - Preliminary Blood Discharge Plan Discharge Attending physician on discharge: Sharon Crook Consulting providers: Erika Borges; Trevon Arellano; Vlad Howard Discharging Clinician: Sharon Crook Anticipated Discharge Date/Time: 03/10/25 15:20 Patient Disposition: Home with Home Health Service Activity: as tolerated Diet: as tolerated and regular Discharge Instructions: [facility] to follow pt for catheter care. . [facility] will call to make appointment for admission visit. Patient Instructions: Antibiotic Form, Apixaban (By mouth) Patient Language: Algerian Stand Alone Forms: General Discharge Information Follow-up/Referrals: Natalia Juarez MD [Primary Care Provider] - (F/u with PCP in 3-5 days ) Vlad Howard MD [Physician] - (F/u with urology as instructed ) Discharge Medications: New midodrine 10 mg tablet 10 mg PO TID 14 Days Qty: 42 0RF Rx Instructions: do not give last dose of day after 6PM or within 4 hrs of bedtime levofloxacin 750 mg tablet 750 mg PO DAILY 3 Days Qty: 3 0RF Continued minoxidil 2.5 mg tablet 2.5 mg PO DAILY pyridoxine (vitamin B6) 100 mg tablet 100 mg PO DAILY Qty: 100 0RF gabapentin 300 mg capsule 600 mg PO HS nystatin 100,000 unit/gram cream 1 applic topical BID PRN (Reason: rash) nystatin 100,000 unit/gram powder 1 applic topical BID PRN (Reason: rash) spironolactone 25 mg tablet 50 mg PO BID Qty: 360 2RF omeprazole 40 mg capsule,delayed release(DR/EC) 40 mg PO BID Qty: 180 2RF Eliquis 2.5 mg tablet 2.5 mg PO BID Qty: 60 6RF levothyroxine 50 mcg tablet See Rx Instructions .ROUTE .COMPLEX Qty: 90 1RF Dose Instruction: TAKE 1 TABLET BY MOUTH EVERY DAY Rx Instructions: TAKE 1 TABLET BY MOUTH EVERY DAY bupropion HCl 150 mg tablet extended release 24 hr See Rx Instructions .ROUTE .COMPLEX Qty: 90 2RF Dose Instruction: TAKE 3 TABLETS BY MOUTH EVERY MORNING Rx Instructions: TAKE 3 TABLETS BY MOUTH EVERY MORNING baclofen 20 mg tablet 40 mg PO DAILY Qty: 270 1RF citalopram 40 mg tablet See Rx Instructions .ROUTE .COMPLEX Qty: 30 6RF Dose Instruction: TAKE 1 TABLET BY MOUTH DAILY Rx Instructions: TAKE 1 TABLET BY MOUTH DAILY aripiprazole [Abilify] 5 mg tablet 5 mg PO QHS Qty: 90 0RF Date of admission: 03/05/25 22:36 Primary Care Provider: Natalia Juarez Admitting Provider: Shane Null Attending physician on admission: Shane Null Condition: Serious
== END 2025-03-10 16:15 | disposition home health service (06) | DRG 871 ==
LOC: ANHED 18:36 → ANHICU 22:52 → ANHIMU 03-10 11:20 → ANHICU 03-11 13:35 → ANHIMU 03-11 13:35
PROVIDERS: General Practice; Internal Medicine; Student in an Organized Health Care Education/Training Program; Admitting Provider Family Medicine; Emergency Provider Emergency Medicine; PCP Family Medicine; Visit Provider Internal Medicine
DX: A41.9 Sepsis, unspecified organism (principal); R65.21 Severe sepsis with septic shock; L03.116 Cellulitis of left lower limb; N39.0 Urinary tract infection, site not specified; N13.30 Unspecified hydronephrosis; B95.4 Other streptococcus as the cause of diseases classified elsewhere; R33.9 Retention of urine, unspecified; N31.9 Neuromuscular dysfunction of bladder, unspecified; E86.0 Dehydration; S31.819A Unspecified open wound of right buttock, initial encounter; X58.XXXA Exposure to other specified factors, initial encounter; G35 Multiple sclerosis; I89.0 Lymphedema, not elsewhere classified; Z79.01 Long term (current) use of anticoagulants; Z90.49 Acquired absence of other specified parts of digestive tract
CPT/HCPCS: 36415; 71045; 71260; 73701; 74177; 80048; 80053; 80202; 81001; 82803; 83605; 83690; 83735; 83880; 84100; 84443; 84484; 85025; 85027; 85610; 85730; 86140; 87040; 87086; 87493; 87637; 87641; 93005; 93306; 93971; 94618; 94640; 96361; 96365; 96366; 96367; 96375; 99285; A9270; J0692; J1836; J1885; J1938; J2003; J2250; J2405; J3373; J7040; J7120; P9047; Q9967

== ENCOUNTER 2025-03-11 12:55 | Emergency (ER) | payer MEDICARE, SELFPAY ==
[2025-03-11 12:56] VITALS: BP 125/68; PULSE 70; RESP 18; TEMP 37.2; O2SAT 96
--- NOTE | 2025-03-11 13:33 | ED_ITS ---
HPI - Female Genitourinary General Chief complaint: Recheck/Abnormal Lab/Rx Stated complaint: coleman problems Time Seen by Provider: 03/11/25 13:10 History of Present Illness HPI Narrative: Pt presents with suprapubic catheter not draining and bleeding around site. Pt was just discharge from hospital yesterday. Pt was in house for sepsis. Pt has MS and had suprapubic catheter placed which was working fine on discharge. Related Data Home Medications ?Medication ?Instructions ?Recorded ?Confirmed ?Last Taken ?Type minoxidil 2.5 mg tablet 2.5 mg PO DAILY 12/16/24 03/05/25 Unknown History gabapentin 300 mg capsule 600 mg PO HS 03/05/25 03/05/25 Unknown History nystatin 100,000 unit/gram topical 1 applic topical BID PRN rash 03/05/25 03/05/25 Unknown History cream nystatin 100,000 unit/gram topical 1 applic topical BID PRN rash 03/05/25 03/05/25 Unknown History powder Allergies Allergy/AdvReac Type Severity Reaction Status Date / Time amoxicillin (From Augmentin) Allergy Mild Rash Verified 03/11/25 13:05 clavulanic acid (From Allergy Mild Rash Verified 03/11/25 13:05 Augmentin) Sulfa (Sulfonamide Allergy Mild Rash Verified 03/11/25 13:05 Antibiotics) doxycycline AdvReac Unknown Upset Verified 03/11/25 13:05 Stomach Review of Systems Review of Systems: All systems reviewed & are unremarkable except as noted in HPI and below PMFSH Past Medical History Medical History Hair loss Leg varicosity w/ ulcer Hyperpigmentation of skin Multiple sclerosis (Unknown) Anticoagulant long-term use (Unknown) On apixaban for DVT prophylaxis. Lymphedema (Unknown) Depression Complete immobility due to severe physical disability or frailty Vitamin D deficiency Surgical History Surgical History History of laparoscopic cholecystectomy 11/24/2021 - laparoscopic cholecystectomy and drainage of a right perihepatic abscess. History of surgery on upper extremity History of tubal ligation Family History Family History Mother Family history of malignant neoplasm of breast in first degree relative Father Family history of coronary artery disease Social History Social History Social History: The patient lives at home with her , Casey, and is primarily bedbound. She requires assistance to get to a powered wheelchair when needed for mobility. No alcohol, tobacco, or illicit substance use. She designates her as her surrogate decision maker and she wishes to be a full code. Smoking status: Never smoker Second hand tobacco smoke exposure: No Alcohol intake: never Substance use: never Substance use type: does not use Do You Feel Safe in your Home?: Yes Lack of Transportation: No Lack of Food: Never True Current Housing: I Have Housing Concerned About Future Housing: No Difficulty Paying Gas/Electric Bills: No Difficulty Paying for Meds: No Currently Unemployed: No Education: Associate Degree Difficulty w/ Childcare or Family Care: No Living arrangements: with family Gender identity (if verbalized by the patient): Female Spiritual care concerns: No Agree to blood products: Yes Exam Const: General: healthy appearing and no acute distress Nutritional Appearance: well nourished Orientation/consciousness: patient oriented x3 Limitations: no limitations Resp: Effort & Inspection: normal respiratory effort Auscultation: clear to auscultation bilaterally Cardio: Rate: regular rate Rhythm: regular rhythm GI: GI Palp: Yes Soft to palpation and No Tenderness to palpation present (GI) Auscultation: normal bowel sounds : General: Yes bladder normal to palpation and No CVA tenderness Other: suprapubic catherter in place no signs of wound infection. Urinary Catheter: Urinary Catheter: patent and draining and urine red Back/Spine/Pelvis: Back: no CVA tenderness Skin: Rashes: no rashes Wounds: no wounds Neuro: General: patient oriented x3 and no focal motor deficits Speech: normal speech Extrem: General: normal to inspection and no clubbing, cyanosis or edema Psych: Appearance: grossly normal Mental Status: mental status grossly normal Affect: normal affect Attitude: cooperative Course Vital Signs Vital signs: Vital Signs Temperature 99.0 F 03/11/25 12:56 Pulse Rate 70 03/11/25 12:56 Respiratory Rate 18 03/11/25 12:56 Blood Pressure 125/68 03/11/25 12:56 Pulse Oximetry 96 03/11/25 12:56 Oxygen Delivery Room Air 07/24/25 12:56 Temperature 99.0 F 03/11/25 12:56 Pulse Rate 66 03/11/25 16:00 Respiratory Rate 16 03/11/25 16:00 Blood Pressure 141/68 H 03/11/25 16:00 Pulse Oximetry 97 03/11/25 16:00 Oxygen Delivery Room Air 03/11/25 12:56 MDM - Female Genitourinary MDM Narrative Medical decision making narrative: Pt presented with suprapubic cath not draining. tube was kinked per rn and when unkinked urine flowed easly. insertion site not infected and appears appropriate. bloody urine in tubing and bag. will send UA. ua blood and rbc's. discussed with Dr Howard and says ok to go will have office set up follow up appointment Lab Data Labs: Lab Results 03/11/25 Range/Units 13:30 Urine Color Red H (Yellow) Urine Appearance Cloudy H (Clear) Urine pH 8.5 (5.0-9.0) Ur Specific [place] 1.025 (1.001-1.035) Urine Protein 3+ H (Negative) mg/dL Urine Glucose (UA) Negative (Negative) mg/dL Urine Ketones Negative (Negative) mg/dL Ur Blood (Man) 3+ H (Negative) Urine Nitrate Negative (Negative) Urine Bilirubin Negative (Negative) Urine Urobilinogen 0.2 (<2.0) mg/dL Leukocyte Esterase Rfl Negative (Negative) CHANDAN/UL Urine RBC >100 H (0-2) /hpf Urine WBC 6-10 H (0-3) /hpf Ur Squamous Epith Cells Rare (Few) /hpf Urine Bacteria Trace (None) /hpf Discharge Plan Discharge Clinical Impression: Complication, suprapubic catheter obstruction Patient Disposition: Home Condition: Improved Instructions: Antibiotic Form, How to Care for Your Suprapubic Catheter (DC) Patient Language: Macedonian Prescriptions: No Action minoxidil 2.5 mg tablet 2.5 mg PO DAILY pyridoxine (vitamin B6) 100 mg tablet 100 mg PO DAILY Qty: 100 0RF gabapentin 300 mg capsule 600 mg PO HS nystatin 100,000 unit/gram cream 1 applic topical BID PRN (Reason: rash) nystatin 100,000 unit/gram powder 1 applic topical BID PRN (Reason: rash) midodrine 10 mg tablet 10 mg PO TID 14 Days Qty: 42 0RF Rx Instructions: do not give last dose of day after 6PM or within 4 hrs of bedtime levofloxacin 750 mg tablet 750 mg PO DAILY 3 Days Qty: 3 0RF spironolactone 25 mg tablet 50 mg PO BID Qty: 360 2RF omeprazole 40 mg capsule,delayed release(DR/EC) 40 mg PO BID Qty: 180 2RF Eliquis 2.5 mg tablet 2.5 mg PO BID Qty: 60 6RF levothyroxine 50 mcg tablet See Rx Instructions .ROUTE .COMPLEX Qty: 90 1RF Dose Instruction: TAKE 1 TABLET BY MOUTH EVERY DAY Rx Instructions: TAKE 1 TABLET BY MOUTH EVERY DAY bupropion HCl 150 mg tablet extended release 24 hr See Rx Instructions .ROUTE .COMPLEX Qty: 90 2RF Dose Instruction: TAKE 3 TABLETS BY MOUTH EVERY MORNING Rx Instructions: TAKE 3 TABLETS BY MOUTH EVERY MORNING baclofen 20 mg tablet 40 mg PO DAILY Qty: 270 1RF citalopram 40 mg tablet See Rx Instructions .ROUTE .COMPLEX Qty: 30 6RF Dose Instruction: TAKE 1 TABLET BY MOUTH DAILY Rx Instructions: TAKE 1 TABLET BY MOUTH DAILY aripiprazole [Abilify] 5 mg tablet 5 mg PO QHS Qty: 90 0RF Follow-up/Referrals: Natalia Juarez MD [Primary Care Provider] - Vlad Howard MD [Physician] -
[2025-03-11 13:44] VITALS: BP 113/69; PULSE 66; RESP 18; O2SAT 96
--- OUTSIDE RECORDS SUMMARY | 2025-03-11 14:01 | XMS_ITS | Clinical Summary ---
Author Organization [facility] Address [address] [place] [address] Phone Care Team Providers Care Telemarketer Name Role Phone Natalia Juarez MD Primary Care Provider [phone] Allergies No known active allergies Medications gabapentin (NEURONTIN) 300 mg capsule Take 300 mg by mouth daily at bedtime. Active buPROPion HCl (WELLBUTRIN XL) 150 mg Extended Release 24 hour tablet Take 150 mg by mouth daily ordnance officer. Active hydrOXYzine HCl (ATARAX) 25 mg tablet [...] Advance Directives For more information, please contact: [phone] * Full Code (Latest Code Status on File) Date Activated Date Inactivated Comments 03/09/2014 8:12 AM 03/09/2014 5:46 PM * Full Code Date Activated Date Inactivated Comments 03/09/2014 5:59 AM 03/09/2014 8:12 AM Care Teams Telemarketer Relationship Specialty Start Date End Date Natalia Juarez MD [address] [place] [id number] PCP - General Family Practice 02/25/14
--- OUTSIDE RECORDS SUMMARY | 2025-03-11 14:01 | XMS_ITS | Referral Summary ---
Author Organization [facility] Address [address] [place] [address] Care Team Providers Care Cardiac Tech Name Role Phone Natalia Juarez MD Primary Care Provider [phone] Allergies No known active allergies Medications Eliquis [...] (06/23/2021): Added automatically from request for surgery [id number] Immunizations Immunization Administration Dates Next Due Influenza, [...] on file Legal Sex Female 4:04 AM COMPLETION ENGINEER Gender Identity Not on file Sexual Orientation Not on file Occupation Industry Job Start Date Job End Date Disability Not on file Not on file Not on file Last Filed Vital Signs Vital Sign Reading Time Taken Comments Blood Pressure 119/59 07/31/2021 11:55 AM COMPLETION ENGINEER Pulse 80 07/31/2021 12:10 PM COMPLETION ENGINEER Temperature 36.6 C (97.88 F) 07/31/2021 12:00 PM COMPLETION ENGINEER Respiratory Rate 18 07/31/2021 12:00 PM COMPLETION ENGINEER Oxygen Saturation 92% 07/31/2021 12:10 PM COMPLETION ENGINEER Inhaled Oxygen Concentration - - Weight 83.5 kg (184 lb) 07/25/2021 5:24 PM COMPLETION ENGINEER Height 165.1 cm (5' 5) 07/25/2021 5:24 PM COMPLETION ENGINEER Body Mass Index 30.62 07/25/2021 5:24 PM COMPLETION ENGINEER Plan of Treatment Not on file Medical Devices Explanted Type Area Double End Production Grinder Device Identifier Shelf Expiration Date Model / Serial / Lot Intrathecal Pain Pump Intrathecal Pain [place] Description:Per T/C with Pt - she never had permanent pump installed - trial injections only in 02/2014, didn't like it so they never installed a permanent pump. [employer]ATA 05/15/2021 Insurance MEDICARE IDPA MEDICARE [employer] MEDICARE Care Teams Cardiac Tech Relationship Specialty Start Date End Date Natalia Juarez MD PCP - General Family Medicine 04/19/21
--- OUTSIDE RECORDS SUMMARY | 2025-03-11 14:01 | XMS_ITS | Clinical Summary ---
Author Organization [facility] Address [address] [place] [address] Care Team Providers Care Meteorological Equipment Repairer Name Role Phone Natalia Juarez MD Primary Care Provider [phone] Allergies No known active allergies Medications Eliquis [...] (06/23/2021): Added automatically from request for surgery [id number] Immunizations Immunization Administration Dates Next Due Influenza, [...] on file Legal Sex Female 4:04 AM LADIES ATTENDANT Gender Identity Not on file Sexual Orientation Not on file Occupation Industry Job Start Date Job End Date Disability Not on file Not on file Not on file Obstetrics History Last Filed Vital Signs Vital Sign Reading Time Taken Comments Blood Pressure 119/59 07/31/2021 11:55 AM LADIES ATTENDANT Pulse 80 07/31/2021 12:10 PM LADIES ATTENDANT Temperature 36.6 C (97.88 F) 07/31/2021 12:00 PM LADIES ATTENDANT Respiratory Rate 18 07/31/2021 12:00 PM LADIES ATTENDANT Oxygen Saturation 92% 07/31/2021 12:10 PM LADIES ATTENDANT Inhaled Oxygen Concentration - - Weight 83.5 kg (184 lb) 07/25/2021 5:24 PM LADIES ATTENDANT Height 165.1 cm (5' 5) 07/25/2021 5:24 PM LADIES ATTENDANT Body Mass Index 30.62 07/25/2021 5:24 PM LADIES ATTENDANT Plan of Treatment Health Maintenance Due Date Last Done Comments Breast Cancer Screening-Mammogram 1963 Cervical Cancer Screening 1963 Colon Cancer Screening-Colonoscopy 1965 Depression Screening 1963 Hepatitis C Screening 1963 DTaP/Tdap/Td Vaccine (1 - Tdap) 11/02/1974 Hepatitis B Screening 11/02/1981 Regular Well Visit/Exam 18-64 11/02/1981 Zoster Vaccine (1 of 2) 11/02/2013 Covid-19 Vaccine (2 - 2023-2 5 season) 2024 10/25/2020 Influenza Vaccine (#1) 2025 0, 06/11/2019, 06/16/2018 Pneumococcal vaccine <65 Aged Out No longer eligible based on patient's age to complete this topic Medical Devices Explanted Type Area Utility Locator Device Identifier Shelf Expiration Date Model / Serial / Lot Intrathecal Pain Pump Intrathecal Pain [place] Description:Per T/C with Pt - she never had permanent pump installed - trial injections only in 02/2014, didn't like it so they never installed a permanent pump. 05/15/2021 Insurance MEDICARE [place] MEDICARE [facility] MEDICARE Care Teams Meteorological Equipment Repairer Relationship Specialty Start Date End Date Natalia Juarze MD PCP - General Family Medicine 04/19/21
--- OUTSIDE RECORDS SUMMARY | 2025-03-11 14:02 | XMS_ITS | Clinical Summary ---
Author Organization [facility] Address [address] [place] [address] Phone Care Team Providers Care Button Grader Name Role Phone Natalia Juarez MD Primary Care Provider [phone] Allergies No known active allergies Medications gabapentin [...] 12/17/2024 1:00 AM CDT [facility] [address] [place] [address] Mable Olmedo, RN SN - OASIS DISCHARGE from Last 3 Months Social History Tobacco Use Types Packs/Day Years Used Date Smoking Tobacco: Never Assessed Comments Unknown Sex and Gender Information Value Date Recorded Sex Assigned at Not on file Legal Sex Female 3:51 PM CLOTH PRINTER Gender Identity Not on file Sexual Orientation Not on file Last Filed Vital Signs Vital Sign Reading Time Taken Comments Blood Pressure 120/64 12/17/2024 10:18 AM CDT Pulse 78 12/17/2024 10:18 AM CDT Temperature 36.8 C (98.2 F) 12/17/2024 10:18 AM CDT Respiratory Rate 16 12/17/2024 10:18 AM CDT Oxygen Saturation 98% 10/21/2024 12:30 PM CLOTH PRINTER Inhaled Oxygen Concentration - - Weight - - Height 165.1 cm (5' 5) 10/21/2024 12:30 PM CLOTH PRINTER Body Mass Index - - Plan of [...] Inactivated Comments 12/08/2024 9:23 AM Care Teams Button Grader Relationship Specialty Start Date End Date Natalia Juarez MD [address] [place] [address] PCP - General Family Medicine 10/07/24
[2025-03-11 14:08] LABS: Appearance Urine Cloudy (Clear)
[2025-03-11 14:14] LABS: Specific Grav Ur 1.025 (1.001-1.035)
[2025-03-11 14:15] LABS: Add Urine Microscopic? YES; Glucose Urine UA Negative (Negative); Leukocyte Esterase Ur Negative LEU/UL (Negative); Nitrate Urine Negative (Negative)
[2025-03-11 15:37] VITALS: BP 143/66; PULSE 64; RESP 18; O2SAT 97
[2025-03-11 16:00] VITALS: BP 141/68; PULSE 66; RESP 16; O2SAT 97
== END 2025-03-11 16:06 | disposition home or self-care (01) ==
PROVIDERS: Emergency Provider Emergency Medicine; PCP Family Medicine
DX: T83.098A Other mechanical complication of other urinary catheter, initial encounter (principal); E55.9 Vitamin D deficiency, unspecified; G35 Multiple sclerosis
CPT/HCPCS: 81001; 87086; 99283

== ENCOUNTER 2025-04-29 13:31 | Emergency (ER) | payer MEDICARE, MEDICAID, SELFPAY ==
[2025-04-29 13:33] VITALS: BP 135/34; PULSE 81; RESP 17; TEMP 36.6
--- NOTE | 2025-04-29 14:00 | ED_ITS ---
HPI - Extremity Problem General Chief complaint: Extremity Problem,Nontraumatic Stated complaint: sore on back on L. leg, possibly infected Time Seen by Provider: 04/29/25 13:45 Source: patient and family History of Present Illness HPI Narrative: This is a 59-year-old female muscle strength 5 out of 5 bilateral upper and lower extremities with severe physical disability due to this, chronic wounds, neurogenic bladder who presents to the ED for leg wound. Patient states that she has had a chronic wound to her left posterior thigh that over the last day has become more severe and began draining a green substance. She states she was admitted in a hospital in [place] and was discharged 2 weeks ago from this. She just finished her Keflex from [facility] a few days ago. She has otherwise been feeling herself, denies fevers, chills, chest pain, shortness of breath, nausea vomiting, diarrhea, constipation, abdominal pain. Related Data Home Medications ?Medication ?Instructions ?Recorded ?Confirmed ?Last Taken ?Type minoxidil 2.5 mg tablet 2.5 mg PO DAILY 12/16/2407/13 Unknown History gabapentin 300 mg capsule 600 mg PO HS 03/05/25 Unknown History nystatin 100,000 unit/gram topical 1 applic topical BI D PRN rash 03/05/25 04/29/25 Unknown History cream nystatin 100,000 unit/gram topical 1 applic topical BI D PRN rash 03/05/25 04/29/25 Unknown History powder Allergies Allergy/AdvReac Type Severity Reaction Status Date / Time amoxicillin (From Augmentin) Allergy Mild Rash Verified 04/29/25 12:49 clavulanic acid (From Allergy Mild Rash Verified 04/29/25 12:49 Augmentin) Sulfa (Sulfonamide Allergy Mild Rash Verified 04/29/25 12:49 Antibiotics) cefuroxime Allergy Rash Verified 04/29/25 12:49 doxycycline AdvReac Unknown Upset Verified 04/29/25 12:49 Stomach Review of Systems 2 Review of Systems: Gen.: Denies fevers or chills Eyes: Denies eye pain or visual change ENT: Denies congestion Respiratory: Denies shortness of breath or cough CV: Denies chest pain or palpitations GI: Denies abdominal pain nausea, emesis or diarrhea denies burning, urgency, frequency or hematuria Musculoskeletal: Denies back pain or muscle pain Neuro: Denies numbness, tingling, weakness or focal weakness Skin: As per HPI Except as documented, all other systems reviewed and negative [facility] Past Medical History Medical History Hair loss Leg varicosity w/ ulcer Hyperpigmentation of skin Multiple sclerosis (Unknown) Anticoagulant long-term use (Unknown) On apixaban for DVT prophylaxis. Lymphedema (Unknown) Depression Complete immobility due to severe physical disability or frailty Vitamin D deficiency Surgical History Surgical History History of laparoscopic cholecystectomy 11/24/2021 - laparoscopic cholecystectomy and drainage of a right perihepatic abscess. History of surgery on upper extremity History of tubal ligation Family History Family History Mother Family history of malignant neoplasm of breast in first degree relative Father Family history of coronary artery disease Social History Social History Social History: The patient lives at home with her , Casey, and is primarily bedbound. She requires assistance to get to a powered wheelchair when needed for mobility. No alcohol, tobacco, or illicit substance use. She designates her as her surrogate decision maker and she wishes to be a full code. Smoking status: Never smoker Second hand tobacco smoke exposure: No Alcohol intake: never Substance use: never Substance use type: does not use Do You Feel Safe in your Home?: Yes Lack of Transportation: No Lack of Food: Never True Current Housing: I Have Housing Concerned About Future Housing: No Difficulty Paying Gas/Electric Bills: No Difficulty Paying for Meds: No Currently Unemployed: No Education: Associate Degree Difficulty w/ Childcare or Family Care: No Living arrangements: with family Gender identity (if verbalized by the patient): Female Spiritual care concerns: No Agree to blood products: Yes Exam 2 Narrative: APPEARANCE: No acute distress, nontoxic, resting in bed EYES: EOMI HEENT: Normocephalic, atraumatic, OMM RESPIRATORY: No respiratory distress Clear to auscultation bilaterally with no rhonchi wheezing or rales. CARDIOVASCULAR: Regular rate and rhythm without murmurs rubs or gallops. ABDOMINAL: Soft, nontender, nondistended, no rebound or guarding MUSCULOSKELETAl: Moves all extremities. No clubbing, cyanosis or edema. NEURO: Awake and alert. 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 SKIN:: Warm, dry. 4 x 4 cm area of erythema and warmth to the posterior thigh with no active drainage but some green appearing substance on the dressing PSYCHIATRIC: Normal affect/mood, Course Vital Signs Vital signs: Vital Signs Temperature 97.8 F 04/29/25 13:33 Pulse Rate 81 04/29/25 13:33 Respiratory Rate 17 04/29/25 13:33 Blood Pressure 135/34 L 04/29/25 13:33 Temperature 97.8 F 04/29/25 13:33 Pulse Rate 78 04/29/25 16:47 Respiratory Rate 14 04/29/25 16:47 Blood Pressure 151/67 H 04/29/25 16:47 Pulse Oximetry 99 04/29/25 16:47 MDM - Extremity (Nontraumatic) MDM Narrative Medical decision making narrative: 59-year-old female that presents to the ED for concerns for rash/cellulitis. On initial evaluation, patient was in no acute distress, afebrile, hemodynamically stable. She did have an erythematous region to her left posterior thigh. Given that she was just admitted couple weeks ago at an outside facility for sepsis due to a possible cellulitis, sepsis workup was initiated. Labs showed no concerning findings. Wound culture and blood cultures were obtained. Patient will be given clindamycin given her significant allergies. Patient and family were agreeable to this plan. Given strict return precautions. Differential Diagnosis Differential diagnosis: Likely other (cellulitis, sepsis, bacteremia, electrolyte abnormality) Medical Records Attestation: I reviewed the patient's medical records. Lab Data Attestation: I reviewed the patient's lab results. 04/29/25 15:28 04/29/25 15:28 Labs: Lab Results 04/29/25 Range/Units 15:28 WBC 10.0 (4.5-10.0) K/mm3 RBC 4.60 (4.2-5.4) M/mm3 Hgb 13.3 D (12.0-15.0) g/dL Hct 42.0 (37.0-47.0) % MCV 91.3 (80-100) fl MCH 28.9 (26-34) pg MCHC 31.7 L (32-36) g/dl RDW 15.3 H (11.5-14.5) % Plt Count 360 D (150-375) k/mm3 MPV 10.4 (7.4-10.4) fl Immature Gran % (Auto) 0.4 (0-0.5) % Neut % (Auto) 59.1 (45.5-73.1) % Lymph % (Auto) 28.5 (18.3-44.2) % Carter % (Auto) 8.3 (2.6-8.5) % Eos % (Auto) 3.3 (0-4.4) % Baso % (Auto) 0.4 (0.2-1.2) % Lymph # (Auto) 2.85 (0.9-3.2) K/mm3 Carter # (Auto) 0.8 H (0.1-0.6) K/mm3 Eos # (Auto) 0.3 (0-0.3) K/mm3 Baso # (Auto) 0.0 (0.0-0.1) K/mm3 Abs Immat Gran (auto) 0.04 H (0.00-0.031) K/mm3 Absolute Neuts (auto) 5.9 (1.3-6.7) K/mm3 Absolute Nucleated RBC 0.000 (0.0-0.012) K/mm3 Nucleated RBC % 0.0 (0.0-0.2) % PT 13.8 (11.1-14.7) Seconds INR 1.0 APTT 30.5 (22.3-36.8) Seconds Sodium 138 (137-145) mmol/L Potassium 4.0 (3.4-5.0) mmol/L Chloride 99 (98-107) mmol/L Carbon Dioxide 29 (22-30) mmol/L Anion Gap 10 (4-12) mmol/L BUN 13 D (7-17) mg/dL Creatinine 0.93 (0.7-1.0) mg/dL Estim Creat Clear Calc 50 ml/min Estimated GFR > 60 (59 - ) Glucose 83 (65-110) mg/dL Lactic Acid 1.5 (0.7-2.0) mmol/L Calcium 9.5 (8.4-10.2) mg/dL Total Bilirubin 0.5 (0.2-1.3) mg/dL AST 30 (14-36) U/L ALT 22 (6-35) U/L Alkaline Phosphatase 100 (38-126) U/L C-Reactive Protein 2.0 H (<1.0) mg/dL Total Protein 8.4 H (6.3-8.2) g/dL Albumin 4.4 (3.5-5.1) g/dL ECG Data EKG #1: Attestation EKG: I personally reviewed and interpreted this ECG as follows: ECG completion date: 04/29/25 ECG completion time: 14:15 Interpretation: Reports sinus rhythm with occasional PVC, normal axis, normal intervals, no acute ST or T-wave changes Discharge Plan Discharge Clinical Impression: Cellulitis Qualifiers: Site of cellulitis: extremity Site of cellulitis of extremity: lower extremity Laterality: left Qualified Code(s): L03.116 - Cellulitis of left lower limb Patient Disposition: Home Condition: Stable Instructions: Antibiotic Form, Cellulitis (ED) Additional Instructions: Wound cultures and blood cultures will result in the next couple days, you will be called if you need to have a change in her antibiotic. Your given a prescription for clindamycin to take this as prescribed. Follow up with her PCP the next few days for re-evaluation. I would highly recommend that you also discussed having a port placed. Return to the ED for any new or worsening symptoms. Patient Language: Botswanan Prescriptions: New clindamycin HCl [Cleocin HCl] 300 mg capsule 300 mg PO Q6H 5 Days Qty: 20 0RF No Action minoxidil 2.5 mg tablet 2.5 mg PO DAILY furosemide [Lasix] 20 mg tablet 20 mg PO .COMPLEX Qty: 30 0RF Rx Instructions: 20 mg orally; On and potassium chloride 10 mEq capsule, extended release 10 meq PO .COMPLEX Qty: 30 0RF Rx Instructions: 10 mEq orally; On and with Furosemide pyridoxine (vitamin B6) 100 mg tablet 100 mg PO DAILY Qty: 100 0RF (DME) air mattress See Rx Instructions .Route .MEDSUPPLY Qty: 1 0RF Rx Instructions: As directed daily gabapentin 300 mg capsule 600 mg PO HS nystatin 100,000 unit/gram cream 1 applic topical BID PRN (Reason: rash) nystatin 100,000 unit/gram powder 1 applic topical BID PRN (Reason: rash) omeprazole 40 mg capsule,delayed release(DR/EC) 40 mg PO BID Qty: 180 2RF Eliquis 2.5 mg tablet 2.5 mg PO BID Qty: 60 6RF levothyroxine 50 mcg tablet See Rx Instructions .ROUTE .COMPLEX Qty: 90 1RF Dose Instruction: TAKE 1 TABLET BY MOUTH EVERY DAY Rx Instructions: TAKE 1 TABLET BY MOUTH EVERY DAY bupropion HCl 150 mg tablet extended release 24 hr See Rx Instructions .ROUTE .COMPLEX Qty: 90 2RF Dose Instruction: TAKE 3 TABLETS BY MOUTH EVERY MORNING Rx Instructions: TAKE 3 TABLETS BY MOUTH EVERY MORNING baclofen 20 mg tablet 40 mg PO DAILY Qty: 270 1RF citalopram 40 mg tablet See Rx Instructions .ROUTE .COMPLEX Qty: 30 6RF Dose Instruction: TAKE 1 TABLET BY MOUTH DAILY Rx Instructions: TAKE 1 TABLET BY MOUTH DAILY aripiprazole [Abilify] 5 mg tablet 5 mg PO QHS Qty: 90 0RF midodrine 10 mg tablet 10 mg PO .COMPLEX Qty: 42 0RF Rx Instructions: 10 mg orally; 10 mg orally TID PRN for systolic blood pressure <110; do not give last dose of day after 6PM or within 4 hrs of bedtime (DME) Oxygen 2L NC See Rx Instructions .Route .MEDSUPPLY Qty: 1 0RF Rx Instructions: As directed (DME) portal oxygen 2L NC See Rx Instructions .Route .MEDSUPPLY Qty: 1 0RF Rx Instructions: Use daily (DME) eliane lift See Rx Instructions .Route .MEDSUPPLY Qty: 1 0RF Rx Instructions: As directed daily (DME) ELIANE LIFT See Rx Instructions .Route .MEDSUPPLY Qty: 1 0RF Rx Instructions: As directed DAILY (DME) gel foam mattress See Rx Instructions .Route .MEDSUPPLY Qty: 1 0RF Rx Instructions: As directed spironolactone 25 mg tablet 50 mg PO BID Qty: 360 2RF Follow-up/Referrals: Natalia Juarez MD [Primary Care Provider, Family Practice]
--- NOTE | 2025-04-29 14:04 | ECG_ITS ---
Test Date: 2025-04-29 14:15:02 Measurements Intervals [place] Rate: 71 P: 59 AR: 179 QRS: 21 QRSD: 88 T: 50 QT: 430 QTc: 470 Interpretive Statements SINUS RHYTHM WITH OCCASIONAL VENTRICULAR PREMATURE COMPLEXES NONSPECIFIC T-WAVE ABNORMALITIES Compared to ECG 03/05/2025 18:01:07 Ventricular premature complex(es) now present Electronically Signed On 04-30-2025 15:01:18 CDT by Danilo Johnson M.D.
--- NOTE | 2025-04-29 14:10 | PC.NURSE ---
xiao from vascular access called to obtain blood work and iv access
--- OUTSIDE RECORDS SUMMARY | 2025-04-29 15:16 | XMS_ITS | Clinical Summary ---
Author Organization [facility] Address [address] [place] [address] Phone Care Team Providers Care Screen Handler Name Role Phone Natalia Juarez MD Primary Care Provider [phone] Allergies No known active allergies Medications gabapentin (NEURONTIN) 300 mg capsule Take 300 mg by mouth daily at bedtime. Active buPROPion HCl (WELLBUTRIN XL) 150 mg Extended Release 24 hour tablet Take 150 mg by mouth daily lei seller. Active hydrOXYzine HCl (ATARAX) 25 mg tablet [...] Advance Directives For more information, please contact: [phone] * Full Code (Latest Code Status on File) Date Activated Date Inactivated Comments 03/09/2014 8:12 AM 03/09/2014 5:46 PM * Full Code Date Activated Date Inactivated Comments 03/09/2014 5:59 AM 03/09/2014 8:12 AM Care Teams Screen Handler Relationship Specialty Start Date End Date Natalia Juarez MD [address] [place] [address] PCP - General Family Practice 02/25/14
--- OUTSIDE RECORDS SUMMARY | 2025-04-29 15:17 | XMS_ITS | Clinical Summary ---
Author Organization [facility] Address [address] [place] [id number] Care Team Providers Care Drum Reel Cutter Name Role Phone Natalia Juarez MD Primary Care Provider [phone] Allergies Active Allergy Reactions Criticality Noted Date Comments Amoxicillin Rash Low 04/12/2025 Sulfa Antibiotics Rash Low 04/12/2025 Medications No known medications Encounters Date Type Department Care Team Description 04/12/2025 1:06 PM CDT - 04/12/2025 1:44 PM CDT Emergency [facility] [address] [place] [address] [phone] Esteban Cheatham, Urinary Catheter Problem Discharge Disposition: Home or Self Care (Routine Discharge) 04/12/2025 Travel from Last 3 Months Social History Tobacco Use Types Packs/Day Years Used Date Smoking Tobacco: Never Assessed Comments No Sex and Gender Information Value Date Recorded Sex Assigned at Not on file Legal Sex Female 1:02 PM CDT Gender Identity Not on file Sexual Orientation Not on file Last Filed Vital Signs Vital Sign Reading Time Taken Comments Blood Pressure 148/67 04/12/2025 1:09 PM CDT Pulse 63 04/12/2025 1:09 PM CDT Temperature 35.8 C (96.5 F) 04/12/2025 1:09 PM CDT Respiratory Rate 20 04/12/2025 1:09 PM CDT Oxygen Saturation 96% 04/12/2025 1:09 PM CDT Inhaled Oxygen Concentration - - Weight - - Height - - Body Mass Index - - Plan of Treatment Health Maintenance Due Date Last Done Comments Cervical Cancer Screening Pa p Smear (Age 30 to 64) Every 3 Years 1963 Colorectal Cancer Screening Colonoscopy (10 Years) 1963 Annual Physical 11/02/1966 Hepatitis C 11/02/1981 Cervical Cancer Screening Pa p with HPV Testing (Age 30 to 64) Every 5 Years 11/02/1993 Cervical Cancer Screening wi th HPV 11/02/1993 Mammogram Screening 2003 Zoster Vaccines (1 of 2) 11/02/2013 COVID-19 Vaccine (4 - 2024-2 6 season) 2025 06/08/2022, 07/21/2021, 10/25/2020 Pneumococcal Vaccine: 50+ Years (3 of 3 - PCV20 or PCV21) 05/17/2027 05/17/2022, 05/23/2016 DTaP, Tdap and Td Vaccines ( 2 - Td or Tdap) 12/10/2033 12/11/2023 RSV Immunization or 60+ Years Completed 04/06/2024 Meningococcal B Vaccine Aged Out No l onger eligible based on patient's age to complete this topic Meningococcal Vaccine Aged Out No jodi samantha eligible based on patient's age to complete this topic RSV Immunizations Under 20 Months Aged Out No longer eligible b ased on patient's age to complete this topic Insurance MEDICARE GENERIC - MEDICAID on file Care Teams Drum Reel Cutter Relationship Specialty Start Date End Date Natalia Juarez MD [address] [place] [address] PCP - General FAMILY PRACTICE 04/12/25
--- OUTSIDE RECORDS SUMMARY | 2025-04-29 15:17 | XMS_ITS | Clinical Summary ---
Author Organization [facility] Address [address] [place] [address] Phone Care Team Providers Care Medical Support Specialist Name Role Phone Natalia Juarez MD Primary Care Provider [phone] Allergies No known active allergies Medications gabapentin [...] mg by mouth daily. take once daily 5 Active Social History Tobacco Use Types Packs/Day Years Used Date Smoking Tobacco: Never Assessed Comments Unknown Sex and Gender Information Value Date Recorded Sex Assigned at Not on file Legal Sex Female 3:51 PM MANAGER REGULATORY Gender Identity Not on file Sexual Orientation Not on file Last Filed Vital Signs Vital Sign Reading Time Taken Comments Blood Pressure 120/64 12/17/2024 10:18 AM CDT Pulse 78 12/17/2024 10:18 AM CDT Temperature 36.8 C (98.2 F) 12/17/2024 10:18 AM CDT Respiratory Rate 16 12/17/2024 10:18 AM CDT Oxygen Saturation 98% 10/21/2024 12:30 PM MANAGER REGULATORY Inhaled Oxygen Concentration - - Weight - - Height 165.1 cm (5' 5) 10/21/2024 12:30 PM MANAGER REGULATORY Body Mass Index - - Plan of [...] Inactivated Comments 12/08/2024 9:23 AM Care Teams Medical Support Specialist Relationship Specialty Start Date End Date Natalia Juarez MD [address] [place] [address] PCP - General Family Medicine 10/07/24
--- OUTSIDE RECORDS SUMMARY | 2025-04-29 15:17 | XMS_ITS | Clinical Summary ---
Author Organization [facility] Address [address] [place] [address] Care Team Providers Care Loop Drier Operator Name Role Phone Natalia Juarez MD Primary Care Provider [phone] Allergies No known active allergies Medications Eliquis [...] (06/23/2021): Added automatically from request for surgery [id number] Immunizations Immunization Administration Dates Next Due Influenza, [...] on file Legal Sex Female 4:04 AM CLEANER INDUSTRIAL Gender Identity Not on file Sexual Orientation Not on file Occupation Industry Job Start Date Job End Date Disability Not on file Not on file Not on file Obstetrics History Last Filed Vital Signs Vital Sign Reading Time Taken Comments Blood Pressure 119/59 07/31/2021 11:55 AM CLEANER INDUSTRIAL Pulse 80 07/31/2021 12:10 PM CLEANER INDUSTRIAL Temperature 36.6 C (97.88 F) 07/31/2021 12:00 PM CLEANER INDUSTRIAL Respiratory Rate 18 07/31/2021 12:00 PM CLEANER INDUSTRIAL Oxygen Saturation 92% 07/31/2021 12:10 PM CLEANER INDUSTRIAL Inhaled Oxygen Concentration - - Weight 83.5 kg (184 lb) 07/25/2021 5:24 PM CLEANER INDUSTRIAL Height 165.1 cm (5' 5) 07/25/2021 5:24 PM CLEANER INDUSTRIAL Body Mass Index 30.62 07/25/2021 5:24 PM CLEANER INDUSTRIAL Plan of Treatment Health Maintenance Due Date Last Done Comments Breast Cancer Screening-Mammogram 1965 Cervical Cancer Screening 1963 Colon Cancer Screening-Colonoscopy 1963 Depression Screening 1963 Hepatitis C Screening 1963 DTaP/Tdap/Td Vaccine (1 - Tdap) 11/02/1974 Hepatitis B Screening 11/02/1981 Regular Well Visit/Exam 18-64 11/02/1981 Zoster Vaccine (1 of 2) 11/02/2013 Covid-19 Vaccine (2 - 2024-2 6 season) 2025 10/25/2020 Influenza Vaccine (#1) 2025 0, 06/11/2019, 06/16/2018 Pneumococcal vaccine <65 Aged Out No longer eligible based on patient's age to complete this topic Medical Devices Explanted Type Area Flyer Builder Device Identifier Shelf Expiration Date Model / Serial / Lot Intrathecal Pain Pump Intrathecal Pain [place] Description:Per T/C with Pt - she never had permanent pump installed - trial injections only in 02/2014, didn't like it so they never installed a permanent pump. CATA 05/15/2021 Insurance MEDICARE IDNM MEDICARE IDNM MEDICARE IDPA Care Teams Loop Drier Operator Relationship Specialty Start Date End Date Natalia Juarez MD PCP - General Family Medicine 04/19/21
[2025-04-29 15:37] LABS: Hematocrit 42.0 % (37.0-47.0); Hemoglobin 13.3 g/dL (12.0-15.0); Immature Granulocyte Percent A 0.4 % (0-0.5); Lymphocytes Absolute Auto 2.85 K/mm3 (0.9-3.2); Mean Corpuscular HGB Conc 31.7 g/dl (32-36); Mean Corpuscular Hemoglobin 28.9 pg (26-34); Mean Corpuscular Volume 91.3 fl (80-100); Nucleated Red Blood Cells Absolute Auto 0.000 K/mm3 (0.0-0.012); Nucleated Red Blood Cells Perc 0.0 % (0.0-0.2); Platelet Count Result 360 k/mm3 (150-375); Red Blood Count 4.60 M/mm3 (4.2-5.4); White Blood Count 10.0 K/mm3 (4.5-10.0)
[2025-04-29 15:50] LABS: Alanine Aminotransferase 22 U/L (6-35); Albumin Level 4.4 g/dL (3.5-5.1); Alkaline Phosphatase 100 U/L (38-126); Anion Gap 10 mmol/L (4-12); Aspartate Amino Transferase 30 U/L (14-36); Bilirubin,Total 0.5 mg/dL (0.2-1.3); Blood Urea Nitrogen 13 mg/dL (7-17); CRP 2.0 mg/dL (<1.0); Calcium 9.5 mg/dL (8.4-10.2); Carbon Dioxide 29 mmol/L (22-30); Chloride 99 mmol/L (98-107); Estimated CRCL calculation 50 ml/min; Estimated Glomerular Filt Rate > 60; Glucose 83 mg/dL (65-110); INR 1.0; Potassium 4.0 mmol/L (3.4-5.0); Prothrombin Time 13.8 Seconds (11.1-14.7); Sodium 138 mmol/L (137-145); Total Protein 8.4 g/dL (6.3-8.2)
[2025-04-29 15:51] LABS: Partial Thromboplastin Time 30.5 Seconds (22.3-36.8)
--- OUTSIDE RECORDS SUMMARY | 2025-04-29 15:51 | XMS_ITS | Clinical Summary ---
Author Organization [facility] Address [address] [place] [address] Phone Care Team Providers Care Coupon Collection Clerk Name Role Phone Natalia Juarez MD Primary Care Provider [phone] Allergies No known active allergies Medications gabapentin (NEURONTIN) 300 mg capsule Take 300 mg by mouth daily at bedtime. Active buPROPion HCl (WELLBUTRIN XL) 150 mg Extended Release 24 hour tablet Take 150 mg by mouth daily natural resource officer. Active hydrOXYzine HCl (ATARAX) 25 mg [...] Advance Directives For more information, please contact: [phone] * Full Code (Latest Code Status on File) Date Activated Date Inactivated Comments 03/09/2014 8:12 AM 03/09/2014 5:46 PM * Full Code Date Activated Date Inactivated Comments 03/09/2014 5:59 AM 03/09/2014 8:12 AM Care Teams Coupon Collection Clerk Relationship Specialty Start Date End Date Natalia Juarez MD [address] [place] [id number] PCP - General Family Practice 02/25/14
--- OUTSIDE RECORDS SUMMARY | 2025-04-29 15:51 | XMS_ITS | Clinical Summary ---
Author Organization [facility] Address [address] [place] [address] Care Team Providers Care Pulmonologist Intensivist Name Role Phone Natalia Juarez MD Primary Care Provider [phone] Allergies No known active allergies Medications Eliquis [...] (06/23/2021): Added automatically from request for surgery [id number] Immunizations Immunization Administration Dates Next Due Influenza, [...] on file Legal Sex Female 4:04 AM BLAST FURNACE KEEPER Gender Identity Not on file Sexual Orientation Not on file Occupation Industry Job Start Date Job End Date Disability Not on file Not on file Not on file Obstetrics History Last Filed Vital Signs Vital Sign Reading Time Taken Comments Blood Pressure 119/59 07/31/2021 11:55 AM BLAST FURNACE KEEPER Pulse 80 07/31/2021 12:10 PM BLAST FURNACE KEEPER Temperature 36.6 C (97.88 F) 07/31/2021 12:00 PM BLAST FURNACE KEEPER Respiratory Rate 18 07/31/2021 12:00 PM BLAST FURNACE KEEPER Oxygen Saturation 92% 07/31/2021 12:10 PM BLAST FURNACE KEEPER Inhaled Oxygen Concentration - - Weight 83.5 kg (184 lb) 07/25/2021 5:24 PM BLAST FURNACE KEEPER Height 165.1 cm (5' 5) 07/25/2021 5:24 PM BLAST FURNACE KEEPER Body Mass Index 30.62 07/25/2021 5:24 PM BLAST FURNACE KEEPER Plan of Treatment Health Maintenance Due Date [...] this topic Medical Devices Explanted Type Area Baking Factory Worker Device Identifier Shelf Expiration Date Model / Serial / Lot Intrathecal Pain Pump Intrathecal Pain [place] Description:Per T/C with Pt - she never had permanent pump installed - trial injections only in 02/2014, didn't like it so they never installed a permanent pump. CATA 05/15/2021 Insurance MEDICARE [facility] Address: [address] [address] [place] [address] [place]MT MEDICARE IDMT MEDICARE IDPA Care Teams Pulmonologist Intensivist Relationship Specialty Start Date End Date Natalia Juarez MD PCP - General Family Medicine 04/19/21
--- OUTSIDE RECORDS SUMMARY | 2025-04-29 15:51 | XMS_ITS | Clinical Summary ---
Author Organization [facility] Address [address] [facility] [place] [address] Phone Care Team Providers Care Tail Edger Name Role Phone Natalia Juarez MD Primary Care Provider [phone] Allergies No known active allergies Medications gabapentin [...] on file Legal Sex Female 3:51 PM BUS DISPATCHER INTERSTATE Gender Identity Not on file Sexual Orientation Not on file Last Filed Vital Signs Vital Sign Reading Time Taken Comments Blood Pressure 120/64 12/17/2024 10:18 AM CDT Pulse 78 12/17/2024 10:18 AM CDT Temperature 36.8 C (98.2 F) 12/17/2024 10:18 AM CDT Respiratory Rate 16 12/17/2024 10:18 AM CDT Oxygen Saturation 98% 10/21/2024 12:30 PM BUS DISPATCHER INTERSTATE Inhaled Oxygen Concentration - - Weight - - Height 165.1 cm (5' 5) 10/21/2024 12:30 PM BUS DISPATCHER INTERSTATE Body Mass Index - - Plan of [...] Inactivated Comments 12/08/2024 9:23 AM Care Teams Tail Edger Relationship Specialty Start Date End Date Natalia Juarez MD [address] [place] [address] PCP - General Family Medicine 10/07/24
[2025-04-29 16:47] VITALS: BP 151/67; PULSE 78; RESP 14; O2SAT 99
== END 2025-04-29 16:50 | disposition home or self-care (01) ==
PROVIDERS: Emergency Provider Student in an Organized Health Care Education/Training Program; PCP Family Medicine
DX: L03.116 Cellulitis of left lower limb (principal); Z79.899 Other long term (current) drug therapy
CPT/HCPCS: 36415; 80053; 83605; 85025; 85610; 85730; 86140; 87040; 87070; 87075; 87077; 87147; 87186; 93005; 99283

== ENCOUNTER 2025-05-06 15:47 | Inpatient (IN) | payer MEDICARE, MEDICAID, SELFPAY ==
[2025-05-06] VITALS (36 sets, daily range): BP systolic 102–141; BP diastolic 39–69; PULSE 67–81; RESP 6–17; TEMP 36.4–36.7; O2SAT 93–100; BMI 26.2
--- NOTE | ~2025-05-06 | US_ITS ---
EXAMINATION: US thyroid DATE: 05/07/2025 14:48 INDICATION: Thyroid nodules TECHNIQUE: Multiple ultrasound images of the thyroid were obtained. COMPARISON: None. FINDINGS: The right thyroid lobe measures 2.9 x 1.1 x 1.1 cm. The left thyroid lobe measures 3.0 x 2.3 x 1.2 cm. There is a 2.7 cm anechoic completely cystic TI RADS 1 left thyroid nodule. There is normal echotexture, echogenicity and vascular flow throughout the remainder of the small thyroid gland. IMPRESSION: 1. Small thyroid with 2.7 cm benign TI RADS 1 cystic left thyroid nodule. Reviewed, dictated and finalized at location A.
--- NOTE | ~2025-05-06 | CT_ITS ---
CT abdomen pelvis w con Clinical History: constipation . Comparison: 03/05/2025 Technique: Axial images lung bases to symphysis pubis IV contrast information not listed in PACS Coronal, sagittal reformats CT images acquired with automatic exposure control for dose reduction DLP: 741 mGy-cm Findings: Lung bases: Clear. Visualized heart and pericardium: Unremarkable. Liver: Pneumobilia. Small cyst segment 4a. Gallbladder: Removed. Spleen: Unremarkable. Pancreas: Unremarkable. Adrenal glands: Unremarkable. Kidneys: Right kidney- No hydronephrosis. No renal stones. Left kidney- No hydronephrosis. No renal stones. Distal esophagus/stomach: Unremarkable. Small bowel loops: Normal caliber and wall thickness. Colon: Diverticula. Normal caliber and wall thickness. Normal RLQ appendix. Rectum stool-filled. Moderate volume stool. Nodes: No enlarged nodes. Peritoneum: No ascites. No free air. Urinary bladder: Intraluminal gas likely due to suprapubic catheter manipulation. Uterus: Unremarkable. Adnexa: No masses. Bones: No acute bony abnormality. Soft tissues: Unremarkable. Aorta: No aneurysm or dissection. Aortoiliac atherosclerotic disease. IVC: Unremarkable. Main portal vein/SMV/splenic vein: Patent. IMPRESSION: 1. Consistent with constipation. 2. Otherwise no acute abnormality. Reviewed, dictated and finalized at location R.
--- NOTE | 2025-05-06 15:59 | ED_ITS ---
HPI - Extremity Problem General Chief complaint: Extremity Problem,Nontraumatic <Atul Oshea MD - Last Filed: 05/07/25 17:49> Stated complaint: MRSA infection, left upper leg <Atul Oshea MD - Last Filed: 05/07/25 17:49> History of Present Illness HPI Narrative: 59-year-old female presents to the emergency department for evaluation for positive wound culture. Patient does have history of MS and is bed-bound with contractions. Patient does have a wound on her left buttock that did have positive cultures. Wound was positive for methicillin-resistant Staph aureus along with Pseudomonas aeruginosa. <Atul Oshea MD - Last Filed: 05/07/25 17:49> Related Data Home medications: Home Medications ?Medication ?Instructions ?Recorded ?Confirmed ?Last Taken ?Type minoxidil 2.5 mg tablet 2.5 mg PO DAILY 12/16/2405/06/25 History gabapentin 300 mg capsule 600 mg PO HS 03/05/2505/06/25 History nystatin 100,000 unit/gram topical 1 applic topical BI D PRN rash 03/05/25 05/06/25 05/06/25 History cream nystatin 100,000 unit/gram topical 1 applic topical BI D PRN rash 03/05/25 05/06/25 05/06/25 History powder meclizine 25 mg tablet 25 mg PO DAILY PRN dizziness 05/06/25 05/06/25 Unknown History <Atul Oshea MD - Last Filed: 05/07/25 17:49> Allergies/Adverse reactions: Allergies Allergy/AdvReac Type Severity Reaction Status Date / Time ciprofloxacin Allergy Intermediate Rash Verified 05/06/25 23:09 amoxicillin (From Augmentin) Allergy Mild Rash Verified 05/06/25 23:09 clavulanic acid (From Allergy Mild Rash Verified 05/06/25 23:09 Augmentin) Sulfa (Sulfonamide Allergy Mild Rash Verified 05/06/25 23:09 Antibiotics) cefuroxime Allergy Rash Verified 05/06/25 23:09 doxycycline AdvReac Unknown Upset Verified 05/06/25 23:09 Stomach <Atul Oshea MD - Last Filed: 05/07/25 17:49> [facility] Past Medical History Medical History: Medical History Upper respiratory infection Cholecystitis, acute with cholelithiasis Choledocholithiasis Acute cholecystitis (~11/2021) Wound infection Thyroid nodule Muscle spasticity Hypothyroidism, unspecified Neuropathy Hair loss Leg varicosity w/ ulcer Hyperpigmentation of skin Multiple sclerosis (Unknown) Anticoagulant long-term use (Unknown) On apixaban for DVT prophylaxis. Lymphedema (Unknown) Depression Complete immobility due to severe physical disability or frailty Vitamin D deficiency <Atul Oshea MD - Last Filed: 05/07/25 17:49> Surgical History Surgical History: Surgical History H/O left knee surgery History of laparoscopic cholecystectomy 11/24/2021 - laparoscopic cholecystectomy and drainage of a right perihepatic abscess. History of tubal ligation <Atul Oshea MD - Last Filed: 05/07/25 17:49> Family History Family History: Family History Mother Family history of malignant neoplasm of breast in first degree relative Father Family history of coronary artery disease FH: colon polyps Dementia <Atul Oshea MD - Last Filed: 05/07/25 17:49> Social History Social History: Social History Social History: The patient lives at home with her , Casey, and is primarily bedbound. She requires assistance to get to a powered wheelchair when needed for mobility. No alcohol, tobacco, or illicit substance use. She designates her as her surrogate decision maker and she wishes to be a full code. She has 2 children. Code status: Full code Smoking status: Never smoker Second hand tobacco smoke exposure: No Alcohol intake: never Substance use: never Substance use type: does not use Do You Feel Safe in your Home?: Yes Lack of Transportation: No Lack of Food: Never True Current Housing: I Have Housing Concerned About Future Housing: No Difficulty Paying Gas/Electric Bills: No Difficulty Paying for Meds: No Currently Unemployed: No Education: High School Diploma/GED Difficulty w/ Childcare or Family Care: No Living arrangements: with family Gender identity (if verbalized by the patient): Female Spiritual care concerns: No Agree to blood products: Yes <Atul Oshea MD - Last Filed: 05/07/25 17:49> Course Vital Signs Vital signs: Vital Signs Temperature 98.0 F 05/06/25 15:45 Pulse Rate 68 05/06/25 15:45 Respiratory Rate 14 05/06/25 15:45 Blood Pressure 141/50 H 05/06/25 15:45 Pulse Oximetry 98 05/06/25 15:45 Oxygen Delivery Room Air 05/06/25 15:45 Temperature 97.3 F L 05/07/25 13:38 Pulse Rate 76 05/07/25 13:38 Respiratory Rate 16 05/07/25 13:38 Blood Pressure 114/55 L 05/07/25 13:38 Pulse Oximetry 99 05/07/25 13:38 Oxygen Delivery Room Air 05/06/25 21:30 <Atul Oshea MD - Last Filed: 05/07/25 17:49> Vital Signs Temperature 98.0 F 05/06/25 15:45 Pulse Rate 68 05/06/25 15:45 Respiratory Rate 14 05/06/25 15:45 Blood Pressure 141/50 H 05/06/25 15:45 Pulse Oximetry 98 05/06/25 15:45 Oxygen Delivery Room Air 05/06/25 15:45 Temperature 97.3 F L 05/07/25 13:38 Pulse Rate 76 05/07/25 13:38 Respiratory Rate 16 05/07/25 13:38 Blood Pressure 114/55 L 05/07/25 13:38 Pulse Oximetry 99 05/07/25 13:38 Oxygen Delivery Room Air 05/06/25 21:30 <Anny Arredondo PA-C - Last Filed: 05/06/25 19:55> MDM - Extremity (Nontraumatic) MDM Narrative Medical decision making narrative: Case was discussed with the Infectious Disease pharmacist, Dr Haris Lai, patient will be started on oral clindamycin 450 mg Q 8 hours and meropenem 1 g q.12 hours. PICC line consult was ordered. The principal statistical programmer for some it did not feel the patient was suitable for placement of a midline or PICC line due to her contractions. Surgery consult will be placed for potential port placement <Atul Oshea MD - Last Filed: 05/07/25 17:49> Case was discussed with the Infectious Disease pharmacist, Dr Haris Lai, patient will be started on oral clindamycin 450 mg Q 8 hours and meropenem 1 g q.12 hours. PICC line consult was ordered. The principal statistical programmer for some it did not feel the patient was suitable for placement of a midline or PICC line due to her contractions. Surgery consult will be placed for potential port placement RG - care signed out to myself at shift change pending CT results and subsequent admission. CT of abd/pelvis shows constipation, no concerning findings. Discussed case with Jami Ramsay LOSS PREVENTION AND SAFETY MANAGER hospitalist, accepted patient for admission. <Anny Arredondo PA-C - Last Filed: 05/06/25 19:55> Medical Records Attestation: I reviewed the patient's medical records. <Anny Arredondo PA-C - Last Filed: 05/06/25 19:55> Lab Data Attestation: I reviewed the patient's lab results. <Anny Arredondo PA-C - Last Filed: 05/06/25 19:55> Result diagrams: 05/07/25 06:42 05/07/25 06:42 <Atul Oshea MD - Last Filed: 05/07/25 17:49> Labs: Lab Results 05/06/25 05/06/25 05/06/25 Range/Units 18:09 18:10 18:11 WBC 9.9 (4.5-10.0) K/mm3 RBC 4.35 (4.2-5.4) M/mm3 Hgb 12.4 (12.0-15.0) g/dL Hct 38.9 (37.0-47.0) % MCV 89.4 (80-100) fl MCH 28.5 (26-34) pg MCHC 31.9 L (32-36) g/dl RDW 15.3 H (11.5-14.5) % Plt Count 321 (150-375) k/mm3 MPV 10.5 H (7.4-10.4) fl Immature Gran % (Auto) 0.1 (0-0.5) % Neut % (Auto) 56.1 (45.5-73.1) % Lymph % (Auto) 31.8 (18.3-44.2) % [place] % (Auto) 8.4 (2.6-8.5) % Eos % (Auto) 3.0 (0-4.4) % Baso % (Auto) 0.6 (0.2-1.2) % Lymph # (Auto) 3.16 (0.9-3.2) K/mm3 [place] # (Auto) 0.8 H (0.1-0.6) K/mm3 Eos # (Auto) 0.3 (0-0.3) K/mm3 Baso # (Auto) 0.1 (0.0-0.1) K/mm3 Abs Immat Gran (auto) 0.01 (0.00-0.031) K/mm3 Absolute Neuts (auto) 5.6 (1.3-6.7) K/mm3 Absolute Nucleated RBC 0.000 (0.0-0.012) K/mm3 Nucleated RBC % 0.0 (0.0-0.2) % PT 15.2 H (11.1-14.7) Seconds INR 1.2 APTT 30.7 (22.3-36.8) Seconds Sodium 137 (137-145) mmol/L Potassium 4.3 (3.4-5.0) mmol/L Chloride 100 (98-107) mmol/L Carbon Dioxide 32 H (22-30) mmol/L Anion Gap 5 (4-12) mmol/L BUN 15 (7-17) mg/dL Creatinine 0.92 (0.7-1.0) mg/dL Estim Creat Clear Calc 51 ml/min Estimated GFR > 60 (59 - ) Glucose 79 (65-110) mg/dL Calcium 9.5 (8.4-10.2) mg/dL Urine Color Yellow (Yellow) Urine Appearance Clear (Clear) Urine pH 6.5 (5.0-9.0) Ur Specific [place] 1.006 (1.001-1.035) Urine Protein Negative (Negative) mg/dL Urine Glucose (UA) Negative (Negative) mg/dL Urine Ketones Negative (Negative) mg/dL Ur Blood (Man) Trace (Negative) Urine Nitrate Negative (Negative) Urine Bilirubin Negative (Negative) Urine Urobilinogen 0.2 (<2.0) mg/dL Leukocyte Esterase Rfl 3+ H (Negative) CHANDAN/UL Urine RBC 0-2 (0-2) /hpf Urine WBC 21-50 H (0-3) /hpf Ur Squamous Epith Cells None seen (Few) /hpf Urine Bacteria 4+ H /hpf Urine Casts 0-2 Influenza A (RT-PCR) (Negative) Influenza B (RT-PCR) (Negative) RSV (RT-PCR) (Negative) SARS-CoV-2 RNA (RT-PCR) (Negative) 05/06/25 05/07/25 Range/Units 19:58 06:42 WBC 7.9 (4.5-10.0) K/mm3 RBC 4.00 L (4.2-5.4) M/mm3 Hgb 11.5 L (12.0-15.0) g/dL Hct 36.3 L (37.0-47.0) % MCV 90.8 (80-100) fl MCH 28.8 (26-34) pg MCHC 31.7 L (32-36) g/dl RDW 15.7 H (11.5-14.5) % Plt Count 283 (150-375) k/mm3 MPV 10.2 (7.4-10.4) fl Immature Gran % (Auto) 0.3 (0-0.5) % Neut % (Auto) 55.7 (45.5-73.1) % Lymph % (Auto) 31.6 (18.3-44.2) % [place] % (Auto) 9.4 H (2.6-8.5) % Eos % (Auto) 2.4 (0-4.4) % Baso % (Auto) 0.6 (0.2-1.2) % Lymph # (Auto) 2.49 (0.9-3.2) K/mm3 [place] # (Auto) 0.7 H (0.1-0.6) K/mm3 Eos # (Auto) 0.2 (0-0.3) K/mm3 Baso # (Auto) 0.1 (0.0-0.1) K/mm3 Abs Immat Gran (auto) 0.02 (0.00-0.031) K/mm3 Absolute Neuts (auto) 4.4 (1.3-6.7) K/mm3 Absolute Nucleated RBC 0.000 (0.0-0.012) K/mm3 Nucleated RBC % 0.0 (0.0-0.2) % PT (11.1-14.7) Seconds INR APTT (22.3-36.8) Seconds Sodium 136 L (137-145) mmol/L Potassium 4.0 (3.4-5.0) mmol/L Chloride 100 (98-107) mmol/L Carbon Dioxide 28 (22-30) mmol/L Anion Gap 8 (4-12) mmol/L BUN 16 (7-17) mg/dL Creatinine 0.95 (0.7-1.0) mg/dL Estim Creat Clear Calc 49 ml/min Estimated GFR 60 (59 - ) Glucose 85 (65-110) mg/dL Calcium 9.2 (8.4-10.2) mg/dL Urine Color (Yellow) Urine Appearance (Clear) Urine pH (5.0-9.0) Ur Specific [place] (1.001-1.035) Urine Protein (Negative) mg/dL Urine Glucose (UA) (Negative) mg/dL Urine Ketones (Negative) mg/dL Ur Blood (Man) (Negative) Urine Nitrate (Negative) Urine Bilirubin (Negative) Urine Urobilinogen (<2.0) mg/dL Leukocyte Esterase Rfl (Negative) CHANDAN/UL Urine RBC (0-2) /hpf Urine WBC (0-3) /hpf Ur Squamous Epith Cells (Few) /hpf Urine Bacteria /hpf Urine Casts Influenza A (RT-PCR) Negative (Negative) Influenza B (RT-PCR) Negative (Negative) RSV (RT-PCR) Negative (Negative) SARS-CoV-2 RNA (RT-PCR) Negative (Negative) <Atul Oshea MD - Last Filed: 05/07/25 17:49> Lab Results 05/06/25 05/06/25 05/06/25 Range/Units 18:09 18:10 18:11 WBC 9.9 (4.5-10.0) K/mm3 RBC 4.35 (4.2-5.4) M/mm3 Hgb 12.4 (12.0-15.0) g/dL Hct 38.9 (37.0-47.0) % MCV 89.4 (80-100) fl MCH 28.5 (26-34) pg MCHC 31.9 L (32-36) g/dl RDW 15.3 H (11.5-14.5) % Plt Count 321 (150-375) k/mm3 MPV 10.5 H (7.4-10.4) fl Immature Gran % (Auto) 0.1 (0-0.5) % Neut % (Auto) 56.1 (45.5-73.1) % Lymph % (Auto) 31.8 (18.3-44.2) % [place] % (Auto) 8.4 (2.6-8.5) % Eos % (Auto) 3.0 (0-4.4) % Baso % (Auto) 0.6 (0.2-1.2) % Lymph # (Auto) 3.16 (0.9-3.2) K/mm3 [place] # (Auto) 0.8 H (0.1-0.6) K/mm3 Eos # (Auto) 0.3 (0-0.3) K/mm3 Baso # (Auto) 0.1 (0.0-0.1) K/mm3 Abs Immat Gran (auto) 0.01 (0.00-0.031) K/mm3 Absolute Neuts (auto) 5.6 (1.3-6.7) K/mm3 Absolute Nucleated RBC 0.000 (0.0-0.012) K/mm3 Nucleated RBC % 0.0 (0.0-0.2) % PT 15.2 H (11.1-14.7) Seconds INR 1.2 APTT 30.7 (22.3-36.8) Seconds Sodium 137 (137-145) mmol/L Potassium 4.3 (3.4-5.0) mmol/L Chloride 100 (98-107) mmol/L Carbon Dioxide 32 H (22-30) mmol/L Anion Gap 5 (4-12) mmol/L BUN 15 (7-17) mg/dL Creatinine 0.92 (0.7-1.0) mg/dL Estim Creat Clear Calc 51 ml/min Estimated GFR > 60 (59 - ) Glucose 79 (65-110) mg/dL Calcium 9.5 (8.4-10.2) mg/dL Urine Color Yellow (Yellow) Urine Appearance Clear (Clear) Urine pH 6.5 (5.0-9.0) Ur Specific [place] 1.006 (1.001-1.035) Urine Protein Negative (Negative) mg/dL Urine Glucose (UA) Negative (Negative) mg/dL Urine Ketones Negative (Negative) mg/dL Ur Blood (Man) Trace (Negative) Urine Nitrate Negative (Negative) Urine Bilirubin Negative (Negative) Urine Urobilinogen 0.2 (<2.0) mg/dL Leukocyte Esterase Rfl 3+ H (Negative) CHANDAN/UL Urine RBC 0-2 (0-2) /hpf Urine WBC 21-50 H (0-3) /hpf Ur Squamous Epith Cells None seen (Few) /hpf Urine Bacteria 4+ H /hpf Urine Casts 0-2 Influenza A (RT-PCR) (Negative) Influenza B (RT-PCR) (Negative) RSV (RT-PCR) (Negative) SARS-CoV-2 RNA (RT-PCR) (Negative) 05/06/25 05/07/25 Range/Units 19:58 06:42 WBC 7.9 (4.5-10.0) K/mm3 RBC 4.00 L (4.2-5.4) M/mm3 Hgb 11.5 L (12.0-15.0) g/dL Hct 36.3 L (37.0-47.0) % MCV 90.8 (80-100) fl MCH 28.8 (26-34) pg MCHC 31.7 L (32-36) g/dl RDW 15.7 H (11.5-14.5) % Plt Count 283 (150-375) k/mm3 MPV 10.2 (7.4-10.4) fl Immature Gran % (Auto) 0.3 (0-0.5) % Neut % (Auto) 55.7 (45.5-73.1) % Lymph % (Auto) 31.6 (18.3-44.2) % [place] % (Auto) 9.4 H (2.6-8.5) % Eos % (Auto) 2.4 (0-4.4) % Baso % (Auto) 0.6 (0.2-1.2) % Lymph # (Auto) 2.49 (0.9-3.2) K/mm3 [place] # (Auto) 0.7 H (0.1-0.6) K/mm3 Eos # (Auto) 0.2 (0-0.3) K/mm3 Baso # (Auto) 0.1 (0.0-0.1) K/mm3 Abs Immat Gran (auto) 0.02 (0.00-0.031) K/mm3 Absolute Neuts (auto) 4.4 (1.3-6.7) K/mm3 Absolute Nucleated RBC 0.000 (0.0-0.012) K/mm3 Nucleated RBC % 0.0 (0.0-0.2) % PT (11.1-14.7) Seconds INR APTT (22.3-36.8) Seconds Sodium 136 L (137-145) mmol/L Potassium 4.0 (3.4-5.0) mmol/L Chloride 100 (98-107) mmol/L Carbon Dioxide 28 (22-30) mmol/L Anion Gap 8 (4-12) mmol/L BUN 16 (7-17) mg/dL Creatinine 0.95 (0.7-1.0) mg/dL Estim Creat Clear Calc 49 ml/min Estimated GFR 60 (59 - ) Glucose 85 (65-110) mg/dL Calcium 9.2 (8.4-10.2) mg/dL Urine Color (Yellow) Urine Appearance (Clear) Urine pH (5.0-9.0) Ur Specific Raymond (1.001-1.035) Urine Protein (Negative) mg/dL Urine Glucose (UA) (Negative) mg/dL Urine Ketones (Negative) mg/dL Ur Blood (Man) (Negative) Urine Nitrate (Negative) Urine Bilirubin (Negative) Urine Urobilinogen (<2.0) mg/dL Leukocyte Esterase Rfl (Negative) CHANDAN/UL Urine RBC (0-2) /hpf Urine WBC (0-3) /hpf Ur Squamous Epith Cells (Few) /hpf Urine Bacteria /hpf Urine Casts Influenza A (RT-PCR) Negative (Negative) Influenza B (RT-PCR) Negative (Negative) RSV (RT-PCR) Negative (Negative) SARS-CoV-2 RNA (RT-PCR) Negative (Negative) <Anny Arredondo PA-C - Last Filed: 05/06/25 19:55> Imaging Data Attestation: I personally reviewed and interpreted this imaging study as follows: < Anny Arredondo PA-C - Last Filed: 05/06/25 19:55> Radiologist's impression: ITS Impressions Abdomen/Pelvis CT 05/06/25 19:25 IMPRESSION: 1. Consistent with constipation. 2. Otherwise no acute abnormality. <Anny Arredondo PA-C - Last Filed: 05/06/25 19:55> Discharge Plan Discharge Clinical Impression: Positive culture findings in wound, Multiple sclerosis Wound of left buttock Qualifiers: Encounter type: initial encounter Qualified Code(s): S31.829A - Unspecified open wound of left buttock, initial encounter <Atul Oshea MD - Last Filed: 05/07/25 17:49> Patient Disposition: Still a Patient <Atul Oshea MD - Last Filed: 05/07/25 17:49> Condition: Stable <Atul Oshea MD - Last Filed: 05/07/25 17:49>
--- NOTE | 2025-05-06 16:37 | PC.NURSE ---
central line team contacted for iv access placement. labs to be drawn after central line placement
[2025-05-06 18:29] LABS: Hematocrit 38.9 % (37.0-47.0); Hemoglobin 12.4 g/dL (12.0-15.0); Immature Granulocyte Percent A 0.1 % (0-0.5); Lymphocytes Absolute Auto 3.16 K/mm3 (0.9-3.2); Mean Corpuscular HGB Conc 31.9 g/dl (32-36); Mean Corpuscular Hemoglobin 28.5 pg (26-34); Mean Corpuscular Volume 89.4 fl (80-100); Nucleated Red Blood Cells Absolute Auto 0.000 K/mm3 (0.0-0.012); Nucleated Red Blood Cells Perc 0.0 % (0.0-0.2); Platelet Count Result 321 k/mm3 (150-375); Red Blood Count 4.35 M/mm3 (4.2-5.4); White Blood Count 9.9 K/mm3 (4.5-10.0)
[2025-05-06 18:32] LABS: Add Urine Microscopic? YES; Appearance Urine Clear (Clear); Glucose Urine UA Negative (Negative); Leukocyte Esterase Ur 3+ LEU/UL (Negative); Nitrate Urine Negative (Negative); Non Pathogenic Casts 0-2; Specific Grav Ur 1.006 (1.001-1.035)
--- NOTE | 2025-05-06 18:33 | PC.NURSE ---
PICC midline was unable to be placed due to patients contractures. iv access was obtained
[2025-05-06 18:38] LABS: Anion Gap 5 mmol/L (4-12); Blood Urea Nitrogen 15 mg/dL (7-17); Calcium 9.5 mg/dL (8.4-10.2); Carbon Dioxide 32 mmol/L (22-30); Chloride 100 mmol/L (98-107); Estimated CRCL calculation 51 ml/min; Estimated Glomerular Filt Rate > 60; Glucose 79 mg/dL (65-110); Potassium 4.3 mmol/L (3.4-5.0); Sodium 137 mmol/L (137-145)
[2025-05-06] MEDS: MEROPENEM 500 MG in SODIUM CHLORIDE 0.9% IV 100 ML 200 ML IVPB ×2 (18:47→20:35)
[2025-05-06 19:03] LABS: INR 1.2; Partial Thromboplastin Time 30.7 Seconds (22.3-36.8); Prothrombin Time 15.2 Seconds (11.1-14.7)
--- NOTE | 2025-05-06 20:00 | PM.IMHP ---
H&P: HPI History of Present Illness Date/Time: 05/06/25 20:00 Chief Complaint: MRSA infection to left posterior thigh and coccyx area Narrative: This is a 59-year-old female patient who has history of multiple sclerosis and is mostly bedbound. The patient presented to the emergency room with her daughter. The daughter stated that the patient was found to be positive for wound cultures. The daughter stated that her mom is positive for MRSA and Pseudomonas. The patient also complained of constipation and believes that she may have a small bowel obstruction. She also had exposure to COVID and wanted to be tested. Also the daughter has concerns for a vaginal yeast infection since the patient has been on multiple antibiotics. The patient also has multiple antibiotic allergies and is not a candidate for PICC line due to her contractures. Wound cultures from 04/29/2025 from her left thigh resulted and were positive for methicillin resistant Staph aureus which is sensitive to vancomycin. Cultures also grew Pseudomonas aeruginosa. This is sensitive to the ertapenem. The ED provider had a discussion with Infectious Disease and agreed upon antibiotics for the patient. The patient also has a chronic indwelling suprapubic catheter and a urinalysis shows 3+ leukocyte esterase, wbc's 21-50, and urine bacteria 4+. The patient also has been complaining of some constipation and abdominal pain a abdominal pelvis CT was performed and the impression was read as consistent with constipation. Otherwise no acute abnormality. The patient had brought in a plastic bag of what looks like pills in her stool. The patient has been seeing GI for her constipation and has been placed on MiraLax. The patient is incontinent of stool even though it has been harder stools. The staff had much difficulty starting her saline lock however ventrally they were able to get IV access under ultrasound. The patient had been started on oral antibiotics of clindamycin and then she was started on meropenem. The patient was admitted to observation status on the date of service of 05/06/2025 Review of Systems Constitutional: Constitutional: Reports as per HPI and Reports no additional constitutional complaints Eyes: Eyes: Reports as per HPI and Reports no additional eye complaints ENT: Reports no additional ear, nose, mouth, and throat complaints and Reports Normal hearing present Cardiovascular: Cardiovascular: Reports no additional cardiovascular complaints Respiratory: Respiratory: Reports as per HPI and Reports no additional respiratory complaints Gastrointestinal: Gastrointestinal: Reports as per HPI and Reports no additional gastrointestinal complaints Genitourinary: Genitourinary: Reports no additional female genitourinary complaints Musculoskeletal: Musculoskeletal: Reports no additional musculoskeletal complaints Integumentary/Breasts: Skin/Breast: Reports system reviewed and no additional complaints, except as docu Neurologic: Reports no additional neurologic complaints and Reports Normal hearing present Psychiatric: Psychiatric: Reports no additional psychiatric complaints and Reports as per HPI Hematologic/Lymphatic: Hematologic/Lymphatic: Reports no additional hematologic/lymphatic complaints Allergic/Immunologic: Allergic/Immunologic: Reports no additional allergic/immunologic complaints [facility] Past Medical History Medical History (Updated 05/06/25 @ 20:02 by Rosemarie Brownlee APRN) Muscle spasticity Hypothyroidism, unspecified Neuropathy Hair loss Leg varicosity w/ ulcer Hyperpigmentation of skin Multiple sclerosis (Unknown) Anticoagulant long-term use (Unknown) On apixaban for DVT prophylaxis. Lymphedema (Unknown) Depression Complete immobility due to severe physical disability or frailty Vitamin D deficiency Surgical History Surgical History (Updated 05/06/25 @ 20:03 by Rosemarie Brownlee APRN) H/O left knee surgery History of laparoscopic cholecystectomy 11/24/2021 - laparoscopic cholecystectomy and drainage of a right perihepatic abscess. History of tubal ligation Family History Family History (Updated 05/06/25 @ 20:05 by Rosemarie Brownlee APRN) Mother Family history of malignant neoplasm of breast in first degree relative Father Family history of coronary artery disease FH: colon polyps Dementia Social History Social History (Updated 05/06/25 @ 20:05 by Rosemarie Brownlee APRN) Social History: The patient lives at home with her , Casey, and is primarily bedbound. She requires assistance to get to a powered wheelchair when needed for mobility. No alcohol, tobacco, or illicit substance use. She designates her as her surrogate decision maker and she wishes to be a full code. 2 children Smoking status: Never smoker Second hand tobacco smoke exposure: No Alcohol intake: never Substance use: never Substance use type: does not use Do You Feel Safe in your Home?: Yes Lack of Transportation: No Lack of Food: Never True Current Housing: I Have Housing Concerned About Future Housing: No Difficulty Paying Gas/Electric Bills: No Difficulty Paying for Meds: No Currently Unemployed: No Education: Associate Degree Difficulty w/ Childcare or Family Care: No Living arrangements: with family Gender identity (if verbalized by the patient): Female Spiritual care concerns: No Agree to blood products: Yes Meds Home Medications and Allergies Home Medications ?Medication ?Instructions ?Recorded ?Confirmed ?Type pyridoxine (vitamin B6) 100 mg 100 mg PO DAILY #100 tabs 03/14/21 04/29/25 Rx tablet omeprazole 40 mg capsule,delayed 40 mg PO BID #180 caps 11/05/24 04/29/25 Rx release apixaban 2.5 mg tablet (Eliquis) 2.5 mg PO BID #60 tabs 12/15/24 04/29/25 Rx minoxidil 2.5 mg tablet 2.5 mg PO DAILY 12/16/24 04/29/25 History levothyroxine 50 mcg tablet See Rx Instructions .Route 01/27/25 04/29/25 Rx .COMPLEX #90 tabs baclofen 20 mg tablet 40 mg (2 x 20 mg) PO DAILY #270 03/01/25 04/29/25 Rx tabs bupropion HCl 150 mg 24 hr tablet, See Rx Instructions .Route 03/01/25 04/29/25 Rx extended release .COMPLEX #90 tabs citalopram 40 mg tablet See Rx Instructions .Route 03/03/25 04/29/25 Rx .COMPLEX #30 tabs aripiprazole 5 mg tablet (Abilify) 5 mg PO QHS #90 tabs 03/04/25 04/29/25 Rx gabapentin 300 mg capsule 600 mg PO HS 03/05/25 04/29/25 History nystatin 100,000 unit/gram topical 1 applic topical BID PRN rash 03/05/25 04/29/25 History cream nystatin 100,000 unit/gram topical 1 applic topical BID PRN rash 03/05/25 04/29/25 History powder furosemide 20 mg tablet (Lasix) 20 mg PO .COMPLEX #30 tabs 03/26/25 04/29/25 Rx potassium chloride 10 mEq 10 meq PO .COMPLEX #30 caps 03/26/25 04/29/25 Rx capsule,extended release midodrine 10 mg tablet 10 mg PO .COMPLEX #42 tabs 03/29/25 04/29/25 Rx Oxygen 2L NC #1 ea 04/02/25 04/29/25 Rx portal oxygen 2L NC #1 ea 04/02/25 04/29/25 Rx peg lift #1 ea 04/16/25 04/29/25 Rx PEG LIFT #1 ea 04/23/25 04/29/25 Rx gel foam mattress #1 ea 04/23/25 04/29/25 Rx spironolactone 25 mg tablet 50 mg (2 x 25 mg) PO BID #360 tabs 04/25/25 04/29/25 Rx clindamycin HCl 300 mg capsule 300 mg PO Q6H 5 days #20 caps 04/29/25 Rx (Cleocin HCl) air mattress #1 ea 05/06/25 Rx Allergies Allergy/AdvReac Type Severity Reaction Status Date / Time ciprofloxacin Allergy Intermediate Rash Verified 05/06/25 15:54 amoxicillin (From Augmentin) Allergy Mild Rash Verified 05/06/25 15:54 clavulanic acid (From Allergy Mild Rash Verified 05/06/25 15:54 Augmentin) Sulfa (Sulfonamide Allergy Mild Rash Verified 05/06/25 15:54 Antibiotics) cefuroxime Allergy Rash Verified 05/06/25 15:54 doxycycline AdvReac Unknown Upset Verified 05/06/25 15:54 Stomach Vital Signs Vital Signs - 24 hr 05/06/25 15:45 05/06/25 17:59 Temperature 98.0 F Pulse Rate 68 78 Respiratory Rate 14 12 Blood Pressure 141/50 H 121/69 Pulse Oximetry 98 99 Oxygen Delivery Room Air H&P: Results Labs Labs: Short CBC 05/06/25 Range/Units 18:10 WBC 9.9 (4.5-10.0) K/mm3 Hgb 12.4 (12.0-15.0) g/dL Hct 38.9 (37.0-47.0) % Plt Count 321 (150-375) k/mm3 BMP 05/06/25 18:10 Sodium 137 Potassium 4.3 Chloride 100 Carbon Dioxide 32 H BUN 15 Creatinine 0.92 Glucose 79 Calcium 9.5 Urine 05/06/25 Range/Units 18:09 Urine Color Yellow (Yellow) Urine Appearance Clear (Clear) Urine pH 6.5 (5.0-9.0) Ur Specific [place] 1.006 (1.001-1.035) Urine Protein Negative (Negative) mg/dL Urine Glucose (UA) Negative (Negative) mg/dL
[2025-05-06 20:42] LABS: Influenza A QL RT-PCR Negative (Negative); Influenza B QL RT-PCR Negative (Negative); RSV RNA, RT-PCR Negative (Negative); SARS-CoV-2 RNA PCR Negative (Negative)
--- NOTE | 2025-05-06 20:51 | P.HP_ITS ---
H&P: HPI History of Present Illness Date/Time: 05/06/25 20:51 Chief Complaint: MRSA infection to left posterior thigh and coccyx area. Narrative: This is a 59-year-old female patient who has history of multiple sclerosis and is mostly bedbound. The patient presented to the emergency room with her daughter. The daughter stated that the patient was found to be positive for wound cultures. The daughter stated that her mom is positive for MRSA and Pseudomonas. The patient also complained of constipation and believes that she may have a small bowel obstruction. She also had exposure to COVID and wanted to be tested. Also the daughter has concerns for a vaginal yeast infection since the patient has been on multiple antibiotics. The patient also has multiple antibiotic allergies and is not a candidate for PICC line due to her contractures. Wound cultures from 04/29/2025 from her left thigh resulted and were positive for methicillin resistant Staph aureus which is sensitive to vancomycin. Cultures also grew Pseudomonas aeruginosa. This is sensitive to the ertapenem. The ED provider had a discussion with Infectious Disease and agreed upon antibiotics for the patient. The patient also has a chronic indwelling suprapubic catheter and a urinalysis shows 3+ leukocyte esterase, wbc's 21-50, and urine bacteria 4+. The patient also has been complaining of some constipation and abdominal pain a abdominal pelvis CT was performed and the impression was read as consistent with constipation. Otherwise no acute abnormality. The patient had brought in a plastic bag of what looks like pills in her stool. The patient has been seeing GI for her constipation and has been placed on MiraLax. The patient is incontinent of stool even though it has been harder stools. The staff had much difficulty starting her saline lock however ventrally they were able to get IV access under ultrasound. The patient had been started on oral antibiotics of clindamycin and then she was started on meropenem. Viral serology was found to be negative. The patient was admitted to observation status on the date of service of 05/06/2025 Please note that previous H&P was signed before completion and needs to be deleted. This H&P represent a completed format. Review of Systems Constitutional: Constitutional: Reports as per HPI and Reports no additional constitutional complaints Eyes: Eyes: Reports as per HPI and Reports no additional eye complaints ENT: Reports no additional ear, nose, mouth, and throat complaints and Reports Normal hearing present Cardiovascular: Cardiovascular: Reports no additional cardiovascular complaints Respiratory: Respiratory: Reports as per HPI and Reports no additional respira tory complaints Gastrointestinal: Gastrointestinal: Reports as per HPI and Reports no additional gastrointestinal complaints Genitourinary: Genitourinary: Reports no additional female genitourinary complaints Musculoskeletal: Musculoskeletal: Reports no additional musculoskeletal complaints Integumentary/Breasts: Skin/Breast: Reports system reviewed and no additional complaints, except as docu Neurologic: Reports no additional neurologic complaints and Reports Normal hearing present Psychiatric: Psychiatric: Reports no additional psychiatric complaints and Reports as per HPI Hematologic/Lymphatic: Hematologic/Lymphatic: Reports no additional hematologic/lymphatic complaints Allergic/Immunologic: Allergic/Immunologic: Reports no additional allergic/immunologic complaints [facility] Past Medical History Medical History (Updated 05/06/25 @ 21:10 by Rosemarie Brownlee APRN) Upper respiratory infection Cholecystitis, acute with cholelithiasis Choledocholithiasis Acute cholecystitis (~11/2021) Wound infection Thyroid nodule Muscle spasticity Hypothyroidism, unspecified Neuropathy Hair loss Leg varicosity w/ ulcer Hyperpigmentation of skin Multiple sclerosis (Unknown) Anticoagulant long-term use (Unknown) On apixaban for DVT prophylaxis. Lymphedema (Unknown) Depression Complete immobility due to severe physical disability or frailty Vitamin D deficiency Surgical History Surgical History H/O left knee surgery History of laparoscopic cholecystectomy 11/24/2021 - laparoscopic cholecystectomy and drainage of a right perihepatic abscess. History of tubal ligation Family History Family History Mother Family history of malignant neoplasm of breast in first degree relative Father Family history of coronary artery disease FH: colon polyps Dementia Social History Social History (Updated 05/06/25 @ 20:54 by Rosemarie Brownlee APRN) Social History: The patient lives at home with her , Casey, and is primarily bedbound. She requires assistance to get to a powered wheelchair when needed for mobility. No alcohol, tobacco, or illicit substance use. She designates her as her surrogate decision maker and she wishes to be a full code. She has 2 children. Code status: Full code Smoking status: Never smoker Second hand tobacco smoke exposure: No Alcohol intake: never Substance use: never Substance use type: does not use Do You Feel Safe in your Home?: Yes Lack of Transportation: No Lack of Food: Never True Current Housing: I Have Housing Concerned About Future Housing: No Difficulty Paying Gas/Electric Bills: No Difficulty Paying for Meds: No Currently Unemployed: No Education: High School Diploma/GED Difficulty w/ Childcare or Family Care: No Living arrangements: with family Gender identity (if verbalized by the patient): Female Spiritual care concerns: No Agree to blood products: Yes Meds Home Medications and Allergies Home Medications ?Medication ?Instructions ?Recorded ?Confirmed ?Type pyridoxine (vitamin B6) 100 mg 100 mg PO DAILY #100 ta bs 03/14/21 05/06/25 Rx tablet omeprazole 40 mg capsule,delayed 40 mg PO BID #180 cap s 11/05/24 05/06/25 Rx release apixaban 2.5 mg tablet (Eliquis) 2.5 mg PO BID #60 tab s 12/15/24 05/06/25 Rx minoxidil 2.5 mg tablet 2.5 mg PO DAILY 12/16/24 History levothyroxine 50 mcg tablet See Rx Instructions .Route 01/27/25 05/06/25 Rx .COMPLEX #90 tabs baclofen 20 mg tablet 40 mg (2 x 20 mg) PO DAILY # 270 03/01/25 05/06/25 Rx tabs bupropion HCl 150 mg 24 hr tablet, See Rx Instructions .Route 03/01/25 05/06/25 Rx extended release .COMPLEX #90 tabs citalopram 40 mg tablet See Rx Instructions .Route 0 03/03/25 05/06/25 Rx .COMPLEX #30 tabs aripiprazole 5 mg tablet (Abilify) 5 mg PO QHS #90 tab s 03/04/25 05/06/25 Rx gabapentin 300 mg capsule 600 mg PO HS 03/05/25 History nystatin 100,000 unit/gram topical 1 applic topical BI D PRN rash 03/05/25 05/06/25 History cream nystatin 100,000 unit/gram topical 1 applic topical BI D PRN rash 03/05/25 05/06/25 History powder furosemide 20 mg tablet (Lasix) 20 mg PO .COMPLEX #30 tabs 03/26/25 05/06/25 Rx potassium chloride 10 mEq 10 meq PO .COMPLEX #30 caps 03/26/25 05/06/25 Rx capsule,extended release midodrine 10 mg tablet 10 mg PO .COMPLEX #42 tabs 0 03/29/25 05/06/25 Rx peg lift #1 ea 04/16/25 05/06/25 Rx PEG LIFT #1 ea 04/23/25 05/06/25 Rx spironolactone 25 mg tablet 50 mg (2 x 25 mg) PO BID # 360 tabs 04/25/25 05/06/25 Rx clindamycin HCl 300 mg capsule 300 mg PO Q6H 5 days #2 0 caps 04/29/25 05/06/25 Rx (Cleocin HCl) air mattress #1 ea 05/06/25 05/06/25 Rx meclizine 25 mg tablet 25 mg PO DAILY PRN dizziness 05/06/25 05/06/25 History Allergies Allergy/AdvReac Type Severity Reaction Status Date / Time ciprofloxacin Allergy Intermediate Rash Verified 05/06/25 23:09 amoxicillin (From Augmentin) Allergy Mild Rash Verified 05/06/25 23:09 clavulanic acid (From Allergy Mild Rash Verified 05/06/25 23:09 Augmentin) Sulfa (Sulfonamide Allergy Mild Rash Verified 05/06/25 23:09 Antibiotics) cefuroxime Allergy Rash Verified 05/06/25 23:09 doxycycline AdvReac Unknown Upset Verified 05/06/25 23:09 Stomach Vital Signs Vital Signs - 24 hr 05/06/25 15:45 05/06/25 17:59 Temperature 98.0 F Pulse Rate 68 78 Respiratory Rate 14 12 Blood Pressure 141/50 H 121/69 Pulse Oximetry 98 99 Oxygen Delivery Room Air Exam Const: General: cooperative, comfortable, no acute distress, well developed, awake, Physically active, average body habitus and well nourished Nutritional Appearance: average body habitus Orientation/consciousness: oriented to person, oriented to place, oriented to time and patient oriented x3 Limitations: no limitations HENMT: Head: normal to inspection, No palpable skull fracture present and normocephalic Ears: hearing grossly normal bilaterally Eyes: General: appearance normal, both eyes and all related structures Alignment and Position: alignment normal Periorbital: periorbital findings normal EOM: EOMs intact bilaterally Neck: Neck: normal visual inspection, full ROM, no lymphadenopathy, trachea midline and supple Chest: Chest palpation & inspection: normal inspection of the chest Resp: Effort & Inspection: normal respiratory effort Auscultation: clear to auscultation bilaterally Cardio: Palpation: normal PMI Rate: regular rate Rhythm: regular rhythm Heart sounds: S1 normal heart sound present and S2 normal heart sound present Peripheral pulses: Peripheral pulses 2+ throughout GI: Inspection: normal to inspection Auscultation: Hypoactive bowel sounds present Rectal Exam: deferred : General: Yes no CVA tenderness Urinary Catheter: Urinary Catheter: patent and draining (Suprapubic catheter) Skin: General skin exam: normal color Rashes: no rashes Trauma: no lacerations or abrasions Other: The patient had a wound dressing over the left upper thigh and coccyx area. I d id not remove the dressings at this time however the daughter has recent pictures of the wounds. Both areas appear to be macerated. Please see pictures in the computer. Patient has hyperpigmentation to her lower extremities bilaterally. Neuro: General: oriented to person, oriented to place, oriented to time and patient oriented x3 Cranial nerves: Yes Normal hearing present Cognition (Neuro): normal cognition Speech: normal speech Extrem: Other: Bilateral footdrop upper extremity contraction Psych: Appearance: grossly normal Mental Status: mental status grossly normal Speech and movement: Normal speech and movement present Affect: normal affect Attitude: cooperative Thought process: Normal thought process present Thought content: Yes Normal thought content present H&P: Results Labs Labs: Short CBC 05/06/25 Range/Units 18:10 WBC 9.9 (4.5-10.0) K/mm3 Hgb 12.4 (12.0-15.0) g/dL Hct 38.9 (37.0-47.0) % Plt Count 321 (150-375) k/mm3 BMP 05/06/25 18:10 Sodium 137 Potassium 4.3 Chloride 100 Carbon Dioxide 32 H BUN 15 Creatinine 0.92 Glucose 79 Calcium 9.5 Urine 05/06/25 Range/Units 18:09 Urine Color Yellow (Yellow) Urine Appearance Clear (Clear) Urine pH 6.5 (5.0-9.0) Ur Specific [place] 1.006 (1.001-1.035) Urine Protein Negative (Negative) mg/dL Urine Glucose (UA) Negative (Negative) mg/dL Imaging CT scan - abdomen: Radiologist's impression: Impressions Abdomen/Pelvis CT 05/06/25 19:25 IMPRESSION: 1. Consistent with constipation. 2. Otherwise no acute abnormality. Assessment and Plan Assessment and plan (1) Wound infection: Code(s): T14.8XXA - Other injury of unspecified body region, initial encounter; L08.9 - Local infection of the skin and subcutaneous tissue, unspecified Status: Acute Assessment and Plan: -patient's wound cultures from 04/29/2025 grew MRSA and Pseudomonas aeruginosa. -blood cultures were redrawn -antibiotic recommendations per Infectious Disease. It Is reported that ER has already consulted Infectious Disease. -the patient does not appear to be septic at this time. -she has chronic ulcerations to the left posterior thigh and coccyx area. -wound care consultation was greatly be appreciated. -daily CBCs. -patient is not a candidate for PICC line due to her contractures. Surgery has been consulted for possible Port-A-Cath. (2) Anticoagulant long-term use: Onset Date: Unknown Code(s): Z79.01 - adjunct faculty for medical terminology (current) use of anticoagulants Status: Chronic Assessment and Plan: -the patient is on Eliquis due to her MS she is chronically bed ridden. -according to the daughter this is prophylactic anticoagulation to prevent DVTs due to her immobility -according to the daughter the patient has not had any DVTs or PE (3) Hypothyroidism, unspecified: Code(s): E03.9 - Hypothyroidism, unspecified Status: Acute Assessment and Plan: -continue with levothyroxine. -her last thyroid level on 03/05/2025 was 1.740. (4) Thyroid nodule: Code(s): E04.1 - Nontoxic single thyroid nodule Status: Acute Assessment and Plan: -as per CT on 52.1 cm left thyroid nodule, recommend outpatient thyroid ultrasound for further characterization. -the patient her daughter stated they were not aware of this thyroid nodule and will like to have for ultrasound performed while she is hospitalized. (5) Peripheral vascular disease: Code(s): I73.9 - Peripheral vascular disease, unspecified Status: Acute Assessment and Plan: -the patient stated that she is following up outpatient with vascular surgery for her peripheral artery disease. (6) Depression: Qualifiers: Depression Type: other depression Qualified Code(s): F32.89 - Other specified depressive episodes Code(s): F32.9 - Major depressive disorder, single episode, unspecified Status: Acute Assessment and Plan: -continue with her home medications. Continue bupropion, citalopram, and abilify (7) Constipation: Qualifiers: Constipation type: slow transit constipation Qualified Code(s): K59.01 - Slow transit constipation Code(s): K59.00 - Constipation, unspecified Status: Resolved Assessment and Plan: -the patient was seen by GI and was placed on MiraLax. (8) UTI (urinary tract infection): Code(s): N39.0 - Urinary tract infection, site not specified Status: Acute Assessment and Plan: -urine and blood cultures pending. -the patient is currently on clindamycin and vancomycin. (9) MS (multiple sclerosis): Code(s): G35 - Multiple sclerosis Status: Acute Assessment and Plan: -continue with her baclofen for the muscle spasms. -neurology is currently unavailable to see her at this time and the patient and her daughter aware of this. Quality VTE Prophylaxis VTE prophylaxis: pharmacologic ordered
--- NOTE | 2025-05-06 21:46 | WNDPHOTO ---
PHOTO ONLY - See Nursing Notes and/ or assessments for documentation.
--- NOTE | 2025-05-06 21:58 | WNDPHOTO ---
PHOTO ONLY - See Nursing Notes and/ or assessments for documentation.
--- NOTE | 2025-05-06 22:01 | WNDPHOTO ---
PHOTO ONLY - See Nursing Notes and/ or assessments for documentation.
[2025-05-06] MEDS: FLUCONAZOLE 150 MG TABLET PO (22:14)
[2025-05-06] MEDS: CLINDAMYCIN HCL 150 MG CAP 450 MG PO (22:14)
--- NOTE | 2025-05-06 22:50 | ADMGEN ---
This patient, Redd Sands, was admitted to 3 [facility] Surg Room 319-01. Patient/family oriented to hospital policies and general routines including ID bracelet, bed and alarms, visiting hours, pain management, procedures, bathroom and other care routines, personal items, smoking policy, room service/diet, and visiting hours. Information on how to activate the Rapid Response Team has been discussed. Patient/Family are encouraged to report perceived risks to care and to ask questions if they do not understand what they are told or what they should do.
[2025-05-07 05:30] VITALS: BP 115/61; PULSE 64; RESP 20; TEMP 36.3; O2SAT 99
[2025-05-07 06:50] LABS: Hematocrit 36.3 % (37.0-47.0); Hemoglobin 11.5 g/dL (12.0-15.0); Immature Granulocyte Percent A 0.3 % (0-0.5); Lymphocytes Absolute Auto 2.49 K/mm3 (0.9-3.2); Mean Corpuscular HGB Conc 31.7 g/dl (32-36); Mean Corpuscular Hemoglobin 28.8 pg (26-34); Mean Corpuscular Volume 90.8 fl (80-100); Nucleated Red Blood Cells Absolute Auto 0.000 K/mm3 (0.0-0.012); Nucleated Red Blood Cells Perc 0.0 % (0.0-0.2); Platelet Count Result 283 k/mm3 (150-375); Red Blood Count 4.00 M/mm3 (4.2-5.4); White Blood Count 7.9 K/mm3 (4.5-10.0)
[2025-05-07] MEDS: LEVOTHYROXINE SODIUM 50 MCG TABLET BY MOUTH (06:57)
[2025-05-07] MEDS: CLINDAMYCIN HCL 150 MG CAP 450 MG PO ×3 (06:57→21:02)
[2025-05-07] MEDS: MEROPENEM 1 GM in SODIUM CHLORIDE 0.9% IV 100 ML 200 ML IVPB ×2 (06:58→19:49)
[2025-05-07 07:10] LABS: Anion Gap 8 mmol/L (4-12); Blood Urea Nitrogen 16 mg/dL (7-17); Calcium 9.2 mg/dL (8.4-10.2); Carbon Dioxide 28 mmol/L (22-30); Chloride 100 mmol/L (98-107); Estimated CRCL calculation 49 ml/min; Estimated Glomerular Filt Rate 60; Glucose 85 mg/dL (65-110); Potassium 4.0 mmol/L (3.4-5.0); Sodium 136 mmol/L (137-145)
--- NOTE | 2025-05-07 09:01 | WPDIDCN ---
Assessment and Plan Assessment and plan (1) Wound infection: Code(s): T14.8XXA - Other injury of unspecified body region, initial encounter; L08.9 - Local infection of the skin and subcutaneous tissue, unspecified Status: Acute (2) Wound of left leg: Qualifiers: Encounter type: subsequent encounter Qualified Code(s): S81.802D - Unspecified open wound, left lower leg, subsequent encounter Code(s): S81.802A - Unspecified open wound, left lower leg, initial encounter Status: Acute (3) MRSA (methicillin resistant staph aureus) culture positive: Code(s): Z22.322 - Carrier or suspected carrier of Methicillin resistant Staphylococcus aureus Status: Acute (4) Pseudomonas aeruginosa infection: Code(s): A49.8 - Other bacterial infections of unspecified site Status: Acute (5) Catheter-associated urinary tract infection: Code(s): T83.511A - Infection and inflammatory reaction due to indwelling urethral catheter, initial encounter; N39.0 - Urinary tract infection, site not specified Status: Acute (6) MS (multiple sclerosis): Code(s): G35 - Multiple sclerosis Status: Acute (7) Complete immobility due to severe physical disability or frailty: Code(s): R53.2 - Functional quadriplegia Status: Acute (8) Allergy to antibiotic: Code(s): Z88.1 - Allergy status to other antibiotic agents Status: Acute (9) Vaginitis: Code(s): N76.0 - Acute vaginitis Status: Acute Plan # Posterior left thigh pressure ulcer wound now culture positive for Pseudomonas and MRSA. # Neurogenic bladder with suprapubic catheter and pyuria on urinalysis-- possible CAUTI. -- urine culture pending. # Multiple antibiotic allergies producing rash including penicillins, oral cephalosporin, ciprofloxacin, and sulfa medications. -- also with GI intolerance to doxycycline. # Concern for [place] vaginitis. Plan: -- continue meropenem and clindamycin with anticipated course of 5 days. -- await urine culture which may result in antibiotic adjustment. -- fluconazole 150 mg p.o. now with 2nd dose 05/11/2025. Patient was seen via video telehealth consultation with the assistance of staff. Chart, data, and patient independently reviewed. Patient was located at [facility] while I was located in my [place] office. Received verbal consent from patient. HPI Data of Consult Date/Time: 05/07/25 09:01 Requesting Physician: Sharon Crook MD Primary Care Provider: Natalia Juarez MD Consult Narrative Reason for consult: Pseudomonas/MRSA infected wound Narrative: Redd Sands is a 59 year old female who presented to the ED from home yesterday. Past medical history significant for advanced multiple sclerosis leading to a bed-bound state with contractures. Additional past medical history significant for pressure ulcer wound infections, hypothyroidism, vitamin-D deficiency, leg varicosity with ulcer, and anticoagulation as DVT prophylaxis. She is status post laparoscopic cholecystectomy in 2021 for cholecystitis associated with cholelithiasis and choledocholithiasis and associated right hepatic abscess. She presents after left thigh wound cultures were reported positive for Pseudomonas and MRSA. She originally presented to the ED 04/29/2025 secondary to chronic left posterior thigh wound VAC per family report developed green drainage. Two weeks prior she had been discharge after hospitalization in [place] for treatment of this wound. She was discharged on oral Keflex which completed several days prior to the 04/29/2025 ED visit. Evaluation that time identified a 4 x 4 cm area of erythema and warmth to the posterior thigh with no active drainage but some green appearing substance on the dressing. She discharge from the ED on a course of clindamycin. Cultures from this ED visit either ones reported positive for Pseudomonas and MRSA. In addition, there is a complaint of significant constipation associated with abdominal pain. Currently incontinent of bowel with passage of hardened stool. She has a neurogenic bladder and maintains a suprapubic catheter and current urinalysis has identified 3+ leukocyte esterase with 21-50 wbc's. Daughter is also concerned patient may have a vaginal yeast infection related to recent antibiotic use. Regarding antibiotics, she is reportedly allergic to penicillins ( specifically amoxicillin ), cephalosporins ( specifically cefuroxime), ciprofloxacin, and sulfa medication. All these agents trigger rash. She also has adverse reaction to doxycycline producing GI upset. Finally, the daughter reports recent exposure to COVID. Current rapid respiratory panel including SARS-CoV-2 is negative. She has been afebrile with stable vital signs and tolerating room air. White blood cell count is 7.9. CT of the abdomen and pelvis is consistent with constipation. She has been admitted and placed on meropenem and clindamycin. Review of Systems Review of Systems: All systems reviewed & are unremarkable except as noted in HPI and below [facility] Past Medical History Medical History (Updated 05/07/25 @ 09:48 by Vlad Epstein MD) Upper respiratory infection Cholecystitis, acute with cholelithiasis Choledocholithiasis Acute cholecystitis (~11/2021) Wound infection Thyroid nodule Muscle spasticity Hypothyroidism, unspecified Neuropathy Hair loss Leg varicosity w/ ulcer Hyperpigmentation of skin Multiple sclerosis (Unknown) Anticoagulant long-term use (Unknown) On apixaban for DVT prophylaxis. Lymphedema (Unknown) Depression Complete immobility due to severe physical disability or frailty Vitamin D deficiency Surgical History Surgical History H/O left knee surgery History of laparoscopic cholecystectomy 11/24/2021 - laparoscopic cholecystectomy and drainage of a right perihepatic abscess. History of tubal ligation Family History Family History Mother Family history of malignant neoplasm of breast in first degree relative Father Family history of coronary artery disease FH: colon polyps Dementia Social History Social History (Updated 05/06/25 @ 20:54 by Rosemarie Brownlee APRN) Social History: The patient lives at home with her , Casey, and is primarily bedbound. She requires assistance to get to a powered wheelchair when needed for mobility. No alcohol, tobacco, or illicit substance use. She designates her as her surrogate decision maker and she wishes to be a full code. She has 2 children. Code status: Full code Smoking status: Never smoker Second hand tobacco smoke exposure: No Alcohol intake: never Substance use: never Substance use type: does not use Do You Feel Safe in your Home?: Yes Lack of Transportation: No Lack of Food: Never True Current Housing: I Have Housing Concerned About Future Housing: No Difficulty Paying Gas/Electric Bills: No Difficulty Paying for Meds: No Currently Unemployed: No Education: High School Diploma/GED Difficulty w/ Childcare or Family Care: No Living arrangements: with family Gender identity (if verbalized by the patient): Female Spiritual care concerns: No Agree to blood products: Yes Meds Home Medications and Allergies Home Medications ?Medication ?Instructions ?Recorded ?Confirmed ?Type pyridoxine (vitamin B6) 100 mg 100 mg PO DAILY #100 tabs 03/14/21 05/06/25 Rx tablet omeprazole 40 mg capsule,delayed 40 mg PO BID #180 caps 11/05/24 05/06/25 Rx release apixaban 2.5 mg tablet (Eliquis) 2.5 mg PO BID #60 tabs 12/15/24 05/06/25 Rx minoxidil 2.5 mg tablet 2.5 mg PO DAILY 12/16/24 05/06/25 History levothyroxine 50 mcg tablet See Rx Instructions .Route 01/27/25 05/06/25 Rx .COMPLEX #90 tabs baclofen 20 mg tablet 40 mg (2 x 20 mg) PO DAILY #270 03/01/25 05/06/25 Rx tabs bupropion HCl 150 mg 24 hr tablet, See Rx Instructions .Route 03/01/25 05/06/25 Rx extended release .COMPLEX #90 tabs citalopram 40 mg tablet See Rx Instructions .Route 03/03/25 05/06/25 Rx .COMPLEX #30 tabs aripiprazole 5 mg tablet (Abilify) 5 mg PO QHS #90 tabs 03/04/25 05/06/25 Rx gabapentin 300 mg capsule 600 mg PO HS 03/05/25 05/06/25 History nystatin 100,000 unit/gram topical 1 applic topical BID PRN rash 03/05/25 05/06/25 History cream nystatin 100,000 unit/gram topical 1 applic topical BID PRN rash 03/05/25 05/06/25 History powder furosemide 20 mg tablet (Lasix) 20 mg PO .COMPLEX #30 tabs 03/26/25 05/06/25 Rx potassium chloride 10 mEq 10 meq PO .COMPLEX #30 caps 03/26/25 05/06/25 Rx capsule,extended release midodrine 10 mg tablet 10 mg PO .COMPLEX #42 tabs 03/29/25 05/06/25 Rx eliane lift #1 ea 04/16/25 05/06/25 Rx ELIANE LIFT #1 ea 04/23/25 05/06/25 Rx spironolactone 25 mg tablet 50 mg (2 x 25 mg) PO BID #360 tabs 04/25/25 05/06/25 Rx clindamycin HCl 300 mg capsule 300 mg PO Q6H 5 days #20 caps 04/29/25 05/06/25 Rx (Cleocin HCl) air mattress #1 ea 05/06/25 05/06/25 Rx meclizine 25 mg tablet 25 mg PO DAILY PRN dizziness 05/06/25 05/06/25 History Allergies Allergy/AdvReac Type Severity Reaction Status Date / Time ciprofloxacin Allergy Intermediate Rash Verified 05/06/25 23:09 amoxicillin (From Augmentin) Allergy Mild Rash Verified 05/06/25 23:09 clavulanic acid (From Allergy Mild Rash Verified 05/06/25 23:09 Augmentin) Sulfa (Sulfonamide Allergy Mild Rash Verified 05/06/25 23:09 Antibiotics) cefuroxime Allergy Rash Verified 05/06/25 23:09 doxycycline AdvReac Unknown Upset Verified 05/06/25 23:09 Stomach Vital Signs Vital Signs - 24 hr 05/06/25 15:45 05/06/25 15:56 05/06/25 16:00 Temperature 98.0 F Pulse Rate 68 67 70 Respiratory Rate 14 15 14 Blood Pressure 141/50 H Pulse Oximetry 98 100 Oxygen Delivery Room Air 05/06/25 16:01 05/06/25 17:03 05/06/25 17:15 Temperature Pulse Rate 71 72 75 Respiratory Rate 12 12 12 Blood Pressure 125/57 L Pulse Oximetry 98 99 97 Oxygen Delivery 05/06/25 17:30 05/06/25 17:31 05/06/25 17:45 Temperature Pulse Rate 73 74 76 Respiratory Rate 13 12 14 Blood Pressure 121/52 L Pulse Oximetry 99 98 98 Oxygen Delivery 05/06/25 17:59 05/06/25 18:01 05/06/25 18:02 Temperature Pulse Rate 78 74 75 Respiratory Rate 12 14 13 Blood Pressure 121/69 124/54 L Pulse Oximetry 99 98 99 Oxygen Delivery 05/06/25 18:15 05/06/25 18:16 05/06/25 18:30 Temperature Pulse Rate 80 78 77 Respiratory Rate 17 15 11 L Blood Pressure 126/68 Pulse Oximetry Oxygen Delivery 05/06/25 18:31 05/06/25 18:45 05/06/25 18:46 Temperature Pulse Rate 78 76 77 Respiratory Rate 17 12 10 L Blood Pressure 130/65 132/59 L Pulse Oximetry Oxygen Delivery 05/06/25 19:00 05/06/25 19:01 05/06/25 19:24 Temperature Pulse Rate 80 80 81 Respiratory Rate 12 12 Blood Pressure 121/53 L Pulse Oximetry 98 Oxygen Delivery 05/06/25 19:30 05/06/25 19:31 05/06/25 19:45 Temperature Pulse Rate 79 79 78 Respiratory Rate 11 L 10 L 16 Blood Pressure 104/39 L Pulse Oximetry 96 99 95 Oxygen Delivery 05/06/25 19:46 05/06/25 20:00 05/06/25 20:01 Temperature Pulse Rate 80 78 78 Respiratory Rate 14 11 L 11 L Blood Pressure 104/61 124/57 L Pulse Oximetry 95 98 96 Oxygen Delivery 05/06/25 20:16 05/06/25 20:30 05/06/25 20:45 Temperature Pulse Rate 80 78 77 Respiratory Rate 13 12 11 L Blood Pressure 111/47 L Pulse Oximetry 93 95 94 Oxygen Delivery 05/06/25 20:46 05/06/25 21:00 05/06/25 21:16 Temperature Pulse Rate 77 77 75 Respiratory Rate 6 L 14 11 L Blood Pressure 108/55 L 102/51 L Pulse Oximetry 95 95 97 Oxygen Delivery 05/06/25 21:27 05/06/25 21:30 05/06/25 22:00 Temperature 97.5 F L Pulse Rate 75 73 73 Respiratory Rate 12 16 16 Blood Pressure 118/59 L Pulse Oximetry 96 95 95 Oxygen Delivery Room Air 05/07/25 05:30 Temperature 97.4 F L Pulse Rate 64 Respiratory Rate 20 Blood Pressure 115/61 Pulse Oximetry 99 Oxygen Delivery Exam Narrative: Lying in bed with significant immobility. Awake, alert, and interactive. Nontoxic in appearance. No conjunctivitis. No respiratory distress. No significant abdominal distention. Issues with constipation continue. Suprapubic catheter in place. Photos of pressure wounds noted. Current primary wound involves left posterior thigh. Per medical staff today, wound already showing improvement. Trace bilateral lower extremity edema. Evidence of hemosiderin deposition secondary to chronic stasis dermatitis. No rash. Results Labs 05/07/25 06:42 05/07/25 06:42 Labs: Short CBC 05/06/25 05/07/25 Range/Units 18:10 06:42 WBC 9.9 7.9 (4.5-10.0) K/mm3 Hgb 12.4 11.5 L (12.0-15.0) g/dL Hct 38.9 36.3 L (37.0-47.0) % Plt Count 321 283 (150-375) k/mm3 BMP 05/06/25 05/07/25 18:10 06:42 Sodium 137 136 L Potassium 4.3 4.0 Chloride 100 100 Carbon Dioxide 32 H 28 BUN 15 16 Creatinine 0.92 0.95 Glucose 79 85 Calcium 9.5 9.2 Urine 05/06/25 Range/Units 18:09 Urine Color Yellow (Yellow) Urine Appearance Clear (Clear) Urine pH 6.5 (5.0-9.0) Ur Specific [place] 1.006 (1.001-1.035) Urine Protein Negative (Negative) mg/dL Urine Glucose (UA) Negative (Negative) mg/dL
[2025-05-07] MEDS: BACLOFEN 10 MG TABLET 40 MG PO (10:07)
[2025-05-07] MEDS: buPROPion HCL XL (24 HR) 150 MG TABCR 450 MG BY MOUTH (10:08)
[2025-05-07] MEDS: SACCHAROMYCES BOULARDII 250 MG CAPSULE PO ×2 (10:08→17:27)
[2025-05-07] MEDS: PANTOPRAZOLE 40 MG TABLET PO ×2 (10:08→17:27)
[2025-05-07] MEDS: PYRIDOXINE HCL 50 MG TABLET 100 MG PO (10:08)
[2025-05-07] MEDS: SPIRONOLACTONE 25 MG TABLET 50 MG PO ×2 (10:08→17:26)
[2025-05-07] MEDS: CITALOPRAM HYDROBROMIDE 20 MG TABLET BY MOUTH (10:08)
[2025-05-07] MEDS: APIXABAN 2.5 MG TABLET PO ×2 (10:10→21:02)
--- NOTE | 2025-05-07 12:46 | PM.IMPN ---
Progress Note: A&P Assessment and Plan (1) Wound infection: Code(s): T14.8XXA - Other injury of unspecified body region, initial encounter; L08.9 - Local infection of the skin and subcutaneous tissue, unspecified Status: Acute Assessment and Plan: -patient's wound cultures from 04/29/2025 grew MRSA and Pseudomonas aeruginosa. -blood cultures were redrawn -antibiotic recommendations per Infectious Disease. It Is reported that ER has already consulted Infectious Disease. -the patient does not appear to be septic at this time. -she probably had ulcerations to the left posterior thigh and coccyx area recently but these have already healed now. -wound care consultation and reviewed their recommendations. -patient is not a candidate for PICC line due to her contractures.? Surgery has been consulted for possible Port-A-Cath. Since no further infection is currently present will hold off on further treatment with IV antibiotics. Will await Infectious Disease consultation. Currently on meropenem and clindamycin (2) Anticoagulant long-term use: Onset Date: Unknown Code(s): Z79.01 - [facility] (current) use of anticoagulants Status: Chronic Assessment and Plan: -the patient is on Eliquis due to her MS she is chronically bed ridden. -according to the daughter this is prophylactic anticoagulation to prevent DVTs due to her immobility -according to the daughter the patient has not had any DVTs or PE (3) Hypothyroidism, unspecified: Code(s): E03.9 - Hypothyroidism, unspecified Status: Acute Assessment and Plan: -continue with levothyroxine. -her last thyroid level on 03/05/2025 was 1.740. (4) Thyroid nodule: Code(s): E04.1 - Nontoxic single thyroid nodule Status: Acute Assessment and Plan: -as per CT on 52.1 cm left thyroid nodule, recommend outpatient thyroid ultrasound for further characterization. -the patient her daughter stated they were not aware of this thyroid nodule and will like to have for ultrasound performed while she is hospitalized. (5) Peripheral vascular disease: Code(s): I73.9 - Peripheral vascular disease, unspecified Status: Acute Assessment and Plan: -the patient stated that she is following up outpatient with vascular surgery for her peripheral artery disease. (6) Depression: Qualifiers: Depression Type: other depression Qualified Code(s): F32.89 - Other specified depressive episodes Code(s): F32.9 - Major depressive disorder, single episode, unspecified Status: Acute Assessment and Plan: -continue with her home medications. Continue bupropion, citalopram, and abilify (7) Constipation: Qualifiers: Constipation type: slow transit constipation Qualified Code(s): K59.01 - Slow transit constipation Code(s): K59.00 - Constipation, unspecified Status: Resolved Assessment and Plan: -the patient was seen by GI and was placed on MiraLax. (8) UTI (urinary tract infection): Code(s): N39.0 - Urinary tract infection, site not specified Status: Acute Assessment and Plan: Urinalysis with 21-50 urine WBC and 3+ leukocyte esterase Patient has chronic indwelling suprapubic catheter Urine culture has been sent Follow urine and blood cultures which is pending at this time. She does not report any particular urinary symptoms though. -the patient is currently on clindamycin and vancomycin. (9) MS (multiple sclerosis): Code(s): G35 - Multiple sclerosis Status: Acute Assessment and Plan: -continue with her baclofen for the muscle spasms. -neurology is currently unavailable to see her at this time and the patient and her daughter aware of this. Subjective Date/time seen: 05/07/25 12:46 Interval history: Chart reviewed. Denies any new complaints. She was told by her PCP to go to the hospital. Had some wound in back of her thigh which was swabbed a week ago. Culture came back positive for multiple different bacteria. She denies any chest pain or shortness of breath. She denies any leg pain. Review of Systems Review of Systems: All systems reviewed & are unremarkable except as noted in HPI and below Exam Narrative: APPEARANCE: No acute distress, nontoxic, resting in bed EYES: EOMI HEENT: Normocephalic, atraumatic, OMM RESPIRATORY: No respiratory distress Clear to auscultation bilaterally with no rhonchi wheezing or rales. CARDIOVASCULAR: Regular rate and rhythm without murmurs rubs or gallops. ABDOMINAL: Soft, nontender, nondistended, no rebound or guarding MUSCULOSKELETAl: Moves all extremities. No clubbing, cyanosis or edema. NEURO: Awake and alert. 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 SKIN:: Warm, dry. 4 x 4 cm area of erythema and warmth to the posterior thigh with no active drainage PSYCHIATRIC: Normal affect/mood, Objective Data Vital Signs Vital Signs: Vital Signs - 24 hr 05/06/25 15:45 05/06/25 15:56 05/06/25 16:00 Temperature 98.0 F Pulse Rate 68 67 70 Respiratory Rate 14 15 14 Blood Pressure 141/50 H Pulse Oximetry 98 100 Oxygen Delivery Room Air 05/06/25 16:01 05/06/25 17:03 05/06/25 17:15 Temperature Pulse Rate 71 72 75 Respiratory Rate 12 12 12 Blood Pressure 125/57 L Pulse Oximetry 98 99 97 Oxygen Delivery 05/06/25 17:30 05/06/25 17:31 05/06/25 17:45 Temperature Pulse Rate 73 74 76 Respiratory Rate 13 12 14 Blood Pressure 121/52 L Pulse Oximetry 99 98 98 Oxygen Delivery 05/06/25 17:59 05/06/25 18:01 05/06/25 18:02 Temperature Pulse Rate 78 74 75 Respiratory Rate 12 14 13 Blood Pressure 121/69 124/54 L Pulse Oximetry 99 98 99 Oxygen Delivery 05/06/25 18:15 05/06/25 18:16 05/06/25 18:30 Temperature Pulse Rate 80 78 77 Respiratory Rate 17 15 11 L Blood Pressure 126/68 Pulse Oximetry Oxygen Delivery 05/06/25 18:31 05/06/25 18:45 05/06/25 18:46 Temperature Pulse Rate 78 76 77 Respiratory Rate 17 12 10 L Blood Pressure 130/65 132/59 L Pulse Oximetry Oxygen Delivery 05/06/25 19:00 05/06/25 19:01 05/06/25 19:24 Temperature Pulse Rate 80 80 81 Respiratory Rate 12 12 Blood Pressure 121/53 L Pulse Oximetry 98 Oxygen Delivery 05/06/25 19:30 05/06/25 19:31 05/06/25 19:45 Temperature Pulse Rate 79 79 78 Respiratory Rate 11 L 10 L 16 Blood Pressure 104/39 L Pulse Oximetry 96 99 95 Oxygen Delivery 05/06/25 19:46 05/06/25 20:00 05/06/25 20:01 Temperature Pulse Rate 80 78 78 Respiratory Rate 14 11 L 11 L Blood Pressure 104/61 124/57 L Pulse Oximetry 95 98 96 Oxygen Delivery 05/06/25 20:16 05/06/25 20:30 05/06/25 20:45 Temperature Pulse Rate 80 78 77 Respiratory Rate 13 12 11 L Blood Pressure 111/47 L Pulse Oximetry 93 95 94 Oxygen Delivery 05/06/25 20:46 05/06/25 21:00 05/06/25 21:16 Temperature Pulse Rate 77 77 75 Respiratory Rate 6 L 14 11 L Blood Pressure 108/55 L 102/51 L Pulse Oximetry 95 95 97 Oxygen Delivery 05/06/25 21:27 05/06/25 21:30 05/06/25 22:00 Temperature 97.5 F L Pulse Rate 75 73 73 Respiratory Rate 12 16 16 Blood Pressure 118/59 L Pulse Oximetry 96 95 95 Oxygen Delivery Room Air 05/07/25 05:30 Temperature 97.4 F L Pulse Rate 64 Respiratory Rate 20 Blood Pressure 115/61 Pulse Oximetry 99 Oxygen Delivery Intake/Output Intake/Output: Intake & Output 05/04/25 05/05/25 05/06/25 05/07/25 23:59 23:59 23:59 23:59 Intake Total 200 300 Output Total 300 Balance 200 0 Meds/Results Medications: Active Medications Generic Name Dose Route Start Last Admin Trade Name Freq PRN Reason Stop Dose Admin Acetaminophen 650 mg 05/06/25 19:51 Acetaminophen 325 Mg Tablet PO Q4H PRN Mild Pain (1-3) or Fever Apixaban 2.5 mg 05/07/25 09:00 05/07/25 10:10 Apixaban 2.5 Mg Tablet PO 2.5 mg Q12HR TYRON Administration Aripiprazole 5 mg 05/07/25 21:00 Aripiprazole 5 Mg Tablet PO QHS TYRON Baclofen 40 mg 05/07/25 09:00 05/07/25 10:07 Baclofen 10 Mg Tablet PO 40 mg DAILY TYRON Administration Bupropion HCl 450 mg 05/07/25 09:00 05/07/25 10:08 Bupropion Hcl Xl (24 Hr) 150 Mg Tabcr BY MOUTH 450 mg DAILY YTRON Administration Citalopram Hydrobromide 20 mg 05/07/25 09:00 05/07/25 10:08 Citalopram Hydrobromide 20 Mg Tablet BY MOUTH 20 mg DAILY TYRON Administration Clindamycin HCl 450 mg 05/06/25 22:00 05/07/25 06:57 Clindamycin Hcl 150 Mg Cap PO 450 mg Q8HR TYRON Administration Dextrose 12.5 gm 05/06/25 19:51 Dextrose 50% 25 Gm/50 Ml Syringe IV PUSH PRN PRN Hypoglycemia Protocol Furosemide 20 mg 05/11/25 09:00 Furosemide 20 Mg Tablet PO TuTh@0900 TYRON Gabapentin 600 mg 05/07/25 21:00 Gabapentin 300 Mg Capsule PO HS TYRON Glucagon 1 mg 05/06/25 19:51 Glucagon For Inj 1 Mg Vial IM PRN PRN Hypoglycemia Protocol Glucose 15 gm 05/06/25 19:51 Glucose Oral Gel 15 Gm Of Glucse In 37.5 Gm Tube PO PRN PRN Hypoglycemia Protocol Meropenem 1 gm/ Sodium 100 mls @ 200 mls/hr 05/07/25 07:00 05/07/25 07:28 Chloride IVPB Infused Q12H TYRON Infusion Dextrose 1,000 mls @ 100 mls/hr 05/06/25 19:51 Dextrose 5% 1,000 Ml IVPB PRN PRN Hypoglycemia Protocol Levothyroxine Sodium 50 mcg 05/07/25 06:30 05/07/25 06:57 Levothyroxine Sodium 50 Mcg Tablet BY MOUTH 50 mcg DAILY@0630 TYRON Administration Meclizine HCl 25 mg 05/07/25 01:01 Meclizine Hcl 25 Mg Tablet PO DAILY PRN Dizziness Midodrine 10 mg 05/07/25 09:00 Midodrine Hcl 10 Mg Tablet PO TID PRN SBP <110 Minoxidil 2.5 mg 05/07/25 09:00 05/07/25 10:16 Minoxidil 2.5 Mg Tablet PO 2.5 mg DAILY TYRON Administration Miscellaneous Information 1 each 05/07/25 05:26 Nystatin Powder Is Substituted To Tolnaftate Powder XX 05/08/25 05:25 Q12HR PRN Informational Ondansetron HCl 4 mg 05/06/25 19:51 Ondansetron Inj 4 Mg/2 Ml Vial IV PUSH Q4H PRN Nausea Pantoprazole Sodium 40 mg 05/07/25 09:00 05/07/25 10:08 Pantoprazole 40 Mg Tablet PO 40 mg BID TYRON Administration Polyethylene Glycol 17 gm 05/07/25 03:35 Polyethylene Glycol 3350 17 Gm Powd.Pack PO QAM PRN Constipation Potassium Chloride 10 meq 05/11/25 09:00 Potassium Chloride 10 Meq Er Tablet PO TuTh@0900 [facility] Pyridoxine HCl 100 mg 05/07/25 09:00 05/07/25 10:08 Pyridoxine Hcl 50 Mg Tablet PO 100 mg QAM TYRON Administration Saccharomyces Boulardii 250 mg 05/07/25 09:00 05/07/25 10:08 Saccharomyces Boulardii 250 Mg Capsule PO 250 mg BID TYRON Administration Spironolactone 50 mg 05/07/25 09:00 05/07/25 10:08 Spironolactone 25 Mg Tablet PO 50 mg BID TYRON Administration Radiology Results: ITS Impressions Abdomen/Pelvis CT 05/06/25 19:25 IMPRESSION: 1. Consistent with constipation. 2. Otherwise no acute abnormality. Labs Labs: Laboratory Results - last 24 hr 05/06/25 05/06/25 05/06/25 18:09 18:10 18:11 WBC 9.9 RBC 4.35 Hgb 12.4 Hct 38.9 MCV 89.4 MCH 28.5 MCHC 31.9 L RDW 15.3 H Plt Count 321 MPV 10.5 H Immature Gran % (Auto) 0.1 Neut % (Auto) 56.1 Lymph % (Auto) 31.8 [place] % (Auto) 8.4 Eos % (Auto) 3.0 Baso % (Auto) 0.6 Lymph # (Auto) 3.16 [place] # (Auto) 0.8 H Eos # (Auto) 0.3 Baso # (Auto) 0.1 Abs Immat Gran (auto) 0.01 Absolute Neuts (auto) 5.6 Absolute Nucleated RBC 0.000 Nucleated RBC % 0.0 PT 15.2 H INR 1.2 APTT 30.7 Sodium 137 Potassium 4.3 Chloride 100 Carbon Dioxide 32 H Anion Gap 5 BUN 15 Creatinine 0.92 Estim Creat Clear Calc 51 Estimated GFR > 60 Glucose 79 Calcium 9.5 Urine Color Yellow Urine Appearance Clear Urine pH 6.5 Ur Specific [place] 1.006 Urine Protein Negative Urine Glucose (UA) Negative Urine Ketones Negative Ur Blood (Man) Trace Urine Nitrate Negative Urine Bilirubin Negative Urine Urobilinogen 0.2 Leukocyte Esterase Rfl 3+ H Urine RBC 0-2 Urine WBC 21-50 H Ur Squamous Epith Cells None seen Urine Bacteria 4+ H Urine Casts 0-2 Influenza A (RT-PCR) Influenza B (RT-PCR) RSV (RT-PCR) SARS-CoV-2 RNA (RT-PCR) 05/06/25 05/07/25 19:58 06:42 WBC 7.9 RBC 4.00 L Hgb 11.5 L Hct 36.3 L MCV 90.8 MCH 28.8 MCHC 31.7 L RDW 15.7 H Plt Count 283 MPV 10.2 Immature Gran % (Auto) 0.3 Neut % (Auto) 55.7 Lymph % (Auto) 31.6 [place] % (Auto) 9.4 H Eos % (Auto) 2.4 Baso % (Auto) 0.6 Lymph # (Auto) 2.49 [place] # (Auto) 0.7 H Eos # (Auto) 0.2 Baso # (Auto) 0.1 Abs Immat Gran (auto) 0.02 Absolute Neuts (auto) 4.4 Absolute Nucleated RBC 0.000 Nucleated RBC % 0.0 PT INR APTT Sodium 136 L Potassium 4.0 Chloride 100 Carbon Dioxide 28 Anion Gap 8 BUN 16 Creatinine 0.95 Estim Creat Clear Calc 49 Estimated GFR 60 Glucose 85 Calcium 9.2 Urine Color Urine Appearance Urine pH Ur Specific [place] Urine Protein Urine Glucose (UA) Urine Ketones Ur Blood (Man) Urine Nitrate Urine Bilirubin Urine Urobilinogen Leukocyte Esterase Rfl Urine RBC Urine WBC Ur Squamous Epith Cells Urine Bacteria Urine Casts Influenza A (RT-PCR) Negative Influenza B (RT-PCR) Negative RSV (RT-PCR) Negative SARS-CoV-2 RNA (RT-PCR) Negative
[2025-05-07 13:38] VITALS: BP 114/55; PULSE 76; RESP 16; TEMP 36.3; O2SAT 99
--- NOTE | 2025-05-07 16:23 | PM.CNGS ---
Assessment and Plan Assessment and plan (1) Positive culture findings in wound: Code(s): R89.5 - Abnormal microbiological findings in specimens from other organs, systems and tissues Status: Acute Assessment and Plan: Patient to be on meropenem and clindamycin for approximately 5 days per Infectious Disease workday consultant. Also awaiting urine cultures to see if need to treat UTI. Additionally receiving a couple of doses of diflucan for yeast. (2) Multiple sclerosis: Code(s): G35 - Multiple sclerosis Status: Chronic Assessment and Plan: Advanced (3) Complete immobility due to severe physical disability or frailty: Code(s): R53.2 - Functional quadriplegia Status: Chronic Assessment and Plan: Due to multiple sclerosis (4) Anticoagulant long-term use: Onset Date: Unknown Code(s): Z79.01 - [facility] (current) use of anticoagulants Status: Chronic Assessment and Plan: Apixaban 2.5 mg q.12 hours as DVT prophylaxis (5) Encounter for care related to Port-a-Cath: Code(s): Z45.2 - Encounter for adjustment and management of vascular access device Status: Acute Assessment and Plan: This could possibly be placed on Saturday if patient will still be here. Otherwise can be placed as an outpatient at a time convenient for her. I described the procedure and described a Port-A-Cath. I explained to her what it is used for and some potential complications that can be associated with placement and chronic use. History of Present Illness Consult details Consult date: 05/07/25 Reason for consult: central line (Request Port-A-Cath) Requesting physician: Atul Oshea MD Narrative: Patient is a 59-year-old woman who had positive cultures on some buttocks and thigh wounds. The cultures were positive for Pseudomonas and MRSA. She has a suprapubic chronic catheter and urinary tract infection is also being deliberated. Patient has advanced multiple sclerosis and flexion contracture such that she only gets around in a wheelchair and cannot use her arms. She is admitted at this time for antibiotics as recommended by our Infectious Disease specialist. She currently has an IV in her right forearm. IV access is a chronic problem for her and I was asked to consult regarding possible placement of a Port-A-Cath. Patient is aware that this has been discussed and is amenable to having this placed if it is indicated. She currently has not had any fevers and her white blood cell count has been normal since admission yesterday. No were the, patient was here and in septic shock requiring ICU care last February, 2 months ago. Review of Systems Review of Systems: All systems reviewed & are unremarkable except as noted in HPI and below (HPI) FORMERLY [facility], [facility] Past Medical History Medical History Upper respiratory infection Cholecystitis, acute with cholelithiasis Choledocholithiasis Acute cholecystitis (~11/2021) Wound infection Thyroid nodule Muscle spasticity Hypothyroidism, unspecified Neuropathy Hair loss Leg varicosity w/ ulcer Hyperpigmentation of skin Multiple sclerosis (Unknown) Anticoagulant long-term use (Unknown) On apixaban for DVT prophylaxis. Lymphedema (Unknown) Depression Complete immobility due to severe physical disability or frailty Vitamin D deficiency Surgical History Surgical History H/O left knee surgery History of laparoscopic cholecystectomy 11/24/2021 - laparoscopic cholecystectomy and drainage of a right perihepatic abscess. History of tubal ligation Family History Family History Mother Family history of malignant neoplasm of breast in first degree relative Father Family history of coronary artery disease FH: colon polyps Dementia Social History Social History Social History: The patient lives at home with her , Casey, and is primarily bedbound. She requires assistance to get to a powered wheelchair when needed for mobility. No alcohol, tobacco, or illicit substance use. She designates her as her surrogate decision maker and she wishes to be a full code. She has 2 children. Code status: Full code Smoking status: Never smoker Second hand tobacco smoke exposure: No Alcohol intake: never Substance use: never Substance use type: does not use Do You Feel Safe in your Home?: Yes Lack of Transportation: No Lack of Food: Never True Current Housing: I Have Housing Concerned About Future Housing: No Difficulty Paying Gas/Electric Bills: No Difficulty Paying for Meds: No Currently Unemployed: No Education: High School Diploma/GED Difficulty w/ Childcare or Family Care: No Living arrangements: with family Gender identity (if verbalized by the patient): Female Spiritual care concerns: No Agree to blood products: Yes Meds Home Medications and Allergies Home Medications ?Medication ?Instructions ?Recorded ?Confirmed ?Type pyridoxine (vitamin B6) 100 mg 100 mg PO DAILY #100 tabs 03/14/21 05/06/25 Rx tablet omeprazole 40 mg capsule,delayed 40 mg PO BID #180 caps 11/05/24 05/06/25 Rx release apixaban 2.5 mg tablet (Eliquis) 2.5 mg PO BID #60 tabs 12/15/24 05/06/25 Rx minoxidil 2.5 mg tablet 2.5 mg PO DAILY 12/16/24 05/06/25 History levothyroxine 50 mcg tablet See Rx Instructions .Route 01/27/25 05/06/25 Rx .COMPLEX #90 tabs baclofen 20 mg tablet 40 mg (2 x 20 mg) PO DAILY #270 03/01/25 05/06/25 Rx tabs bupropion HCl 150 mg 24 hr tablet, See Rx Instructions .Route 03/01/25 05/06/25 Rx extended release .COMPLEX #90 tabs citalopram 40 mg tablet See Rx Instructions .Route 03/03/25 05/06/25 Rx .COMPLEX #30 tabs aripiprazole 5 mg tablet (Abilify) 5 mg PO QHS #90 tabs 03/04/25 05/06/25 Rx gabapentin 300 mg capsule 600 mg PO HS 03/05/25 05/06/25 History nystatin 100,000 unit/gram topical 1 applic topical BID PRN rash 03/05/25 05/06/25 History cream nystatin 100,000 unit/gram topical 1 applic topical BID PRN rash 03/05/25 05/06/25 History powder furosemide 20 mg tablet (Lasix) 20 mg PO .COMPLEX #30 tabs 03/26/25 05/06/25 Rx potassium chloride 10 mEq 10 meq PO .COMPLEX #30 caps 03/26/25 05/06/25 Rx capsule,extended release midodrine 10 mg tablet 10 mg PO .COMPLEX #42 tabs 03/29/25 05/06/25 Rx eliane lift #1 ea 04/16/25 05/06/25 Rx ELIANE LIFT #1 ea 04/23/25 05/06/25 Rx spironolactone 25 mg tablet 50 mg (2 x 25 mg) PO BID #360 tabs 04/25/25 05/06/25 Rx clindamycin HCl 300 mg capsule 300 mg PO Q6H 5 days #20 caps 04/29/25 05/06/25 Rx (Cleocin HCl) air mattress #1 ea 05/06/25 05/06/25 Rx meclizine 25 mg tablet 25 mg PO DAILY PRN dizziness 05/06/25 05/06/25 History Allergies Allergy/AdvReac Type Severity Reaction Status Date / Time ciprofloxacin Allergy Intermediate Rash Verified 05/06/25 23:09 amoxicillin (From Augmentin) Allergy Mild Rash Verified 05/06/25 23:09 clavulanic acid (From Allergy Mild Rash Verified 05/06/25 23:09 Augmentin) Sulfa (Sulfonamide Allergy Mild Rash Verified 05/06/25 23:09 Antibiotics) cefuroxime Allergy Rash Verified 05/06/25 23:09 doxycycline AdvReac Unknown Upset Verified 05/06/25 23:09 Stomach Vital Signs Vital Signs - 24 hr 05/06/25 17:03 05/06/25 17:15 05/06/25 17:30 Temperature Pulse Rate 72 75 73 Respiratory Rate 12 12 13 Blood Pressure Pulse Oximetry 99 97 99 Oxygen Delivery 05/06/25 17:31 05/06/25 17:45 05/06/25 17:59 Temperature Pulse Rate 74 76 78 Respiratory Rate 12 14 12 Blood Pressure 121/52 L 121/69 Pulse Oximetry 98 98 99 Oxygen Delivery 05/06/25 18:01 05/06/25 18:02 05/06/25 18:15 Temperature Pulse Rate 74 75 80 Respiratory Rate 14 13 17 Blood Pressure 124/54 L Pulse Oximetry 98 99 Oxygen Delivery 05/06/25 18:16 05/06/25 18:30 05/06/25 18:31 Temperature Pulse Rate 78 77 78 Respiratory Rate 15 11 L 17 Blood Pressure 126/68 130/65 Pulse Oximetry Oxygen Delivery 05/06/25 18:45 05/06/25 18:46 05/06/25 19:00 Temperature Pulse Rate 76 77 80 Respiratory Rate 12 10 L 12 Blood Pressure 132/59 L Pulse Oximetry Oxygen Delivery 05/06/25 19:01 05/06/25 19:24 05/06/25 19:30 Temperature Pulse Rate 80 81 79 Respiratory Rate 12 11 L Blood Pressure 121/53 L Pulse Oximetry 98 96 Oxygen Delivery 05/06/25 19:31 05/06/25 19:45 05/06/25 19:46 Temperature Pulse Rate 79 78 80 Respiratory Rate 10 L 16 14 Blood Pressure 104/39 L 104/61 Pulse Oximetry 99 95 95 Oxygen Delivery 05/06/25 20:00 05/06/25 20:01 05/06/25 20:16 Temperature Pulse Rate 78 78 80 Respiratory Rate 11 L 11 L 13 Blood Pressure 124/57 L 111/47 L Pulse Oximetry 98 96 93 Oxygen Delivery 05/06/25 20:30 05/06/25 20:45 05/06/25 20:46 Temperature Pulse Rate 78 77 77 Respiratory Rate 12 11 L 6 L Blood Pressure 108/55 L Pulse Oximetry 95 94 95 Oxygen Delivery 05/06/25 21:00 05/06/25 21:16 05/06/25 21:27 Temperature Pulse Rate 77 75 75 Respiratory Rate 14 11 L 12 Blood Pressure 102/51 L Pulse Oximetry 95 97 96 Oxygen Delivery 05/06/25 21:30 05/06/25 22:00 05/07/25 05:30 Temperature 36.4 C L 36.3 C L Pulse Rate 73 73 64 Respiratory Rate 16 16 20 Blood Pressure 118/59 L 115/61 Pulse Oximetry 95 95 99 Oxygen Delivery Room Air 05/07/25 13:38 Temperature 36.3 C L Pulse Rate 76 Respiratory Rate 16 Blood Pressure 114/55 L Pulse Oximetry 99 Oxygen Delivery Exam Const: General: comfortable, alert and awake Nutritional Appearance: well nourished Orientation/consciousness: No confusion Neck: Neck: other (Stiff with slight flexion contracture) Chest: Chest palpation & inspection: normal inspection of the chest, normal palpation of entire chest wall, no crepitus, no masses, no tenderness and No rash Results Labs 05/07/25 06:42 05/07/25 06:42 Labs: Abnormal lab results 05/06/25 05/06/25 05/06/25 Range/Units 18:09 18:10 18:11 RBC (4.2-5.4) M/mm3 Hgb (12.0-15.0) g/dL Hct (37.0-47.0) % MCHC 31.9 L (32-36) g/dl RDW 15.3 H (11.5-14.5) % MPV 10.5 H (7.4-10.4) fl [place] % (Auto) (2.6-8.5) % [place] # (Auto) 0.8 H (0.1-0.6) K/mm3 PT 15.2 H (11.1-14.7) Seconds Sodium (137-145) mmol/L Carbon Dioxide 32 H (22-30) mmol/L Leukocyte Esterase Rfl 3+ H (Negative) CHANDAN/UL Urine WBC 21-50 H (0-3) /hpf Urine Bacteria 4+ H /hpf 05/07/25 Range/Units 06:42 RBC 4.00 L (4.2-5.4) M/mm3 Hgb 11.5 L (12.0-15.0) g/dL Hct 36.3 L (37.0-47.0) % MCHC 31.7 L (32-36) g/dl RDW 15.7 H (11.5-14.5) % MPV (7.4-10.4) fl [place] % (Auto) 9.4 H (2.6-8.5) % [place] # (Auto) 0.7 H (0.1-0.6) K/mm3 PT (11.1-14.7) Seconds Sodium 136 L (137-145) mmol/L Carbon Dioxide (22-30) mmol/L Leukocyte Esterase Rfl (Negative) CHANDAN/UL Urine WBC (0-3) /hpf Urine Bacteria /hpf Diabetes panel 05/06/25 05/07/25 Range/Units 18:10 06:42 Sodium 137 136 L (137-145) mmol/L Potassium 4.3 4.0 (3.4-5.0) mmol/L Chloride 100 100 (98-107) mmol/L Carbon Dioxide 32 H 28 (22-30) mmol/L BUN 15 16 (7-17) mg/dL Creatinine 0.92 0.95 (0.7-1.0) mg/dL Glucose 79 85 (65-110) mg/dL Calcium 9.5 9.2 (8.4-10.2) mg/dL Calcium panel 05/06/25 05/07/25 Range/Units 18:10 06:42 Calcium 9.5 9.2 (8.4-10.2) mg/dL Pituitary panel 05/06/25 05/07/25 Range/Units 18:10 06:42 Sodium 137 136 L (137-145) mmol/L Potassium 4.3 4.0 (3.4-5.0) mmol/L Chloride 100 100 (98-107) mmol/L Carbon Dioxide 32 H 28 (22-30) mmol/L BUN 15 16 (7-17) mg/dL Creatinine 0.92 0.95 (0.7-1.0) mg/dL Glucose 79 85 (65-110) mg/dL Calcium 9.5 9.2 (8.4-10.2) mg/dL Adrenal panel 05/06/25 05/07/25 Range/Units 18:10 06:42 Sodium 137 136 L (137-145) mmol/L Potassium 4.3 4.0 (3.4-5.0) mmol/L Chloride 100 100 (98-107) mmol/L Carbon Dioxide 32 H 28 (22-30) mmol/L BUN 15 16 (7-17) mg/dL Creatinine 0.92 0.95 (0.7-1.0) mg/dL Glucose 79 85 (65-110) mg/dL Calcium 9.5 9.2 (8.4-10.2) mg/dL All other labs normal.
[2025-05-07] MEDS: GABAPENTIN 300 MG CAPSULE 600 MG PO (21:02)
[2025-05-07] MEDS: MIDODRINE HCL 10 MG TABLET PO (21:05)
[2025-05-07 22:00] VITALS: BP 97/48; PULSE 66; RESP 20; TEMP 36.4; O2SAT 97
[2025-05-08 05:24] VITALS: BP 113/60; PULSE 58; RESP 20; TEMP 36.4; O2SAT 97
[2025-05-08] MEDS: LEVOTHYROXINE SODIUM 50 MCG TABLET BY MOUTH (06:00)
[2025-05-08] MEDS: MEROPENEM 1 GM in SODIUM CHLORIDE 0.9% IV 100 ML 200 ML IVPB ×2 (06:00→18:00)
[2025-05-08] MEDS: CLINDAMYCIN HCL 150 MG CAP 450 MG PO ×3 (06:00→21:44)
[2025-05-08] MEDS: buPROPion HCL XL (24 HR) 150 MG TABCR 450 MG BY MOUTH (08:02)
[2025-05-08] MEDS: SACCHAROMYCES BOULARDII 250 MG CAPSULE PO ×2 (08:03→17:53)
[2025-05-08] MEDS: BACLOFEN 10 MG TABLET 40 MG PO (08:03)
[2025-05-08] MEDS: SPIRONOLACTONE 25 MG TABLET 50 MG PO ×2 (08:03→17:53)
[2025-05-08] MEDS: PYRIDOXINE HCL 50 MG TABLET 100 MG PO (08:04)
[2025-05-08] MEDS: APIXABAN 2.5 MG TABLET PO ×2 (08:04→21:44)
[2025-05-08] MEDS: PANTOPRAZOLE 40 MG TABLET PO ×2 (08:04→17:53)
[2025-05-08] MEDS: CITALOPRAM HYDROBROMIDE 20 MG TABLET BY MOUTH (08:04)
--- NOTE | 2025-05-08 12:53 | PM.IMPN ---
Progress Note: A&P Assessment and Plan (1) Wound infection: Code(s): T14.8XXA - Other injury of unspecified body region, initial encounter; L08.9 - Local infection of the skin and subcutaneous tissue, unspecified Status: Acute Assessment and Plan: -patient's wound cultures from 04/29/2025 grew MRSA and Pseudomonas aeruginosa. -blood cultures were redrawn -antibiotic recommendations per Infectious Disease. It Is reported that ER has already consulted Infectious Disease. -the patient does not appear to be septic at this time. -she probably had ulcerations to the left posterior thigh and coccyx area recently but these have already healed now. -wound care consultation and reviewed their recommendations. -patient is not a candidate for PICC line due to her contractures. General Surgery has been consulted for possible Port-A-Cath. Since no further infection is currently present will hold off on further treatment with IV antibiotics. ID consultation obtained continue on clindamycin and meropenem as ordered for 5 days total. 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 -according to the daughter this is prophylactic anticoagulation to prevent DVTs due to her immobility -according to the daughter the patient has not had any DVTs or PE (3) Hypothyroidism, unspecified: Code(s): E03.9 - Hypothyroidism, unspecified Status: Acute Assessment and Plan: -continue with levothyroxine. -her last thyroid level on 03/05/2025 was 1.740. (4) Thyroid nodule: Code(s): E04.1 - Nontoxic single thyroid nodule Status: Acute Assessment and Plan: -as per CT on 52.1 cm left thyroid nodule, recommend outpatient thyroid ultrasound for further characterization. -the patient her daughter stated they were not aware of this thyroid nodule and will like to have for ultrasound performed while she is hospitalized. (5) Peripheral vascular disease: Code(s): I73.9 - Peripheral vascular disease, unspecified Status: Acute Assessment and Plan: -the patient stated that she is following up outpatient with vascular surgery for her peripheral artery disease. (6) Depression: Qualifiers: Depression Type: other depression Qualified Code(s): F32.89 - Other specified depressive episodes Code(s): F32.9 - Major depressive disorder, single episode, unspecified Status: Acute Assessment and Plan: -continue with her home medications. Continue bupropion, citalopram, and abilify (7) Constipation: Qualifiers: Constipation type: slow transit constipation Qualified Code(s): K59.01 - Slow transit constipation Code(s): K59.00 - Constipation, unspecified Status: Resolved Assessment and Plan: -the patient was seen by GI and was placed on MiraLax. (8) UTI (urinary tract infection): Code(s): N39.0 - Urinary tract infection, site not specified Status: Acute Assessment and Plan: Urinalysis with 21-50 urine WBC and 3+ leukocyte esterase Patient has chronic indwelling suprapubic catheter Urine culture has been sent Follow urine and blood cultures which is pending at this time. She does not report any particular urinary symptoms though. -the patient is currently on clindamycin and vancomycin. (9) MS (multiple sclerosis): Code(s): G35 - Multiple sclerosis Status: Acute Assessment and Plan: -continue with her baclofen for the muscle spasms. -neurology is currently unavailable to see her at this time and the patient and her daughter aware of this. Subjective Date/time seen: 05/08/25 12:53 Interval history: No overnight events. Tolerating antibiotics. No fever chills shortness of breath chest pain Review of Systems Review of Systems: All systems reviewed & are unremarkable except as noted in HPI and below Exam Narrative: APPEARANCE: No acute distress, nontoxic, resting in bed EYES: EOMI HEENT: Normocephalic, atraumatic, OMM RESPIRATORY: No respiratory distress Clear to auscultation bilaterally with no rhonchi wheezing or rales. CARDIOVASCULAR: Regular rate and rhythm without murmurs rubs or gallops. ABDOMINAL: Soft, nontender, nondistended, no rebound or guarding MUSCULOSKELETAL: Moves all extremities. No clubbing, cyanosis or edema. NEURO: Awake and alert. 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 SKIN:: Warm, dry. 4 x 4 cm area of erythema and warmth to the posterior thigh with no active drainage PSYCHIATRIC: Normal affect/mood, Objective Data Vital Signs Vital Signs: Vital Signs - 24 hr 05/07/25 13:38 05/07/25 22:00 05/08/25 05:24 Temperature 97.3 F L 97.5 F L 97.5 F L Pulse Rate 76 66 58 L Respiratory Rate 16 20 20 Blood Pressure 114/55 L 97/48 L 113/60 Pulse Oximetry 99 97 97 Intake/Output Intake/Output: Intake & Output 05/05/25 05/06/25 05/07/25 05/08/25 23:59 23:59 23:59 23:59 Intake Total 200 1350 610 Output Total 900 600 Balance 200 450 10 Meds/Results Medications: Active Medications Generic Name Dose Route Start Last Admin Trade Name Freq PRN Reason Stop Dose Admin Acetaminophen 650 mg 05/06/25 19:51 Acetaminophen 325 Mg Tablet PO Q4H PRN Mild Pain (1-3) or Fever Apixaban 2.5 mg 05/07/25 09:00 05/08/25 08:04 Apixaban 2.5 Mg Tablet PO 2.5 mg Q12HR TYRON Administration Aripiprazole 5 mg 05/07/25 21:00 05/07/25 21:02 Aripiprazole 5 Mg Tablet PO 5 mg QHS TYRON Administration Baclofen 40 mg 05/07/25 09:00 05/08/25 08:03 Baclofen 10 Mg Tablet PO 40 mg DAILY TYRON Administration Bupropion HCl 450 mg 05/07/25 09:00 05/08/25 08:02 Bupropion Hcl Xl (24 Hr) 150 Mg Tabcr BY MOUTH 450 mg DAILY TYRON Administration Citalopram Hydrobromide 20 mg 05/07/25 09:00 05/08/25 08:04 Citalopram Hydrobromide 20 Mg Tablet BY MOUTH 20 mg DAILY TYRON Administration Clindamycin HCl 450 mg 05/06/25 22:00 05/08/25 06:00 Clindamycin Hcl 150 Mg Cap PO 05/11/25 14:01 450 mg Q8HR TYRON Administration Dextrose 12.5 gm 05/06/25 19:51 Dextrose 50% 25 Gm/50 Ml Syringe IV PUSH PRN PRN Hypoglycemia Protocol Fluconazole 150 mg 05/11/25 14:30 Fluconazole 150 Mg Tablet PO 05/11/25 14:31 ONCE ONE Furosemide 20 mg 05/11/25 09:00 Furosemide 20 Mg Tablet PO TuTh@0900 TYRON Gabapentin 600 mg 05/07/25 21:00 05/07/25 21:02 Gabapentin 300 Mg Capsule PO 600 mg HS TYRON Administration Glucagon 1 mg 05/06/25 19:51 Glucagon For Inj 1 Mg Vial IM PRN PRN Hypoglycemia Protocol Glucose 15 gm 05/06/25 19:51 Glucose Oral Gel 15 Gm Of Glucse In 37.5 Gm Tube PO PRN PRN Hypoglycemia Protocol Meropenem 1 gm/ Sodium 100 mls @ 200 mls/hr 05/07/25 07:00 05/08/25 06:00 Chloride IVPB 05/11/25 07:29 200 mls/hr Q12H TYRON Administration Dextrose 1,000 mls @ 100 mls/hr 05/06/25 19:51 Dextrose 5% 1,000 Ml IVPB PRN PRN Hypoglycemia Protocol Levothyroxine Sodium 50 mcg 05/07/25 06:30 05/08/25 06:00 Levothyroxine Sodium 50 Mcg Tablet BY MOUTH 50 mcg DAILY@0630 TYRON Administration Meclizine HCl 25 mg 05/07/25 01:01 Meclizine Hcl 25 Mg Tablet PO DAILY PRN Dizziness Midodrine 10 mg 05/07/25 09:00 05/07/25 21:05 Midodrine Hcl 10 Mg Tablet PO 10 mg TID PRN Administration SBP <110 Minoxidil 2.5 mg 05/07/25 09:00 05/08/25 08:04 Minoxidil 2.5 Mg Tablet PO 2.5 mg DAILY TYRON Administration Ondansetron HCl 4 mg 05/06/25 19:51 Ondansetron Inj 4 Mg/2 Ml Vial IV PUSH Q4H PRN Nausea Pantoprazole Sodium 40 mg 05/07/25 09:00 05/08/25 08:04 Pantoprazole 40 Mg Tablet PO 40 mg BID TYRON Administration Polyethylene Glycol 17 gm 05/07/25 03:35 Polyethylene Glycol 3350 17 Gm Powd.Pack PO QAM PRN Constipation Potassium Chloride 10 meq 05/11/25 09:00 Potassium Chloride 10 Meq Er Tablet PO TuTh@0900 TYRON Pyridoxine HCl 100 mg 05/07/25 09:00 05/08/25 08:04 Pyridoxine Hcl 50 Mg Tablet PO 100 mg QAM TYRON Administration Saccharomyces Boulardii 250 mg 05/07/25 09:00 05/08/25 08:03 Saccharomyces Boulardii 250 Mg Capsule PO 250 mg BID TYRON Administration Spironolactone 50 mg 05/07/25 09:00 05/08/25 08:03 Spironolactone 25 Mg Tablet PO 50 mg BID TYRON Administration Radiology Results: ITS Impressions Abdomen/Pelvis CT 05/06/25 19:25 IMPRESSION: 1. Consistent with constipation. 2. Otherwise no acute abnormality. Thyroid Ultrasound 05/07/25 15:01 IMPRESSION: 1. Small thyroid with 2.7 cm benign TI RADS 1 cystic left thyroid nodule.
[2025-05-08 14:00] VITALS: BP 102/50; PULSE 62; RESP 16; TEMP 36.4; O2SAT 100
--- NOTE | 2025-05-08 15:58 | PM.PNGS ---
Progress Note: A&P Assessment and Plan (1) Encounter for care related to Port-a-Cath: Code(s): Z45.2 - Encounter for adjustment and management of vascular access device Status: Acute Assessment and Plan: Patient has decided that she would prefer not to have Port-A-Cath placement at this time. I have no problem with that at all. I recommend she call if she should change her mind or see me in the office if she would want to discuss this further. Will sign off and please call if I can be of further assistance. 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 Exam Const: General: comfortable, alert and awake Extrem: General: other (Contractures as noted previously) Objective Data Vital Signs Vital Signs: Vital Signs - 24 hr 05/07/25 22:00 05/08/25 05:24 05/08/25 14:00 Temperature 36.4 C L 36.4 C L 36.4 C Pulse Rate 66 58 L 62 Respiratory Rate 20 20 16 Blood Pressure 97/48 L 113/60 102/50 L Pulse Oximetry 97 97 100 Intake/Output Intake/Output: Intake & Output 05/05/25 05/06/25 05/07/25 05/08/25 23:59 23:59 23:59 23:59 Intake Total 200 1350 610 Output Total 900 600 Balance 200 450 10 Meds/Results Medications: Active Medications Generic Name Dose Route Start Last Admin Trade Name Freq PRN Reason Stop Dose Admin Acetaminophen 650 mg 05/06/25 19:51 Acetaminophen 325 Mg Tablet PO Q4H PRN Mild Pain (1-3) or Fever Apixaban 2.5 mg 05/07/25 09:00 05/08/25 08:04 Apixaban 2.5 Mg Tablet PO 2.5 mg Q12HR TYRON Administration Aripiprazole 5 mg 05/07/25 21:00 05/07/25 21:02 Aripiprazole 5 Mg Tablet PO 5 mg QHS TYRON Administration Baclofen 40 mg 05/07/25 09:00 05/08/25 08:03 Baclofen 10 Mg Tablet PO 40 mg DAILY TYRON Administration Bupropion HCl 450 mg 05/07/25 09:00 05/08/25 08:02 Bupropion Hcl Xl (24 Hr) 150 Mg Tabcr BY MOUTH 450 mg DAILY TYRON Administration Citalopram Hydrobromide 20 mg 05/07/25 09:00 05/08/25 08:04 Citalopram Hydrobromide 20 Mg Tablet BY MOUTH 20 mg DAILY TYRON Administration Clindamycin HCl 450 mg 05/06/25 22:00 05/08/25 14:23 Clindamycin Hcl 150 Mg Cap PO 05/11/25 14:01 450 mg Q8HR TYRON Administration Dextrose 12.5 gm 05/06/25 19:51 Dextrose 50% 25 Gm/50 Ml Syringe IV PUSH PRN PRN Hypoglycemia Protocol Fluconazole 150 mg 05/11/25 14:30 Fluconazole 150 Mg Tablet PO 05/11/25 14:31 ONCE ONE Furosemide 20 mg 05/11/25 09:00 Furosemide 20 Mg Tablet PO TuTh@0900 TYRON Gabapentin 600 mg 05/07/25 21:00 05/07/25 21:02 Gabapentin 300 Mg Capsule PO 600 mg HS TYRON Administration Glucagon 1 mg 05/06/25 19:51 Glucagon For Inj 1 Mg Vial IM PRN PRN Hypoglycemia Protocol Glucose 15 gm 05/06/25 19:51 Glucose Oral Gel 15 Gm Of Glucse In 37.5 Gm Tube PO PRN PRN Hypoglycemia Protocol Meropenem 1 gm/ Sodium 100 mls @ 200 mls/hr 05/07/25 07:00 05/08/25 06:00 Chloride IVPB 05/11/25 07:29 200 mls/hr Q12H TYRON Administration Dextrose 1,000 mls @ 100 mls/hr 05/06/25 19:51 Dextrose 5% 1,000 Ml IVPB PRN PRN Hypoglycemia Protocol Levothyroxine Sodium 50 mcg 05/07/25 06:30 05/08/25 06:00 Levothyroxine Sodium 50 Mcg Tablet BY MOUTH 50 mcg DAILY@0630 TYRON Administration Meclizine HCl 25 mg 05/07/25 01:01 Meclizine Hcl 25 Mg Tablet PO DAILY PRN Dizziness Midodrine 10 mg 05/07/25 09:00 05/07/25 21:05 Midodrine Hcl 10 Mg Tablet PO 10 mg TID PRN Administration SBP <110 Minoxidil 2.5 mg 05/07/25 09:00 05/08/25 08:04 Minoxidil 2.5 Mg Tablet PO 2.5 mg DAILY TYRON Administration Ondansetron HCl 4 mg 05/06/25 19:51 Ondansetron Inj 4 Mg/2 Ml Vial IV PUSH Q4H PRN Nausea Pantoprazole Sodium 40 mg 05/07/25 09:00 05/08/25 08:04 Pantoprazole 40 Mg Tablet PO 40 mg BID TYRON Administration Polyethylene Glycol 17 gm 05/07/25 03:35 Polyethylene Glycol 3350 17 Gm Powd.Pack PO QAM PRN Constipation Potassium Chloride 10 meq 05/11/25 09:00 Potassium Chloride 10 Meq Er Tablet PO TuTh@0900 TYRON Pyridoxine HCl 100 mg 05/07/25 09:00 05/08/25 08:04 Pyridoxine Hcl 50 Mg Tablet PO 100 mg QAM TYRON Administration Saccharomyces Boulardii 250 mg 05/07/25 09:00 05/08/25 08:03 Saccharomyces Boulardii 250 Mg Capsule PO 250 mg BID TYRON Administration Spironolactone 50 mg 05/07/25 09:00 05/08/25 08:03 Spironolactone 25 Mg Tablet PO 50 mg BID TYRON Administration Radiology Results: ITS Impressions Abdomen/Pelvis CT 05/06/25 19:25 IMPRESSION: 1. Consistent with constipation. 2. Otherwise no acute abnormality. Thyroid Ultrasound 05/07/25 15:01 IMPRESSION: 1. Small thyroid with 2.7 cm benign TI RADS 1 cystic left thyroid nodule.
[2025-05-08] MEDS: GABAPENTIN 300 MG CAPSULE 600 MG PO (21:44)
[2025-05-08 22:00] VITALS: BP 112/55; PULSE 68; RESP 18; TEMP 35.9; O2SAT 96
[2025-05-09 06:00] VITALS: BP 117/63; PULSE 60; RESP 16; TEMP 36.5; O2SAT 100
[2025-05-09] MEDS: LEVOTHYROXINE SODIUM 50 MCG TABLET BY MOUTH (06:02)
[2025-05-09] MEDS: CLINDAMYCIN HCL 150 MG CAP 450 MG PO ×3 (06:02→21:27)
[2025-05-09] MEDS: MEROPENEM 1 GM in SODIUM CHLORIDE 0.9% IV 100 ML 200 ML IVPB ×2 (06:06→18:05)
[2025-05-09 07:18] LABS: Hematocrit 36.8 % (37.0-47.0); Hemoglobin 11.4 g/dL (12.0-15.0); Immature Granulocyte Percent A 0.3 % (0-0.5); Lymphocytes Absolute Auto 2.63 K/mm3 (0.9-3.2); Mean Corpuscular HGB Conc 31.0 g/dl (32-36); Mean Corpuscular Hemoglobin 28.6 pg (26-34); Mean Corpuscular Volume 92.5 fl (80-100); Nucleated Red Blood Cells Absolute Auto 0.000 K/mm3 (0.0-0.012); Nucleated Red Blood Cells Perc 0.0 % (0.0-0.2); Platelet Count Result 267 k/mm3 (150-375); Red Blood Count 3.98 M/mm3 (4.2-5.4); White Blood Count 6.5 K/mm3 (4.5-10.0)
[2025-05-09 07:22] LABS: Alanine Aminotransferase 14 U/L (6-35); Albumin Level 3.5 g/dL (3.5-5.1); Alkaline Phosphatase 65 U/L (38-126); Anion Gap 7 mmol/L (4-12); Aspartate Amino Transferase 22 U/L (14-36); Bilirubin,Total 0.4 mg/dL (0.2-1.3); Blood Urea Nitrogen 17 mg/dL (7-17); Calcium 8.9 mg/dL (8.4-10.2); Carbon Dioxide 27 mmol/L (22-30); Chloride 103 mmol/L (98-107); Estimated CRCL calculation 48 ml/min; Estimated Glomerular Filt Rate 58; Glucose 80 mg/dL (65-110); Magnesium 2.2 mg/dL (1.6-2.3); Potassium 4.0 mmol/L (3.4-5.0); Sodium 137 mmol/L (137-145); Total Protein 6.5 g/dL (6.3-8.2)
[2025-05-09] MEDS: buPROPion HCL XL (24 HR) 150 MG TABCR 450 MG BY MOUTH (09:50)
[2025-05-09] MEDS: BACLOFEN 10 MG TABLET 40 MG PO (09:50)
[2025-05-09] MEDS: PYRIDOXINE HCL 50 MG TABLET 100 MG PO (09:50)
[2025-05-09] MEDS: APIXABAN 2.5 MG TABLET PO ×2 (09:51→21:28)
[2025-05-09] MEDS: SACCHAROMYCES BOULARDII 250 MG CAPSULE PO ×2 (09:51→16:41)
[2025-05-09] MEDS: SPIRONOLACTONE 25 MG TABLET 50 MG PO ×2 (09:51→16:41)
[2025-05-09] MEDS: PANTOPRAZOLE 40 MG TABLET PO ×2 (09:51→16:41)
[2025-05-09] MEDS: CITALOPRAM HYDROBROMIDE 20 MG TABLET BY MOUTH (09:51)
[2025-05-09 14:00] VITALS: BP 111/60; PULSE 86; RESP 16; TEMP 36.8; O2SAT 97
--- NOTE | 2025-05-09 14:48 | PM.IMPN ---
Progress Note: A&P Assessment and Plan (1) Wound infection: Code(s): T14.8XXA - Other injury of unspecified body region, initial encounter; L08.9 - Local infection of the skin and subcutaneous tissue, unspecified Status: Acute Assessment and Plan: -patient's wound cultures from 04/29/2025 grew MRSA and Pseudomonas aeruginosa. -blood cultures were redrawn -antibiotic recommendations per Infectious Disease. It Is reported that ER has already consulted Infectious Disease. -the patient does not appear to be septic at this time. -she probably had ulcerations to the left posterior thigh and coccyx area recently but these have already healed now. -wound care consultation and reviewed their recommendations. -patient is not a candidate for PICC line due to her contractures. General Surgery has been consulted for possible Port-A-Cath. Since no further infection is currently present will hold off on further treatment with IV antibiotics. ID consultation obtained continue on clindamycin and meropenem as ordered for 5 days total. 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 -according to the daughter this is prophylactic anticoagulation to prevent DVTs due to her immobility -according to the daughter the patient has not had any DVTs or PE (3) Hypothyroidism, unspecified: Code(s): E03.9 - Hypothyroidism, unspecified Status: Acute Assessment and Plan: -continue with levothyroxine. -her last thyroid level on 03/05/2025 was 1.740. (4) Thyroid nodule: Code(s): E04.1 - Nontoxic single thyroid nodule Status: Acute Assessment and Plan: -as per CT on 52.1 cm left thyroid nodule, recommend outpatient thyroid ultrasound for further characterization. -the patient her daughter stated they were not aware of this thyroid nodule and will like to have for ultrasound performed while she is hospitalized. (5) Peripheral vascular disease: Code(s): I73.9 - Peripheral vascular disease, unspecified Status: Acute Assessment and Plan: -the patient stated that she is following up outpatient with vascular surgery for her peripheral artery disease. (6) Depression: Qualifiers: Depression Type: other depression Qualified Code(s): F32.89 - Other specified depressive episodes Code(s): F32.9 - Major depressive disorder, single episode, unspecified Status: Acute Assessment and Plan: -continue with her home medications. Continue bupropion, citalopram, and abilify (7) Constipation: Qualifiers: Constipation type: slow transit constipation Qualified Code(s): K59.01 - Slow transit constipation Code(s): K59.00 - Constipation, unspecified Status: Resolved Assessment and Plan: -the patient was seen by GI and was placed on MiraLax. (8) UTI (urinary tract infection): Code(s): N39.0 - Urinary tract infection, site not specified Status: Acute Assessment and Plan: Urinalysis with 21-50 urine WBC and 3+ leukocyte esterase Patient has chronic indwelling suprapubic catheter Urine culture has been sent Follow urine and blood cultures which is pending at this time. She does not report any particular urinary symptoms though. -the patient is currently on clindamycin and vancomycin. Urine culture Gram-negative bacilli (9) MS (multiple sclerosis): Code(s): G35 - Multiple sclerosis Status: Chronic Assessment and Plan: -continue with her baclofen for the muscle spasms. -neurology is currently unavailable to see her at this time and the patient and her daughter aware of this. Subjective Date/time seen: 05/09/25 14:48 Interval history: No overnight events. Tolerating antibiotics. No fever chills shortness of breath chest pain Review of Systems Review of Systems: All systems reviewed & are unremarkable except as noted in HPI and below Exam Narrative: APPEARANCE: No acute distress, nontoxic, resting in bed EYES: EOMI HEENT: Normocephalic, atraumatic, OMM RESPIRATORY: No respiratory distress Clear to auscultation bilaterally with no rhonchi wheezing or rales. CARDIOVASCULAR: Regular rate and rhythm without murmurs rubs or gallops. ABDOMINAL: Soft, nontender, nondistended, no rebound or guarding MUSCULOSKELETAL: Moves all extremities. No clubbing, cyanosis or edema. NEURO: Awake and alert. 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 SKIN:: Warm, dry. 4 x 4 cm area of erythema and warmth to the posterior thigh with no active drainage PSYCHIATRIC: Normal affect/mood, Objective Data Vital Signs Vital Signs: Vital Signs - 24 hr 05/08/25 21:44 05/08/25 22:00 05/09/25 06:00 Temperature 96.7 F L 97.7 F Pulse Rate 68 60 Respiratory Rate 18 16 Blood Pressure 112/55 L 117/63 Pulse Oximetry 96 100 Oxygen Delivery Room Air 05/09/25 08:00 Temperature Pulse Rate Respiratory Rate Blood Pressure Pulse Oximetry Oxygen Delivery Room Air Intake/Output Intake/Output: Intake & Output 05/06/25 05/07/25 05/08/25 05/09/25 23:59 23:59 23:59 23:59 Intake Total 200 1350 810 220 Output Total 900 1100 600 Balance 200 450 290 -380 Meds/Results Medications: Active Medications Generic Name Dose Route Start Last Admin Trade Name Freq PRN Reason Stop Dose Admin Acetaminophen 650 mg 05/06/25 19:51 Acetaminophen 325 Mg Tablet PO Q4H PRN Mild Pain (1-3) or Fever Apixaban 2.5 mg 05/07/25 09:00 05/09/25 09:51 Apixaban 2.5 Mg Tablet PO 2.5 mg Q12HR TYRON Administration Aripiprazole 5 mg 05/07/25 21:00 05/08/25 21:44 Aripiprazole 5 Mg Tablet PO 5 mg QHS TYRON Administration Baclofen 40 mg 05/07/25 09:00 05/09/25 09:50 Baclofen 10 Mg Tablet PO 40 mg DAILY TYRON Administration Bupropion HCl 450 mg 05/07/25 09:00 05/09/25 09:50 Bupropion Hcl Xl (24 Hr) 150 Mg Tabcr BY MOUTH 450 mg DAILY TYRON Administration Citalopram Hydrobromide 20 mg 05/07/25 09:00 05/09/25 09:51 Citalopram Hydrobromide 20 Mg Tablet BY MOUTH 20 mg DAILY TYRON Administration Clindamycin HCl 450 mg 05/06/25 22:00 05/09/25 13:59 Clindamycin Hcl 150 Mg Cap PO 05/11/25 14:01 450 mg Q8HR TYRON Administration Dextrose 12.5 gm 05/06/25 19:51 Dextrose 50% 25 Gm/50 Ml Syringe IV PUSH PRN PRN Hypoglycemia Protocol Fluconazole 150 mg 05/11/25 14:30 Fluconazole 150 Mg Tablet PO 05/11/25 14:31 ONCE ONE Furosemide 20 mg 05/11/25 09:00 Furosemide 20 Mg Tablet PO TuTh@0900 TYRON Gabapentin 600 mg 05/07/25 21:00 05/08/25 21:44 Gabapentin 300 Mg Capsule PO 600 mg HS TYRON Administration Glucagon 1 mg 05/06/25 19:51 Glucagon For Inj 1 Mg Vial IM PRN PRN Hypoglycemia Protocol Glucose 15 gm 05/06/25 19:51 Glucose Oral Gel 15 Gm Of Glucse In 37.5 Gm Tube PO PRN PRN Hypoglycemia Protocol Meropenem 1 gm/ Sodium 100 mls @ 200 mls/hr 05/07/25 07:00 05/09/25 06:36 Chloride IVPB 05/11/25 07:29 Infused Q12H TYRON Infusion Dextrose 1,000 mls @ 100 mls/hr 05/06/25 19:51 Dextrose 5% 1,000 Ml IVPB PRN PRN Hypoglycemia Protocol Levothyroxine Sodium 50 mcg 05/07/25 06:30 05/09/25 06:02 Levothyroxine Sodium 50 Mcg Tablet BY MOUTH 50 mcg DAILY@0630 TYRON Administration Meclizine HCl 25 mg 05/07/25 01:01 Meclizine Hcl 25 Mg Tablet PO DAILY PRN Dizziness Midodrine 10 mg 05/07/25 09:00 05/07/25 21:05 Midodrine Hcl 10 Mg Tablet PO 10 mg TID PRN Administration SBP <110 Minoxidil 2.5 mg 05/07/25 09:00 05/09/25 09:51 Minoxidil 2.5 Mg Tablet PO 2.5 mg DAILY TYRON Administration Ondansetron HCl 4 mg 05/06/25 19:51 Ondansetron Inj 4 Mg/2 Ml Vial IV PUSH Q4H PRN Nausea Pantoprazole Sodium 40 mg 05/07/25 09:00 05/09/25 09:51 Pantoprazole 40 Mg Tablet PO 40 mg BID TYRON Administration Polyethylene Glycol 17 gm 05/07/25 03:35 05/09/25 09:48 Polyethylene Glycol 3350 17 Gm Powd.Pack PO 17 gm QAM PRN Administration Constipation Potassium Chloride 10 meq 05/11/25 09:00 Potassium Chloride 10 Meq Er Tablet PO TuTh@0900 TYRON Pyridoxine HCl 100 mg 05/07/25 09:00 05/09/25 09:50 Pyridoxine Hcl 50 Mg Tablet PO 100 mg QAM TYRON Administration Saccharomyces Boulardii 250 mg 05/07/25 09:00 05/09/25 09:51 Saccharomyces Boulardii 250 Mg Capsule PO 250 mg BID TYRON Administration Spironolactone 50 mg 05/07/25 09:00 05/09/25 09:51 Spironolactone 25 Mg Tablet PO 50 mg BID TYRON Administration Radiology Results: ITS Impressions Abdomen/Pelvis CT 05/06/25 19:25 IMPRESSION: 1. Consistent with constipation. 2. Otherwise no acute abnormality. Thyroid Ultrasound 05/07/25 15:01 IMPRESSION: 1. Small thyroid with 2.7 cm benign TI RADS 1 cystic left thyroid nodule. Labs Labs: Laboratory Results - last 24 hr 05/09/25 06:31 WBC 6.5 RBC 3.98 L Hgb 11.4 L Hct 36.8 L MCV 92.5 MCH 28.6 MCHC 31.0 L RDW 15.7 H Plt Count 267 MPV 10.7 H Immature Gran % (Auto) 0.3 Neut % (Auto) 46.5 Lymph % (Auto) 40.3 [place] % (Auto) 7.8 Eos % (Auto) 4.3 Baso % (Auto) 0.8 Lymph # (Auto) 2.63 [place] # (Auto) 0.5 Eos # (Auto) 0.3 Baso # (Auto) 0.1 Abs Immat Gran (auto) 0.02 Absolute Neuts (auto) 3.0 Absolute Nucleated RBC 0.000 Nucleated RBC % 0.0 Sodium 137 Potassium 4.0 Chloride 103 Carbon Dioxide 27 Anion Gap 7 BUN 17 Creatinine 0.97 Estim Creat Clear Calc 48 Estimated GFR 58 L Glucose 80 Calcium 8.9 Magnesium 2.2 Total Bilirubin 0.4 AST 22 ALT 14 Alkaline Phosphatase 65 Total Protein 6.5 Albumin 3.5
[2025-05-09] MEDS: GABAPENTIN 300 MG CAPSULE 600 MG PO (21:27)
[2025-05-09 22:00] VITALS: BP 107/53; PULSE 71; RESP 16; TEMP 37.3; O2SAT 97
[2025-05-10] MEDS: CLINDAMYCIN HCL 150 MG CAP 450 MG PO ×3 (05:32→21:27)
[2025-05-10] MEDS: LEVOTHYROXINE SODIUM 50 MCG TABLET BY MOUTH (05:32)
[2025-05-10 06:00] VITALS: BP 136/69; PULSE 63; RESP 16; TEMP 36.8; O2SAT 98
[2025-05-10] MEDS: MEROPENEM 1 GM in SODIUM CHLORIDE 0.9% IV 100 ML 200 ML IVPB (06:14)
[2025-05-10 08:00] VITALS: O2SAT 98
[2025-05-10] MEDS: APIXABAN 2.5 MG TABLET PO ×2 (08:51→21:28)
[2025-05-10] MEDS: BACLOFEN 10 MG TABLET 40 MG PO (08:51)
[2025-05-10] MEDS: buPROPion HCL XL (24 HR) 150 MG TABCR 450 MG BY MOUTH (08:51)
[2025-05-10] MEDS: SPIRONOLACTONE 25 MG TABLET 50 MG PO ×2 (08:51→16:16)
[2025-05-10] MEDS: PYRIDOXINE HCL 50 MG TABLET 100 MG PO (08:51)
[2025-05-10] MEDS: CITALOPRAM HYDROBROMIDE 20 MG TABLET BY MOUTH (08:51)
[2025-05-10] MEDS: SACCHAROMYCES BOULARDII 250 MG CAPSULE PO ×2 (08:51→16:15)
[2025-05-10] MEDS: PANTOPRAZOLE 40 MG TABLET PO ×2 (08:51→16:15)
--- NOTE | 2025-05-10 11:44 | PM.IMPN ---
Progress Note: A&P Assessment and Plan (1) Wound infection: Code(s): T14.8XXA - Other injury of unspecified body region, initial encounter; L08.9 - Local infection of the skin and subcutaneous tissue, unspecified Status: Acute Assessment and Plan: -patient's wound cultures from 04/29/2025 grew MRSA and Pseudomonas aeruginosa. -blood cultures were redrawn -antibiotic recommendations per Infectious Disease. It Is reported that ER has already consulted Infectious Disease. -the patient does not appear to be septic at this time. -she probably had ulcerations to the left posterior thigh and coccyx area recently but these have already healed now. -wound care consultation and reviewed their recommendations. -patient is not a candidate for PICC line due to her contractures. General Surgery has been consulted for possible Port-A-Cath. Since no further infection is currently present will hold off on further treatment with IV antibiotics. ID consultation obtained continue on clindamycin and meropenem as ordered for 5 days total. 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 -according to the daughter this is prophylactic anticoagulation to prevent DVTs due to her immobility -according to the daughter the patient has not had any DVTs or PE (3) Hypothyroidism, unspecified: Code(s): E03.9 - Hypothyroidism, unspecified Status: Acute Assessment and Plan: -continue with levothyroxine. -her last thyroid level on 03/05/2025 was 1.740. (4) Thyroid nodule: Code(s): E04.1 - Nontoxic single thyroid nodule Status: Acute Assessment and Plan: -as per CT on 52.1 cm left thyroid nodule, recommend outpatient thyroid ultrasound for further characterization. -the patient her daughter stated they were not aware of this thyroid nodule and will like to have for ultrasound performed while she is hospitalized. (5) Peripheral vascular disease: Code(s): I73.9 - Peripheral vascular disease, unspecified Status: Acute Assessment and Plan: -the patient stated that she is following up outpatient with vascular surgery for her peripheral artery disease. (6) Depression: Qualifiers: Depression Type: other depression Qualified Code(s): F32.89 - Other specified depressive episodes Code(s): F32.9 - Major depressive disorder, single episode, unspecified Status: Acute Assessment and Plan: -continue with her home medications. Continue bupropion, citalopram, and abilify (7) Constipation: Qualifiers: Constipation type: slow transit constipation Qualified Code(s): K59.01 - Slow transit constipation Code(s): K59.00 - Constipation, unspecified Status: Resolved Assessment and Plan: -the patient was seen by GI and was placed on MiraLax. Will add milk of magnesium today (8) UTI (urinary tract infection): Code(s): N39.0 - Urinary tract infection, site not specified Status: Acute Assessment and Plan: Urinalysis with 21-50 urine WBC and 3+ leukocyte esterase Patient has chronic indwelling suprapubic catheter Urine culture has been sent Follow urine and blood cultures which is pending at this time. She does not report any particular urinary symptoms though. -the patient is currently on clindamycin and vancomycin. Urine culture Gram-negative bacilli (9) MS (multiple sclerosis): Code(s): G35 - Multiple sclerosis Status: Chronic Assessment and Plan: -continue with her baclofen for the muscle spasms. -neurology is currently unavailable to see her at this time and the patient and her daughter aware of this. Subjective Date/time seen: 05/10/25 11:44 Interval history: Patient constipated. Wants some help with that. No other complaints tolerating antibiotics. Review of Systems Review of Systems: All systems reviewed & are unremarkable except as noted in HPI and below Exam Narrative: APPEARANCE: No acute distress, nontoxic, resting in bed EYES: EOMI HEENT: Normocephalic, atraumatic, OMM RESPIRATORY: No respiratory distress Clear to auscultation bilaterally with no rhonchi wheezing or rales. CARDIOVASCULAR: Regular rate and rhythm without murmurs rubs or gallops. ABDOMINAL: Soft, nontender, nondistended, no rebound or guarding MUSCULOSKELETAL: Moves all extremities. No clubbing, cyanosis or edema. NEURO: Awake and alert. 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 SKIN:: Warm, dry. 4 x 4 cm area of erythema and warmth to the posterior thigh with no active drainage PSYCHIATRIC: Normal affect/mood, Objective Data Vital Signs Vital Signs: Vital Signs - 24 hr 05/09/25 14:00 05/09/25 22:00 05/10/25 06:00 Temperature 98.3 F 99.1 F 98.3 F Pulse Rate 86 71 63 Respiratory Rate 16 16 16 Blood Pressure 111/60 107/53 L 136/69 Pulse Oximetry 97 97 98 Oxygen Delivery 05/10/25 08:00 Temperature Pulse Rate Respiratory Rate Blood Pressure Pulse Oximetry 98 Oxygen Delivery Room Air Intake/Output Intake/Output: Intake & Output 05/07/25 05/08/25 05/09/25 05/10/25 23:59 23:59 23:59 23:59 Intake Total 1350 810 560 460 Output Total 900 1100 1350 1600 Balance 916 -292 -729 -7055 Meds/Results Medications: Active Medications Generic Name Dose Route Start Last Admin Trade Name Freq PRN Reason Stop Dose Admin Acetaminophen 650 mg 05/06/25 19:51 Acetaminophen 325 Mg Tablet PO Q4H PRN Mild Pain (1-3) or Fever Apixaban 2.5 mg 05/07/25 09:00 05/10/25 08:51 Apixaban 2.5 Mg Tablet PO 2.5 mg Q12HR TYRON Administration Aripiprazole 5 mg 05/07/25 21:00 05/09/25 21:28 Aripiprazole 5 Mg Tablet PO 5 mg QHS TYRON Administration Baclofen 40 mg 05/07/25 09:00 05/10/25 08:51 Baclofen 10 Mg Tablet PO 40 mg DAILY TYRON Administration Bupropion HCl 450 mg 05/07/25 09:00 05/10/25 08:51 Bupropion Hcl Xl (24 Hr) 150 Mg Tabcr BY MOUTH 450 mg DAILY TYRON Administration Citalopram Hydrobromide 20 mg 05/07/25 09:00 05/10/25 08:51 Citalopram Hydrobromide 20 Mg Tablet BY MOUTH 20 mg DAILY TYRON Administration Clindamycin HCl 450 mg 05/06/25 22:00 05/10/25 05:32 Clindamycin Hcl 150 Mg Cap PO 05/11/25 14:01 450 mg Q8HR TYRON Administration Dextrose 12.5 gm 05/06/25 19:51 Dextrose 50% 25 Gm/50 Ml Syringe IV PUSH PRN PRN Hypoglycemia Protocol Fluconazole 150 mg 05/11/25 14:30 Fluconazole 150 Mg Tablet PO 05/11/25 14:31 ONCE ONE Furosemide 20 mg 05/11/25 09:00 Furosemide 20 Mg Tablet PO TuTh@0900 TYRON Gabapentin 600 mg 05/07/25 21:00 05/09/25 21:27 Gabapentin 300 Mg Capsule PO 600 mg HS TYRON Administration Glucagon 1 mg 05/06/25 19:51 Glucagon For Inj 1 Mg Vial IM PRN PRN Hypoglycemia Protocol Glucose 15 gm 05/06/25 19:51 Glucose Oral Gel 15 Gm Of Glucse In 37.5 Gm Tube PO PRN PRN Hypoglycemia Protocol Meropenem 1 gm/ Sodium 100 mls @ 200 mls/hr 05/07/25 07:00 05/10/25 06:44 Chloride IVPB 05/11/25 07:29 Infused Q12H TYRON Infusion Dextrose 1,000 mls @ 100 mls/hr 05/06/25 19:51 Dextrose 5% 1,000 Ml IVPB PRN PRN Hypoglycemia Protocol Levothyroxine Sodium 50 mcg 05/07/25 06:30 05/10/25 05:32 Levothyroxine Sodium 50 Mcg Tablet BY MOUTH 50 mcg DAILY@0630 TYRON Administration Meclizine HCl 25 mg 05/07/25 01:01 Meclizine Hcl 25 Mg Tablet PO DAILY PRN Dizziness Midodrine 10 mg 05/07/25 09:00 05/07/25 21:05 Midodrine Hcl 10 Mg Tablet PO 10 mg TID PRN Administration SBP <110 Minoxidil 2.5 mg 05/07/25 09:00 05/10/25 08:51 Minoxidil 2.5 Mg Tablet PO 2.5 mg DAILY TYRON Administration Ondansetron HCl 4 mg 05/06/25 19:51 Ondansetron Inj 4 Mg/2 Ml Vial IV PUSH Q4H PRN Nausea Pantoprazole Sodium 40 mg 05/07/25 09:00 05/10/25 08:51 Pantoprazole 40 Mg Tablet PO 40 mg BID TYRON Administration Polyethylene Glycol 17 gm 05/07/25 03:35 05/09/25 09:48 Polyethylene Glycol 3350 17 Gm Powd.Pack PO 17 gm QAM PRN Administration Constipation Potassium Chloride 10 meq 05/11/25 09:00 Potassium Chloride 10 Meq Er Tablet PO TuTh@0900 TYRON Pyridoxine HCl 100 mg 05/07/25 09:00 05/10/25 08:51 Pyridoxine Hcl 50 Mg Tablet PO 100 mg QAM TYRON Administration Saccharomyces Boulardii 250 mg 05/07/25 09:00 05/10/25 08:51 Saccharomyces Boulardii 250 Mg Capsule PO 250 mg BID TYRON Administration Spironolactone 50 mg 05/07/25 09:00 05/10/25 08:51 Spironolactone 25 Mg Tablet PO 50 mg BID TYRON Administration Radiology Results: ITS Impressions Abdomen/Pelvis CT 05/06/25 19:25 IMPRESSION: 1. Consistent with constipation. 2. Otherwise no acute abnormality. Thyroid Ultrasound 05/07/25 15:01 IMPRESSION: 1. Small thyroid with 2.7 cm benign TI RADS 1 cystic left thyroid nodule.
[2025-05-10] MEDS: MAGNESIUM HYDROXIDE SUSP 30 ML UDC PO (12:23)
[2025-05-10 14:00] VITALS: BP 100/63; PULSE 76; RESP 14; TEMP 36.8; O2SAT 96
[2025-05-10] MEDS: MEROPENEM 1 GM in SODIUM CHLORIDE 0.9% IV 100 ML IVPB (18:26)
--- NOTE | 2025-05-10 19:02 | WPDINFPN2 ---
Progress Note: A&P Assessment and Plan (1) Wound infection: Code(s): T14.8XXA - Other injury of unspecified body region, initial encounter; L08.9 - Local infection of the skin and subcutaneous tissue, unspecified Status: Acute (2) Wound of left leg: Qualifiers: Encounter type: subsequent encounter Qualified Code(s): S81.802D - Unspecified open wound, left lower leg, subsequent encounter Code(s): S81.802A - Unspecified open wound, left lower leg, initial encounter Status: Acute (3) MRSA (methicillin resistant staph aureus) culture positive: Code(s): Z22.322 - Carrier or suspected carrier of Methicillin resistant Staphylococcus aureus Status: Acute (4) Pseudomonas aeruginosa infection: Code(s): A49.8 - Other bacterial infections of unspecified site Status: Acute (5) Catheter-associated urinary tract infection: Code(s): T83.511A - Infection and inflammatory reaction due to indwelling urethral catheter, initial encounter; N39.0 - Urinary tract infection, site not specified Status: Acute (6) MS (multiple sclerosis): Code(s): G35 - Multiple sclerosis Status: Chronic (7) Complete immobility due to severe physical disability or frailty: Code(s): R53.2 - Functional quadriplegia Status: Chronic (8) Allergy to antibiotic: Code(s): Z88.1 - Allergy status to other antibiotic agents Status: Acute (9) Vaginitis: Code(s): N76.0 - Acute vaginitis Status: Acute Plan # Posterior left thigh pressure ulcer wound now culture positive for Pseudomonas and MRSA. # Neurogenic bladder with suprapubic catheter and pyuria on urinalysis-- possible CAUTI. -- urine culture pending. # Multiple antibiotic allergies producing rash including penicillins, oral cephalosporin, ciprofloxacin, and sulfa medications. -- also with GI intolerance to doxycycline. # Concern for [place] vaginitis. Plan: -- Finish meropenem/clnida after tomorrow's doses maintain offloading and protein nutrition. wound care per wound care team. --s/p fluconazole 150 mg p.o. with 2nd dose 05/11/2025. Patient was seen via video telehealth consultation with the assistance of staff. Chart, data, and patient independently reviewed. Patient was located at [facility] while I was located in my [place] office. Received verbal consent from patient. Subjective Date/time seen: 05/10/25 19:02 Interval history: no fever. no issues with abx. no vaginitis Exam Narrative: Lying in bed with significant immobility. Awake, alert, and interactive. Nontoxic in appearance. No conjunctivitis. No respiratory distress. No significant abdominal distention. Issues with constipation continue. Suprapubic catheter in place. Photos of pressure wounds noted. Current primary wound involves left posterior thigh. Per medical staff today, wound already showing improvement. Trace bilateral lower extremity edema. Evidence of hemosiderin deposition secondary to chronic stasis dermatitis. No rash. Objective Data Vital Signs Vital Signs: Vital Signs - 24 hr 05/09/25 22:00 05/10/25 06:00 05/10/25 08:00 Temperature 37.3 C 36.8 C Pulse Rate 71 63 Respiratory Rate 16 16 Blood Pressure 107/53 L 136/69 Pulse Oximetry 97 98 98 Oxygen Delivery Room Air 05/10/25 14:00 Temperature 36.8 C Pulse Rate 76 Respiratory Rate 14 Blood Pressure 100/63 Pulse Oximetry 96 Oxygen Delivery Intake/Output Intake/Output: Intake & Output 05/07/25 05/08/25 05/09/25 05/10/25 23:59 23:59 23:59 23:59 Intake Total 1350 648 660 3450 Output Total 900 1100 1350 2350 Balance 450 -290 -790 -590 Meds/Results Medications: Active Medications Generic Name Dose Route Start Last Admin Trade Name Freq PRN Reason Stop Dose Admin Acetaminophen 650 mg 05/06/25 19:51 Acetaminophen 325 Mg Tablet PO Q4H PRN Mild Pain (1-3) or Fever Apixaban 2.5 mg 05/07/25 09:00 05/10/25 08:51 Apixaban 2.5 Mg Tablet PO 2.5 mg Q12HR TYRON Administration Aripiprazole 5 mg 05/07/25 21:00 05/09/25 21:28 Aripiprazole 5 Mg Tablet PO 5 mg QHS TYRON Administration Baclofen 40 mg 05/07/25 09:00 05/10/25 08:51 Baclofen 10 Mg Tablet PO 40 mg DAILY TYRON Administration Bupropion HCl 450 mg 05/07/25 09:00 05/10/25 08:51 Bupropion Hcl Xl (24 Hr) 150 Mg Tabcr BY MOUTH 450 mg DAILY TYRON Administration Citalopram Hydrobromide 20 mg 05/07/25 09:00 05/10/25 08:51 Citalopram Hydrobromide 20 Mg Tablet BY MOUTH 20 mg DAILY TYRON Administration Clindamycin HCl 450 mg 05/06/25 22:00 05/10/25 14:09 Clindamycin Hcl 150 Mg Cap PO 05/11/25 14:01 450 mg Q8HR TYRON Administration Dextrose 12.5 gm 05/06/25 19:51 Dextrose 50% 25 Gm/50 Ml Syringe IV PUSH PRN PRN Hypoglycemia Protocol Fluconazole 150 mg 05/11/25 14:30 Fluconazole 150 Mg Tablet PO 05/11/25 14:31 ONCE ONE Furosemide 20 mg 05/11/25 09:00 Furosemide 20 Mg Tablet PO TuTh@0900 TYRON Gabapentin 600 mg 05/07/25 21:00 05/09/25 21:27 Gabapentin 300 Mg Capsule PO 600 mg HS TYRON Administration Glucagon 1 mg 05/06/25 19:51 Glucagon For Inj 1 Mg Vial IM PRN PRN Hypoglycemia Protocol Glucose 15 gm 05/06/25 19:51 Glucose Oral Gel 15 Gm Of Glucse In 37.5 Gm Tube PO PRN PRN Hypoglycemia Protocol Meropenem 1 gm/ Sodium 100 mls @ 200 mls/hr 05/07/25 07:00 05/10/25 18:26 Chloride IVPB 05/11/25 07:29 100 mls/hr Q12H TYRON Administration Dextrose 1,000 mls @ 100 mls/hr 05/06/25 19:51 Dextrose 5% 1,000 Ml IVPB PRN PRN Hypoglycemia Protocol Levothyroxine Sodium 50 mcg 05/07/25 06:30 05/10/25 05:32 Levothyroxine Sodium 50 Mcg Tablet BY MOUTH 50 mcg DAILY@0630 TYRON Administration Meclizine HCl 25 mg 05/07/25 01:01 Meclizine Hcl 25 Mg Tablet PO DAILY PRN Dizziness Midodrine 10 mg 05/07/25 09:00 05/07/25 21:05 Midodrine Hcl 10 Mg Tablet PO 10 mg TID PRN Administration SBP <110 Minoxidil 2.5 mg 05/07/25 09:00 05/10/25 08:51 Minoxidil 2.5 Mg Tablet PO 2.5 mg DAILY TYRON Administration Ondansetron HCl 4 mg 05/06/25 19:51 Ondansetron Inj 4 Mg/2 Ml Vial IV PUSH Q4H PRN Nausea Pantoprazole Sodium 40 mg 05/07/25 09:00 05/10/25 16:15 Pantoprazole 40 Mg Tablet PO 40 mg BID TYRON Administration Polyethylene Glycol 17 gm 05/07/25 03:35 05/09/25 09:48 Polyethylene Glycol 3350 17 Gm Powd.Pack PO 17 gm QAM PRN Administration Constipation Potassium Chloride 10 meq 05/11/25 09:00 Potassium Chloride 10 Meq Er Tablet PO TuTh@0900 TYRON Pyridoxine HCl 100 mg 05/07/25 09:00 05/10/25 08:51 Pyridoxine Hcl 50 Mg Tablet PO 100 mg QAM TYRON Administration Saccharomyces Boulardii 250 mg 05/07/25 09:00 05/10/25 16:15 Saccharomyces Boulardii 250 Mg Capsule PO 250 mg BID TYRON Administration Spironolactone 50 mg 05/07/25 09:00 05/10/25 16:16 Spironolactone 25 Mg Tablet PO 50 mg BID TYRON Administration Radiology Results: ITS Impressions Abdomen/Pelvis CT 05/06/25 19:25 IMPRESSION: 1. Consistent with constipation. 2. Otherwise no acute abnormality. Thyroid Ultrasound 05/07/25 15:01 IMPRESSION: 1. Small thyroid with 2.7 cm benign TI RADS 1 cystic left thyroid nodule.
[2025-05-10] MEDS: GABAPENTIN 300 MG CAPSULE 600 MG PO (21:27)
[2025-05-10 21:50] VITALS: BP 124/66; PULSE 80; RESP 18; TEMP 36.6; O2SAT 96
[2025-05-11 04:35] VITALS: BP 118/63; PULSE 62; RESP 16; TEMP 36.3; O2SAT 97
[2025-05-11] MEDS: MEROPENEM 1 GM in SODIUM CHLORIDE 0.9% IV 100 ML IVPB (06:16)
[2025-05-11] MEDS: LEVOTHYROXINE SODIUM 50 MCG TABLET BY MOUTH (06:18)
[2025-05-11] MEDS: CLINDAMYCIN HCL 150 MG CAP 450 MG PO ×2 (06:19→13:21)
[2025-05-11] MEDS: SPIRONOLACTONE 25 MG TABLET 50 MG PO (08:32)
[2025-05-11] MEDS: CITALOPRAM HYDROBROMIDE 20 MG TABLET BY MOUTH (08:32)
[2025-05-11] MEDS: SACCHAROMYCES BOULARDII 250 MG CAPSULE PO (08:32)
[2025-05-11] MEDS: APIXABAN 2.5 MG TABLET PO (08:32)
[2025-05-11] MEDS: PANTOPRAZOLE 40 MG TABLET PO (08:33)
[2025-05-11] MEDS: BACLOFEN 10 MG TABLET 40 MG PO (08:33)
[2025-05-11] MEDS: PYRIDOXINE HCL 50 MG TABLET 100 MG PO (08:34)
[2025-05-11] MEDS: buPROPion HCL XL (24 HR) 150 MG TABCR 450 MG BY MOUTH (08:34)
[2025-05-11] MEDS: FUROSEMIDE 20 MG TABLET PO (08:39)
[2025-05-11] MEDS: POTASSIUM CHLORIDE 10 MEQ ER TABLET PO (08:39)
--- NOTE | 2025-05-11 11:34 | P.PNINF_ITS ---
Progress Note: A&P Assessment and Plan (1) Wound infection: Code(s): T14.8XXA - Other injury of unspecified body region, initial encounter; L08.9 - Local infection of the skin and subcutaneous tissue, unspecified Status: Acute (2) Wound of left leg: Qualifiers: Encounter type: subsequent encounter Qualified Code(s): S81.802D - Unspecified open wound, left lower leg, subsequent encounter Code(s): S81.802A - Unspecified open wound, left lower leg, initial encounter Status: Acute (3) MRSA (methicillin resistant staph aureus) culture positive: Code(s): Z22.322 - Carrier or suspected carrier of Methicillin resistant Staphylococcus aureus Status: Acute (4) Pseudomonas aeruginosa infection: Code(s): A49.8 - Other bacterial infections of unspecified site Status: Acute (5) Catheter-associated urinary tract infection: Code(s): T83.511A - Infection and inflammatory reaction due to indwelling urethral catheter, initial encounter; N39.0 - Urinary tract infection, site not specified Status: Acute (6) MS (multiple sclerosis): Code(s): G35 - Multiple sclerosis Status: Chronic (7) Complete immobility due to severe physical disability or frailty: Code(s): R53.2 - Functional quadriplegia Status: Chronic (8) Allergy to antibiotic: Code(s): Z88.1 - Allergy status to other antibiotic agents Status: Acute (9) Vaginitis: Code(s): N76.0 - Acute vaginitis Status: Acute Plan # Posterior left thigh pressure ulcer wound now culture positive for Pseudomonas and MRSA. # Neurogenic bladder with suprapubic catheter and pyuria on urinalysis-- possible CAUTI. -- urine culture pending. # Multiple antibiotic allergies producing rash including penicillins, oral cephalosporin, ciprofloxacin, and sulfa medications. -- also with GI intolerance to doxycycline. # Concern for [place] vaginitis. Plan: --Completed Meropenem this morning and will complete Clindamycin PO later today maintain offloading and protein nutrition. wound care per wound care team. --s/p fluconazole 150 mg p.o. with 2nd dose scheduled for today Antimicrobial plan of care discussed in detail with patient today. All questions answered Discharge planning per primary service Patient was seen via video telehealth consultation with the assistance of staff. Chart, data, and patient independently reviewed. Patient was located at [facility] while I was located in my [place] office. Received verbal consent from patient. Subjective Date/time seen: 05/11/25 11:34 Interval history: Patient afebrile. She feels quite well today. Completing antimicrobial course today. Review of Systems Review of Systems: All systems reviewed & are unremarkable except as noted in HPI and below Exam Narrative: Lying in bed with significant immobility. Awake, alert, and interactive. Nontoxic in appearance. No conjunctivitis. No respiratory distress. No significant abdominal distention. Issues with constipation continue. Suprapubic catheter in place. Photos of pressure wounds noted. Current primary wound involves left posterior thigh. Per medical staff today, wound already showing improvement. Trace bilateral lower extremity edema. Evidence of hemosiderin deposition secondary to chronic stasis dermatitis. No rash. Objective Data Vital Signs Vital Signs: Vital Signs - 24 hr 05/10/25 14:00 05/10/25 20:00 05/10/25 21:50 Temperature 98.3 F 97.8 F Pulse Rate 76 80 Respiratory Rate 14 18 Blood Pressure 100/63 124/66 Pulse Oximetry 96 96 Oxygen Delivery Room Air 05/11/25 04:35 Temperature 97.3 F L Pulse Rate 62 Respiratory Rate 16 Blood Pressure 118/63 Pulse Oximetry 97 Oxygen Delivery Intake/Output Intake/Output: Intake & Output 05/08/25 05/09/25 05/10/25 05/11/25 23:59 23:59 23:59 23:59 Intake Total 240 568 3197 220 Output Total 1100 1350 2350 700 Balance -290 -790 -490 -480 Meds/Results Medications: Active Medications Generic Name Dose Route Start Last Admin Trade Name Freq PRN Reason Stop Dose Admin Acetaminophen 650 mg 05/06/25 19:51 Acetaminophen 325 Mg Tablet PO Q4H PRN Mild Pain (1-3) or Fever Apixaban 2.5 mg 05/07/25 09:00 05/11/25 08:32 Apixaban 2.5 Mg Tablet PO 2.5 mg Q12HR TYRON Administration Aripiprazole 5 mg 05/07/25 21:00 05/10/25 21:28 Aripiprazole 5 Mg Tablet PO 5 mg QHS TYRON Administration Baclofen 40 mg 05/07/25 09:00 05/11/25 08:33 Baclofen 10 Mg Tablet PO 40 mg DAILY TYRON Administration Bupropion HCl 450 mg 05/07/25 09:00 05/11/25 08:34 Bupropion Hcl Xl (24 Hr) 150 Mg Tabcr BY MOUTH 450 mg DAILY TYRON Administration Citalopram Hydrobromide 20 mg 05/07/25 09:00 05/11/25 08:32 Citalopram Hydrobromide 20 Mg Tablet BY MOUTH 20 mg DAILY TYRON Administration Clindamycin HCl 450 mg 05/06/25 22:00 05/11/25 06:19 Clindamycin Hcl 150 Mg Cap PO 05/11/25 14:01 450 mg Q8HR TYRON Administration Dextrose 12.5 gm 05/06/25 19:51 Dextrose 50% 25 Gm/50 Ml Syringe IV PUSH PRN PRN Hypoglycemia Protocol Fluconazole 150 mg 05/11/25 14:30 Fluconazole 150 Mg Tablet PO 05/11/25 14:31 ONCE ONE Furosemide 20 mg 05/11/25 09:00 05/11/25 08:39 Furosemide 20 Mg Tablet PO 20 mg TuTh@0900 TYRON Administration Gabapentin 600 mg 05/07/25 21:00 05/10/25 21:27 Gabapentin 300 Mg Capsule PO 600 mg HS TYRON Administration Glucagon 1 mg 05/06/25 19:51 Glucagon For Inj 1 Mg Vial IM PRN PRN Hypoglycemia Protocol Glucose 15 gm 05/06/25 19:51 Glucose Oral Gel 15 Gm Of Glucse In 37.5 Gm Tube PO PRN PRN Hypoglycemia Protocol Dextrose 1,000 mls @ 100 mls/hr 05/06/25 19:51 Dextrose 5% 1,000 Ml IVPB PRN PRN Hypoglycemia Protocol Levothyroxine Sodium 50 mcg 05/07/25 06:30 05/11/25 06:18 Levothyroxine Sodium 50 Mcg Tablet BY MOUTH 50 mcg DAILY@0630 TYRON Administration Meclizine HCl 25 mg 05/07/25 01:01 Meclizine Hcl 25 Mg Tablet PO DAILY PRN Dizziness Midodrine 10 mg 05/07/25 09:00 05/07/25 21:05 Midodrine Hcl 10 Mg Tablet PO 10 mg TID PRN Administration SBP <110 Minoxidil 2.5 mg 05/07/25 09:00 05/11/25 08:33 Minoxidil 2.5 Mg Tablet PO 2.5 mg DAILY TYRON Administration Ondansetron HCl 4 mg 05/06/25 19:51 Ondansetron Inj 4 Mg/2 Ml Vial IV PUSH Q4H PRN Nausea Pantoprazole Sodium 40 mg 05/07/25 09:00 05/11/25 08:33 Pantoprazole 40 Mg Tablet PO 40 mg BID TYRON Administration Polyethylene Glycol 17 gm 05/07/25 03:35 05/09/25 09:48 Polyethylene Glycol 3350 17 Gm Powd.Pack PO 17 gm QAM PRN Administration Constipation Potassium Chloride 10 meq 05/11/25 09:00 05/11/25 08:39 Potassium Chloride 10 Meq Er Tablet PO 10 meq TuTh@0900 TYRON Administration Pyridoxine HCl 100 mg 05/07/25 09:00 05/11/25 08:34 Pyridoxine Hcl 50 Mg Tablet PO 100 mg QAM TYRON Administration Saccharomyces Boulardii 250 mg 05/07/25 09:00 05/11/25 08:32 Saccharomyces Boulardii 250 Mg Capsule PO 250 mg BID TYRON Administration Spironolactone 50 mg 05/07/25 09:00 05/11/25 08:32 Spironolactone 25 Mg Tablet PO 50 mg BID TYRON Administration Radiology Results: ITS Impressions Abdomen/Pelvis CT 05/06/25 19:25 IMPRESSION: 1. Consistent with constipation. 2. Otherwise no acute abnormality. Thyroid Ultrasound 05/07/25 15:01 IMPRESSION: 1. Small thyroid with 2.7 cm benign TI RADS 1 cystic left thyroid nodule.
--- NOTE | 2025-05-11 12:11 | P.DS_ITS ---
DS: Admitting Diagnosis Discharge Date 05/11/2025 Admitting Diagnosis wound infection DS: Discharge Diagnosis Discharge Diagnosis (1) Wound infection: Code(s): T14.8XXA - Other injury of unspecified body region, initial encounter; L08.9 - Local infection of the skin and subcutaneous tissue, unspecified Status: Acute (2) Anticoagulant long-term use: Onset Date: Unknown Code(s): Z79.01 - procedure manager (current) use of anticoagulants Status: Chronic (3) Hypothyroidism, unspecified: Code(s): E03.9 - Hypothyroidism, unspecified Status: Acute (4) Thyroid nodule: Code(s): E04.1 - Nontoxic single thyroid nodule Status: Acute (5) Peripheral vascular disease: Code(s): I73.9 - Peripheral vascular disease, unspecified Status: Acute (6) Depression: Qualifiers: Depression Type: other depression Qualified Code(s): F32.89 - Other specified depressive episodes Code(s): F32.9 - Major depressive disorder, single episode, unspecified Status: Acute (7) Constipation: Qualifiers: Constipation type: slow transit constipation Qualified Code(s): K59.01 - Slow transit constipation Code(s): K59.00 - Constipation, unspecified Status: Resolved (8) UTI (urinary tract infection): Code(s): N39.0 - Urinary tract infection, site not specified Status: Acute (9) MS (multiple sclerosis): Code(s): G35 - Multiple sclerosis Status: Chronic DS: Summary Hospital Course Hospital Course: # Wound infection: -patient's wound cultures from back of her thigh 04/29/2025 grew MRSA and Pseudomonas aeruginosa. -blood cultures were redrawn which came back negative -antibiotic recommendations per Infectious Disease. -the patient does not appear to be septic at this time. -she probably had ulcerations to the left posterior thigh and coccyx area recently but these have already healed now. -wound care consultation and reviewed their recommendations. -patient is not a candidate for PICC line due to her contractures. General Ame stratton has been consulted for possible Port-A-Cath. decision was made to forego Port-A-Cath placement this time ID consultation obtained continue on clindamycin and meropenem as ordered for 5 days total. she concluded IV antibiotic treatment during hospital stay # Anticoagulant long-term use: -the patient is on Eliquis due to her MS she is chronically bed ridden. -according to the daughter this is prophylactic anticoagulation to prevent DVTs due to her immobility -according to the daughter the patient has not had any DVTs or PE # Hypothyroidism, unspecified: -continue with levothyroxine. -her last thyroid level on 03/05/2025 was 1.740. # Thyroid nodule: -as per CT on .1 cm left thyroid nodule, recommend outpatient thyroid ultrasound for further characterization. -the patient her daughter stated they were not aware of this thyroid nodule and will like to have for ultrasound performed while she is hospitalized. # Peripheral vascular disease: -the patient stated that she is following up outpatient with vascular surgery for her peripheral artery disease. #Depression: -continue with her home medications. Continue bupropion, citalopram, and abilify #Constipation: -the patient was seen by GI and was placed on MiraLax. added milk of magnesia and helping # UTI (urinary tract infection): Urinalysis with 21-50 urine WBC and 3+ leukocyte esterase Patient has chronic indwelling suprapubic catheter Urine culture has been sent Follow urine and blood cultures which is pending at this time. She does not report any particular urinary symptoms though. -the patient is currently on clindamycin and vancomycin. Urine culture Gram-negative bacilli sensitivity not back by the time of discharge. #MS (multiple sclerosis): -continue with her baclofen for the muscle spasms. -neurology is currently unavailable to see her at this time and the patient and her daughter aware of this. Subjective Time Spent with Patient Time attestation: Total time spent providing and/or coordinating discharge services: 45 minutes Exam Narrative: APPEARANCE: No acute distress, nontoxic, resting in bed EYES: EOMI HEENT: Normocephalic, atraumatic, OMM RESPIRATORY: No respiratory distress Clear to auscultation bilaterally with no rhonchi wheezing or rales. CARDIOVASCULAR: Regular rate and rhythm without murmurs rubs or gallops. ABDOMINAL: Soft, nontender, nondistended, no rebound or guarding MUSCULOSKELETAL: Moves all extremities. No clubbing, cyanosis or edema. NEURO: Awake and alert. 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 SKIN:: Warm, dry. 4 x 4 cm area of erythema and warmth to the posterior thigh with no active drainage PSYCHIATRIC: Normal affect/mood, DS: Data Data Completed and Pending Labs on day of discharge: Preliminary micro results at discharge 05/06/25 18:11 Blood Culture - Preliminary Blood 05/06/25 18:10 Blood Culture - Preliminary Blood 05/06/25 18:09 - Preliminary Urine Suprapubic Gram negative bacilli isolated Imaging Radiologist's impression: ITS Impressions Abdomen/Pelvis CT 05/06/25 19:25 IMPRESSION: 1. Consistent with constipation. 2. Otherwise no acute abnormality. Thyroid Ultrasound 05/07/25 15:01 IMPRESSION: 1. Small thyroid with 2.7 cm benign TI RADS 1 cystic left thyroid nodule. Discharge Plan Discharge Attending physician on discharge: Roberto Oliver Consulting providers: Vlad Epstein Discharging Clinician: Roberto Oliver Anticipated Discharge Date/Time: 05/11/25 12:15 Patient Disposition: Home Activity: as tolerated Diet: regular Patient Instructions: Antibiotic Form Patient Language: Uzbek Stand Alone Forms: General Discharge Information Follow-up/Referrals: Natalia Juarez MD [Primary Care Provider, Family Practice] - 1 Week Herve Guevara MD [Physician, General Surgery] - Other Referral Note: Please give patient my office contact information in case she would wish to see me and discuss Port-A-Cath placement in the future. Discharge Medications: New polyethylene glycol 3350 [Miralax] 17 gram Powder In Packet 17 g PO QAM PRN (Reason: Constipation) Qty: 30 0RF bisacodyl 5 mg tablet,delayed release (DR/EC) 5 mg PO HS PRN (Reason: constipation) Qty: 30 0RF Continued minoxidil 2.5 mg tablet 2.5 mg PO DAILY furosemide [Lasix] 20 mg tablet 20 mg PO .COMPLEX Qty: 30 0RF Rx Instructions: 20 mg orally; On and potassium chloride 10 mEq capsule, extended release 10 meq PO .COMPLEX Qty: 30 0RF Rx Instructions: 10 mEq orally; On and with Furosemide pyridoxine (vitamin B6) 100 mg tablet 100 mg PO DAILY Qty: 100 0RF gabapentin 300 mg capsule 600 mg PO HS nystatin 100,000 unit/gram cream 1 applic topical BID PRN (Reason: rash) Patient Comments: vaginally nystatin 100,000 unit/gram powder 1 applic topical BID PRN (Reason: rash) Patient Comments: vaginally meclizine 25 mg tablet 25 mg PO DAILY PRN (Reason: dizziness) omeprazole 40 mg capsule,delayed release(DR/EC) 40 mg PO BID Qty: 180 2RF Eliquis 2.5 mg tablet 2.5 mg PO BID Qty: 60 6RF levothyroxine 50 mcg tablet See Rx Instructions .ROUTE .COMPLEX Qty: 90 1RF Dose Instruction: TAKE 1 TABLET BY MOUTH EVERY DAY Rx Instructions: TAKE 1 TABLET BY MOUTH EVERY DAY bupropion HCl 150 mg tablet extended release 24 hr See Rx Instructions .ROUTE .COMPLEX Qty: 90 2RF Dose Instruction: TAKE 3 TABLETS BY MOUTH EVERY MORNING Rx Instructions: TAKE 3 TABLETS BY MOUTH EVERY MORNING baclofen 20 mg tablet 40 mg PO DAILY Qty: 270 1RF citalopram 40 mg tablet See Rx Instructions .ROUTE .COMPLEX Qty: 30 6RF Dose Instruction: TAKE 1 TABLET BY MOUTH DAILY Rx Instructions: TAKE 1 TABLET BY MOUTH DAILY aripiprazole [Abilify] 5 mg tablet 5 mg PO QHS Qty: 90 0RF midodrine 10 mg tablet 10 mg PO .COMPLEX Qty: 42 0RF Rx Instructions: 10 mg orally; 10 mg orally TID PRN for systolic blood pressure <110; do not give last dose of day after 6PM or within 4 hrs of bedtime (DME) eliane lift See Rx Instructions .Route .MEDSUPPLY Qty: 1 0RF Rx Instructions: As directed daily (DME) ELIANE LIFT See Rx Instructions .Route .MEDSUPPLY Qty: 1 0RF Rx Instructions: As directed DAILY spironolactone 25 mg tablet 50 mg PO BID Qty: 360 2RF (DME) air mattress See Rx Instructions .Route .MEDSUPPLY Qty: 1 0RF Patient Comments: haven't gotten it yet Rx Instructions: As directed daily Discontinued clindamycin HCl [Cleocin HCl] 300 mg capsule 300 mg PO Q6H 5 Days Qty: 20 0RF Date of admission: 05/07/25 08:23 Primary Care Provider: Natalia Juarez Admitting Provider: Sharon Crook Attending physician on admission: Sharon Crook Condition: Stable
[2025-05-11] MEDS: FLUCONAZOLE 150 MG TABLET PO (13:22)
[2025-05-11 14:00] VITALS: BP 101/58; PULSE 71; RESP 16; TEMP 36.1; O2SAT 97
[2025-05-11] MEDS: INFLUENZA VACCINE 45 MCG/0.5 ML SYRINGE IM (14:06)
== END 2025-05-11 15:20 | disposition home or self-care (01) | DRG 602 ==
LOC: ANHED 19:55 → ANH3MEDSUR 20:39
PROVIDERS: Nurse Practitioner; Admitting Provider Internal Medicine; Emergency Provider Emergency Medicine; PCP Family Medicine; Visit Provider Internal Medicine
DX: L08.89 Other specified local infections of the skin and subcutaneous tissue (principal); R53.2 Functional quadriplegia; T83.518A Infection and inflammatory reaction due to other urinary catheter, initial encounter; S71.102D Unspecified open wound, left thigh, subsequent encounter; S31.829D Unspecified open wound of left buttock, subsequent encounter; E03.9 Hypothyroidism, unspecified; E04.1 Nontoxic single thyroid nodule; I73.9 Peripheral vascular disease, unspecified; G35 Multiple sclerosis; N31.9 Neuromuscular dysfunction of bladder, unspecified; L81.8 Other specified disorders of pigmentation; R60.0 Localized edema; M21.372 Foot drop, left foot; M21.371 Foot drop, right foot; F32.A Depression, unspecified; N76.0 Acute vaginitis; R15.9 Full incontinence of feces; K59.00 Constipation, unspecified; B95.62 Methicillin resistant Staphylococcus aureus infection as the cause of diseases classified elsewhere; B96.5 Pseudomonas (aeruginosa) (mallei) (pseudomallei) as the cause of diseases classified elsewhere; M43.6 Torticollis; I87.2 Venous insufficiency (chronic) (peripheral); Z96.0 Presence of urogenital implants; X58.XXXD Exposure to other specified factors, subsequent encounter; Z74.01 Bed confinement status; Z90.49 Acquired absence of other specified parts of digestive tract; Z88.1 Allergy status to other antibiotic agents; Z79.01 Long term (current) use of anticoagulants; Z23 Encounter for immunization
CPT/HCPCS: 36415; 74177; 76536; 80048; 80053; 81001; 83735; 85025; 85610; 85730; 87040; 87086; 87186; 87637; 90471; 90656; 96365; 96366; 99285; A9270; C1751; G0008; G0378; J2003; J2185; Q9967

== ENCOUNTER 2025-08-02 13:39 | Outpatient (NON) | payer MEDICARE, MEDICAID, SELFPAY ==
[2025-08-02 17:40] LABS: Add Urine Microscopic? YES; Appearance Urine Cloudy (Clear); Glucose Urine UA Negative (Negative); Leukocyte Esterase Ur 3+ LEU/UL (Negative); Nitrate Urine Negative (Negative); Non Pathogenic Casts 0-2; Specific Grav Ur 1.007 (1.001-1.035)
== END 2025-08-02 13:40 | disposition home or self-care (01) ==
PROVIDERS: PCP Student in an Organized Health Care Education/Training Program; Visit Provider Physician Assistant
DX: Z43.5 Encounter for attention to cystostomy (principal); N31.9 Neuromuscular dysfunction of bladder, unspecified; R33.9 Retention of urine, unspecified; G35.D Multiple sclerosis, unspecified
CPT/HCPCS: 81001; 87077; 87086; 87186